=== PATIENT | male | born 1935 | race Hispanic/Latino ===

== ENCOUNTER 2021-04-01 11:13 | Inpatient (IN) | payer OTHER ==
[2021-04-01 11:45] LABS: Absolute Lymphocytes (CBC) 1.3 K/uL (0.7-4.9); Hematocrit 36.3 % (39.6-49.0); Lymphocytes % 15.7 % (15.3-44.8); RBC Red Blood Cell Count 4.09 M/uL (4.33-5.43)
[2021-04-01 11:46] LABS: Protime INR 1.01
[2021-04-01] MEDS ORDERED: NITROGLYCERIN 0.4 MG/TAB SL ONE (11:58)
--- NOTE | 2021-04-01 11:58 | RAD REPORT ---
EXAM DESCRIPTION: RAD - Chest Single View - 04/01/2021 11:41 am CLINICAL HISTORY: CHEST PAIN COMPARISON: Two view chest December 2012 TECHNIQUE: AP portable chest image was obtained 04/01/2021 11:41 am . FINDINGS: Lung volumes are low. No focal abnormality of the right lung field seen. Upper left lung f ield is clear. Retrocardiac left base is limited by shallow inspiration, under penetrated technique a nd overlying soft tissues. CABG surgical changes are present. Cardiomegaly is present accentuated by portable technique and sha llow inspiration. Upper lobe vasculature within normal limits. No pneumothorax or large pleural effus ion. No acute bony abnormality seen. No acute aortic findings suspected. IMPRESSION: Limited portable study without acute cardiopulmonary process. Cardiomegaly is present without other findings of failure. Retrocardiac left base is mostly obscured.
[2021-04-01] MEDS ORDERED: ASPIRIN 81 MG CHEWABLE TABLET ONE (12:00)
[2021-04-01 12:13] LABS: ALT/SGPT 25 U/L (12-78); AST/SGOT 14 U/L (15-37); Albumin 3.3 g/dL (3.4-5.0); Alkaline Phosphatase 157 U/L (45-117); BUN Blood Urea Nitrogen 34 mg/dL (7-18); Bicarbonate 23 mmol/L (21-32); Bilirubin Direct < 0.1 mg/dL (0-0.2); Bilirubin Total 0.4 mg/dL (0.2-1.0); Glucose Level 374 mg/dL (74-106); Magnesium 2.3 mg/dL (1.8-2.4); NT PRO-BNP 1110 pg/mL (<450); Protein, Total 7.8 g/dL (6.4-8.2); Sodium Level 136 mmol/L (136-145)
--- NOTE | 2021-04-01 14:45 | EDPHYS ---
Physician Documentation [facility] Name: Jacques Apodaca Age: 86 yrs Sex: Male : 1935 Arrival Date: 04/01/2021 Time: 11:19 Bed 30 Private MD: Carmen Perry C ED Physician Dom Meyers HPI: 04/01 11:55 This 86 yrs old Male presents to ER via Wheelchair with complaints of Chest cp Pain > 30 y/o. 11:55 The patient or guardian reports chest pain that is located primarily in the substernal cp area. 11:55 Onset: today, about 1000. The pain radiates to the left shoulder. Associated signs and cp symptoms: Pertinent negatives: abdominal pain, cough, dizziness, lower extremity pain, lower extremity swelling. The chest pain is described as a pressure. 11:55 Duration: The patient or guardian reports a single episode, that is still ongoing, but cp improving. Historical: - Allergies: 11:24 SHELLFISH; ss 11:24 Heparin; ss - Home Meds: 11:25 aspirin 81 mg Oral tab 81 mg daily [Active]; atorvastatin 40 mg oral tab 1 tab once ss daily [Active]; carvedilol 12.5 mg oral tab [Active]; gabapentin 100 mg oral cap [Active]; hydralazine Oral [Active]; Lantus U-100 Insulin 100 unit/mL Sub-Q soln [Active]; losartan 100 mg oral tab 1 tab once daily [Active]; nifedipine 90 mg Oral tr24 1 tab once daily [Active]; - Immunization history:: Adult Immunizations up to date. - Social history:: Smoking status: Patient denies any tobacco usage or history of. ROS: 12:00 Cardiovascular: Positive for chest pain. cp 12:00 Constitutional: Negative for body aches, chills, fever, poor PO intake. cp 12:00 Eyes: Negative for injury, pain, redness, and discharge. cp 12:00 ENT: Negative for drainage from ear(s), ear pain, sore throat, difficulty swallowing, difficulty handling secretions. 12:00 Respiratory: Negative for cough, shortness of breath, wheezing. 12:00 Abdomen/GI: Negative for abdominal pain, nausea, vomiting, and diarrhea. 12:00 Neuro: Negative for altered mental status, headache, syncope, weakness. 12:00 All other systems are negative. Exam: 11:35 ECG was reviewed by the Attending Physician. cp 12:05 Constitutional: The patient appears in no acute distress, alert, awake, cp non-diaphoretic, non-toxic, well developed, well nourished, obese. 12:05 Head/Face: Normocephalic, atraumatic. cp 12:05 Eyes: Periorbital structures: appear normal, Conjunctiva: normal, no exudate, no injection, Sclera: no appreciated abnormality, Lids and lashes: appear normal, bilaterally. 12:05 ENT: External ear(s): are unremarkable, Nose: is normal, Mouth: Lips: moist, Oral mucosa: moist, Posterior pharynx: Airway: no evidence of obstruction, patent. 12:05 Neck: ROM/movement: limited range of motion, is not appreciated, nuchal rigidity, is not appreciated. 12:05 Chest/axilla: Inspection: normal, Palpation: is normal, no crepitus, no tenderness. 12:05 Cardiovascular: Rate: normal, Rhythm: regular, Edema: is not appreciated, JVD: is not appreciated. 12:05 Respiratory: the patient does not display signs of respiratory distress, Respirations: normal, no use of accessory muscles, no retractions, labored breathing, is not present, Breath sounds: are clear throughout, no decreased breath sounds, no stridor, no wheezing. 12:05 Abdomen/GI: Inspection: abdomen appears normal, Bowel sounds: active, all quadrants, Palpation: abdomen is soft and non-tender, in all quadrants. 12:05 Back: pain, is absent, ROM is normal. 12:05 Neuro: Orientation: no acute changes, per family, Mentation: able to follow commands, slow to respond, Motor: moves all fours, strength is normal, Sensation: is normal. Vital Signs: 11:32 BP 129 / 64; Pulse 71; Resp 18; Temp 98.2(TE); Pulse Ox 100% ; Weight 99.79 kg; Height ww 5 ft. 7 in. (170.18 cm); Pain 0/10; 12:30 BP 134 / 63; Pulse 66; Resp 15; Pulse Ox 99% on R/A; ww 13:30 BP 129 / 61; Pulse 63; Resp 12; Pulse Ox 97% on R/A; ww 14:17 BP 137 / 70; Pulse 64; Resp 18; Pulse Ox 98% on R/A; fonseca 15:24 BP 147 / 63; Pulse 66; Resp 18; Pulse Ox 99% on R/A; ww 16:30 BP 138 / 66; Pulse 68; Resp 18; Pulse Ox 99% on R/A; ww 17:30 BP 148 / 68; Pulse 65; Resp 18; Pulse Ox 99% on R/A; ww 11:32 Body Mass Index 34.46 (99.79 kg, 170.18 cm) MDM: 11:44 Patient medically screened. cp 14:00 Physician consultation: Yoni Michael MD was contacted at 14:00, regarding consult, cp patient's condition, does not recommend use of Lovenox with patient's adverse effect of thrombocytopenia with heparin use. Give ASA and admit. 14:45 Data reviewed: vital signs, nurses notes, lab test result(s), EKG, radiologic studies, cp plain films. 14:45 The patient was given aspirin in the Emergency Department. Test interpretation: by ED cp physician or midlevel provider: ECG, plain radiologic studies. Counseling: I had a detailed discussion with the patient and/or guardian regarding: the historical points, exam findings, and any diagnostic results supporting the discharge/admit diagnosis, lab results, radiology results, the need for further work-up and treatment in the hospital. Physician consultation: Mendel Morataya MD was called at 14:40, was contacted at 14:40, regarding admission, to the telemetry unit. patient's condition. 04/01 11:24 Order name: Basic Metabolic Panel; Complete Time: 12:04/01 12:21 Interpretation: Normal except: GLUC 374; BUN 34; CRE 2.30; GFR 27. cp 04/01 11:24 Order name: CBC with Diff; Complete Time: 12:04/01 11:24 Order name: LFT's; Complete Time: 12:04/01 11:24 Order name: Magnesium; Complete Time: 12:04/01 11:24 Order name: NT PRO-BNP; Complete Time: 12:04/01 11:24 Order name: PT-INR; Complete Time: 12:04/01 11:24 Order name: Troponin HS; Complete Time: 12:04/01 11:32 Order name: COVID-19 SARS RT PCR (Document "Date of Onset" if Symptomatic); Complete ss Time: 12:49 04/01 15:10 Order name: Glucose, Ancillary Testing; Complete Time: 18:26 EDRI 04/01 17:01 Order name: Troponin HS 04/01 17:01 Order name: Troponin High Sensitivity; Complete Time: 18:26 EDRI 04/01 17:25 Order name: Basic Metabolic Panel [facility] 04/01 17:25 Order name: Basic Metabolic Panel [facility] 04/01 17:25 Order name: CBC with Automated Diff [facility] 04/01 11:24 Order name: XRAY Chest (1 view); Complete Time: 12:17 04/01 11:24 Order name: EKG; Complete Time: 11:25 04/01 11:24 Order name: Cardiac monitoring; Complete Time: 11:31 04/01 11:24 Order name: EKG - Nurse/Tech; Complete Time: 11:31 04/01 11:24 Order name: IV Saline Lock; Complete Time: 11:31 04/01 11:24 Order name: Labs collected and sent; Complete Time: 11:31 04/01 11:24 Order name: O2 Per Protocol; Complete Time: 11:32 04/01 13:08 Order name: Echo w/ Doppler cp 04/01 17:14 Order name: Diet Ada 1800 Nik; Complete Time: 17:15 mh5 04/01 17:25 Order name: CONS Physician Consult [facility] 04/01 17:25 Order name: Echo with Doppler EDRI 04/01 17:25 Order name: CBC with Automated Diff EDRI 04/01 17:29 Order name: Glucose, Ancillary Testing; Complete Time: 18:26 EDRI 04/01 11:24 Order name: O2 Sat Monitoring; Complete Time: 11:32 ss EC:35 Rate is 78 beats/min. Rhythm is irregular. QRS interval is normal. QT interval is cp normal. T waves are Inverted in lead aVR. Interpreted by me. Reviewed by me. Administered Medications: 11:59 Drug: Aspirin Chewable Tablet 324 mg Route: PO; ww 12:01 Drug: Nitroglycerin 0.4 mg Route: Sublingual; ww 15:03 Drug: Insulin Regular Human 10 units {Co-Signature: fonseca (Jeniffer Mcneill RN).} Route: ww IVP; Site: left antecubital; Disposition: 04/02 07:29 Co-signature as Attending Physician, Dom Meyers MD I agree with the assessment and kdr plan of care. Disposition Summary: 04/01/21 14:44 Hospitalization Ordered Hospitalization Status: Inpatient Admission cp Provider: Mendel Morataya cp Condition: Stable cp Problem: new cp Symptoms: have improved cp Bed/Room Type: Standard cp Location: Telemetry/MedSurg (observation)(04/01/21 20:10) Room Assignment: 215(04/01/21 20:10) mw Diagnosis - Subsequent non-ST elevation (NSTEMI) myocardial infarction cp - Unspecified atrial fibrillation cp - Unspecified kidney failure cp Forms: - Medication Reconciliation Form cp - SBAR form cp Signatures: Dispatcher [employer] EDMS Yin Hunter RN RN mw Rittger, Kevin, MD MD [facility] Kiersten Best RN RN ss Page, Corey, PA PA cp Ladi Mata RN RN ww Heather Au-Stager RN ha Corrections: (The following items were deleted from the chart) 04/01 19:10 14:44 Telemetry/MedSurg (Inpatient) cp ss 19:10 14:44 cp ss 20:10 19:10 [facility] ER HOLD ss mw 20:10 19:10 ERHOLD- ss mw 04/02 19:23 04/01 11:55 The pain does not radiate. cp cp
--- NOTE | 2021-04-01 14:45 | ER ---
Nurse's Notes [facility] Name: Jacques Apodaca Age: 86 yrs Sex: Male : 1935 Arrival Date: 04/01/2021 Time: 11:19 Bed 30 Private MD: Carmen Perry C Diagnosis: Subsequent non-ST elevation (NSTEMI) myocardial infarction;Unspecified atrial fibrillation;Unspecified kidney failure Presentation: 04/01 11:23 Chief complaint: Patient states: chest pain that began 1 hour ago. Coronavirus screen: ss Client denies travel out of the [place] in the last 14 days. Ebola Screen: Patient denies exposure to infectious person. Patient denies travel to an Ebola-affected area in the 21 days before illness onset. Initial Sepsis Screen: Does the patient meet any 2 criteria? Does the patient have a suspected source of infection? No. Patient's initial sepsis screen is negative. Onset of symptoms was April 01, 2021. 11:23 Method Of Arrival: Wheelchair 11:23 Acuity: ALISIA 2 11:32 Risk Assessment: Do you want to hurt yourself or someone else? Patient reports no ww desire to harm self or others. Triage Assessment: 11:32 General: Appears in no apparent distress. Behavior is calm, cooperative, appropriate ww for age. Pain: Complains of pain in left arm. EENT: No deficits noted. No signs and/or symptoms were reported regarding the EENT system. Neuro: Level of Consciousness is awake, alert, obeys commands, states he has dementia and can be forgetful at times. Oriented to person, place, time, situation, Speech is normal. Cardiovascular: Reports chest pain, since chest pain prior to arrival to ER but has resolved and now left shoulder is aching Capillary refill < 3 seconds Rhythm is regular. Respiratory: Airway is patent Respiratory effort is even, unlabored, Respiratory pattern is regular, symmetrical. GI: No deficits noted. Abdomen is round Parent/caregiver reports the patient having bleching. : No deficits noted. No signs and/or symptoms were reported regarding the genitourinary system. Derm: No deficits noted. No signs and/or symptoms reported regarding the dermatologic system. Skin is intact, is healthy with good turgor, Skin is pink, warm \T\ dry. Musculoskeletal: No deficits noted. No signs and/or symptoms reported regarding the musculoskeletal system. Historical: - Allergies: 11:24 SHELLFISH; ss 11:24 Heparin; ss - Home Meds: 11:25 aspirin 81 mg Oral tab 81 mg daily [Active]; atorvastatin 40 mg oral tab 1 tab once ss daily [Active]; carvedilol 12.5 mg oral tab [Active]; gabapentin 100 mg oral cap [Active]; hydralazine Oral [Active]; Lantus U-100 Insulin 100 unit/mL Sub-Q soln [Active]; losartan 100 mg oral tab 1 tab once daily [Active]; nifedipine 90 mg Oral tr24 1 tab once daily [Active]; - Immunization history:: Adult Immunizations up to date. - Social history:: Smoking status: Patient denies any tobacco usage or history of. Screenin:36 Abuse screen: Denies threats or abuse. Denies injuries from another. Nutritional ww screening: No deficits noted. Tuberculosis screening: No symptoms or risk factors identified. Fall Risk None identified. Assessment: 11:36 Reassessment: See triage note. Pain: Pain radiates to left arm Pain began 1 hour ago. ww 11:36 Cardiovascular: Rhythm is atrial fibrillation. ww 12:22 Reassessment: Patient appears in no apparent distress at this time. No changes from ww previously documented assessment. Patient and/or family updated on plan of care and expected duration. Pain level reassessed. Patient is alert, oriented x 3, equal unlabored respirations, skin warm/dry/pink. 13:30 Reassessment: Patient appears in no apparent distress at this time. No changes from ww previously documented assessment. Patient and/or family updated on plan of care and expected duration. Pain level reassessed. Patient is alert, oriented x 3, equal unlabored respirations, skin warm/dry/pink. 14:30 Reassessment: Patient appears in no apparent distress at this time. No changes from ww previously documented assessment. Patient and/or family updated on plan of care and expected duration. Pain level reassessed. Patient is alert, oriented x 3, equal unlabored respirations, skin warm/dry/pink. 15:08 Reassessment: Patient appears in no apparent distress at this time. No changes from ww previously documented assessment. Patient and/or family updated on plan of care and expected duration. Pain level reassessed. Patient is alert, oriented x 3, equal unlabored respirations, skin warm/dry/pink. 16:41 Reassessment: Patient appears in no apparent distress at this time. No changes from previously documented assessment. Patient and/or family updated on plan of care and expected duration. Pain level reassessed. Patient is alert, oriented x 3, equal unlabored respirations, skin warm/dry/pink. 17:30 Reassessment: Patient appears in no apparent distress at this time. No changes from ww previously documented assessment. Patient and/or family updated on plan of care and expected duration. Pain level reassessed. Patient is alert, oriented x 3, equal unlabored respirations, skin warm/dry/pink. Patient denies pain at this time. eating dinner, assisted to standing position to use urinal. 18:25 Reassessment: Patient appears in no apparent distress at this time. No changes from ww previously documented assessment. Patient and/or family updated on plan of care and expected duration. Pain level reassessed. Patient is alert, oriented x 3, equal unlabored respirations, skin warm/dry/pink. Patient denies pain at this time. 18:26 Reassessment: Spoke with Dr. Morataya regarding patients increasing troponin. Dr. Alec taylor paged and Kiersten, expander machine operator nurse sent a message to Dr. Michael regarding elevated troponin and new order of LHC in the AM and NPO after midnight .. Vital Signs: 11:32 BP 129 / 64; Pulse 71; Resp 18; Temp 98.2(TE); Pulse Ox 100% ; Weight 99.79 kg; Height ww 5 ft. 7 in. (170.18 cm); Pain 0/10; 12:30 BP 134 / 63; Pulse 66; Resp 15; Pulse Ox 99% on R/A; ww 13:30 BP 129 / 61; Pulse 63; Resp 12; Pulse Ox 97% on R/A; ww 14:17 BP 137 / 70; Pulse 64; Resp 18; Pulse Ox 98% on R/A; fonseca 15:24 BP 147 / 63; Pulse 66; Resp 18; Pulse Ox 99% on R/A; ww 16:30 BP 138 / 66; Pulse 68; Resp 18; Pulse Ox 99% on R/A; ww 17:30 BP 148 / 68; Pulse 65; Resp 18; Pulse Ox 99% on R/A; ww 11:32 Body Mass Index 34.46 (99.79 kg, 170.18 cm) ww ED Course: 11:19 Patient arrived in ED. ww 11:24 Triage completed. ss 11:32 Ladi Mata RN is Primary Nurse. ww 11:32 Arm band placed on right wrist. ww 11:36 Patient has correct armband on for positive identification. Placed in gown. Bed in low ww position. Call light in reach. Side rails up X 1. Adult w/ patient. groundwater monitoring technician on. Pulse ox on. NIBP on. Warm blanket given. 11:36 Initial lab(s) drawn, by me, sent to lab. EKG done, by ED staff. Inserted saline lock: ww 20 gauge in left antecubital area, using aseptic technique. Blood collected. 11:39 Mike Jauregui PA is PHCP. cp 11:39 Dom Meyers MD is Attending Physician. cp 11:41 XRAY Chest (1 view) In Process Unspecified. EDMS 13:32 Carmen Perry MD is Private Physician. cp 14:17 No provider procedures requiring assistance completed. fonseca 14:17 Patient maintains SpO2 saturation greater than 95% on room air. fonseca 14:43 Mendel Morataya MD is Hospitalizing Provider. cp 17:25 Troponin HS Sent. ww 19:11 Patient admitted, IV remains in place. ss Administered Medications: 11:59 Drug: Aspirin Chewable Tablet 324 mg Route: PO; ww 12:01 Drug: Nitroglycerin 0.4 mg Route: Sublingual; ww 15:03 Drug: Insulin Regular Human 10 units {Co-Signature: raymundo (Jeniffer Mcneill RN).} Route: ww IVP; Site: left antecubital; Outcome: 14:44 Decision to Hospitalize by Provider. cp 19:11 Admitted to ER Hold. Please see [facility] for further documentation. ss 19:11 Condition: stable 19:11 Instructed on the need for admit. 21:04 Patient left the ED. tw5 Signatures: Dispatcher [employer] Kiersten Maki RN RN Mike Jauregui PA PA cp Wood, Tiffany tw5 Ladi Mata RN RN ww Au-Stager, Heather, RN RN ha Heather Au-Stager RN ha
--- NOTE | 2021-04-01 14:59 | ECHO ---
HEIGHT: ft in WEIGHT: lb oz DATE OF STUDY: 04/01/[address]: Mike Jauregui PAC 2-DIMENSIONAL: YES M.MODE: YES DOPPLER: YES COLOR FLOW: YES TDS: YES PORTABLE: NO DEFINITY: NO BUBBLE STUDY: NO DIAGNOSIS: ATRIAL FIBRILLATION CARDIAC HISTORY: CATHERIZATION: SURGERY: YES PROSTHETIC VALVE: NO PACEMAKER: NO MEASUREMENTS (cm) DIASTOLIC (NORMALS) SYSTOLIC (NORMALS) IVSd 1.0 (0.6-1.2) LA Diam 3.9 (1.9-4.0) LVEF 64% LVIDd 3.7 (3.5-5.7) LVIDs 2.5 (2.0-3.5) %FS 34% LVPWd 1.1 (0.6-1.2) Ao Diam 2.7 (2.0-3.7) 2 DIMENSIONAL ASSESSMENT: RIGHT ATRIUM: NORMAL LEFT ATRIUM: NORMAL RIGHT VENTRICLE: NORMAL LEFT VENTRICLE: NORMAL TRICUSPID VALVE: MITRAL VALVE: PULMONIC VALVE: NORMAL AORTIC VALVE: NORMAL PERICARDIAL EFFUSION: NONE AORTIC ROOT: NORMAL LEFT VENTRICULAR WALL MOTION: NORMAL DOPPLER/COLOR FLOW: SEE BELOW. COMMENTS: NORMAL LEFT VENTRICULAR EJECTION FRACTION 60-65%. NORMAL WALL MOTION. MODERATE DIASTOLIC DYSFUNCTION. MILD MITRAL AND TRICUSPID REGURGITATION. TECHNOLOGIST: Margarita WAGGONER
[2021-04-01] MEDS ORDERED: INSULIN -REGULAR HUMAN 50 UNIT/0.5 ML ML ONE (15:01)
[2021-04-01] MEDS ORDERED: MORPHINE 4 MG/ML SYR IV PRN (17:22)
[2021-04-01] MEDS ORDERED: ACETAMINOPHEN 500 MG TAB PO PRN (17:22)
[2021-04-01] MEDS ORDERED: ALPRAZOLAM 0.25 MG TABLET PO PRN (17:22)
--- NOTE | 2021-04-01 19:42 | CON ---
Date of Consultation: 04/01/2021 Reason For Consultation: Chest pain. History Of Present Illness: This is an 86-year-old male, history of coronary artery disease status p ost cardiac bypass surgery in the past, dyslipidemia, hypertension, diabetes, presented with chest pa in short-lived, and completely resolved on its own. At the present time, he is pain free. Denies fonseca ving any shortness of breath, orthopnea, nausea, vomiting, diarrhea, or diaphoresis. Past Medical History: As outlined above in the HPI. Medications: Refer reconciliation sheet for detailed list. Allergies: REVIEWED. Family History: No premature coronary artery disease or cancer. Social History: Does not smoke or drink. Does not use any drugs. Review of Systems: All systems reviewed and they were negative except as mentioned in HPI. Physical Examination: Vital Signs: Reviewed. Head and Neck: Pupils are equal, reactive to light. Intact eye movements. No JVD. No cervical lym phadenopathy. Neck: Supple. Thyroid is not enlarged. Lungs: Clear to auscultation bilaterally. No rhonchi, rales, or crackles. No accessory muscle use. Heart: Regular rate and rhythm. No extra sounds. Abdomen: Soft, nontender. Bowel sounds positive. No organomegaly. No masses or hernia. No rigidi ty or rebound. Extremities: No edema, clubbing, or cyanosis. Intact pulses. Skin: No rash. Neurologic: Alert, awake, oriented x3. No acute focal deficits appreciated. Investigations: Hemoglobin is 11.9, sodium 136, BUN is 34, creatinine is 2.3. Troponin is 836. Assessment And Recommendations: 1.Elevated troponin and chest pain. Likely non-ST elevation myocardial infarction. This patient fonseca s an allergy to heparin. He had heparin-induced thrombocytopenia. Admit, on observation. He is jonna st pain-free now. Do 2 more sets of cardiac enzymes. Obtain echocardiogram and given that his creat inine is elevated, obtain a Lexiscan nuclear stress test on him in the next 24 hours to assess the ny ed for coronary angiogram. If he has advanced kidney disease, we will try to avoid the contrast use if possible. 2.Known coronary artery disease, status post CABG. Recommend echo and Lexiscan nuclear stress test. 3.EKG showing atrial fibrillation, rate is controlled. SR/MODL Voice ID: [id number] Report ID: [id number]
--- NOTE | 2021-04-01 19:46 | P.HP ---
Certification for Inpatient Patient admitted to: Inpatient With expected LOS: >2 Midnights Patient will require the following post-hospital care: None Practitioner: I am a practitioner with admitting privileges, knowledge of patient current condition, hospital course, and medical plan of care. Services: Services provided to patient in accordance with Admission requirements found in Title 42 Section 412.3 of the Code of Federal Regulations Patient History Date of Service: 04/01/21 Reason for admission: Chest pain rule out acute coronary syndrome History of Present Illness: Patient is an 86-year-old gentleman who came to the hospital with chest discomfort. Patient has a history of dementia. Patient's does most of his caretaking. Patient presented to the hospital because he was having pain that radiated to his left arm. Patient was lightheaded. Patient has a history of 5 vessel CABG. Patient with coronary artery disease. At this time, patient will be admitted to the hospital for further evaluation. Patient does have chronic kidney disease. Patient was started on Mucomyst. At this time, patient will be admitted for further evaluation. Allergies Heparin Analogues Allergy (Severe, Verified 09/14/12 23:54) Induced Thrombocytopenia shellfish derived Allergy (Severe, Verified 09/14/12 23:55) Anaphylaxis lettuce Allergy (Severe, Uncoded 09/14/12 23:54) Anaphylaxis pea's Allergy (Mild, Uncoded 09/14/12 23:55) Itchy throat Home Medications: Aspirin [Aspirin EC 81 MG] 81 mg PO DAILY 09/14/12 Furosemide [Lasix*] 20 mg PO DAILY 09/14/12 Glipizide [Glucotrol Xl] 5 mg PO BID 09/14/12 Losartan Potassium [Cozaar] 100 mg PO DAILY 09/14/12 Metoprolol Tartrate [Lopressor*] 50 mg PO BID 09/14/12 Niacin [Slo-Niacin] 1,000 mg PO BEDTIME 09/14/12 Simvastatin 80 mg PO BEDTIME 09/14/12 cloNIDine HCL [Catapres*] 0.1 mg PO BID 09/14/12 Insulin Aspart [Novolog Penfill] 8 unit SQ BREAKFAST 09/15/12 Insulin Aspart [Novolog Penfill] 10 unit SQ LUNCH 09/15/12 Insulin Aspart [Novolog Penfill] 12 unit SQ DAILY AT SUPPER 09/15/12 Insulin Glargine Human [Lantus*] 65 unit SQ DAILY 09/15/12 - Past Medical/Surgical History Diabetic: Yes -: Asthma -: Prostate ca (radiation) 2005 -: DM -: Heparin Induced Thrombocytopenia -: CABG Quad bypass 2004 - Family History Father Family History: Reviewed- Non-Contributory - Social History Alcohol use: No CD- Drugs: No Caffeine use: No Review of Systems 10-point ROS is otherwise unremarkable Physical Examination - Vital Signs Temperature: 98 F Blood Pressure: 140/80 Pulse: 80 Respirations: 18 Pulse Ox (%): 95 - Physical Exam General: Alert, In no apparent distress, Oriented x3 HEENT: Atraumatic, PERRLA, Mucous membr. moist/pink, EOMI, Sclerae nonicteric Neck: Supple, 2+ carotid pulse no bruit, No LAD, Without JVD or thyroid abnormality Respiratory: Clear to auscultation bilaterally, Normal air movement Cardiovascular: Regular rate/rhythm, Normal S1 S2, Systolic murmur Gastrointestinal: Normal bowel sounds, Soft and benign, Non-distended, No tenderness Musculoskeletal: No clubbing, No swelling, No tenderness Integumentary: No rashes Neurological: Normal gait, Normal speech, Normal strength at 5/5 x4 extr, Normal tone, Sensation intact, Cranial nerves 3-12 intact, Normal affect, Dementia Lymphatics: No axilla or inguinal lymphadenopathy - Studies Laboratory Data (last 24 hrs) 04/01/21 11:30: PT 11.6, INR 1.01 04/01/21 11:30: WBC 8.10, Hgb 11.9 L, Hct 36.3 L, Plt Count 240 04/01/21 11:30: Sodium 136, Potassium 4.0, BUN 34 H, Creatinine 2.30 H, Glucose 374 H, Magnesium 2.3, Total Bilirubin 0.4, AST 14 L, ALT 25, Alkaline Phosphatase 157 H Assessment & Plan - Problems (Diagnosis) (1) NSTEMI (non-ST elevated myocardial infarction) Current Visit: Yes Status: Acute (2) CAD (coronary artery disease) of artery bypass graft Current Visit: Yes Status: Acute (3) Dementia Current Visit: Yes Status: Acute (4) CKD (chronic kidney disease), stage III Current Visit: Yes Status: Acute - Plan -High-sensitivity troponin slightly elevated -Cardiology consultation pending -Echocardiogram and n.p.o. for possible cardiac catheterization in the morning -Repeat EKG -Work-up for other etiologies of cardiac chest pain if troponins remain negative -Lipid profile -Cyber Transport Systems Specialist regarding modifying risk for cardiac disease -We will start patient on IV fluids with bicarb for gentle hydration for renal protection -Continue with Mucomyst Discharge Plan: Home Plan to discharge in: Greater than 2 days - Advance Directives Does patient have a Living Will: Yes Does patient have a Durable POA for Healthcare: Yes - Code Status/Comfort Care Code Status Assessed: Yes Code Status: Full Code Critical Care: No Time Spent Managing PTS Care (In Minutes): 45
[2021-04-01] MEDS ORDERED: D5W 1,000 ML with NA BICARB 8.4% 50 MEQ IV SCH ×2 (20:00)
[2021-04-01] MEDS ORDERED: ACETYLCYST 20% 800 MG/4 ML VIAL PO SCH (20:00)
[2021-04-01] MEDS ORDERED: GLUCAGON 1 MG/VIAL IM PRN (20:02)
[2021-04-01] MEDS ORDERED: D50W 25 GM/50 ML SYRINGE IV PRN (20:02)
[2021-04-01] MEDS ORDERED: INSULIN 70/30 100 UNITS/ML SQ ONE (20:03)
[2021-04-01] MEDS ORDERED: METOPROLOL TAR 25 MG TAB PO SCH (21:00)
[2021-04-01] MEDS: cloNIDine HCL 0.1 MG TAB PO SCH (22:17)
[2021-04-01] MEDS: ATORVASTATIN 40 MG TAB PO SCH (22:18)
[2021-04-01] MEDS: METOPROLOL TAR 50 MG TAB PO SCH (22:19)
[2021-04-02 04:55] LABS: Absolute Lymphocytes (CBC) 1.8 K/uL (0.7-4.9); Hematocrit 36.9 % (39.6-49.0); Lymphocytes % 17.4 % (15.3-44.8); MPV 7.9 fL (7.6-11.3); RBC Red Blood Cell Count 4.11 M/uL (4.33-5.43)
[2021-04-02 05:11] LABS: Potassium 3.7 mmol/L (3.5-5.1)
[2021-04-02] MEDS: cloNIDine HCL 0.1 MG TAB PO SCH ×2 (08:50→20:51)
[2021-04-02] MEDS: ASPIRIN EC 81 MG TAB PO SCH (08:50)
[2021-04-02] MEDS: METOPROLOL TAR 50 MG TAB PO SCH ×2 (08:51→20:51)
[2021-04-02] MEDS ORDERED: HEPA 1000U/500MLS 0 UNIT/0 ML BAG IV ONE (13:31)
[2021-04-02] MEDS ORDERED: LIDOCAINE 1% 20 ML MDV ONE (13:32)
[2021-04-02] MEDS ORDERED: HEPA 1000U/500MLS 2,000 UNIT/1,000 ML BAG IV ONE (16:08)
[2021-04-02] MEDS ORDERED: MIDAZOLAM HCL 2 MG/2 ML INJ ONE (16:08)
[2021-04-02] MEDS ORDERED: VERAPAMIL HCL 10 MG/4 ML VIAL IV ONE (16:08)
[2021-04-02] MEDS ORDERED: FENTANYL CITR 100 MCG/2 ML ONE (16:08)
[2021-04-02] MEDS ORDERED: METHYLPREDNISOLONE 125 MG INJ ONE (16:09)
[2021-04-02] MEDS ORDERED: DIPHENHYDRAMINE 50 MG/ML VIAL ONE (16:09)
[2021-04-02] MEDS ORDERED: NA CHLORIDE 0.9% 0 ML ONE (16:10)
[2021-04-02] MEDS ORDERED: ATROPINE SULF 1 MG/10 ML SYR IV ONE (16:10)
[2021-04-02] MEDS ORDERED: NA CHLORIDE 0.9% 1,000 ML ONE ×2 (16:18→16:49)
[2021-04-02] MEDS ORDERED: HYDRALAZINE HCL 20 MG/ML VIAL ONE (17:30)
[2021-04-02] MEDS: ATORVASTATIN 40 MG TAB PO SCH (21:11)
[2021-04-03 00:24] VITALS: BMI 31.9
[2021-04-03] MEDS ORDERED: HYDRALAZINE HCL 20 MG/ML VIAL IV PRN (04:12)
--- NOTE | 2021-04-03 04:18 | OP ---
Date of Procedure: 04/02/2021 Surgeon: AMBAR KUMAR Procedure Performed: Selective coronary angiogram with bypass graft study. Indication: Non-ST elevation myocardial infarction. Access: Right femoral artery 6-Irish, closed with StarClose. Complications: None. Bleeding: Less than 10 mL. Total Amount Of Contrast Used: 40 cc. Description Of Procedure: After risks, benefits, and alternatives explained to the patient and the p atient's family including the possibility of worsening kidney function and needing dialysis, und erstood all those risks and agreed to proceed with the angiogram. We took the patient to the cardiac catheterization laboratory, prepped and draped in usual sterile fashion. Then, we accessed right fe moral artery using micropuncture kit, ultrasound guidance and fluoroscopy and placed 6-Irish Pinnacl e sheath and took a 6-Irish JL4 catheter into the aortic root, engaged left main, took standard view s and then took a 6-Irish JR4 catheter, engaged the RCA. Two venous grafts were occluded and we eng aged the SVG to OM that was patent and then engaged the HARRIS, took standard views and then removed th e catheter, removed the sheath and access was closed using StarClose with good hemostasis. Findings: 1.Left main is normal. 2.LAD; proximal diffuse 80%, then becomes 100% in the mid portion. Diagonal 1 has 80% stenosis diff use, then ramus has mid 95% stenosis. 3.Left circumflex has proximal 70% and then OM2 has 90% stenosis and OM1 is occluded. 4.RCA; heavily calcified, severely diseased from the proximal portion all the way to the distal, mul tiple areas of 90% stenosis with significant calcification and then PDA has diffuse 95% stenosis. Th en, there were collaterals from the LAD to the RCA. Grafts: 1.Patent HARRIS to LAD. 2.Patent SVG to OM. 3.Occluded SVG to RCA and there was another SVG occluded and not sure where the SVG was attached to and there were collaterals from the LAD to the PDA. Conclusion: Severe multivessel disease not amenable to intervention with patent HARRIS to LAD and SVG to OM. Recommendation: Aggressive medical management. Given the fact that patient has dementia and advance d kidney disease, at this point I recommend beta-mitesh, REJI inhibitor if possible, and Imdur and debra nage his fluid status and obtain echocardiogram. SR/MODL Voice ID: [id number] Report ID: [id number]
[2021-04-03 05:53] VITALS: O2SAT 61
[2021-04-03] MEDS: cloNIDine HCL 0.1 MG TAB PO SCH (08:37)
[2021-04-03] MEDS: METOPROLOL TAR 50 MG TAB PO SCH (08:38)
[2021-04-03] MEDS: ASPIRIN EC 81 MG TAB PO SCH (08:38)
--- NOTE | 2021-04-03 10:20 | P.PN ---
Subjective Date of Service: 04/02/21 Subjective: No new changes, No C/O voiced cardiac cath today Review of Systems 10-point ROS is otherwise unremarkable Physical Examination - Vital Signs Temperature: 97.9 F Blood Pressure: 165/72 Pulse: 73 Respirations: 17 Pulse Ox (%): 96 - Physical Exam General: Alert, In no apparent distress HEENT: Atraumatic, PERRLA, EOMI Neck: Supple, JVD not distended Respiratory: Clear to auscultation bilaterally, Normal air movement Cardiovascular: Regular rate/rhythm, Normal S1 S2 Gastrointestinal: Normal bowel sounds, No tenderness Musculoskeletal: No tenderness Integumentary: No rashes Neurological: Normal speech, Normal tone, Normal affect Lymphatics: No axilla or inguinal lymphadenopathy - Studies Medications List Reviewed: Yes Assessment & Plan - Problems (Diagnosis) (1) NSTEMI (non-ST elevated myocardial infarction) Current Visit: Yes Status: Acute (2) CAD (coronary artery disease) of artery bypass graft Current Visit: Yes Status: Acute (3) Dementia Current Visit: Yes Status: Acute (4) CKD (chronic kidney disease), stage III Current Visit: Yes Status: Acute - Plan -High-sensitivity troponin slightly elevated; cath today -Cardiology consultation appreciated -Echocardiogram pending and n.p.o. for possible cardiac catheterization this morning -Lipid profile -Undercoat Sprayer regarding modifying risk for cardiac disease -We will start patient on IV fluids with bicarb for gentle hydration for renal protection -Continue with Mucomyst - Advance Directives Does patient have a Living Will: Yes Does patient have a Durable POA for Healthcare: Yes - Code Status/Comfort Care Code Status: Full Code
[2021-04-03 16:38] VITALS: TEMP 97.9
--- NOTE | 2021-04-03 21:18 | PN ---
Date of Progress Note: 04/02/2021 Subjective: Seen by bedside. He was chest pain free. However, his troponin significantly or increa sed, suggestive of [id number] myocardial infarction. Patient is pleasantly confused. No sympt oms. Review of Systems: No chest pain, shortness of breath, orthopnea, or cough. No nausea, vomiting, diarrhea. No abdomina l pain. No history of urinary urgency. All other systems reviewed are negative. Physical Examination: Vital Signs: Reviewed. Head and Neck: Pupils are equal, reactive to light. Intact eye movements. No JVD. No cervical lym phadenopathy. Neck: Supple. Thyroid is not enlarged. Lungs: Clear to auscultation bilaterally. No rhonchi, rales, or crackles. No accessory muscle use. Heart: Regular rate and rhythm. No extra sounds. Abdomen: Soft, nontender. Bowel sounds are positive. No organomegaly. No rigidity or rebound. Extremities: No edema, clubbing, or cyanosis. Intact pulses. Skin: No rashes. Neurologic: Alert, awake, oriented x3. No acute focal deficits appreciated. Investigations: Hemoglobin is 12.1. Creatinine is 2.3. Troponin peaked at 12,990. Assessment And Recommendation: Fex-OO-carwroxny myocardial infarction, significant rise in troponin. Patient is known to have coronary artery disease, status post 4-vessel bypass in 2004. He has adva nced kidney failure with low GFR at 26. So at this point, I believe that we need to do coronary guzman ogram. I had a long discussion with the patient, patient's family, as well as the primary hospitalis t and the concern of contrast induced nephropathy. They understand the risk of going into a full kid noe failure requiring dialysis, but I believe at this point, the benefits outweigh the risk for anato mical evaluation of the coronary arteries. As such, we will set him up for coronary angiogram today. Meanwhile, continue aspirin. Patient has allergy to heparin. He has history of heparin-induced th rombocytopenia. We will not be using anticoagulation. SR/MODL Voice ID: [id number] Report ID: [id number]
--- NOTE | 2021-04-03 21:24 | PN ---
Date of Progress Note: 04/03/2021 Subjective: Seen by bedside, doing clinically well. No chest pain, status post coronary angiogram y esterday with severe multivessel disease. Two grafts were down and he has severe diffuse disease demond t is not amenable to intervention, but patient is completely chest pain free today. Review of Systems: No chest pain, shortness of breath, orthopnea, or cough. No nausea, vomiting, diarrhea. All other s ystems reviewed are negative. Physical Examination: Vital Signs: Reviewed. Head and Neck: Pupils are equal, reactive to light. Intact eye movements. No JVD. No cervical lym phadenopathy. Neck is supple. Thyroid is not enlarged. Lungs: Clear to auscultation bilaterally. No rhonchi, rales, or crackles. No accessory muscle use. Heart: Regular rate and rhythm. No extra sounds. Abdomen: Soft, nontender. Bowel sounds positive. No organomegaly. No masses or hernia. No rigidi ty or rebound. Extremities: No edema, clubbing, or cyanosis. Intact pulses. Skin: No rashes. Neurologic: Alert, awake, and oriented x3. No acute focal deficits appreciated. Investigation: Echo showed normal ejection fraction of 60% to 65%. Assessment And Recommendation: Qjs-JY-raqzjjhdv myocardial infarction, status post coronary angiogra m yesterday, has 2 grafts are down and 2 grafts are functional. The LAD graft is open without diseas e and the LAD is giving collaterals to the RCA. RCA is severely and diffusely diseased and the SVG t oo it is occluded. He has an open SVG to OM and another SVG that is occluded. At this point, given the fact that he has normal heart function and he is asymptomatic, I will elect to treat him medicall y. I think his coronary arteries are not amenable to intervention and his overall condition, poor qu ality, and dementia. He will limit the need to do invasive work on him. This RCA is very friable ve ssel, severely diseased and needs atherectomy from the ostium all the way to the distal portion, and I believe this will put him at extreme risk from this complex PCI and it could jeopardize his life. As such, I recommend the following: To start him on beta-mitesh and escalate it to max dose that bl ood pressure allows and heart rate allows. Start him on vasodilators like nitrates and put him on as pirin and Plavix and high-dose statin like Lipitor 80 mg and follow up as an outpatient and do conser vative medical management only, especially the fact that his ejection fraction is totally normal. Fr om my perspective, the patient can be released today. /MODL Voice ID: [id number] Report ID: [id number]
[2021-04-05 04:54] VITALS: BP 165/72
--- NOTE | 2021-04-05 04:56 | P.DS ---
Discharge Date: 04/03/21 Disposition: ROUTINE DISCHARGE Discharge Condition: GOOD Reason for Admission: Chest pain rule out acute coronary syndrome - Problems (1) NSTEMI (non-ST elevated myocardial infarction) Status: Acute (2) CAD (coronary artery disease) of artery bypass graft Status: Acute (3) Dementia Status: Acute (4) CKD (chronic kidney disease), stage III Status: Acute Brief History of Present Illness: Patient is an 86-year-old gentleman who came to the hospital with chest discomfort. Patient has a history of dementia. Patient's does most of his caretaking. Patient presented to the hospital because he was having pain that radiated to his left arm. Patient was lightheaded. Patient has a history of 5 vessel CABG. Patient with coronary artery disease. At this time, patient will be admitted to the hospital for further evaluation. Patient does have chronic kidney disease. Patient was started on Mucomyst. At this time, patient will be admitted for further evaluation. Hospital Course: Patient had a cardiac catheterization which revealed multi vessel disease. Patient on multiple occlusion. Cardiology did not deem it beneficial for any intervention at this time. The risks outweigh the benefit in with patient dementia decision was made for medical management. At this time, patient is stable for discharge home. Vital Signs/Physical Exam: Temp Pulse Resp BP Pulse Ox 97.9 F 73 17 165/72 H 96 04/05/21 04:54 04/05/21 04:54 04/05/21 04:54 04/05/21 04:54 04/05/21 04:54 General: Alert, In no apparent distress, Oriented x3 Laboratory Data at Discharge: WBC 10.60 K/uL (4.3-10.9) D 04/02/21 04:16 Hgb 12.1 g/dL (13.6-17.9) L 04/02/21 04:16 Hct 36.9 % (39.6-49.0) L 04/02/21 04:16 Plt Count 245 K/uL (152-406) 04/02/21 04:16 PT 11.6 SECONDS (9.5-12.5) 04/01/21 11:30 INR 1.01 04/01/21 11:30 Sodium 143 mmol/L (136-145) 04/02/21 04:16 Potassium 3.7 mmol/L (3.5-5.1) 04/02/21 04:16 BUN 38 mg/dL (7-18) H 04/02/21 04:16 Creatinine 2.36 mg/dL (0.55-1.3) H 04/02/21 04:16 Glucose 65 mg/dL (74-106) L 04/02/21 04:16 Magnesium 2.3 mg/dL (1.8-2.4) 04/01/21 11:30 Total Bilirubin 0.4 mg/dL (0.2-1.0) 04/01/21 11:30 AST 14 U/L (15-37) L 04/01/21 11:30 ALT 25 U/L (12-78) 04/01/21 11:30 Alkaline Phosphatase 157 U/L (45-117) H 04/01/21 11:30 Home Medications: Aspirin [Aspirin EC 81 MG] 81 mg PO DAILY 09/14/12 Glipizide [Glucotrol Xl] 5 mg PO BID 09/14/12 Losartan Potassium [Cozaar] 100 mg PO DAILY 09/14/12 Atorvastatin Calcium [Lipitor] 40 mg PO BEDTIME 04/02/21 Gabapentin [Neurontin*] 100 mg PO DAILY 04/02/21 Hydralazine [Apresoline*] 10 mg PO DAILY 04/02/21 Insulin Glargine,Hum.rec.anlog [Lantus] 25 unit SQ BID 04/02/21 Memantine HCl [Namenda*] 10 mg PO DAILY 04/02/21 Nifedipine [Nifedipine ER] 90 mg PO DAILY 04/02/21 Clopidogrel Bisulfate [Plavix] 75 mg PO DAILY #30 tablet 04/03/21 carvediloL [Carvedilol] 12.5 mg PO BID #60 tablet 04/03/21 New Medications: carvediloL [Carvedilol] 12.5 mg PO BID #60 tablet Clopidogrel Bisulfate [Plavix] 75 mg PO DAILY #30 tablet Physician Discharge Instructions: -DC IV and DC home -Follow-up with PCP in 1 to 2 weeks -Follow-up with Cardiology in 1 to 2 weeks -Please call Dr. Morataya at [phone] if any questions regarding hospital stay -Please call nursing station at [phone] if any nursing or medication questions -Return to the emergency room if symptoms worsen Diet: AHA Activity: Fall precautions Followup: Luis Perry MD [Primary Care Provider] - Yoni Michael MD [ACTIVE - CAN ADMIT] -
== END 2021-04-03 17:31 | disposition home or self-care (01) | DRG 281 ==
LOC: ER 11:13 → ERHOLD 17:22 → 2ND 21:07
PROVIDERS: ADMIT Hospitalist; ATTEND Hospitalist
PROC: B203YZZ Plain Radiography of Multiple Coronary Artery Bypass Grafts using Other Contrast (ICD-10-PCS; principal; 2021-04-02)
PROC: B201YZZ Plain Radiography of Multiple Coronary Arteries using Other Contrast (ICD-10-PCS; 2021-04-02)
DX: I21.4 Non-ST elevation (NSTEMI) myocardial infarction (principal); I25.810 Atherosclerosis of coronary artery bypass graft(s) without angina pectoris; I25.10 Atherosclerotic heart disease of native coronary artery without angina pectoris; F03.90 Unspecified dementia, unspecified severity, without behavioral disturbance, psychotic disturbance, mood disturbance, and anxiety; I25.82 Chronic total occlusion of coronary artery; I48.91 Unspecified atrial fibrillation; I12.9 Hypertensive chronic kidney disease with stage 1 through stage 4 chronic kidney disease, or unspecified chronic kidney disease; E11.22 Type 2 diabetes mellitus with diabetic chronic kidney disease; N18.30 Chronic kidney disease, stage 3 unspecified; Z85.46 Personal history of malignant neoplasm of prostate; Z95.1 Presence of aortocoronary bypass graft; Z91.013 Allergy to seafood; Z79.4 Long term (current) use of insulin; Z20.822 Contact with and (suspected) exposure to COVID-19
CPT/HCPCS: 36415; 71045; 80048; 80076; 82947; 83735; 83880; 84484; 85025; 85610; 93005; 93306; 93455; 96374; 99285; C1893; J0360; J0583; J1200; J1644; J1815; J2250; J2930; J3010; J7030; J7040; U0003

== ENCOUNTER 2021-10-12 14:37 | Inpatient (IN) | payer OTHER ==
[2021-10-12 15:13] LABS: SARS-CoV-2 Antigen Rapid Res Negative (Negative)
[2021-10-12] MEDS ORDERED: GLUCAGON 1 MG/VIAL IM PRN (19:32)
[2021-10-12] MEDS ORDERED: D50W 25 GM/50 ML SYRINGE IV PRN (19:32)
[2021-10-12] MEDS ORDERED: FUROSEMIDE 40 MG/4 ML VIAL IV ONE (19:40)
[2021-10-12 20:09] LABS: Absolute Lymphocytes (CBC) 1.2 K/uL (0.7-4.9); Hematocrit 28.8 % (39.6-49.0); Lymphocytes % 12.7 % (15.3-44.8); MCV 88.1 fL (80-100); MPV 7.9 fL (7.6-11.3); RBC Red Blood Cell Count 3.27 M/uL (4.33-5.43)
[2021-10-12 20:33] LABS: Albumin 3.1 g/dL (3.4-5.0); Bilirubin Total 0.2 mg/dL (0.2-1.0); Magnesium 2.2 mg/dL (1.8-2.4); Potassium 4.9 mmol/L (3.5-5.1); Protein, Total 6.8 g/dL (6.4-8.2)
[2021-10-12 20:45] LABS: Thyroid Stimulating Hormone 6.46 uIU/mL (0.360-3.740)
[2021-10-12] MEDS: INSULIN -REGULAR HUMAN 50 UNIT/0.5 ML ML SQ SCH (21:16)
[2021-10-13] MEDS: INSULIN -REGULAR HUMAN 50 UNIT/0.5 ML ML SQ SCH ×4 (07:30→21:00)
--- NOTE | 2021-10-13 07:49 | HP ---
Date of Admission: 10/12/2021 Chief Complaint: Swelling and shortness of breath. History Of Present Illness: Mr. Apodaca is a very pleasant 86-year-old male patient, came into office today with his and was complaining of increasing swelling of both upper and lower extremity associated with weight gain and shortness of breath with activity. Denies any paroxysmal nocturnal dyspnea or orthopnea. Denies any chest pain. After he was evaluated in the office, he was admitted to the hospital with congestive heart failure problem. Allergies: TO CARVEDILOL CAUSING LIP SWELLING, HEPARIN CAUSE THROMBOCYTOPENIA AND BLOOD CLOT. Medications: Nifedipine 90 mg daily, losartan 100 mg daily, Lantus insulin 28 units subcutaneous injection daily in morning, hydralazine 10 mg takes 2 tablets 2 times a day, glipizide 5 mg daily in the morning with breakfast, gabapentin 100 mg 3 times a day, donepezil 10 mg daily, carvedilol 12.5 mg 2 times a day, clopidogrel 75 mg daily, atorvastatin 40 mg daily, aspirin 81 mg daily. Review of Systems: Cardiovascular: As mentioned above. All other systems reviewed and negative. Past Medical History: Significant for senile dementia, type 2 diabetes mellitus, hypertension, hyperlipidemia, mixed coronary artery disease, chronic kidney disease, prostate cancer, which was treated with radiation therapy, anemia due to chronic kidney disease. Past Surgical History: Coronary artery bypass surgery in 2003 and surgery for left clavicle. Family History: Parents had diabetes. Brother, lung cancer, diabetes, hypertension. Sister with hypertension and diabetes. Social History: Prior history of smoking, not at present time. Use of alcohol negative. Physical Examination: VITAL SIGNS: His weight today at office was 219 pounds, height 66 inches, blood pressure 137/72, pulse 57, temperature 97.9, respiratory rate 15. GENERAL: Awake, alert, and oriented, not in distress. HEENT: Head atraumatic, normocephalic. Conjunctivae nonerythematous. Sclerae white. Mouth, no thrush or edema noted. Ears/Nose, no mass, lesion, discharge noted. Neck: Supple. No JVD, lymph nodes, bruit, thyromegaly noted. Lungs: Presence of rales noted in lower lung garza. Not using any accessory muscles of respiration. Heart: Normal heart sounds, no murmur or gallop. Abdomen: The patient has significant edema of posterolateral and lower anterior abdominal wall. Extremities: The patient has significant edema of both upper and both lower extremities. Skin: No rash, ulcer, cellulitis. Lymphatics: No lymph node enlargement in neck, supraclavicular, infraclavicular region. Neuro: No focal neurological deficit. Chest: Unremarkable. External Genitalia: Deferred. Rectal: Deferred. Laboratory Data: WBC 9.8, hemoglobin 9.7, platelets 179, sodium 142, potassium 4.9, chloride 111, bicarb 25, BUN 35, creatinine 2.08, glucose 123, liver function tests unremarkable, TSH 6.46. COVID-19 test negative. Impression: 1. Congestive heart failure. 2. Hypertension. 3. Mixed hyperlipidemia. 4. Coronary artery disease. 5. Senile dementia. 6. Diabetes mellitus. 7. Chronic kidney disease. 8. Prostate cancer. 9. Anemia due to chronic kidney disease. Plan: Admit patient to the hospital for further evaluation and management of this problem. The patient is appropriate for inpatient and is expected to spend 2 midnights in hospital. We will go ahead and manage diabetes with insulin sliding scale. Continue home medications per order for blood pressure and cholesterol management. We will go ahead and get a fasting lipid profile done tomorrow morning. We will start him on IV Lasix 40 mg 3 times a day. Monitor daily weight, intake output records. Tomorrow, we will get an echo with Doppler. Details and plan of treatment discussed with the patient and patient's who was with him. ADALBERTO/MODL Voice ID: [id number] [id number]
[2021-10-13] MEDS: GABAPENTIN 100 MG CAP PO SCH ×3 (09:47→22:30)
[2021-10-13] MEDS: NIFEDIPINE XL 30 MG TABLET PO SCH (09:47)
[2021-10-13] MEDS: ASPIRIN EC 81 MG TAB PO SCH (09:47)
[2021-10-13] MEDS: CLOPIDOGREL 75 MG TABLET PO SCH (09:47)
[2021-10-13] MEDS: LOSARTAN POTASSIUM 50 MG TABLET PO SCH (09:47)
[2021-10-13] MEDS: carvediloL 12.5 MG TAB PO SCH ×2 (09:47→17:02)
[2021-10-13] MEDS: HYDRALAZINE HCL 10 MG TABLET PO SCH ×2 (09:47→22:29)
[2021-10-13] MEDS: FUROSEMIDE 40 MG/4 ML VIAL IV SCH ×2 (09:48→17:02)
--- NOTE | 2021-10-13 09:58 | RAD REPORT ---
EXAM DESCRIPTION: RAD - Chest Pa And Lat (2 Views) - 10/13/2021 9:29 am CLINICAL HISTORY: CHF COMPARISON: Chest Single View dated 04/01/2021; CHEST PA AND LAT 2 VIEW dated 12/20/2012; CHEST SINGL E VIEW dated 09/14/2012; CHEST PA AND LAT 2 VIEW dated 07/07/2010 FINDINGS: Lines: None. Lungs: No evidence of edema or pneumonia. Pleural: No significant pleural effusions or pneumothorax. Cardiac: Cardiomegaly. Sternotomy. Atherosclerosis. Bones: No acute fractures. Other: IMPRESSION: No acute cardiopulmonary disease.
--- NOTE | 2021-10-13 16:59 | RAD REPORT ---
EXAM DESCRIPTION: CT - Abdomen Pelvis Wo Contrast - 10/13/2021 4:25 pm CLINICAL HISTORY: edema COMPARISON: No comparisons TECHNIQUE: Axial [address] imaging of the abdomen and pelvis was performed without IV contrast. No IV contrast was given because of allergy, abnormal renal function, patient refusal or physician re quest. Oral contrast was given. All CT scans are performed using dose optimization technique as appropriate and may include automated exposure control or mA/KV adjustment according to patient size. FINDINGS: Small bilateral pleural effusions are present, left greater than right. No cardiomegaly or pericardial effusion. The liver, spleen and pancreas show no suspicious findings on non-contrast imaging. Multi stone karen lithiasis is present without acute gallbladder or biliary tree finding. No hydronephrosis or suspicious renal mass. No obstructing or nonobstructing calculi. No significant adrenal finding. Isodense renal masses and pyelonephritis cannot be excluded in the absence of IV con trast. The urinary bladder is without significant finding. No dilated bowel loops or bowel wall thickening. No appendicitis findings. Patient has a prominent si gmoid diverticulosis pattern without diverticulitis. An acute colon process is not seen. No intraperi toneal or retroperitoneal free fluid. No free air or pneumatosis. No hernia, mass or bulky lymphadeno ike. Fluid retention is present in the subcutaneous fatty tissues of the abdomen and lower chest. No suspicious bony findings. Disc and bone degenerative changes are present. IMPRESSION: Small bilateral pleural effusions are present and there is fluid retention in the subcut aneous fatty tissues. No ascites is present. No congested or edematous appearance to the peritoneal or retroperitoneal fat. Cholelithiasis without acute gallbladder or biliary tree finding. Full assessment is limited is the absence of IV contrast.
[2021-10-13] MEDS: DONEPEZIL HCL 5 MG TAB PO SCH (22:29)
[2021-10-13] MEDS: ATORVASTATIN 40 MG TAB PO SCH (22:30)
[2021-10-14 03:17] LABS: Magnesium 1.6 mg/dL (1.8-2.4)
[2021-10-14] MEDS: INSULIN -REGULAR HUMAN 50 UNIT/0.5 ML ML SQ SCH ×4 (07:30→21:39)
--- NOTE | 2021-10-14 07:50 | EKG ---
Test Date: 2021-10-13 Test Time: 08:50:23 Engineering Mgr: LUNA MEASUREMENT RESULTS: Intervals: Rate: 65 AL: 170 QRSD: 92 QT: 420 QTc: 436 [place]: P: 47 AL: 170 QRS: 22 T: 22 INTERPRETIVE STATEMENTS: Normal sinus rhythm Cannot rule out Anterior infarct, age undetermined Abnormal ECG Compared to ECG 04/01/2021 11:27:50 Myocardial infarct finding now present Atrial fibrillation no longer present ST (T wave) deviation no longer present Electronically Signed On 10-14-21 07:49:25 CDT by Michel Das
[2021-10-14] MEDS ORDERED: MAGNESIUM SULFATE 1 gm IVPB 1 GM/100 ML BAG IV ONE (07:52)
[2021-10-14] MEDS: carvediloL 12.5 MG TAB PO SCH ×2 (08:31→16:56)
--- NOTE | 2021-10-14 09:15 | ECHO ---
HEIGHT: 5 ft 7.5 in WEIGHT: 207 lb 0 oz DATE OF STUDY: 10/13/[address]: Luis Perry MD 2-DIMENSIONAL: YES M.MODE: YES DOPPLER: YES COLOR FLOW: YES TDS: PORTABLE: YES DEFINITY: BUBBLE STUDY: DIAGNOSIS: CONGESTIVE HEART FAILURE CARDIAC HISTORY: CATHERIZATION: YES SURGERY: YES PROSTHETIC VALVE: NO PACEMAKER: NO MEASUREMENTS (cm) DIASTOLIC (NORMALS) SYSTOLIC (NORMALS) IVSd 1.1 (0.6-1.2) LA Diam 3.6 (1.9-4.0) LVEF 59% LVIDd 4.5 (3.5-5.7) LVIDs 3.1 (2.0-3.5) %FS 31% LVPWd 1.1 (0.6-1.2) Ao Diam 2.8 (2.0-3.7) 2 DIMENSIONAL ASSESSMENT: RIGHT ATRIUM: NORMAL LEFT ATRIUM: NORMAL RIGHT VENTRICLE: NORMAL LEFT VENTRICLE: NORMAL TRICUSPID VALVE: NORMAL MITRAL VALVE: NORMAL PULMONIC VALVE: NORMAL AORTIC VALVE: NORMAL PERICARDIAL EFFUSION: NONE AORTIC ROOT: NORMAL LEFT VENTRICULAR WALL MOTION: NORMAL EJECTION FRACTION. DECREASED LEFT VENTRICULAR COMPLIANCE. DOPPLER/COLOR FLOW: DECREASED LEFT VENTRICULAR COMPLIANCE. COMMENTS: DECREASED LEFT VENTRICULAR COMPLIANCE. DIASTOLIC DYSFUNCTION. NORMAL EJECTION FRACTION. NO EFFUSION. TECHNOLOGIST: ROBERTO BOUCHER
[2021-10-14] MEDS: LOSARTAN POTASSIUM 50 MG TABLET PO SCH (09:53)
[2021-10-14] MEDS: CLOPIDOGREL 75 MG TABLET PO SCH (09:53)
[2021-10-14] MEDS: FUROSEMIDE 40 MG/4 ML VIAL IV SCH ×2 (09:53→16:56)
[2021-10-14] MEDS: HYDRALAZINE HCL 10 MG TABLET PO SCH ×2 (09:53→21:38)
[2021-10-14] MEDS: GABAPENTIN 100 MG CAP PO SCH ×3 (09:53→21:38)
[2021-10-14] MEDS: NIFEDIPINE XL 30 MG TABLET PO SCH (09:54)
[2021-10-14] MEDS: ASPIRIN EC 81 MG TAB PO SCH (09:54)
--- NOTE | 2021-10-14 10:22 | PN ---
Date of Progress Note: 10/13/2021 Subjective: The patient was seen this morning for followup. No new complaints or problems reported by him. Lying in bed, not in distress. His son was present with him at bedside. Objective: HEENT: Unremarkable. Lungs: Bilateral good equal air entry with presence of some rales noted in lower lung field, [facility]. Heart: Sounds normal. Abdomen: Soft. Bowel sounds normal. No guarding, rigidity, tenderness, distention. The patient fonseca s edema of abdominal wall. Extremities: Edema of all the 4 extremity present, slightly better today than yesterday. Impression: 1.Congestive heart failure. 2.Chronic kidney disease. 3.Hypertension. 4.Diabetes mellitus. Plan: CAT scan of the abdomen done today without contrast, does not show any evidence of acute intra abdominal pathology, but it does show evidence of subcutaneous edema involving abdominal wall. Echoc ardiogram will be done today, we will follow up on that result. Meanwhile, continue current diuretic therapy. We will repeat blood work tomorrow, monitor intake and output. ADALBERTO/MODL Voice ID: [id number] Report ID: [id number]
[2021-10-14] MEDS: DONEPEZIL HCL 5 MG TAB PO SCH (21:38)
[2021-10-14] MEDS: ATORVASTATIN 40 MG TAB PO SCH (21:39)
--- NOTE | 2021-10-15 00:54 | PN ---
Date of Progress Note: 10/14/2021 Subjective: The patient was seen this morning for followup. He was lying in bed, not in distress. Denies any new complaints. Objective: VITAL SIGNS: Reviewed. HEENT: Examination unremarkable. LUNGS: Clear to auscultation. HEART: Not in any respiratory distress. Heart sounds normal. ABDOMEN: Soft, bowel sounds normal. No guarding, rigidity, tenderness, distention. The patient has edema of abdominal wall which is unchanged from yesterday. EXTREMITIES: Bilateral leg edema present, bilateral arm edema present, but overall it is better than before. Laboratory Data: Reviewed. Echocardiogram result pending. Impression: 1.Congestive heart failure. 2.Hypertension. 3.Diabetes mellitus. 4.Chronic kidney disease. Plan: Current medications, continue current IV Lasix. Followup on echocardiogram results. Monitor intake, output, daily weight. Continue current diabetes management, and I will see him tomorrow for followup. Possible discharge to go home in next 1 or 2 days depending on his condition. ADALBERTO/MODL Voice ID: [id number] Report ID: [id number]
[2021-10-15 03:38] VITALS: O2SAT 93
[2021-10-15 06:11] LABS: Absolute Lymphocytes (CBC) 1.2 K/uL (0.7-4.9); Hematocrit 28.5 % (39.6-49.0); Lymphocytes % 15.5 % (15.3-44.8); MCV 87.9 fL (80-100); MPV 7.9 fL (7.6-11.3); RBC Red Blood Cell Count 3.24 M/uL (4.33-5.43)
[2021-10-15 06:30] LABS: Potassium 3.6 mmol/L (3.5-5.1)
[2021-10-15] MEDS: INSULIN -REGULAR HUMAN 50 UNIT/0.5 ML ML SQ SCH ×4 (07:30→20:31)
[2021-10-15] MEDS ORDERED: POTASSIUM CL SA 10 MEQ TAB PO ONE (09:00)
[2021-10-15] MEDS: CLOPIDOGREL 75 MG TABLET PO SCH (09:23)
[2021-10-15] MEDS: GABAPENTIN 100 MG CAP PO SCH ×3 (09:23→20:31)
[2021-10-15] MEDS: ASPIRIN EC 81 MG TAB PO SCH (09:23)
[2021-10-15] MEDS: FUROSEMIDE 40 MG/4 ML VIAL IV SCH ×2 (09:23→17:30)
[2021-10-15] MEDS: carvediloL 12.5 MG TAB PO SCH ×2 (09:24→17:29)
[2021-10-15] MEDS: HYDRALAZINE HCL 10 MG TABLET PO SCH ×2 (09:24→20:31)
[2021-10-15] MEDS: LOSARTAN POTASSIUM 50 MG TABLET PO SCH (09:24)
[2021-10-15] MEDS: NIFEDIPINE XL 30 MG TABLET PO SCH (09:24)
--- NOTE | 2021-10-15 16:51 | PN ---
Date of Progress Note: 10/15/2021 Subjective: The patient was seen this morning for followup. He was lying in bed, not in distress. His was present with him at bedside. Denies any paroxysmal nocturnal dyspnea or orthopnea. Leg swelling is improving very well. Objective: Vital Signs: Reviewed. HEENT: Examination unremarkable. Lungs: Clear to auscultation. Heart: Sounds normal. Abdomen: Soft. Bowel sounds normal. No guarding, rigidity, tenderness, distention. Presence of ed allison of abdominal wall involving lower and lateral abdominal wall, but it is better today than last 2- 3 days. Extremities: The patient also has edema of both upper lateral thigh, especially which is better. Mchugh s trace edema of both lower extremities, overall that is better compared to admission. Laboratory Data: White count 7.7, hemoglobin 9.7, platelets 171. Sodium 140, potassium 3.6, chlorid e 105, bicarb 31, BUN 30, creatinine 1.87, glucose 115, magnesium 2. Impression: 1.Congestive heart failure, chronic, diastolic, with acute exacerbation. 2.Hypertension. 3.Chronic kidney disease stage 3B. 4.Diabetes mellitus. Plan: We will continue current medication. Continue current IV diuretic therapy which is furosemide 40 mg 2 times a day. Ambulation was encouraged. The patient has lot of dry skin involving both low er extremities. The patient and were informed to start using some moisturizing skin lotion 2 ti mes a day. The patient's weight is down to 207 pounds this morning. He is diuresing very well and I will see him tomorrow for followup. Plan is to discharge him to go home tomorrow. Echocardiogram findings discussed with the patient and the patient's . ADALBERTO/MODL Voice ID: [id number] Report ID: [id number]
[2021-10-15] MEDS: DONEPEZIL HCL 5 MG TAB PO SCH (20:31)
[2021-10-15] MEDS: ATORVASTATIN 40 MG TAB PO SCH (20:31)
[2021-10-16 05:43] VITALS: BMI 28.9
[2021-10-16] MEDS: INSULIN -REGULAR HUMAN 50 UNIT/0.5 ML ML SQ SCH (07:30)
[2021-10-16] MEDS: carvediloL 12.5 MG TAB PO SCH (08:41)
[2021-10-16] MEDS: ASPIRIN EC 81 MG TAB PO SCH (08:43)
[2021-10-16] MEDS: GABAPENTIN 100 MG CAP PO SCH (08:43)
[2021-10-16] MEDS: CLOPIDOGREL 75 MG TABLET PO SCH (08:43)
[2021-10-16] MEDS: HYDRALAZINE HCL 10 MG TABLET PO SCH (09:47)
[2021-10-16] MEDS: NIFEDIPINE XL 30 MG TABLET PO SCH (09:48)
[2021-10-16] MEDS: FUROSEMIDE 40 MG/4 ML VIAL IV SCH (09:49)
[2021-10-16] MEDS: LOSARTAN POTASSIUM 50 MG TABLET PO SCH (09:49)
[2021-10-16 13:09] VITALS: BP 165/76; TEMP 97.4
--- NOTE | 2021-10-17 11:15 | DS ---
Date of Discharge: 10/16/2021 Disposition: Discharged to go home. Physical Examination: HEENT: Unremarkable. Lungs: Clear to auscultation. Heart: Sounds normal. Abdomen: Soft. Bowel sounds normal. No guarding, rigidity, tenderness, or distention. Swelling fr om lateral and lower abdominal wall has significantly improved. Extremities: No leg edema. Laboratory Data: Upon admission; white count 9.8, hemoglobin 9.7, platelets 179. Yesterday; white c ount 7.7, hemoglobin 9.7, platelets 171. Yesterday; sodium 140, potassium 3.6, chloride 105, bicarb 31, BUN 30, creatinine 1.87, glucose 115, magnesium 2, on 10/14/2021 magnesium was 1.6, which was cor rected. BUN 35, creatinine 2.08, glucose 123, sodium 142, potassium 4.9, chloride 111, bicarb 25. L iver function tests unremarkable. TSH 6.46. Hospital weights that were done on a daily weight, I am not sure about the accuracy of it as upon admission, it today was 218 and on 10/13/2021 it was 200 a nd another recorded weight on the same day was 212. On 10/14, it was 207; on 10/15, 187; 10/16, 187. Discharge Medications And Instructions: 1.Continue all prior home medications. 2.Take following new medication; magnesium oxide 400 mg daily, furosemide 40 mg 2 times a day. 3.Follow up at office on , 10/21/2021, call office for appointment. 4.Echocardiogram showed ejection fraction 59% with diastolic dysfunction. No pericardial effusion. Hospital Course: This is an 86-year-old very pleasant male patient, admitted to the hospital after h e came into office with complaints of swelling and shortness of breath. Please see dictated H and P for more information. The patient was admitted to the hospital with congestive heart failure problem and he was started on IV Lasix 40 mg 2 times a day. We monitored his daily weight, intake, output. He tolerated diuretic therapy very well. His condition improved, started ambulating well without an y problem. His swelling has improved and weight has gone down. The patient was discharged to [facility] in stable condition with above-mentioned medications and instructions. Final Diagnoses: 1.Congestive heart failure, chronic, diastolic, with acute exacerbation. 2.Hypertension. 3.Mixed hyperlipidemia. 4.Coronary artery disease. 5.Diabetes mellitus with chronic kidney disease. 6.Prostate cancer. 7.Anemia due to chronic kidney disease. 8.Hypomagnesemia. 9.Chronic kidney disease, stage 3B. ADALBERTO/MODL Voice ID: [id number] Report ID: [id number]
== END 2021-10-16 13:25 | disposition home or self-care (01) | DRG 291 ==
LOC: LAB 14:37 → 2ND 18:53
PROVIDERS: ADMIT Internal Medicine; ATTEND Internal Medicine
DX: I13.0 Hypertensive heart and chronic kidney disease with heart failure and stage 1 through stage 4 chronic kidney disease, or unspecified chronic kidney disease (principal); I50.33 Acute on chronic diastolic (congestive) heart failure; F03.90 Unspecified dementia, unspecified severity, without behavioral disturbance, psychotic disturbance, mood disturbance, and anxiety; I25.10 Atherosclerotic heart disease of native coronary artery without angina pectoris; E78.2 Mixed hyperlipidemia; E11.22 Type 2 diabetes mellitus with diabetic chronic kidney disease; N18.32 Chronic kidney disease, stage 3b; D63.1 Anemia in chronic kidney disease; E83.42 Hypomagnesemia; Z85.46 Personal history of malignant neoplasm of prostate; Z79.82 Long term (current) use of aspirin; Z95.1 Presence of aortocoronary bypass graft; Z20.822 Contact with and (suspected) exposure to COVID-19
CPT/HCPCS: 36415; 71046; 74176; 80048; 80053; 80061; 82947; 83735; 84439; 84443; 85025; 87811; 93005; 93306; 97161; 97530; J1815; J1940; J3475

== ENCOUNTER 2022-03-04 10:28 | Emergency (ER) | payer OTHER ==
[2022-03-04 11:18] LABS: Absolute Lymphocytes (CBC) 0.8 K/uL (0.7-4.9); Hematocrit 30.4 % (39.6-49.0); Lymphocytes % 8.6 % (15.3-44.8); MCV 89.9 fL (80-100); MPV 7.8 fL (7.6-11.3); RBC Red Blood Cell Count 3.38 M/uL (4.33-5.43)
[2022-03-04 11:21] LABS: Protime INR 1.05
[2022-03-04 11:35] LABS: Albumin 3.5 g/dL (3.4-5.0); Bilirubin Direct 0.1 mg/dL (0-0.2); Bilirubin Total 0.3 mg/dL (0.2-1.0); Magnesium 3.4 mg/dL (1.6-2.4); Potassium 4.5 mmol/L (3.5-5.1); Protein, Total 7.5 g/dL (6.4-8.2); Troponin High Sensitivity 17.8 pg/mL (<58.9)
--- NOTE | 2022-03-04 12:00 | RAD REPORT ---
EXAM DESCRIPTION: RAD - Chest Single View - 03/04/2022 11:50 am CLINICAL HISTORY: COUGH COMPARISON: Two view chest 10/13/2021 TECHNIQUE: AP portable chest image was obtained 03/04/2022 11:50 am . FINDINGS: Lung volumes are low. No peripheral mass or consolidation. No significant failure or volum e overload findings. Heart size is similar to comparison. Central vasculature within normal limits. N o hilar mass or lymphadenopathy seen. Sternotomy wires are in place. CABG surgical changes are seen. Trachea is in the midline. No measurab le pleural effusion and no pneumothorax. No acute bony abnormality seen. No acute aortic findings jesús pected. IMPRESSION: Limited portable study without acute cardiopulmonary finding.
[2022-03-04 12:20] LABS: SARS-COV-2 RT PCR NEGATIVE (NEGATIVE)
--- NOTE | 2022-03-04 13:03 | EDPHYS ---
Physician Documentation [facility] Name: Jacques Apodaca Age: 86 yrs Sex: Male : 1935 Arrival Date: 03/04/2022 Time: 10:32 Bed 6 Private MD: ED Physician Noble Ray HPI: 03/04 11:34 This 86 yrs old Male presents to ER via EMS with complaints of Wheezing. rn 11:34 The patient has shortness of breath at rest. Onset: The symptoms/episode began/occurred rn this morning. Duration: The symptoms are continuous. The patient's shortness of breath is aggravated by nothing, is alleviated by nothing. Associated signs and symptoms: Pertinent positives: non-productive cough, Pertinent negatives: fever, hemoptysis. Severity of symptoms: At their worst the symptoms were moderate in the emergency department the symptoms are unchanged. It is unknown whether or not the patient has had similar symptoms in the past. The patient has not recently seen a physician. Family and neighbor report patient fell today, helped him up and ambulatory. Pt denies pain or injury from fall. Family called 911 because noted wheezing and seemed to have difficulty breathing. NO fever. + cough. Is supposed to start dialysis soon. . Historical: - Allergies: 10:47 Heparin; ph 10:47 SHELLFISH; ph - Immunization history:: Adult Immunizations unknown. - Social history:: Smoking status: Patient/guardian denies using tobacco, but has a distant history of tobacco abuse. - Family history:: not pertinent. - Hospitalizations: : No recent hospitalization is reported. ROS: 11:34 Constitutional: Negative for fever, chills, and weight loss, Eyes: Negative for injury, rn pain, redness, and discharge, Neck: Negative for injury, pain, and swelling, Cardiovascular: Negative for chest pain, palpitations, and edema, Respiratory: + sob and wheezing Abdomen/GI: Negative for abdominal pain, nausea, vomiting, diarrhea, and constipation, Back: Negative for injury and pain, MS/Extremity: Negative for injury and deformity, Skin: Negative for injury, rash, and discoloration, Neuro: Negative for headache, weakness, numbness, tingling, and seizure. Exam: 11:34 Constitutional: This is a well developed, well nourished patient who is awake, alert, rn mild tachypnea Head/Face: Normocephalic, atraumatic. ENT: No stridor Cardiovascular: Regular rate and rhythm. No pulse deficits. Respiratory: + mild tachypnea, no retractions, coarse bilateral breath sounds Abdomen/GI: Soft, non-tender Skin: Warm, dry MS/ Extremity: Pulses equal, no cyanosis Neuro: Awake and alert, GCS 15 11:50 ECG was reviewed by the Attending Physician. rn Vital Signs: 10:43 BP 149 / 81; Pulse 60; Resp 24; Temp 97.0; Pulse Ox 98% on R/A; Weight 92.53 kg; Height ph 5 ft. 7 in. (170.18 cm); 11:53 BP 152 / 75; Pulse 57; Resp 20; Pulse Ox 95% on R/A; ph 12:59 BP 141 / 78; Pulse 67; Resp 18; Temp 97.5; Pulse Ox 98% on R/A; ph 13:40 BP 154 / 80; Pulse 75; Resp 18; Pulse Ox 95% on R/A; db 10:43 Body Mass Index 31.95 (92.53 kg, 170.18 cm) ph MDM: 10:33 Patient medically screened. rn 12:58 Differential diagnosis: Bronchitis CHF exacerbation, Chronic Obstructive Pulmonary rn Disease Myocardial Infarction pneumonia, Pneumothorax pulmonary edema, reactive airway disease. Data reviewed: vital signs, nurses notes, lab test result(s). 12:59 Counseling: I had a detailed discussion with the patient and/or guardian regarding: the rn historical points, exam findings, and any diagnostic results supporting the discharge/admit diagnosis, lab results, radiology results, the need for outpatient follow up, to return to the emergency department if symptoms worsen or persist or if there are any questions or concerns that arise at home. Response to treatment: the patient's symptoms have mildly improved after treatment, and as a result, I will discharge patient. Special discussion: I discussed with the patient/guardian in detail that at this point there is no indication for admission to the hospital. It is understood, however, that if the symptoms persist or worsen the patient needs to return immediately for re-evaluation. ED course: Pt without acute findings on CXR, no volume overload on CXR. No oxygen requirement. Breathing better. Normal WBC. Afebrile. Covid and flu neg. REsting comfortably. Will dc home with abx and return precautions.. 12/30 10:46 Order name: COVID-19/FLU A+B; Complete Time: 12:28 rn 03/04 10:46 Order name: BMP; Complete Time: 12:04 rn 03/04 10:46 Order name: Blood Culture Adult (2) rn 03/04 10:46 Order name: CBC with Diff; Complete Time: 12:04 rn 03/04 10:46 Order name: Hepatic Function; Complete Time: 12:04 rn 03/04 10:46 Order name: Magnesium; Complete Time: 12:04 rn 03/04 10:46 Order name: XRAY Chest (1 view); Complete Time: 12:04 rn 03/04 10:46 Order name: NT PRO-BNP; Complete Time: 12:04 rn 03/04 10:46 Order name: PT-INR; Complete Time: 12:04 rn 03/04 10:46 Order name: Ptt, Activated; Complete Time: 12:04 rn 03/04 10:46 Order name: Troponin HS; Complete Time: 12:04 rn 03/04 10:46 Order name: EKG; Complete Time: 10:46 rn 03/04 10:55 Order name: Glucose, Ancillary Testing; Complete Time: 12:04 EDMS 03/04 10:46 Order name: Cardiac monitoring; Complete Time: 10:51 rn 03/04 10:46 Order name: EKG - Nurse/Tech; Complete Time: 11:42 rn 03/04 10:46 Order name: IV Saline Lock; Complete Time: 11:42 rn 03/04 10:46 Order name: Labs collected and sent; Complete Time: 11:42 rn 03/04 10:46 Order name: O2 Per Protocol; Complete Time: 10:52 rn 03/04 10:46 Order name: O2 Sat Monitoring; Complete Time: 10:52 rn EC:50 Rate is 58 beats/min. Rhythm is regular. QRS [place] is Normal. NC interval is normal. QRS rn interval is normal. QT interval is normal. No Q waves. T waves are Normal. No ST changes noted. Clinical impression: Sinus bradycardia. Interpreted by me. Reviewed by me. Administered Medications: 13:10 Drug: Rocephin (cefTRIAXone) 1 grams Route: IM; Site: Other; ph 13:40 Follow up: Response: No adverse reaction db Disposition Summary: 03/04/22 13:03 Discharge Ordered Location: Home rn Problem: new rn Symptoms: have improved rn Condition: Stable rn Diagnosis - Acute upper respiratory infection, unspecified rn Followup: rn - With: Private Physician - When: As needed - Reason: Recheck today's complaints, Re-evaluation by your physician Discharge Instructions: - Discharge Summary Sheet rn - Upper Respiratory Infection, Adult rn Forms: - Medication Reconciliation Form rn - Thank You Letter rn - Antibiotic axle turner - Prescription Opioid Use rn Prescriptions: - Augmentin 875-125 mg Oral Tablet - take 1 tablet by ORAL route every 12 hours for 10 days; 20 tablet; Refills: 0, rn Product Selection Permitted Signatures: Dispatcher [employer] EDNoble Sandra MD MD rn Hall, Patricia, RN RN Esha Rodriguez RN db
--- NOTE | 2022-03-04 13:03 | ER ---
Nurse's Notes [facility] Name: Jacques Apodaca Age: 86 yrs Sex: Male : 1935 Arrival Date: 03/04/2022 Time: 10:32 Bed 6 Private MD: Diagnosis: Acute upper respiratory infection, unspecified Presentation: 03/04 10:43 Chief complaint: EMS states: Pt from home, had unwitnessed fall, found on floor by ph and assisted into chair by neighbor, when EMS arrived by noted to have inspiratory and expiratory wheezes, room air Spo2 99%, A\T\A tx given, no hx of COPD or asthma, does have cardiac hx and takes lasix, d/t have a cardiac sx but needs dialysis first, is not currently on dialysis, hx of dementia, oriented to person, place, and situation upon arrival to ED, denies pain or injury. Coronavirus screen: Vaccine status: Patient reports receiving the 2nd dose of the covid vaccine. Ebola Screen: No symptoms or risks identified at this time. Initial Sepsis Screen: Does the patient meet any 2 criteria? RR > 20 per min. No. Patient's initial sepsis screen is negative. Does the patient have a suspected source of infection? No. Patient's initial sepsis screen is negative. Risk Assessment: Do you want to hurt yourself or someone else? Patient reports no desire to harm self or others. Onset of symptoms was March 04, 2022. 10:43 Method Of Arrival: EMS: [facility] 10:43 Acuity: ALISIA 3 ph Triage Assessment: 10:48 General: Appears in no apparent distress. Behavior is calm, cooperative, appropriate ph for age, Denies fever. Pain: Denies pain. Neuro: Level of Consciousness is awake, alert, obeys commands, Oriented to person, place, situation. Cardiovascular: Capillary refill < 3 seconds in bilateral fingers Patient's skin is warm and dry. Edema is 2+ to right wrist, right hand, left wrist and left hand. Respiratory: Reports shortness of breath Airway is patent Respiratory effort is even, unlabored, Respiratory pattern is regular, symmetrical, Onset: The symptoms/episode began/occurred 2 days ago. Respiratory: Breath sounds with wheezes bilaterally. GI: No signs and/or symptoms were reported involving the gastrointestinal system. Derm: Skin is fragile, is thin, Skin is pink, warm \T\ dry. 13:40 Respiratory: the patient has mild shortness of breath. db Historical: - Allergies: 10:47 Heparin; ph 10:47 SHELLFISH; ph - Immunization history:: Adult Immunizations unknown. - Social history:: Smoking status: Patient/guardian denies using tobacco, but has a distant history of tobacco abuse. - Family history:: not pertinent. - Hospitalizations: : No recent hospitalization is reported. Screenin:50 [facility] ED Fall Risk Assessment (Adult) History of falling in the last 3 months, ph including since admission Yes- physiologic fall (2 pts) Confusion or Disorientation Yes (5 pts) Intoxicated or Sedated No (0 pts) Impaired Gait Yes (1 pt) Mobility Assist Device Used Yes (1 pt) Altered Elimination No (0 pt) Score/Fall Risk Level 3 or more points = High Risk Oriented to surroundings, Maintained a safe environment, Provided non-skid footwear, Hourly rounding (assess needs \T\ fall precautionary measures) done, Remained with patient while ambulating, Utilized family, sitter, or virtual manager oncology as indicated. Abuse screen: Denies injuries from another. Has been threatened or abused. Nutritional screening: No deficits noted. Tuberculosis screening: No symptoms or risk factors identified. Assessment: 10:50 General: SEE TRIAGE ASSESSMENT. ph 11:55 Reassessment: Patient appears in no apparent distress at this time. Patient and/or ph family updated on plan of care and expected duration. Pain level reassessed. Pt awake and alert, oriented to person and place, family at bedside. 12:00 Neuro: No deficits noted. Level of Consciousness is awake, alert, obeys commands, db Oriented to person, place, time, situation, Appropriate for age. Cardiovascular: No deficits noted. Rhythm is regular. Respiratory: Airway is patent Respiratory effort is even, unlabored, Respiratory pattern is regular, Breath sounds with wheezes bilaterally. GI: No deficits noted. No signs and/or symptoms were reported involving the gastrointestinal system. : No deficits noted. No signs and/or symptoms were reported regarding the genitourinary system. EENT: No deficits noted. No signs and/or symptoms were reported regarding the EENT system. Derm: No deficits noted. No signs and/or symptoms reported regarding the dermatologic system. 13:40 Reassessment: Patient appears in no apparent distress at this time. Patient and/or db family updated on plan of care and expected duration. Pain level reassessed. Patient is alert, oriented x 3, equal unlabored respirations, skin warm/dry/pink. Patient states feeling better. Patient states symptoms have improved. Vital Signs: 10:43 BP 149 / 81; Pulse 60; Resp 24; Temp 97.0; Pulse Ox 98% on R/A; Weight 92.53 kg; Height ph 5 ft. 7 in. (170.18 cm); 11:53 BP 152 / 75; Pulse 57; Resp 20; Pulse Ox 95% on R/A; ph 12:59 BP 141 / 78; Pulse 67; Resp 18; Temp 97.5; Pulse Ox 98% on R/A; ph 13:40 BP 154 / 80; Pulse 75; Resp 18; Pulse Ox 95% on R/A; db 10:43 Body Mass Index 31.95 (92.53 kg, 170.18 cm) ph Vitals: 11:53 Cardiac Rhythm Assessment Sinus hina. ph ED Course: 10:32 Patient arrived in ED. eb 10:33 Noble Ray MD is Attending Physician. rn 10:42 Sue Fraire RN is Primary Nurse. ph 10:47 Triage completed. ph 10:48 Arm band placed on Patient placed in an exam room, on a stretcher, on plastering contractor, ph on pulse oximetry. 10:51 Patient has correct armband on for positive identification. Placed in gown. Bed in low ph position. Call light in reach. Side rails up X2. Client placed on continuous cardiac and pulse oximetry monitoring. NIBP monitoring applied. Door closed. Noise minimized. Warm blanket given. 11:22 Inserted saline lock: 22 gauge in right forearm, using aseptic technique. ph 11:30 Second set of blood cultures drawn. [id number] 11:52 XRAY Chest (1 view) In Process Unspecified. EDMS 13:40 No provider procedures requiring assistance completed. IV discontinued, intact, db bleeding controlled, No redness/swelling at site. Administered Medications: 13:10 Drug: Rocephin (cefTRIAXone) 1 grams Route: IM; Site: Other; ph 13:40 Follow up: Response: No adverse reaction db Medication: 10:51 VIS not applicable for this client. ph Outcome: 13:03 Discharge ordered by . rn 13:40 Discharged to home via wheelchair, with family. db 13:40 Condition: stable 13:40 Discharge instructions given to patient, family, Instructed on discharge instructions, follow up and referral plans. 13:44 Patient left the ED. db Signatures: Dispatcher [employer] Noble Mari MD MD rn Hall, Patricia RN RN Angelica Sagastume Danielle RN RN Fatoumata Allen [facility]
[2022-03-04] MEDS ORDERED: CEFTRIAXONE 1000 MG/VIAL ONE (13:09)
[2022-03-04] MEDS ORDERED: NA CHLORIDE 0.9% 100 ML IV ONE (13:09)
[2022-03-04 14:13] VITALS: BP 141/78; TEMP 97.5; O2SAT 98
--- NOTE | 2022-03-06 19:08 | EKG ---
Test Date: 2022-03-04 Test Time: 11:31:36 Account Management Assistant: TED MEASUREMENT RESULTS: Intervals: Rate: 58 IL: 172 QRSD: 84 QT: 492 QTc: 482 [place]: P: 49 IL: 172 QRS: 56 T: -1 INTERPRETIVE STATEMENTS: Sinus bradycardia Cannot rule out Inferior infarct, age undetermined Abnormal ECG Compared to ECG 12/10/2021 09:26:29 Myocardial infarct finding now present Electronically Signed On 03-06-22 19:07:32 SUPERVISOR KNITTING by Yoni Michael
== END 2022-03-04 13:44 | disposition home or self-care (01) ==
LOC: ER 10:28
DX: J06.9 Acute upper respiratory infection, unspecified (principal); Z20.822 Contact with and (suspected) exposure to COVID-19; Z88.8 Allergy status to other drugs, medicaments and biological substances; Z91.013 Allergy to seafood
CPT/HCPCS: 93005; 87040 ×2; 85025; 80048; 36415; 83735; 85610; 82947; 80076; 85730; 84484; 83880; 0240U; 71045; 96372; 99284

== ENCOUNTER 2023-01-05 14:20 | Inpatient (IN) | payer OTHER ==
[2023-01-05 14:52] LABS: Absolute Lymphocytes (CBC) 0.4 K/uL (0.7-4.9); Hematocrit 29.8 % (39.6-49.0); Lymphocytes % 1.7 % (15.3-44.8); MCV 89.1 fL (80-100); MPV 7.7 fL (7.6-11.3); Platelets 225 thou/uL (152-406); RBC Red Blood Cell Count 3.34 M/uL (4.33-5.43)
[2023-01-05 14:53] LABS: Protime INR 1.03
[2023-01-05 15:05] LABS: Albumin 3.2 g/dL (3.4-5.0); Bilirubin Direct 0.1 mg/dL (0-0.2); Bilirubin Indirect, Calculated 0.2 mg/dL (0.2-0.8); Bilirubin Total 0.3 mg/dL (0.2-1.0); Magnesium 2.1 mg/dL (1.6-2.4); Potassium 4.6 mEq/L (3.5-5.1); Protein, Total 7.6 g/dL (6.4-8.2); Troponin High Sensitivity 19.6 pg/mL (<58.9)
[2023-01-05] MEDS ORDERED: FENTANYL CITR 100 MCG/2 ML ONE (15:19)
[2023-01-05 15:47] LABS: Blood Morphology Comment NOT SEEN (NOT SEEN); Platelet Estimate ADEQ
--- NOTE | 2023-01-05 16:01 | RAD REPORT ---
EXAM DESCRIPTION: NORMAChest Single View01/05/2023 3:15 pm CLINICAL HISTORY: CHEST PAIN COMPARISON: Chest Single View dated 03/04/2022; Chest Pa And Lat (2 Views) dated 10/13/2021; Chest Si ngle View dated 04/01/2021; CHEST PA AND LAT 2 VIEW dated 12/20/2012 TECHNIQUE: Portable AP view of the chest. FINDINGS: The lungs are clear. No pneumothorax or effusion. The cardiomediastinal contours are stab le. Sequelae of CABG. IMPRESSION: No acute cardiopulmonary process.
[2023-01-05 16:39] LABS: Urine Bacteria <20 /HPF (<20); Urine Bilirubin NEGATIVE (Negative); Urine Blood Negative (Negative); Urine Clarity Clear (Clear); Urine Color Colorless (Yellow); Urine Glucose NEGATIVE (Negative); Urine Mucus Slight /HPF (None Seen); Urine Protein 1+ (Negative); Urine RBC <5 /HPF (None Seen); Urine Urobilinogen Normal (Normal)
--- NOTE | 2023-01-05 18:28 | ER ---
Nurse's Notes [facility] Name: Jacques Apodaca Age: 87 yrs Sex: Male : 1935 Arrival Date: 01/05/2023 Time: 14:20 Bed 6 Private MD: Diagnosis: Chest pain, unspecified;Leukocytosis;Congestive heart failure Presentation: 01/05 14:25 Chief complaint: EMS states: Pt started experiencing left sided chest pain that rs5 radiates to left arm at ten this morning. called EMS, pt denied chest pain when EMS arrived. Coronavirus screen: At this time, the client does not indicate any symptoms associated with coronavirus-19. Ebola Screen: No symptoms or risks identified at this time. Initial Sepsis Screen: Does the patient meet any 2 criteria? No. Patient's initial sepsis screen is negative. Does the patient have a suspected source of infection? No. Patient's initial sepsis screen is negative. Risk Assessment: Do you want to hurt yourself or someone else? Patient reports no desire to harm self or others. Onset of symptoms was January 05, 2023 at 10:00. 14:25 Acuity: ALISIA 3 rs5 14:25 Method Of Arrival: EMS: [facility] rs5 14:25 Care prior to arrival: Medication(s) given: ASA, 325 mg. rs5 Triage Assessment: 14:24 General: Appears in no apparent distress. comfortable, Behavior is calm, cooperative. aa5 Pain: Denies pain. 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 - Social history:: Smoking status: Patient denies any tobacco usage or history of. Screenin:25 [facility] ED Fall Risk Assessment (Adult) History of falling in the last 3 months, rs5 including since admission No falls in past 3 months (0 pts) Confusion or Disorientation No (0 pts) Intoxicated or Sedated No (0 pts) Impaired Gait Yes (1 pt) Mobility Assist Device Used Yes (1 pt) Altered Elimination No (0 pt) Score/Fall Risk Level 0 - 2 = Low Risk Oriented to surroundings, Maintained a safe environment. Abuse screen: Denies threats or abuse. 14:25 Nutritional screening: No deficits noted. Tuberculosis screening: No symptoms or risk rs5 factors identified. Assessment: 14:25 General: Appears in no apparent distress. uncomfortable, Behavior is calm, cooperative. rs5 Pain: Denies pain. Neuro: Level of Consciousness is awake, alert, obeys commands, Oriented to person, place, time, situation. Cardiovascular: Denies chest pain, nausea, vomiting, Heart tones S1 S2 present Rhythm is regular. GI: Abdomen is round distended, Bowel sounds present X 4 quads. Abd is soft and non tender X 4 quads. : No signs and/or symptoms were reported regarding the genitourinary system. EENT: No signs and/or symptoms were reported regarding the EENT system. Derm: Skin is intact, Skin is pink, warm \T\ dry. Musculoskeletal: Range of motion: intact in all extremities. 14:25 Respiratory: Airway is patent Respiratory effort is even, unlabored, Respiratory rs5 pattern is regular, symmetrical, Breath sounds are clear bilaterally. 15:30 Reassessment: No changes from previously documented assessment. rs5 16:35 Reassessment: Patient and/or family updated on plan of care and expected duration. Pain rs5 level reassessed. Patient is alert, oriented x 3, equal unlabored respirations, skin warm/dry/pink. 17:38 Reassessment: Patient and/or family updated on plan of care and expected duration. Pain rs5 level reassessed. Patient is alert, oriented x 3, equal unlabored respirations, skin warm/dry/pink. Pain: Denies pain. Neuro: Level of Consciousness is awake, alert, obeys commands, Oriented to person, place, time, situation. 18:19 Reassessment: Pt in bed, eyes closed, respirations even, unlabored, normal sinus rhythm rs5 noted on monitor, side rails up times two, call light within reach. 19:00 Reassessment: Patient appears in no apparent distress at this time. Patient and/or jb4 family updated on plan of care and expected duration. Pain level reassessed. Patient is alert, oriented x 3, equal unlabored respirations, skin warm/dry/pink. 20:00 Reassessment: Patient appears in no apparent distress at this time. Patient and/or jb4 family updated on plan of care and expected duration. Pain level reassessed. Patient is alert, oriented x 3, equal unlabored respirations, skin warm/dry/pink. 20:56 Reassessment: Patient appears in no apparent distress at this time. Patient and/or jb4 family updated on plan of care and expected duration. Pain level reassessed. Patient is alert, oriented x 3, equal unlabored respirations, skin warm/dry/pink. Vital Signs: 14:25 BP 150 / 60; Pulse 82; Resp 17; Pulse Ox 99% on R/A; rs5 14:25 BP 126 / 67; Pulse 79; Resp 18; Pulse Ox 99% on R/A; rs5 15:30 BP 144 / 87; Pulse 76; Resp 17; Pulse Ox 99% on R/A; rs5 16:37 BP 127 / 46; Pulse 67; Resp 17; Pulse Ox 99% on R/A; rs5 17:40 BP 136 / 60; Pulse 75; Resp 17; Pulse Ox 99% on R/A; rs5 18:19 BP 142 / 50; Pulse 70; Resp 18; Pulse Ox 99% on R/A; rs5 19:00 BP 128 / 59; Pulse 66; Resp 16; Pulse Ox 99% on R/A; jb4 20:00 BP 123 / 59; Pulse 63; Resp 16; Temp 98.1; Pulse Ox 99% on R/A; jb4 ED Course: 14:23 Patient arrived in ED. [facility] 14:24 Lisa Mitchell FNP [facility] 14:24 Charlette Mckeon MD is Attending Physician. [facility] 14:25 Maintain EMS IV. Dressing intact. Good blood return noted. Site clean \T\ dry. Gauge \T\ aa 5 site: 20g right forearm. 14:25 Patient has correct armband on for positive identification. Bed in low position. Call rs5 light in reach. Side rails up X2. Adult w/ patient. 14:37 Mitchel Pak, SUBHASH is Primary Nurse. rs5 14:41 Triage completed. aa5 15:16 XRAY Chest (1 view) In Process Unspecified. EDMS 18:05 Notified Nurse Practitioner and/or Physician Dicer Machine Operator of a critical lab result(s), ll1 troponin 74. 18:26 Luis Perry MD is Hospitalizing Provider. 7 18:26 Carmen Perry MD is Hospitalizing Provider. 7 18:26 Luis Perry MD is Hospitalizing Provider. [facility] 20:57 No provider procedures requiring assistance completed. Patient admitted, IV remains in jb4 place. Administered Medications: 15:05 Drug: fentaNYL (PF) IVP 50 mcg IVP once Route: IVP; Site: right forearm; rs5 15:21 Follow up: Response: No adverse reaction; Pain is decreased rs5 19:47 Drug: Piperacillin-Tazobactam IVPB 2.25 grams IVPB once over 60 mins; (mix in NS 100 jb4 mL) Route: IVPB; Infused Over: 60 mins; Site: right forearm; Outcome: 18:27 Decision to Hospitalize by Provider. [facility] 20:57 Admitted to Tele accompanied by tech, via stretcher, room 405, [facility] 20:57 Condition: stable 20:57 Discharge instructions given to patient, Instructed on the need for admit, Demonstrated understanding of instructions, 20:58 Patient left the ED. [facility] Signatures: Dispatcher [employer] EDMS Leti Mcmahon, RN RN aa5 Joshua Armstrong RN RN jb4 Callie Shelley RN RN 1 Lisa Mitchell, SPOTLIGHT OPERATOR SPOTLIGHT OPERATOR 7 Mitchel Pak, SUBHASH RN rs5 Corrections: (The following items were deleted from the chart) 14:44 14:42 PMHx: Quadruple Bypass; aa5 aa5 16:20 14:37 Leti Mcmahon, SUBHASH is Primary Nurse. aa5 rs5 16:20 16:20 Primary Nurse role handed off by Leti Mcmahon RN rs5 rs5 16:20 16:20 Mitchel Pak, SUBHASH is Primary Nurse. rs5 rs5 16:21 14:24 Immunization history: Adult Immunizations unknown, aa5 rs5 16:21 14:24 Social history: Smoking status: Patient denies any tobacco usage or history of. rs5 aa5 16:21 14:25 Chief complaint: EMS states: Pt started experiencing left sided chest pain that rs5 radiates to left arm at ten this morning. called EMS, pt denied chest pain when EMS arrived. aa5 16:21 14:25 Coronavirus screen: At this time, the client does not indicate any symptoms rs5 associated with coronavirus-19. aa5 16: 14:25 Ebola Screen: No symptoms or risks identified at this time. aa5 rs5 16: 14:25 Initial Sepsis Screen: Does the patient meet any 2 criteria? No. Patient's rs5 initial sepsis screen is negative. Does the patient have a suspected source of infection? No. Patient's initial sepsis screen is negative. aa5 16: 14:25 Risk Assessment: Do you want to hurt yourself or someone else? Patient reports no rs5 desire to harm self or others. aa5 16: 14:25 Onset of symptoms was January 05, 2023 at 10:00 aa5 rs5 16: 14:25 General: Appears in no apparent distress. uncomfortable, Behavior is calm, rs5 cooperative, aa5 : 14:25 Pain: Denies pain. aa5 rs5 16: 14:25 Neuro: Level of Consciousness is awake, alert, obeys commands, Oriented to rs5 person, place, time, situation, aa5 : 14:25 Cardiovascular: Denies chest pain, nausea, vomiting, Heart tones S1 S2 present rs5 Rhythm is regular aa5 : 14:25 Respiratory: Airway is patent Respiratory effort is even, unlabored, Respiratory rs5 pattern is regular, symmetrical, Breath sounds are clear bilaterally. aa5 16: 14:25 GI: Abdomen is round distended, Bowel sounds present X 4 quads. Abd is soft and rs5 non tender X 4 quads. aa5 16: 14:25 : No signs and/or symptoms were reported regarding the genitourinary system. aa5rs5 16: 14:25 EENT: No signs and/or symptoms were reported regarding the EENT system. aa5 rs5 16: 14:25 Derm: Skin is intact, Skin is pink, warm \T\ dry. aa5 rs5 16: 14:25 Musculoskeletal: Range of motion: intact in all extremities, aa5 rs5 16: 14:25 Care prior to arrival: Medication(s) given: ASA, 325 mg, aa5 rs5 16: 14:25 Method Of Arrival: EMS: [facility] 5 rs5 16: 14:25 BP 150 / 60; Pulse 82bpm; Resp 17bpm; Pulse Ox 99% RA; aa5 rs5 16:23 14:25 Acuity: ALISIA 3 aa5 rs5 18:19 16:37 BP 142 / 50; Pulse 70bpm; Resp 18bpm; Pulse Ox 99% RA; rs5 rs5 19:47 19:45 Piperacillin-Tazobactam IVPB 2.25 grams IVPB in right forearm over 60 mins rs5 jb4 20:57 20:00 BP 123 / 59; Pulse 63bpm; Resp 16bpm; Pulse Ox 99% RA; jb4 jb4
--- NOTE | 2023-01-05 18:28 | EDPHYS ---
Physician Documentation [facility] Name: Jacques Apodaca Age: 87 yrs Sex: Male : 1935 Arrival Date: 01/05/2023 Time: 14:20 Bed 6 Private MD: ED Physician Charlette Mckeon HPI: 01/05 14:24 This 87 yrs old Male presents to ER via Unassigned with complaints of chest jh7 pain. 14:24 The patient or guardian reports chest pain that is located primarily in the anterior jh7 aspect of left upper chest and left lateral anterior chest. Onset: at 10:30. The pain radiates to the left shoulder. Associated signs and symptoms: The patient has no apparent associated signs or symptoms. EMS care prior to arrival includes: aspirin. Patient has a history of hypertension, diabetes, hyperlipidemia, NV, CHF, and dementia. He reports that he is pain-free at this time.. 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 - Social history:: Smoking status: Patient denies any tobacco usage or history of. ROS: 14:24 Constitutional: Negative for fever, chills, and weight loss, Eyes: Negative for injury, jh7 pain, redness, and discharge, Neck: Negative for injury, pain, and swelling, Respiratory: Negative for shortness of breath, cough, wheezing, and pleuritic chest pain, Abdomen/GI: Negative for abdominal pain, nausea, vomiting, diarrhea, and constipation, MS/Extremity: Negative for injury and deformity, Skin: Negative for injury, rash, and discoloration, Neuro: Negative for headache, weakness, numbness, tingling, and seizure, 14:24 Cardiovascular: Positive for chest pain, Negative for orthopnea, palpitations, 14:24 All other systems are negative, Exam: 14:24 Constitutional: This is a well developed, well nourished patient who is awake, alert, jh7 and in no acute distress. Head/Face: Normocephalic, atraumatic. Neck: Trachea midline, no thyromegaly or masses palpated, and no cervical lymphadenopathy. Supple, full range of motion without nuchal rigidity, or vertebral point tenderness. No Meningismus. Cardiovascular: Regular rate and rhythm with a normal S1 and S2. No gallops, murmurs, or rubs. Normal PMI, no JVD. No pulse deficits. Respiratory: Lungs have equal breath sounds bilaterally, clear to auscultation and percussion. No rales, rhonchi or wheezes noted. No increased work of breathing, no retractions or nasal flaring. Back: No spinal tenderness. No costovertebral tenderness. Full range of motion. Skin: Warm, dry with normal turgor. Normal color with no rashes, no lesions, and no evidence of cellulitis. MS/ Extremity: Pulses equal, no cyanosis. Neurovascular intact. Full, normal range of motion. Neuro: Awake and alert, GCS 15, oriented to person, place, time, and situation. Motor strength 5/5 in all extremities. Sensory grossly intact. Normal gait. 14:24 Cardiovascular: Edema: pedal edema, that is moderate, [facility] Vital Signs: 14:25 BP 150 / 60; Pulse 82; Resp 17; Pulse Ox 99% on R/A; rs5 14:25 BP 126 / 67; Pulse 79; Resp 18; Pulse Ox 99% on R/A; rs5 15:30 BP 144 / 87; Pulse 76; Resp 17; Pulse Ox 99% on R/A; rs5 16:37 BP 127 / 46; Pulse 67; Resp 17; Pulse Ox 99% on R/A; rs5 17:40 BP 136 / 60; Pulse 75; Resp 17; Pulse Ox 99% on R/A; rs5 18:19 BP 142 / 50; Pulse 70; Resp 18; Pulse Ox 99% on R/A; rs5 19:00 BP 128 / 59; Pulse 66; Resp 16; Pulse Ox 99% on R/A; jb4 20:00 BP 123 / 59; Pulse 63; Resp 16; Temp 98.1; Pulse Ox 99% on R/A; jb4 MDM: 14:24 Patient medically screened. [facility] 18:27 Differential diagnosis: abnormal EKG, acute myocardial infarction, acute pericarditis, [facility] chest wall pain, congestive heart failure myocarditis, pneumonia, stable angina. Data reviewed: vital signs, nurses notes, lab test result(s), EKG, radiologic studies, plain films. Consideration of Admission/Observation Patient was admitted/placed on observation. Management of patient was discussed with the following: Primary Care Provider: Dr. Perry. I considered the following discharge prescriptions or medication management in the emergency department Medications were administered in the Emergency Department. See MAR. Independent interpretation of the following test(s) in the Emergency Department EKG: See my EKG interpretation above. Historians other than the Patient: EMS: . Care significantly affected by the following chronic conditions: Diabetes, Hypertension, Congestive Heart Failure, Chronic Kidney Disease. Counseling: I had a detailed discussion with the patient and/or guardian regarding the historical points, exam findings, and any diagnostic results supporting the discharge/admit diagnosis, the need for further work-up and treatment in the hospital. Response to treatment: the patient's symptoms have mildly improved after treatment. 18:27 Scoring Tools HEART Score: History: Age: Risk Factors: > or = 3 Risk factors for [facility] atherosclerotic disease (2), Troponin: Total Score = 8. 01/05 14:24 Order name: Basic Metabolic Panel; Complete Time: 15:16 [facility] 01/05 14:24 Order name: CBC with Diff; Complete Time: 15:57 [facility] 01/05 14:24 Order name: LFT's; Complete Time: 15:16 [facility] 01/05 14:24 Order name: Magnesium; Complete Time: 15:16 [facility] 01/05 14:24 Order name: NT PRO-BNP; Complete Time: 15:16 [facility] 01/05 14:24 Order name: PT-INR; Complete Time: 15:04 [facility] 01/05 14:24 Order name: Troponin HS; Complete Time: 15:16 [facility] 01/05 15:04 Order name: Lactate w/ 2H reflex if indic.; Complete Time: 17:11 [facility] 01/05 15:47 Order name: Manual Differential; Complete Time: 15:57 EDMS 01/05 16:06 Order name: Urinalysis W/Microscopic; Complete Time: 16:44 [facility] 01/05 16:53 Order name: Troponin High Sensitivity; Complete Time: 18:06 [facility] 01/05 18:41 Order name: Blood Culture Adult (2) [facility] 01/05 18:51 Order name: Urinalysis w/ reflexes [facility] 01/05 18:51 Order name: Basic Metabolic Panel EDMS 01/05 18:51 Order name: Basic Metabolic Panel; Complete Time: 08:23 [facility] 01/05 18:51 Order name: CBC with Automated Diff [facility] 01/05 18:51 Order name: CBC with Automated Diff; Complete Time: 08:23 [facility] 01/05 18:51 Order name: Troponin High Sensitivity; Complete Time: 08:23 [facility] 01/05 14:24 Order name: XRAY Chest (1 view); Complete Time: 16:06 [facility] 01/05 14:24 Order name: EKG; Complete Time: 14:25 [facility] 01/05 18:51 Order name: CONS Physician Consult [facility] 01/05 18:51 Order name: EKG Electrocardiogram [facility] 01/05 18:51 Order name: EKG Electrocardiogram [facility] 01/05 18:51 Order name: EKG Electrocardiogram [facility] 01/05 18:51 Order name: EKG Electrocardiogram [facility] 01/05 14:24 Order name: Cardiac monitoring; Complete Time: 14:44 [facility] 01/05 14:24 Order name: EKG - Nurse/Tech; Complete Time: 14:44 [facility] 01/05 14:24 Order name: IV Saline Lock; Complete Time: 14:44 [facility] 01/05 14:24 Order name: Labs collected and sent; Complete Time: 14:44 [facility] 01/05 14:24 Order name: O2 Per Protocol; Complete Time: 14:44 [facility] 01/05 14:24 Order name: O2 Sat Monitoring; Complete Time: 14:44 [facility] EC:44 Rate is 83 beats/min. Rhythm is regular. QRS [place] is Normal. [place] interval is normal at [facility] 184 msec. QRS interval is normal at 96 msec. QT interval is normal at 382 msec. No Q waves. T waves are Normal. No ST changes noted. Clinical impression: Normal ECG. Administered Medications: 15:05 Drug: fentaNYL (PF) IVP 50 mcg IVP once Route: IVP; Site: right forearm; rs5 15:21 Follow up: Response: No adverse reaction; Pain is decreased rs5 19:47 Drug: Piperacillin-Tazobactam IVPB 2.25 grams IVPB once over 60 mins; (mix in NS 100 jb4 mL) Route: IVPB; Infused Over: 60 mins; Site: right forearm; Disposition Summary: 01/05/23 18:27 Hospitalization Ordered Notes: Hospitalization Status: Inpatient Admission [facility] Provider: Luis Perry [facility] Location: Telemetry/MedSurg (Inpatient) [facility] Condition: Fair [facility] Problem: new [facility] Symptoms: have improved [facility] Bed/Room Type: Standard [facility] Room Assignment: 405(01/05/23 19:57) mw Diagnosis - Chest pain, unspecified [facility] - Leukocytosis [facility] - Congestive heart failure [facility] Forms: - Medication Reconciliation Form [facility] - SBAR form [facility] - Leadership Thank You Letter [facility] Signatures: Dispatcher [employer] EDMS Yin Hunter RN RN mw Leti Mcmahon RN RN aa5 Joshua Armstrong, RN RN jb4 Lias Mitchell, CYTOGENETIC TECHNOLOGIST CYTOGENETIC TECHNOLOGIST 7 Mitchel Pak, RN RN rs5 Corrections: (The following items were deleted from the chart) 14:44 14:42 PMHx: Quadruple Bypass; aa5 aa5 16:21 14:24 Immunization history: Adult Immunizations unknown, aa5 rs5 16:21 14:24 Social history: Smoking status: Patient denies any tobacco usage or history of. rs5 aa5 19:57 18:27 [facility] mw
[2023-01-05] MEDS ORDERED: PIPERACIL/TAZO 2.25 GM VIAL IV ONE (19:36)
[2023-01-05] MEDS ORDERED: NA CHLORIDE 0.9% 100 ML ONE ×2 (19:36→22:37)
[2023-01-05] MEDS ORDERED: D50W 25 GM/50 ML SYRINGE IV PRN (21:43)
[2023-01-05] MEDS ORDERED: GLUCAGON 1 MG/VIAL IM PRN (21:43)
[2023-01-05] MEDS ORDERED: D10W 125 ML IV PRN (21:49)
[2023-01-05] MEDS: PIPER TAZO 3.375 GM in NA CHLORIDE 0.9% 100 ML IV SCH (22:34)
--- NOTE | 2023-01-05 22:41 | HP ---
Date of Admission: 01/05/2023 Chief Complaint: Chest pain. History Of Present Illness: This is an 87-year-old very pleasant male patient who lives at home with his , was brought into emergency room with complaints of chest pain. The patient started to have left-sided chest pain and ambulance was called and he was given aspirin 325 mg x1 dose, was brought into ER and he was asymptomatic by the time he came to the ER. After his evaluation in the ER, he had recurrence of chest pain and he was given 1 dose of fentanyl in the ER and his pain resolved and I was contacted requesting admission to the hospital. When I saw him in the emergency room, there was no family member with him. He was lying in bed, not in distress. His white count was elevated in the emergency room and second set of troponin was elevated. When I saw him, he did not have any chest pain. He denies any fever, cough, congestion. No shortness of breath. Denies any abdominal pain. No urinary complaints. No diarrhea. No abdominal pain. He does not have any unusual rash anywhere on his body. After the patient was evaluated, he was admitted to the hospital. Allergies: TO CARVEDILOL CAUSING LIP SWELLING AND HEPARIN CAUSING THROMBOCYTOPENIA AND BLOOD CLOT. Medications: Aspirin 81 mg daily, atorvastatin 40 mg daily, carvedilol 12.5 mg 2 times a day, clopidogrel 75 mg daily, donepezil 10 mg daily, furosemide 40 mg daily, gabapentin 100 mg 3 times a day, glipizide 5 mg daily in morning with breakfast, hydralazine 10 mg takes 2 tablets 2 times a day, Lantus insulin 30 units in the morning and 15 units in the evening, losartan 100 mg daily, magnesium oxide 400 mg daily, memantine 10 mg 2 times a day, nifedipine 90 mg daily, nystatin cream p.r.n. Review of Systems: Cardiovascular: As mentioned above. All other systems reviewed and negative. Past Medical History: Significant for senile dementia, type 2 diabetes mellitus, hypertension, mixed hyperlipidemia, coronary artery disease, chronic kidney disease, prostate cancer treated with radiation therapy in the past, anemia due to chronic kidney disease. Past Surgical History: Significant for coronary artery bypass surgery in 2003 and surgery for left clavicle. Family History: Parents had diabetes. Brother, lung cancer, diabetes and hypertension. Sister, diabetes and hypertension. Social History: Prior history of smoking, not at present time. Use of alcohol negative. Physical Examination: VITAL SIGNS: Temperature 98.1, pulse 79, respiratory rate 18, blood pressure 126/67, oxygen saturation 99%, height 5 feet 7 inches, weight 191 pounds. General: Awake, alert, oriented, not in distress. HEENT: Head atraumatic, normocephalic. Conjunctivae nonerythematous. Sclerae white. Mouth, no thrush or edema noted. Ears/Nose, no mass, lesion, discharge noted. Neck: Supple. No JVD, lymph nodes, bruit, thyromegaly noted. Lungs: Bilateral good equal air entry. Clear to auscultation. No rhonchi. No rales. Heart: Normal heart sounds, no murmur or gallop. Abdomen: Soft, bowel sounds normal. No guarding, rigidity, tenderness, mass, hepatosplenomegaly, distention, or bruit noted. Extremities: Bilateral trace leg edema. Skin: The patient has a dry scaly skin, which is chronic finding over both lower extremities, unchanged from before. Lymphatics: No lymph node enlargement in neck, supraclavicular, infraclavicular region. Neuro: No focal neurological deficit. Chest: Unremarkable. External Genitalia: Deferred. Rectal: Deferred. Laboratory Data: White count 24.4, hemoglobin 9.8, and platelet count 225. Sodium 133, potassium 4.6, chloride 104, bicarb 21, BUN 92, creatinine 3.07, estimated GFR 19, glucose 155. Liver function tests unremarkable. Initial troponin 19.6, second troponin 74.0. Urinalysis unremarkable. Chest x-ray, no acute cardiopulmonary changes. Impression: 1. Non ST-elevation myocardial infarction. 2. Coronary artery disease. 3. Hypertension. 4. Mixed hyperlipidemia. 5. Type 2 diabetes mellitus with chronic kidney disease. 6. Senile dementia. 7. Chronic kidney disease stage 4. 8. Prostate cancer. 9. Anemia due to chronic kidney disease. 10. Congestive heart failure, chronic, diastolic, stable. 11. Leukocytosis. Plan: We will go ahead and admit the patient to hospital for further evaluation and management of this problem. Patient is appropriate for inpatient and is expected to spend 2 midnights in the hospital. For his non-STEMI and coronary artery disease, patient has received aspirin today. We will continue Plavix. The patient is allergic to heparin. We will not be able to give any heparin product with his prior reaction with heparin. So, we will continue aspirin and Plavix. Continue beta mitesh per order. We will continue high dose statin therapy, get fasting lipid profile tomorrow. Consult Cardiology and will get an echo with Doppler tomorrow. Fall precautions should be ordered. We will have Physical therapy to help ambulate the patient. For leukocytosis, we do not have any definite source of infection. He does not have any definite signs and symptoms of infection either. We will go ahead and do 2 sets of blood cultures, start him on empiric antibiotics, Zosyn. For hypertension, we will continue his antihypertensive medication, monitor blood pressure, if necessary adjustment on antihypertensive medication. For his hyperlipidemia, we will continue his statin therapy per order. Diabetes will be managed with sliding scale insulin per order. I will communicate details with the patient's family members as well and I will see him tomorrow for followup. ADALBERTO/MODL Voice ID: [id number] PAVITHRA
[2023-01-06 04:52] LABS: Absolute Lymphocytes (CBC) 0.5 K/uL (0.7-4.9); Hematocrit 27.5 % (39.6-49.0); Lymphocytes % 1.6 % (15.3-44.8); MPV 7.7 fL (7.6-11.3); Platelets 194 thou/uL (152-406); RBC Red Blood Cell Count 3.06 M/uL (4.33-5.43)
[2023-01-06 05:28] LABS: Potassium 4.5 mEq/L (3.5-5.1); Thyroid Stimulating Hormone 1.33 uIU/mL (0.358-3.740)
[2023-01-06] MEDS: INSULIN REGULAR (HUMAN) 100 UNIT/ML SQ SCH ×4 (07:30→21:19)
[2023-01-06] MEDS ORDERED: INFLUENZA VACCINE (for 6+ mo) 0.5 ML DOSE IMVAC ONE (08:00)
[2023-01-06] MEDS ORDERED: PNEUMOCOCCAL VACCINE 0.5 ML IMVAC ONE (08:00)
[2023-01-06] MEDS: MAGNESIUM OXIDE 400 MG TAB PO SCH (09:00)
[2023-01-06] MEDS ORDERED: VANCOMYCIN 1 GM in NA CHLORIDE 0.9% 250 ML IVPB SCH (09:00)
[2023-01-06] MEDS: PIPER TAZO 3.375 GM in NA CHLORIDE 0.9% 100 ML IV SCH ×2 (09:19→21:18)
[2023-01-06] MEDS: NIFEDIPINE XL 30 MG TABLET PO SCH (09:20)
[2023-01-06] MEDS: carvediloL 6.25 MG TAB PO SCH ×2 (09:20→21:18)
[2023-01-06] MEDS: GABAPENTIN 100 MG CAP PO SCH ×3 (09:20→21:18)
[2023-01-06] MEDS: LOSARTAN POTASSIUM 50 MG TABLET PO SCH (09:21)
[2023-01-06] MEDS: MEMANTINE HCL 10 MG TABLET PO SCH ×2 (09:21→21:19)
[2023-01-06] MEDS: CLOPIDOGREL 75 MG TABLET PO SCH (09:21)
[2023-01-06] MEDS: FUROSEMIDE 40 MG TABLET PO SCH (09:21)
[2023-01-06] MEDS: ASPIRIN EC 81 MG TAB PO SCH (09:21)
[2023-01-06] MEDS: VANCOMYCIN 1.5 GM in NA CHLORIDE 0.9% 500 ML IVPB SCH (09:25)
[2023-01-06] MEDS ORDERED: PIPERACIL/TAZO 3.375 GM VIAL IV ONE (09:28)
[2023-01-06] MEDS ORDERED: NA CHLORIDE 0.9% 100 ML ONE (09:29)
--- NOTE | 2023-01-06 14:08 | PN ---
Date of Progress Note: 01/06/2023 Subjective: Patient was seen this morning for followup. No new complaints or problems reported by patient. He was lying in bed, not in any distress. Objective: Vital Signs: Reviewed. HEENT: Unremarkable. Lungs: Clear to auscultation. Heart: Sounds normal. Abdomen: Soft. Bowel sounds normal. No guarding, rigidity, tenderness, distention. Extremities: No leg edema. Laboratory Data: White count this morning 29.80, hemoglobin 8.9, platelets 194. Sodium 137, potassium 4.5, chloride 109, bicarb 21, BUN 88, creatinine 2.75, glucose 145. Hemoglobin A1c 9. Last troponin 174. LDL 29, total cholesterol 91, triglyceride 85. TSH 1.3. Impression: 1. Bca-WM-flekehzhq myocardial infarction. 2. Rule out sepsis. 3. Chronic kidney disease, stage 4. 4. Anemia due to chronic kidney disease. 5. Hypertension. 6. Diabetes mellitus with chronic kidney disease. Plan: We will go ahead and continue current antibiotic, which is Zosyn and blood culture has started to grow gram-positive cocci in clusters and in pair and we will go ahead and add empiric antibiotic, vancomycin, until we get the final report back on the blood culture. We will continue Zosyn and vancomycin. Follow up on blood work tomorrow. 2000 calorie ADA diet was ordered for him and we will have echo done today for him. Follow up with assignment manager. I will see him tomorrow for followup. ADALBERTO/MODL Voice ID: [id number] Report ID: [id number] PAVITHRA
[2023-01-06] MEDS: ATORVASTATIN 40 MG TAB PO SCH (21:18)
[2023-01-06] MEDS: DONEPEZIL HCL 5 MG TAB PO SCH (21:19)
[2023-01-07] MEDS: INSULIN REGULAR (HUMAN) 100 UNIT/ML SQ SCH ×4 (07:30→20:05)
[2023-01-07] MEDS: GABAPENTIN 100 MG CAP PO SCH ×3 (08:48→20:04)
[2023-01-07] MEDS: FUROSEMIDE 40 MG TABLET PO SCH (08:48)
[2023-01-07] MEDS: LOSARTAN POTASSIUM 50 MG TABLET PO SCH (08:48)
[2023-01-07] MEDS: carvediloL 6.25 MG TAB PO SCH ×2 (08:48→20:05)
[2023-01-07] MEDS: NIFEDIPINE XL 30 MG TABLET PO SCH (08:49)
[2023-01-07] MEDS: CLOPIDOGREL 75 MG TABLET PO SCH (08:49)
[2023-01-07] MEDS: MEMANTINE HCL 10 MG TABLET PO SCH ×2 (08:49→20:05)
[2023-01-07] MEDS: ASPIRIN EC 81 MG TAB PO SCH (08:50)
[2023-01-07] MEDS: MAGNESIUM OXIDE 400 MG TAB PO SCH (08:52)
[2023-01-07] MEDS: PIPER TAZO 3.375 GM in NA CHLORIDE 0.9% 100 ML IV SCH ×2 (08:57→20:06)
[2023-01-07] MEDS ORDERED: PIPERACIL/TAZO 3.375 GM VIAL IV ONE (09:10)
--- NOTE | 2023-01-07 11:01 | PN ---
Date of Progress Note: 01/07/2023 Subjective: Patient was seen this morning for followup. No new complaints or problems reported by his brother. No new complaints problems reported by him. Lying in bed, not in distress. Vital signs reviewed. Denies any pain anywhere. No abdominal pain, nausea, vomiting. Objective: HEENT: Examination unremarkable. Lungs: Clear to auscultation. Heart: Sounds normal. Abdomen: Soft. Bowel sounds normal. No guarding, rigidity, tenderness, distention. Extremities: No leg edema. Impression: 1. Jlj-WV-cedhvqykm myocardial infarction. 2. Rule out sepsis. 3. Chronic kidney disease, stage 4. 4. Anemia due to chronic kidney disease. 5. Hypertension. 6. Diabetes mellitus with chronic kidney disease. Plan: We will go ahead and continue current diabetes management and antihypertensive medication. We will continue current empiric antibiotic and follow up on final results on the cultures, then make adjustment for culture specific antibiotic. Follow up on blood work results. Physical therapy to continue to work with patient. I will see him tomorrow for followup. ADALBERTO/MODL Voice ID: [id number] Report ID: [id number] PAVITHRA
[2023-01-07 12:36] LABS: Absolute Lymphocytes (CBC) 0.8 K/uL (0.7-4.9); Hematocrit 28.9 % (39.6-49.0); Lymphocytes % 4.9 % (15.3-44.8); MCV 90.6 fL (80-100); MPV 8.1 fL (7.6-11.3); Platelets 190 thou/uL (152-406); RBC Red Blood Cell Count 3.19 M/uL (4.33-5.43)
[2023-01-07 12:47] LABS: Magnesium 2.2 mg/dL (1.6-2.4); Potassium 4.6 mEq/L (3.5-5.1)
[2023-01-07] MEDS: DONEPEZIL HCL 5 MG TAB PO SCH (20:04)
[2023-01-07] MEDS: ATORVASTATIN 40 MG TAB PO SCH (20:04)
[2023-01-07] MEDS: VANCOMYCIN 1.5 GM in NA CHLORIDE 0.9% 500 ML IVPB SCH (20:06)
[2023-01-08] MEDS: MAGNESIUM OXIDE 400 MG TAB PO SCH (09:00)
--- NOTE | 2023-01-08 09:18 | PN ---
Date of Progress Note: 01/08/2023 Subjective: Patient was seen this morning for followup. He was lying in bed, not in distress, feeli ng fine. Denies any pain anywhere. No nausea, vomiting. No chest pain. No shortness of breath. P fred reports that his appetite is improving and he really does not know when his last bowel movemen t was. He does not know whether he ambulated yesterday or not and this is his answer on a daily basi s because he just simply does not remember if he participated with physical therapy or not, whether h e had a bowel movement or not and this goes along with his senile dementia problem. Objective: Vital Signs: Reviewed. HEENT: Examination unremarkable. Lungs: Clear to auscultation. Heart: Sounds normal. Abdomen: Soft. Bowel sounds normal. No guarding, rigidity, tenderness, distention. Extremities: No leg edema. Laboratory Data: All the 4 bottles on the blood culture came back positive for Streptococcus. Impression: 1.Sepsis. 2.Generalized weakness. 3.Debility. 4.Senile dementia. 5.Coronary artery disease. 6.Non-ST segment elevation myocardial infarction. 7.Type 2 diabetes mellitus with chronic kidney disease. Plan: We will go ahead and continue current management for diabetes and coronary artery disease. Ec hocardiogram was done, result is still pending. We will continue to work with Physical Therapy and c ontinue vancomycin. Culture and sensitivity results reviewed and we will stop Zosyn and start patient on Levaquin per order. We will repeat blood work tomorrow. ADALBERTO/MODL Voice ID: [id number] Report ID: [id number]
[2023-01-08] MEDS: LOSARTAN POTASSIUM 50 MG TABLET PO SCH (09:29)
[2023-01-08] MEDS: GABAPENTIN 100 MG CAP PO SCH ×3 (09:29→20:40)
[2023-01-08] MEDS: CLOPIDOGREL 75 MG TABLET PO SCH (09:29)
[2023-01-08] MEDS: carvediloL 6.25 MG TAB PO SCH ×2 (09:29→20:40)
[2023-01-08] MEDS: MEMANTINE HCL 10 MG TABLET PO SCH ×2 (09:29→20:40)
[2023-01-08] MEDS: ASPIRIN EC 81 MG TAB PO SCH (09:29)
[2023-01-08] MEDS: FUROSEMIDE 40 MG TABLET PO SCH (09:30)
[2023-01-08] MEDS: NIFEDIPINE XL 30 MG TABLET PO SCH (09:30)
[2023-01-08] MEDS: Levofloxacin 250mg IV 250 MG/50 ML BAG IV SCH (09:36)
[2023-01-08] MEDS: INSULIN REGULAR (HUMAN) 100 UNIT/ML SQ SCH ×4 (09:42→20:40)
[2023-01-08] MEDS: ACETAMINOPHEN 500 MG TAB PO PRN (16:18)
[2023-01-08] MEDS: DONEPEZIL HCL 5 MG TAB PO SCH (20:40)
[2023-01-08] MEDS: ATORVASTATIN 40 MG TAB PO SCH (20:40)
[2023-01-09 04:44] LABS: Absolute Lymphocytes (CBC) 0.9 K/uL (0.7-4.9); Hematocrit 24.5 % (39.6-49.0); Lymphocytes % 7.7 % (15.3-44.8); MCV 89.4 fL (80-100); Platelets 172 thou/uL (152-406); RBC Red Blood Cell Count 2.74 M/uL (4.33-5.43)
[2023-01-09 04:56] LABS: Magnesium 2.1 mg/dL (1.6-2.4); Potassium 4.7 mEq/L (3.5-5.1)
[2023-01-09] MEDS: INSULIN REGULAR (HUMAN) 100 UNIT/ML SQ SCH ×4 (07:30→21:00)
--- NOTE | 2023-01-09 08:26 | ECHO ---
HEIGHT: 5 ft 7 in WEIGHT: 191 lb 12.8 oz DATE OF STUDY: 01/06/[address]: Luis Perry MD 2-DIMENSIONAL: YES M.MODE: YES DOPPLER: YES COLOR FLOW: YES TDS: YES PORTABLE: YES DEFINITY: BUBBLE STUDY: DIAGNOSIS: NON ST ELEVATION MYOCARDIAL INFARCTION CARDIAC HISTORY: CATHERIZATION: YES SURGERY: YES PROSTHETIC VALVE: NO PACEMAKER: NO MEASUREMENTS (cm) DIASTOLIC (NORMALS) SYSTOLIC (NORMALS) IVSd 1.0 (0.6-1.2) LA Diam 2.7 (1.9-4.0) LVEF 69% LVIDd 4.1 (3.5-5.7) LVIDs 2.5 (2.0-3.5) %FS 38% LVPWd 1.0 (0.6-1.2) Ao Diam 2.9 (2.0-3.7) 2 DIMENSIONAL ASSESSMENT: RIGHT ATRIUM: NORMAL LEFT ATRIUM: NORMAL RIGHT VENTRICLE: NORMAL LEFT VENTRICLE: NORMAL TRICUSPID VALVE: MILD TRICUSPID REGURGITATION MITRAL VALVE: NORMAL PULMONIC VALVE: NORMAL AORTIC VALVE: MODERATE AORTIC INSUFFICIENCY PERICARDIAL EFFUSION: NONE AORTIC ROOT: NORMAL LEFT VENTRICULAR WALL MOTION: NORMAL DOPPLER/COLOR FLOW: SEE BELOW COMMENTS: 1. NORMAL LEFT VENTRICULAR EJECTION FRACTION 60-65% WITH NORMAL WALL MOTION 2. MODEATE AORTIC INSUFFICIENCY 3. MILD TRICUSPID REGURGITATION TECHNOLOGIST: ROBERTO BOUCHER
[2023-01-09] MEDS: VANCOMYCIN 1.5 GM in NA CHLORIDE 0.9% 500 ML IVPB SCH (09:00)
[2023-01-09] MEDS: MAGNESIUM OXIDE 400 MG TAB PO SCH (09:00)
[2023-01-09] MEDS: FUROSEMIDE 40 MG TABLET PO SCH (10:11)
[2023-01-09] MEDS: NIFEDIPINE XL 30 MG TABLET PO SCH (10:11)
[2023-01-09] MEDS: MEMANTINE HCL 10 MG TABLET PO SCH ×2 (10:12→21:00)
[2023-01-09] MEDS: Levofloxacin 250mg IV 250 MG/50 ML BAG IV SCH (10:12)
[2023-01-09] MEDS: ASPIRIN EC 81 MG TAB PO SCH (10:12)
[2023-01-09] MEDS: GABAPENTIN 100 MG CAP PO SCH ×3 (10:12→21:02)
[2023-01-09] MEDS: CLOPIDOGREL 75 MG TABLET PO SCH (10:12)
[2023-01-09] MEDS: LOSARTAN POTASSIUM 50 MG TABLET PO SCH (10:12)
[2023-01-09] MEDS: carvediloL 6.25 MG TAB PO SCH ×2 (10:12→20:59)
[2023-01-09] MEDS: INSULIN GLARGINE 100 UNIT/ML SQ SCH (13:43)
[2023-01-09] MEDS: ATORVASTATIN 40 MG TAB PO SCH (20:59)
[2023-01-09] MEDS: DONEPEZIL HCL 5 MG TAB PO SCH (21:00)
[2023-01-10] MEDS ORDERED: VANCOMYCIN 1.5 GM in NA CHLORIDE 0.9% 500 ML IVPB SCH (06:00)
--- NOTE | 2023-01-10 07:00 | PN ---
Date of Progress Note: 01/09/2023 Subjective: Patient was seen this morning for followup. No new complaints, problems reported by richy shultz. Lying in bed, not in any distress. Denies any complaints. No chest pain, shortness of breath . No abdominal pain, nausea, vomiting, etc. Objective: Vital Signs: Reviewed. HEENT: Unremarkable. Lungs: Clear to auscultation. Heart: Sounds normal. Abdomen: Soft. Bowel sounds normal. No guarding, rigidity, tenderness, distention. Extremities: No leg edema. Has dry and scaly skin over both lower extremity which is chronic and un changed. Laboratory Data: Today white count 11.9, hemoglobin 8.3, and platelet count 172. Sodium 138, potass ium 4.7, chloride 111, bicarb 23, BUN 74, creatinine 2.58, estimated GFR 24, glucose 234, magnesium 2 .2. Blood culture all the 4 bottles growing Streptococcus. Impression: 1.Sepsis, organism Streptococcus. 2.Diabetes mellitus with chronic kidney disease. 3.Anemia due to chronic kidney disease. 4.Chronic kidney disease stage 4. 5.Hypertension. 6.Coronary artery disease. 7.Ybf-BE-jezcdliqk myocardial infarction. 8.Generalized weakness. 9.Debility. Plan: We will go ahead and continue current antibiotic which is Levaquin and vancomycin and plan is to continue this IV antibiotics and upon discharge, we will discharge him with oral Levaquin. There will not be any need for IV antibiotics once he gets discharged from the hospital. We will start [place] tus 10 units subcutaneous injection daily for diabetes control and continue sliding scale insulin. P hysical therapy to continue to work with the patient. I did communicate with the patient's davonte peñaing all the details and as per patient's 's request, I did call patient's son and discuss all t he details as well. The patient has significant generalized weakness and debility and wanted hi m to come home, but I explained to that my concern is that the patient really has not done much in terms of physical therapy and if he comes home, he will require 24-hour care and total assistance. Obviously she is not able to provide that, but if she has too higher caregiver, it might be cost pr ohibitive for her, so we did talk about possibility of residential facility placement and other o ption of inpatient rehab, but in order for him to go to inpatient rehab he will have to be willing to participate in 3 hours of therapy. So, we will go ahead and see if he qualifies for that or not. O isabel, residential facility placement will become necessary and that may be a short-term if he participates well with therapy and improves; but if he does not, then I am afraid that it may become a long-term placement for him. All these details were discussed with as well as son today. Also discussed with the patient's s on regarding advance directives and he will communicate with the rest of his siblings and the patient 's and he will let me know regarding decision tomorrow. ADALBERTO/MODL Voice ID: [id number] Report ID: [id number]
[2023-01-10] MEDS: INSULIN REGULAR (HUMAN) 100 UNIT/ML SQ SCH ×4 (07:30→21:00)
[2023-01-10] MEDS ORDERED: HEPARIN 5000 UNIT/ML 1 ML VIAL SQ SCH (09:00)
[2023-01-10] MEDS: MAGNESIUM OXIDE 400 MG TAB PO SCH (09:00)
[2023-01-10] MEDS: ACETAMINOPHEN 500 MG TAB PO PRN (09:38)
[2023-01-10] MEDS: NIFEDIPINE XL 30 MG TABLET PO SCH (09:39)
[2023-01-10] MEDS: FUROSEMIDE 40 MG TABLET PO SCH (09:40)
[2023-01-10] MEDS: LOSARTAN POTASSIUM 50 MG TABLET PO SCH (09:40)
[2023-01-10] MEDS: GABAPENTIN 100 MG CAP PO SCH ×3 (09:41→21:26)
[2023-01-10] MEDS: CLOPIDOGREL 75 MG TABLET PO SCH (09:41)
[2023-01-10] MEDS: carvediloL 6.25 MG TAB PO SCH ×2 (09:41→21:26)
[2023-01-10] MEDS: ASPIRIN EC 81 MG TAB PO SCH (09:41)
[2023-01-10] MEDS: MEMANTINE HCL 10 MG TABLET PO SCH ×2 (09:41→21:26)
[2023-01-10] MEDS: Levofloxacin 250mg IV 250 MG/50 ML BAG IV SCH (09:42)
[2023-01-10] MEDS: INSULIN GLARGINE 100 UNIT/ML SQ SCH (09:42)
[2023-01-10] MEDS: DONEPEZIL HCL 5 MG TAB PO SCH (21:26)
[2023-01-10] MEDS: ATORVASTATIN 40 MG TAB PO SCH (21:26)
--- NOTE | 2023-01-10 21:36 | PN ---
Date of Progress Note: 01/10/2023 Subjective: The patient was seen this morning for followup. No new complaints or problems reported. He was sleeping, easily arousable, not in distress. Denies any chest pain, shortness of breath, ab dominal pain, nausea, vomiting. Objective: Vital Signs: Reviewed. HEENT: Unremarkable. Lungs: Clear to auscultation. Heart: Sounds normal. Abdomen: Soft. Bowel sounds normal. No guarding, tenderness, distention. Extremities: No leg edema. Impression: 1.Sepsis. 2.Generalized weakness. 3.Debility. 4.Hypertension. 5.Type 2 diabetes mellitus with chronic kidney disease. 6.Chronic kidney disease stage 4. 7.Anemia due to chronic kidney disease. Plan: We will go ahead and continue current antibiotic; the patient is responding well to antibiotic s. Physical Therapy to continue to work with him and will continue insulin per order for diabetes debra doshi. The patient was accepted to go to inpatient rehab and I have communicated with the patient 's son this evening and he informed me that family is in agreement for the patient to go to inpatient rehab. At the same time, he also informed me that he has discussed advance directives with the selene ent's as well as all other siblings and everybody's in agreement to have do not resuscitate order in place. I will see him terrell mckeon for followup. ADALBERTO/MODL Voice ID: [id number] Report ID: [id number]
[2023-01-11 01:38] VITALS: BMI 25.0
[2023-01-11 04:21] LABS: Absolute Lymphocytes (CBC) 0.9 K/uL (0.7-4.9); Hematocrit 23.8 % (39.6-49.0); Lymphocytes % 7.8 % (15.3-44.8); MCV 88.9 fL (80-100); Platelets 189 thou/uL (152-406); RBC Red Blood Cell Count 2.67 M/uL (4.33-5.43)
[2023-01-11 04:38] LABS: Magnesium 2.4 mg/dL (1.6-2.4); Potassium 4.5 mEq/L (3.5-5.1)
[2023-01-11] MEDS: INSULIN REGULAR (HUMAN) 100 UNIT/ML SQ SCH (08:54)
[2023-01-11] MEDS: NIFEDIPINE XL 30 MG TABLET PO SCH (08:57)
[2023-01-11] MEDS: MAGNESIUM OXIDE 400 MG TAB PO SCH (08:58)
[2023-01-11] MEDS: MEMANTINE HCL 10 MG TABLET PO SCH (08:58)
[2023-01-11] MEDS: FUROSEMIDE 40 MG TABLET PO SCH (08:58)
[2023-01-11] MEDS: carvediloL 6.25 MG TAB PO SCH (08:59)
[2023-01-11] MEDS: CLOPIDOGREL 75 MG TABLET PO SCH (08:59)
[2023-01-11] MEDS: GABAPENTIN 100 MG CAP PO SCH (08:59)
[2023-01-11] MEDS: LOSARTAN POTASSIUM 50 MG TABLET PO SCH (08:59)
[2023-01-11] MEDS: ASPIRIN EC 81 MG TAB PO SCH (08:59)
[2023-01-11] MEDS ORDERED: INSULIN GLARGINE 100 UNIT/ML SQ SCH (09:00)
[2023-01-11] MEDS: Levofloxacin 250mg IV 250 MG/50 ML BAG IV SCH (09:01)
[2023-01-11 09:04] VITALS: BP 164/57
[2023-01-11 10:29] VITALS: O2SAT 95
[2023-01-11 11:16] VITALS: TEMP 98
[2023-01-11 12:13] LABS: SARS-COV-2 RT PCR NEGATIVE (NEGATIVE)
--- NOTE | 2023-01-11 20:36 | DS ---
Date of Discharge: 01/11/2023 Disposition: Discharged to go to inpatient rehab. Physical Examination: HEENT: Unremarkable. Lungs: Clear to auscultation. Heart: Sounds normal. Abdomen: Soft. Bowel sounds normal. No guarding, rigidity, tenderness, distention. Extremities: No leg edema. Laboratory Data: Upon admission, white count was 24.4, hemoglobin 9.8, platelets 225. Today, white count 11.1, hemoglobin 7.9, platelets 189. Chemistry today, sodium 137, potassium 4.5, chloride 110, bicarb 25, BUN 58, creatinine 2.31, estimated GFR 27, glucose 245. Upon admission, sodium 133, pota ssium 4.6, chloride 104, bicarb 21, BUN 92, creatinine 3.07, glucose 155. Liver function tests unrem arkable. His hemoglobin A1c done during this hospitalization was 9 and initial troponin 19.6, second troponin 74, third troponin 174. Echocardiogram shows normal ejection fraction 55%, moderate aortic regurgitation and mild tricuspid regurgitation. Discharge Medications And Instructions: Continue all current medication orders and see copy of trans ryann order for details. Hospital Course: This is an 87-year-old very pleasant male patient, who lives at home with his , was brought into emergency room because of complaints of chest pain. Please see dictated H and P fo r more information. After the patient was evaluated in the ER, he was admitted to the hospital and t he patient was admitted to the hospital with non-STEMI. Cardiology consultation was requested. The patient is allergic to heparin, so he did not receive any heparin or Lovenox. The patient continued his anti-platelet therapy, statin therapy, and beta-mitesh. Overall, he was asymptomatic during thi s hospitalization as per his cardiac symptoms concerned. We were concerned about possibility of seps is as his white count was elevated when he first came in. There was no definite source of infection. Blood cultures were done and he was started on empiric antibiotic. All of his cultures came back g rowing Streptococcus agalactiae and the patient was given vancomycin as well as Levaquin that actuall y has helped to improve his blood count as well as control his sepsis very well. The patient has sig nificant dementia problem and he really does not remember most of the things when we ask him. Detail s were discussed with his and son and also communicated with family regarding advance directives and family made decision of do not resuscitate and this order was written also. Physical Therapy wa s consulted and diabetes was managed with insulin per order. Overall the patient's condition has imp roved and today he was transferred to inpatient rehab in stable condition. Final Diagnoses: 1.Non-STEMI. 2.Coronary artery disease. 3.Sepsis, organism Streptococcus. 4.Hypertension. 5.Mixed hyperlipidemia. 6.Volume depletion. 7.Acute kidney injury. 8.Chronic kidney disease stage 4. 9.Diabetes mellitus with chronic kidney disease. 10.Uncontrolled diabetes mellitus. 11.Senile dementia. 12.Prostate cancer. 13.Anemia due to chronic kidney disease. 14.Congestive heart failure, chronic, diastolic. ADALBERTO/MODL Voice ID: [id number] Report ID: [id number]
== END 2023-01-11 13:08 | DRG 871 ==
LOC: ER 14:20 → ERHOLD 18:43 → 4TH 20:21
PROVIDERS: ADMIT Internal Medicine; ATTEND Internal Medicine
DX: A40.1 Sepsis due to streptococcus, group B (principal); I21.4 Non-ST elevation (NSTEMI) myocardial infarction; I13.0 Hypertensive heart and chronic kidney disease with heart failure and stage 1 through stage 4 chronic kidney disease, or unspecified chronic kidney disease; I50.32 Chronic diastolic (congestive) heart failure; N18.4 Chronic kidney disease, stage 4 (severe); N17.9 Acute kidney failure, unspecified; E11.22 Type 2 diabetes mellitus with diabetic chronic kidney disease; D63.1 Anemia in chronic kidney disease; E78.2 Mixed hyperlipidemia; E86.9 Volume depletion, unspecified; D72.829 Elevated white blood cell count, unspecified; F03.90 Unspecified dementia, unspecified severity, without behavioral disturbance, psychotic disturbance, mood disturbance, and anxiety; I25.10 Atherosclerotic heart disease of native coronary artery without angina pectoris; I25.2 Old myocardial infarction; Z79.4 Long term (current) use of insulin; Z88.8 Allergy status to other drugs, medicaments and biological substances; Z85.46 Personal history of malignant neoplasm of prostate; Z79.02 Long term (current) use of antithrombotics/antiplatelets; Z79.84 Long term (current) use of oral hypoglycemic drugs; Z79.82 Long term (current) use of aspirin; Z91.013 Allergy to seafood; Z79.899 Other long term (current) drug therapy
CPT/HCPCS: 0241U; 36415; 71045; 80048; 80061; 80076; 80202; 81001; 82947; 83036; 83605; 83735; 83880; 84443; 84484; 85025; 85610; 87040; 87077; 87186; 87205; 93005; 93306; 96374; 96375; 97116; 97161; 97530; 99285; J1815; J2543; J3010; J7040

== ENCOUNTER 2023-01-11 13:30 | Inpatient (IN) | payer OTHER ==
[2023-01-11] MEDS ORDERED: D50W 25 GM/50 ML SYRINGE IV PRN (15:47)
[2023-01-11] MEDS ORDERED: GLUCAGON 1 MG/VIAL IM PRN (15:47)
[2023-01-11] MEDS ORDERED: Levofloxacin 250mg IV 250 MG/50 ML BAG IV SCH (16:00)
[2023-01-11] MEDS ORDERED: D10W 250 ML BAG IV PRN (16:03)
[2023-01-11] MEDS: INSULIN REGULAR (HUMAN) 100 UNIT/ML SQ SCH ×2 (17:16→20:59)
[2023-01-11] MEDS: GABAPENTIN 100 MG CAP PO SCH (21:00)
[2023-01-11] MEDS: APIXABAN 2.5 MG TABLET PO SCH (21:00)
[2023-01-11] MEDS: MEMANTINE HCL 10 MG TABLET PO SCH (21:00)
[2023-01-11] MEDS: ATORVASTATIN 40 MG TAB PO SCH (21:00)
[2023-01-11] MEDS ORDERED: INSULIN GLARGINE 100 UNIT/ML SQ SCH (21:00)
[2023-01-11] MEDS: carvediloL 6.25 MG TAB PO SCH (21:00)
[2023-01-11] MEDS: DONEPEZIL HCL 5 MG TAB PO SCH (21:01)
--- NOTE | 2023-01-11 22:03 | HP ---
Date of Admission: 01/11/2023 Time Of Service: 3:00 p.m. Chief Complaint: Very weak after being in the hospital and had shortness of breath, chest pain. History Of Present Illness: Mr. Apodaca is an 87-year-old patient with diastolic CHF, coronary artery bypass grafting, [id number]-[id number]-ghfrvqy myocardial infarction, who came to [facility] with chest pa in, found to have elevated troponins and white blood cells in addition to moderate aortic insufficien cy and tricuspid regurgitation being identified on echocardiogram. He was treated with aspirin at hi gh dose, given fentanyl for chest pain. 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 His blood sug ars were found to be elevated and a lipid panel showing dyslipidemia. He had significant weakness in the lower extremities and poor ability to perform ordinary activities such as transfers, dressing, a nd mobilization. While at hospital, he did require BiPAP. In his acute care hospital, he had 2 sets of blood culture showing leukocytosis. After leukocytosis was identified, begin Zosyn. Cultures id entifies Streptococcus for which he received IV Levaquin and vancomycin. He had to receive the Lantu s insulin on sliding scale for elevated blood sugars. He therefore became significantly weak over hi s week long hospitalization and was performing significantly lower than his baseline where he was ind ependent with his mobilization, transfers, and activities of daily living. As a result of his compli cated medical course and significant debility along with CHF, myopathy symptoms producing weakness in the extremities, he is determined to be an appropriate candidate for inpatient rehabilitation and wa s therefore admitted for physical, occupational, and speech therapy to help him return to his prior l evel of functioning and function at home. He will have daily physician evaluation, 24-hour daily delray medical centered nursing along with physical, occupational, and speech therapy if need be. Past Medical History: Chronic dementia; diabetes mellitus; hypertension; dyslipidemia; chronic kidne y disease; prostate cancer, status post radiation; anemia of chronic disease; coronary artery disease with cardiac bypass surgery in 2003; and surgery on left clavicle also remotely. Allergies: HEPARIN ANALOG, SHELLFISH, LETTUCE, AND . Medications: Tylenol Extra Strength 500 mg every 6 hours as needed. He is on Eliquis 2.5 mg twice d aily, Lipitor 40 mg at bedtime, Coreg 6.25 mg twice daily, vitamin B12 1000 mcg daily, donepezil 10 m g daily, Lasix 40 mg daily, gabapentin 100 mg 3 times daily, glipizide 5 mg at breakfast, Semglee ins ulin 9 units in the morning and 15 units at bedtime. Continue his Levaquin 250 mg/50 mL every 24 maira rs, Cozaar 50 mg daily, magnesium oxide 400 mg daily, melatonin 3 at bedtime, Namenda 10 mg twice lisa ly, Centrum 1 tablet daily, nifedipine 30 mg daily, Senokot S 2 at bedtime, and vancomycin, he is rec eiving 1.5 g every 48 hours. Social History: Patient has no alcohol, tobacco, or use IV drug use. He lives with family and is ho ping to return home. Family History: Noncontributory. Review of Systems: Some again shortness of breath, diffuse weakness, myalgias, arthralgias. No rash. No headache. No psychiatric complaints and other than mentioned, no other positives on systems review. X-ray/imaging: A chest x-ray on 01/05/2023 done in the acute care floor showed no acute cardiopulmon juan processes and echocardiogram on January 06 showed ejection fraction 69% with moderate aortic in sufficiency. Physical Examination: Vital Signs: Blood pressure 164/57, pulse 68, respiratory rate 16, temperature 98, ox saturation 95% on room air. General: Mr. Apodaca is resting comfortably. He is in no significant distress. HEENT: He is normocephalic, atraumatic. Sclerae anicteric. Oropharynx is moist. Neck: Supple. Chest: Clear. Heart: Regular. Extremities: Show no significant edema or cyanosis. There is diffuse weakness around 4+ in upper an d lower extremities, more proximal than distal. Intact sensory examination with stocking-glove loss. Depressed reflexes. Coordination is intact. Current Level Of Functioning: He is independent for eating, oral hygiene. Toileting supervision. C ontact guard assistance for bathing, upper body dressing. Moderate assistance for lower body dressin g. Donning and doffing footwear, moderate assistance. Turning left to right, right to left, moderat e assistance. Sit to stand, moderate assistance. Going from a chair to bed, to the commode, moderat e assistance. Ambulating, moderate assistance with a rolling walker covering 60 feet. He has not do ne steps. Rehab And Medical Assessment And Plan: Mr. Apodaca is admitted to the inpatient rehabilitation unit w ith an impairment category of 06, neurologic condition. His impairment group code is 03.8 neuromuscu lar disorder. 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 His comorbidities are coronary artery disease, chronic kidney disease, dementia, diast olic congestive heart failure, diabetes mellitus type 2, hypertension, dyslipidemia, leukocytosis, my ocardial infarction, prostate cancer, and criteria for sepsis, which were met earlier and he is now o n multiple IV antibiotics. Plan: 1.He will have physical, occupational, and if need be speech therapy for 3.5 hours, 5/7 days. 2.His comorbid conditions which do include the sepsis infection will be treated by continuing his va ncomycin and levofloxacin, and IV medications. For hypertension continue nicotine and Coreg along wi th Lasix. For neuropathic pain, continue gabapentin. For diabetes mellitus, continue glipizide and Semglee insulin. For insomnia, continue melatonin. For his dementia, Namenda and Aricept to be cont inued for pain. Use Tylenol for medication to be used as needed. He is also on energy an d anemia of chronic disease. Impact Of Comorbidities: He does have the sepsis requiring IV antibiotics and the schedule _ receiving IV antibiotics. He will potentially need repeat blood work, potential cultures, chest x- ray, and urinalysis depending on his response to the IV antibiotics. In addition, for his diabetes m ellnargis, will have blood sugars a.c. and at bedtime to minimize the risk of complications of uncontro lled blood sugars while having sepsis. Rehab Specific Plan: 1.Mr. Apodaca will have 3.5 hours, 5/7 days of physical, occupational, and speech therapy if need be. 2.He will have his medical conditions addressed adequately by daily physician evaluation and 24 hour day [facility]. Maximum level of therapy as noted with physical and occupational therapist danny ng a gait belt and all precautions as appropriate. 3.Mr. Apodaca has a good understanding of the process of admission to the inpatient rehabilitation [facility] and the benefits of acute inpatient rehabilitation while he has his medical conditions address ed. It is noted that Dr. Perry, his primary care physician, is following him while in rehabilitation. If need be, the ID service and pulmonary service will be consulted. Given his complex medical cond ition and risk of further complications, rehabilitation cannot be safely or affectively provided at a lower level facility such as [facility]. Barriers To Discharge: Currently, he is on IV antibiotics, multiple, for sepsis, but he is doing wel l. His white blood cell count will be followed to look for fever or any worsening signs of sepsis mason ch as edema in the extremities, wasting of protein in the urine, and worsening confusion. Barriers to discharge are IV medications again may be depending on how he is doing. Hopefully, he sh ould be able to be on oral antibiotics prior to discharge. Estimated Length Of Stay: About 12 days. Disposition: Home with family. Prognosis: Fair prognosis. Rehabilitation Goals: 1.Become independent with upper and lower body dressing. 2.Independent with transfers from bed to toilet, to chair, to shower. 3.Independent with ambulation of 250 feet with a rolling walker. 4.Independent going up and down 20 steps. 5.Independently perform cognitive functioning with some supervision as he has a baseline dementia. 6.Manage all his medical conditions appropriately. Discharge Plan: 1.Continue with therapy either via Home Health depending on how he is doing or outpatient event. 2.The above goals were reviewed with the patient and he is in agreement. 3.By signing this document, I acknowledge I personally performed a full physical examination on Mr. Apodaca no later than 24 hours after his admission to the inpatient rehabilitation facility and determ ined that he is able to tolerate the above course of treatment at an intensive level for a reasonable period of time. A detailed individualized plan of care for him will be completed by hospital day 4 based on the preadmission screen, history and physical, and therapeutic evaluations. HARITHA/CECI Voice ID: [id number]
[2023-01-12 01:51] VITALS: BMI 25.0
[2023-01-12 04:01] LABS: Hematocrit 22.9 % (39.6-49.0); Lymphocytes % 9.9 % (15.3-44.8); MCV 88.8 fL (80-100); Platelets 205 thou/uL (152-406); RBC Red Blood Cell Count 2.58 M/uL (4.33-5.43)
[2023-01-12 04:16] LABS: Albumin 2.1 g/dL (3.4-5.0); Magnesium 2.5 mg/dL (1.6-2.4); Potassium 4.2 mEq/L (3.5-5.1); Prealbumin 10.3 mg/dL (20-40)
[2023-01-12] MEDS ORDERED: VANCOMYCIN 1.5 GM in NA CHLORIDE 0.9% 500 ML IVPB SCH ×2 (06:00→08:00)
[2023-01-12] MEDS: INSULIN REGULAR (HUMAN) 100 UNIT/ML SQ SCH ×4 (07:15→20:55)
[2023-01-12] MEDS ORDERED: CLOPIDOGREL 75 MG TABLET PO SCH (08:00)
[2023-01-12] MEDS ORDERED: MAGNESIUM OXIDE 400 MG TAB PO SCH (08:00)
[2023-01-12] MEDS ORDERED: GLIPIZIDE S.A. 5 MG TAB PO SCH (08:00)
[2023-01-12] MEDS ORDERED: INSULIN GLARGINE 100 UNIT/ML SQ SCH (08:00)
[2023-01-12] MEDS: FUROSEMIDE 40 MG TABLET PO SCH (08:26)
[2023-01-12] MEDS: NIFEDIPINE XL 30 MG TABLET PO SCH (08:26)
[2023-01-12] MEDS: GABAPENTIN 100 MG CAP PO SCH ×3 (08:26→20:56)
[2023-01-12] MEDS: CYANOCOBALAMIN 1,000 MCG TAB PO SCH (08:26)
[2023-01-12] MEDS: LOSARTAN POTASSIUM 50 MG TABLET PO SCH (08:26)
[2023-01-12] MEDS: APIXABAN 2.5 MG TABLET PO SCH ×2 (08:26→20:56)
[2023-01-12] MEDS: Levofloxacin 250mg IV 250 MG/50 ML BAG IV SCH (08:26)
[2023-01-12] MEDS: carvediloL 6.25 MG TAB PO SCH ×2 (08:27→20:56)
[2023-01-12] MEDS: MULTIVITAMIN TAB PO SCH (08:27)
[2023-01-12] MEDS: INSULIN GLARGINE 100 UNIT/ML SQ SCH (08:27)
[2023-01-12] MEDS: MEMANTINE HCL 10 MG TABLET PO SCH ×2 (08:27→20:57)
[2023-01-12] MEDS: ASPIRIN EC 81 MG TAB PO SCH (08:27)
[2023-01-12] MEDS: ACETAMINOPHEN 500 MG TAB PO PRN (12:44)
[2023-01-12] MEDS: ATORVASTATIN 40 MG TAB PO SCH (20:56)
[2023-01-12] MEDS: DONEPEZIL HCL 5 MG TAB PO SCH (20:56)
[2023-01-12] MEDS: MAGNESIUM OXIDE 400 MG TAB PO SCH (20:57)
--- NOTE | 2023-01-12 22:55 | PN ---
Date of Progress Note: 01/12/2023 Time Of Service: 1:30 p.m. Subjective: Mr. Apodaca is doing well. He has no new complaints. He says he is improving significan tly, even though he just got into the unit. He does have some proximal pain in the groin area after he does his exercises. The pain is localized in the muscle region. It does not cross joints suggest remi of some muscle spasms postexercise. Otherwise, subjective no other complaints. Review of Systems: No fevers, chills. No significant myalgias, arthralgias. Again, pelvic area pain noted after his mo bilization with a rolling walker and with a wheelchair. Physical Examination: Vital Signs: Blood pressure 130/62, pulse 85, respiratory rate of 16, temperature 98.0, oxygen satur ation 94%. General: Mr. Apodaca is resting comfortably. HEENT: He is normocephalic, atraumatic. Sclerae are anicteric. Oropharynx pink and moist. Neck: Supple. Chest: Clear. Heart: Regular. Extremities: Show no significant edema or cyanosis. Has diffuse weakness in the lower extremities, more proximal and distal. Laboratory Studies: White blood cell count 10.6, hemoglobin 7.7, platelets 205. Sodium 139, potassi um 4.2, chloride 112, carbon dioxide 23, BUN 60, creatinine 2.26, glucose ranged from 123 to 280, galindo cium 8.2, magnesium 2.5, albumin 2.1, prealbumin 10.3. His vancomycin trough today is 20.2, which is elevated. Note he is followed by Dr. Perry, his primary care physician, while in the rehabilitation unit. X-ray/imaging: No new x-rays or imaging. Medications: Tylenol 500 mg every 6 hours as needed, Eliquis 2.5 mg twice daily, aspirin 81 mg daily , Lipitor 40 mg at bedtime, Coreg 6.25 mg twice daily, vitamin B12 1000 mcg daily, Aricept 10 mg at b edtime, Lasix 40 mg daily, gabapentin 100 mg 3 times daily, Semglee insulin 15 units daily plus regul ar sliding scale. He has levofloxacin 250 mg every 24 hours, Cozaar 50 mg daily, melatonin 3 mg at b edtime, Namenda 10 mg twice daily, Centrum Silver 1 tablet daily, Procardia XL 30 mg daily, Senokot-S 2 at bedtime, and vancomycin 1.5 g every 72 hours. Current Functional Status: With physical therapy today, he ambulated 20 feet once and 50 feet twice with minimum assistance using a rolling walker. Bed status went to sit, transfers done with maximum assistance, multiple [id number] transfers, minimum assistance using a rolling walker. He rapidly f atigues and requires rest. emphasis to maintain an upright posture. With occupational th erapy, wheelchair to tub and transfer backboard contact guard assistance, bathing moderate assistance , upper body dressing minimum assistance, lower body dressing maximum assistance, standing rolling wa lker, and mobilizing the foot but can do that without assistance. He is dependent for footwear, supe rvision for grooming and verbal cues are required. Progress Towards Rehabilitation Goals: Mr. Apodaca is beginning to make progress, but is still slow w ith ability to try to ambulate 250 feet with modified independence, to go up and down 10 steps with m odified independence, and perform wheelchair mobilization 250 feet with modified independence as well as slowly taking chair. He is also working with speech and is working towards modified independent with cognitive functioning including memory, processing, thinking, and judgment. Assessment: Mr. Apodaca is an 87-year-old patient admitted to the rehabilitation unit with CHF myopat hy. He has comorbidities to include chronic renal disease, coronary artery disease, diastolic conges tive heart failure, diabetes mellitus type 2, hypertension, dyslipidemia, leukocytosis, prior myocard ial infarction, prostate cancer. He did meet criteria for sepsis and has been on antibiotics with re nal protocol. Plan: 1.He will continue physical, occupational, and speech therapy for 3.5 hours, 5 of 7 days. 2.He has multiple comorbid conditions which are listed and he has multiple medications which will be used to treat his comorbid conditions and those are being all continued. Comorbid Comorbidities That Continue To Impact His Rehabilitation: He does have some cognitive issue s, making difficult to follow commands very quickly and appropriately, but he is still doing very wel l. In addition, requiring multiple IV antibiotics and schedules for therapy yet to be worked around that. LB/CECI Voice ID: [id number] Report ID: [id number]
[2023-01-13] MEDS: Levofloxacin 250mg IV 250 MG/50 ML BAG IV SCH (07:21)
[2023-01-13] MEDS: FUROSEMIDE 40 MG TABLET PO SCH (07:24)
[2023-01-13] MEDS: LOSARTAN POTASSIUM 50 MG TABLET PO SCH (07:25)
[2023-01-13] MEDS: carvediloL 6.25 MG TAB PO SCH ×2 (07:25→20:32)
[2023-01-13] MEDS: INSULIN GLARGINE 100 UNIT/ML SQ SCH (07:26)
[2023-01-13] MEDS: APIXABAN 2.5 MG TABLET PO SCH ×2 (07:27→20:33)
[2023-01-13] MEDS: GABAPENTIN 100 MG CAP PO SCH ×3 (07:28→20:33)
[2023-01-13] MEDS: ASPIRIN EC 81 MG TAB PO SCH (07:28)
[2023-01-13] MEDS: MEMANTINE HCL 10 MG TABLET PO SCH ×2 (07:29→20:33)
[2023-01-13] MEDS: INSULIN REGULAR (HUMAN) 100 UNIT/ML SQ SCH ×4 (07:29→20:34)
[2023-01-13] MEDS: MULTIVITAMIN TAB PO SCH (07:29)
[2023-01-13] MEDS: CYANOCOBALAMIN 1,000 MCG TAB PO SCH (07:29)
[2023-01-13] MEDS: MAGNESIUM OXIDE 400 MG TAB PO SCH (07:30)
[2023-01-13] MEDS: NIFEDIPINE XL 30 MG TABLET PO SCH (10:03)
[2023-01-13] MEDS: VANCOMYCIN 1.5 GM in NA CHLORIDE 0.9% 500 ML IVPB SCH (10:48)
--- NOTE | 2023-01-13 12:28 | PN ---
Date of Progress Note: 01/12/2023 Subjective: The patient was seen this morning for followup. No new complaints or problems reported by him. He was lying in bed, not in distress, on rehab floor. Vital signs reviewed. The patient de nies any chest pain, shortness of breath, nausea, vomiting. Objective: HEENT: Unremarkable. Lungs: Clear to auscultation. Heart: Sounds normal. Abdomen: Soft. Bowel sounds normal. No guarding, rigidity, tenderness, distention. Extremities: No leg edema. Skin: The patient has dry skin over both lower extremity between knee and feet. Laboratory Data: White count 10.6, hemoglobin 7.7, and platelets 205. Sodium 139, potassium 4.2, ch loride 112, bicarb 23, BUN 60, creatinine 2.26, glucose 123, phosphorus 2.5. Impression: 1.Sepsis, organism Streptococcus. 2.Generalized weakness. 3.Debility. 4.Chronic kidney disease stage 4. 5.Diabetes mellitus with chronic kidney disease. 6.Hypertension. 7.Coronary artery disease. 8.Hyperlipidemia. 9.Senile dementia. 10.Anemia due to chronic kidney disease. Plan: We will go ahead and continue current medication. Continue current antibiotics per order. Ph ysical therapy to be provided under guidance of Dr. Chacon. We will continue current diabetes ap gement and the patient will receive DVT prophylaxis with Eliquis. Continue his antihypertensive medi cation per order and I will see him tomorrow for followup. DNR order was written in the chart as per decision made by the patient's fami ly. ADALBERTO/MODL Voice ID: [id number] Report ID: [id number]
--- NOTE | 2023-01-13 12:49 | PN ---
Date of Progress Note: 01/13/2023 Subjective: Patient was seen this morning for followup. No new complaints or problems reported by t he patient. This morning, he was sitting in chair. Overall, feels better. Denies any complaints. Had a bowel movement this morning. Objective: Vital Signs: Reviewed. HEENT: Unremarkable. Lungs: Clear to auscultation. Heart: Sounds normal. Abdomen: Soft. Bowel sounds normal. No guarding, rigidity, tenderness, distention. Extremities: No leg edema. Skin: Shows significant improvement in dry skin that he had on his both legs. Impression: 1.Sepsis. 2.Coronary artery disease. 3.Senile dementia. 4.Hypertension. 5.Hyperlipidemia. 6.Diabetes mellitus with chronic kidney disease. 7.Chronic kidney disease, stage IV. Plan: We will go ahead and continue current medication. Continue to apply topicals, moisturizing sk in lotion to both lower extremities skin 2 times a day and it has provided significant benefit. We w ill continue current antibiotic, physical therapy under guidance of Dr. Chacon, and continue current diabetes management. I will see him tomorrow for followup. ADALBERTO/MODL Voice ID: [id number] Report ID: [id number]
--- NOTE | 2023-01-13 13:37 | P.RH.PN ---
Estimated Length of Stay: 13 Expected Discharge Date: 01/23/23 Discharge Disposition Plan: Home Family Support: Yes Correction Goal: Mobility, Transfers, Self Care Vital Signs: Last Vital Signs Temp 97.6 F 01/13/23 08:00 Pulse 49 L 01/13/23 10:15 Resp 18 01/13/23 08:00 BP 148/64 H 01/13/23 10:15 Pulse Ox 97 01/13/23 08:00 Laboratory: Laboratory Last Values WBC 10.60 thou/uL (4.3-10.9) 01/12/23 03:20 RBC 2.58 M/uL (4.33-5.43) L 01/12/23 03:20 Hgb 7.7 g/dL (13.6-17.9) L 01/12/23 03:20 Hct 22.9 % (39.6-49.0) L 01/12/23 03:20 MCV 88.8 fL (80-100) 01/12/23 03:20 MCH 29.9 pg (27.0-35.0) 01/12/23 03:20 MCHC 33.7 g/dL (32.0-36.0) 01/12/23 03:20 RDW 13.6 % (12.1-15.2) 01/12/23 03:20 Plt Count 205 thou/uL (152-406) 01/12/23 03:20 MPV 8.0 fL (7.6-11.3) 01/12/23 03:20 Neutrophils % 79.4 % (41.7-73.7) H 01/12/23 03:20 Lymphocytes % 9.9 % (15.3-44.8) L 01/12/23 03:20 Monocytes % 6.2 % (3.3-12.3) 01/12/23 03:20 Eosinophils % 4.0 % (0-4.4) 01/12/23 03:20 Basophils % 0.5 % (0-1.3) 01/12/23 03:20 Absolute Neutrophils 8.4 K/uL (1.8-8.0) H 01/12/23 03:20 Absolute Lymphocytes 1.0 K/uL (0.7-4.9) 01/12/23 03:20 Absolute Monocytes 0.7 K/uL (0.1-1.3) 01/12/23 03:20 Absolute Eosinophils 0.4 K/uL (0-0.5) 01/12/23 03:20 Absolute Basophils 0.1 K/uL (0-0.5) 01/12/23 03:20 Sodium 139 mEq/L (136-145) 01/12/23 03:20 Potassium 4.2 mEq/L (3.5-5.1) 01/12/23 03:20 Chloride 112 mEq/L (98-107) H 01/12/23 03:20 Carbon Dioxide 23 mEq/L (21-32) 01/12/23 03:20 Anion Gap 8.2 mEq/L (5.0-15.0) 01/12/23 03:20 BUN 60 mg/dL (7-18) H 01/12/23 03:20 Creatinine 2.26 mg/dL (0.70-1.30) H 01/12/23 03:20 Est GFR (CKD-EPI) 28 ml/min (=/>90) L 01/12/23 03:20 Glucose 123 mg/dL (74-106) H 01/12/23 03:20 POC Glucose 221 mg/dL (65-120) H 01/13/23 12:06 Calcium 8.2 mg/dL (8.5-10.1) L D 01/12/23 03:20 Magnesium 2.5 mg/dL (1.6-2.4) H 01/12/23 03:20 Albumin 2.1 g/dL (3.4-5.0) L 01/12/23 03:20 Prealbumin 10.3 mg/dL (20-40) L 01/12/23 03:20 Vancomycin Trough 16.0 mcg/mL (5.0-20.0) 01/13/23 09:10 Weight: 195 lb 9.6 oz Wound Present: No Physician Update: Labs reviewed. Mg 2.5, prealbumin 10.3. Glucose 228 to 280. Making fair overall progress with all therapy. Walked 90' with CGA, transfers CGA, needs much encouragement. Very poor memory, SLUMS 12. Unable to recall 3 pictures after 3 minutes. Severe left hip pain unable to lift left leg. Will do AP and Lat x-rrays of the left hip. Also very fatugued. Summary: Patient's care plan and assisted goals have been reviewed and revised as necessary. Please see the Rehabilitation Signature page for all necessary signatures.
--- NOTE | 2023-01-13 19:51 | RAD REPORT ---
EXAM DESCRIPTION: RAD - Hip Left 2 View - 01/13/2023 4:09 pm CLINICAL HISTORY: Pain COMPARISON: Hip Left 2 View dated 07/07/2010 TECHNIQUE: Left hip, AP and frogleg views of the left hip. FINDINGS: There is no fracture or dislocation. Stable [id number] left hip joint degenerative c hanges No acute or destructive bony process seen. IMPRESSION: No acute findings of the left hip.
[2023-01-13] MEDS: NEPRO SHAKE 237 ML CAN PO SCH (20:00)
[2023-01-13] MEDS: DONEPEZIL HCL 5 MG TAB PO SCH (20:32)
[2023-01-13] MEDS: ATORVASTATIN 40 MG TAB PO SCH (20:33)
[2023-01-14] MEDS: INSULIN REGULAR (HUMAN) 100 UNIT/ML SQ SCH ×4 (07:30→19:41)
[2023-01-14] MEDS: MEMANTINE HCL 10 MG TABLET PO SCH ×2 (08:10→19:41)
[2023-01-14] MEDS: LIDOCAINE 4% PATCH TOP SCH (08:10)
[2023-01-14] MEDS: CYANOCOBALAMIN 1,000 MCG TAB PO SCH (08:10)
[2023-01-14] MEDS: INSULIN GLARGINE 100 UNIT/ML SQ SCH (08:10)
[2023-01-14] MEDS: Levofloxacin 250mg IV 250 MG/50 ML BAG IV SCH (08:10)
[2023-01-14] MEDS: ASPIRIN EC 81 MG TAB PO SCH (08:11)
[2023-01-14] MEDS: carvediloL 6.25 MG TAB PO SCH ×2 (08:11→19:40)
[2023-01-14] MEDS: FUROSEMIDE 40 MG TABLET PO SCH (08:11)
[2023-01-14] MEDS: MAGNESIUM OXIDE 400 MG TAB PO SCH (08:11)
[2023-01-14] MEDS: LOSARTAN POTASSIUM 50 MG TABLET PO SCH (08:11)
[2023-01-14] MEDS: APIXABAN 2.5 MG TABLET PO SCH ×2 (08:12→19:40)
[2023-01-14] MEDS: NEPRO SHAKE 237 ML CAN PO SCH ×2 (08:12→19:41)
[2023-01-14] MEDS: MULTIVITAMIN TAB PO SCH (08:12)
[2023-01-14] MEDS: GABAPENTIN 100 MG CAP PO SCH ×3 (08:12→19:40)
[2023-01-14] MEDS: NIFEDIPINE XL 30 MG TABLET PO SCH (12:28)
[2023-01-14] MEDS: DOCUSATE NA/SENNA CONC 1 TAB PO PRN (19:40)
[2023-01-14] MEDS: MELATONIN 3 MG TABLET PO PRN (19:40)
[2023-01-14] MEDS: DONEPEZIL HCL 5 MG TAB PO SCH (19:40)
[2023-01-14] MEDS: ATORVASTATIN 40 MG TAB PO SCH (19:40)
--- NOTE | 2023-01-14 20:37 | PN ---
Date of Progress Note: 01/14/2023 Subjective: Patient was seen this morning for followup. He was lying in bed, not in any distress. Objective: Vital Signs: Reviewed. HEENT: Unremarkable. Lungs: Clear to auscultation. Heart: Sounds normal. Abdomen: Soft. Bowel sounds normal. No guarding, rigidity, tenderness, distention. Extremities: No leg edema. Skin: His dryness from both lower extremity has almost resolved completely with application of moist urizing skin lotion 2 times a day that we have been doing while he is in the hospital. Impression: 1.Sepsis. 2.Coronary artery disease. 3.Hypertension. 4.Hyperlipidemia. 5.Diabetes mellitus with chronic kidney disease. 6.Chronic kidney disease stage 4. 7.Anemia due to chronic kidney disease. Plan: We will go ahead and continue current antibiotics. Continue current diabetes management, anti hypertensive medication. Continue Eliquis for DVT prophylaxis and continue to provide physical thera py under guidance of Dr. Chacon. ADALBERTO/MODL Voice ID: [id number] Report ID: [id number]
[2023-01-15] MEDS: INSULIN REGULAR (HUMAN) 100 UNIT/ML SQ SCH ×4 (07:30→19:59)
[2023-01-15] MEDS: LIDOCAINE 4% PATCH TOP SCH (07:56)
[2023-01-15] MEDS: INSULIN GLARGINE 100 UNIT/ML SQ SCH (07:56)
[2023-01-15] MEDS: MAGNESIUM OXIDE 400 MG TAB PO SCH (07:57)
[2023-01-15] MEDS: carvediloL 6.25 MG TAB PO SCH ×2 (07:57→20:00)
[2023-01-15] MEDS: MULTIVITAMIN TAB PO SCH (07:57)
[2023-01-15] MEDS: ASPIRIN EC 81 MG TAB PO SCH (07:57)
[2023-01-15] MEDS: LOSARTAN POTASSIUM 50 MG TABLET PO SCH (07:58)
[2023-01-15] MEDS: FUROSEMIDE 40 MG TABLET PO SCH (07:58)
[2023-01-15] MEDS: CYANOCOBALAMIN 1,000 MCG TAB PO SCH (07:58)
[2023-01-15] MEDS: APIXABAN 2.5 MG TABLET PO SCH ×2 (07:59→20:00)
[2023-01-15] MEDS: GABAPENTIN 100 MG CAP PO SCH ×3 (07:59→20:00)
[2023-01-15] MEDS: NEPRO SHAKE 237 ML CAN PO SCH ×2 (07:59→20:01)
[2023-01-15] MEDS: MEMANTINE HCL 10 MG TABLET PO SCH ×2 (07:59→20:00)
[2023-01-15] MEDS: Levofloxacin 250mg IV 250 MG/50 ML BAG IV SCH (07:59)
[2023-01-15] MEDS: NIFEDIPINE XL 30 MG TABLET PO SCH (10:33)
[2023-01-15] MEDS: ATORVASTATIN 40 MG TAB PO SCH (20:00)
[2023-01-15] MEDS: DONEPEZIL HCL 5 MG TAB PO SCH (20:00)
[2023-01-16] MEDS: LOSARTAN POTASSIUM 50 MG TABLET PO SCH (07:28)
[2023-01-16] MEDS: FUROSEMIDE 40 MG TABLET PO SCH (07:28)
[2023-01-16] MEDS: INSULIN GLARGINE 100 UNIT/ML SQ SCH (07:29)
[2023-01-16] MEDS: CYANOCOBALAMIN 1,000 MCG TAB PO SCH (07:29)
[2023-01-16] MEDS: MULTIVITAMIN TAB PO SCH (07:29)
[2023-01-16] MEDS: MAGNESIUM OXIDE 400 MG TAB PO SCH (07:30)
[2023-01-16] MEDS: APIXABAN 2.5 MG TABLET PO SCH ×2 (07:30→19:42)
[2023-01-16] MEDS: carvediloL 6.25 MG TAB PO SCH ×2 (07:30→19:42)
[2023-01-16] MEDS: ASPIRIN EC 81 MG TAB PO SCH (07:30)
[2023-01-16] MEDS: INSULIN REGULAR (HUMAN) 100 UNIT/ML SQ SCH ×4 (07:30→19:48)
[2023-01-16] MEDS: MEMANTINE HCL 10 MG TABLET PO SCH ×2 (07:31→19:42)
[2023-01-16] MEDS: GABAPENTIN 100 MG CAP PO SCH ×3 (07:32→19:43)
[2023-01-16] MEDS: NEPRO SHAKE 237 ML CAN PO SCH ×2 (07:32→19:43)
[2023-01-16] MEDS: Levofloxacin 250mg IV 250 MG/50 ML BAG IV SCH (07:33)
[2023-01-16 10:15] LABS: Absolute Lymphocytes (CBC) 0.8 K/uL (0.7-4.9); Hematocrit 26.4 % (39.6-49.0); Lymphocytes % 8.1 % (15.3-44.8); MCV 89.5 fL (80-100); MPV 7.9 fL (7.6-11.3); Platelets 285 thou/uL (152-406); RBC Red Blood Cell Count 2.95 M/uL (4.33-5.43)
[2023-01-16 10:29] LABS: Albumin 2.4 g/dL (3.4-5.0); Bilirubin Total 0.3 mg/dL (0.2-1.0); Magnesium 2.5 mg/dL (1.6-2.4); Potassium 4.9 mEq/L (3.5-5.1); Protein, Total 6.8 g/dL (6.4-8.2)
[2023-01-16] MEDS: NIFEDIPINE XL 30 MG TABLET PO SCH (11:19)
[2023-01-16] MEDS: LIDOCAINE 4% PATCH TOP SCH (11:21)
[2023-01-16] MEDS: VANCOMYCIN 1.5 GM in NA CHLORIDE 0.9% 500 ML IVPB SCH (11:41)
[2023-01-16] MEDS: GUAIFENESIN/DM 5 ML UCUP PO PRN (17:56)
[2023-01-16] MEDS: ATORVASTATIN 40 MG TAB PO SCH (19:42)
[2023-01-16] MEDS: DONEPEZIL HCL 5 MG TAB PO SCH (19:43)
--- NOTE | 2023-01-16 20:26 | PN ---
Date of Progress Note: 01/16/2023 Subjective: The patient was seen this morning for followup. He was lying in bed, not in any distres s. Vital signs were reviewed. Last night, he had the low-grade fever with temperature 99.4. He den ies any new complaints. Objective: Vital Signs: Reviewed. HEENT: Unremarkable. Lungs: Clear to auscultation. Heart: Sounds normal. Abdomen: Soft. Bowel sounds normal. No guarding, rigidity, tenderness, distention. Extremities: No leg edema. Laboratory Data: CBC and chemistry results reviewed, done today. Impression: 1.Sepsis. 2.Coronary artery disease. 3.Chronic kidney disease stage 4. 4.Anemia due to chronic kidney disease. 5.Hypertension. Plan: We will go ahead and continue current medication. Continue current antibiotics and continue c urrent DVT prophylaxis. Physical therapy to be provided under guidance of Dr. Chacon and I will se e him tomorrow for followup. ADALBERTO/MODL Voice ID: [id number] Report ID: [id number]
--- NOTE | 2023-01-16 22:53 | PN ---
Date of Progress Note: 01/16/2023 Time Of Service: 1:40 p.m. Subjective: Mr. Apodaca is resting well in a chair beside bed. He has no new complaints. He reports he feels stronger in the lower extremities and is actually doing well and happy with therapy. Review of Systems: No fevers, chills, myalgias, arthralgias. No rash, headache, weight change. No psychiatric issues. All other positives on a 10 point systems review. Physical Examination: Vital Signs: Blood pressure 180/79, pulse 56, respiratory rate of 16, temperature 97.4, oxygen satur ation 97%. General: Mr. Apodaca is resting in a chair beside bed. HEENT: He is normocephalic, atraumatic. Sclerae anicteric. Oropharynx pink, moist. Neck: Supple. Chest: Clear. Extremities: No clubbing, cyanosis, or edema. His proximal lower extremity weakness is improving mo derately. Laboratory Studies: White blood cell 9.9, hemoglobin 8.8, platelets 285. Sodium 135, potassium 4.9, carbon dioxide 24, BUN 67, creatinine 2.42, glucose ranged from 159 to 232, calcium 8.7. Magnesium 2.5. AST 20, ALT 37, alkaline phosphatase 131. Vancomycin trough today 16.5. Medications: Medications have been reviewed and are unchanged. He is on vancomycin and pharmacy scott sweeney and Dr. Perry are managing that. He is also on levofloxacin, again being managed by Dr. Perry and multiple comorbid conditions, also managed by Dr. Perry. Current Functional Status: Today, he completed gait training with a rolling walker 150 feet. He did have 1 seated rest break. He does have trouble with his assistive device while making turns. He di d complete 120 feet with a rolling walker and then went to the wheelchair to do more therapy. Radha souza, he did feel tired with that. With occupational therapy, independent with supine to sit transfers, sitting at edge of bed and did upper body strengthening exercises without difficulty. With speech, he recalled 0/3 words after 2 minutes. With 3 recall, then 2/3. With cued recall, 3/3. With recogn ition, recall. He did use working memory for 3 pieces of information with 100% accuracy. Progress Towards Rehabilitation Goals: Mr. Apodaca is making good progress towards his goals of becom ing independent with upper and lower body dressing, transferring, showering, toileting, performing ac tivities of daily living, and performing all cognitive functioning independently. His CHF symptoms a lso which manifests proximal weakness in lower extremity, improving. He is able to ambulate better d istances with a rolling walker and taking fewer rest breaks. Assessment: Mr. 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 He has diastolic congestive heart failure, diabetes mellitus type 2, hypertension , dyslipidemia, leukocytosis, and prostate cancer. Plan: 1.Continue physical, occupational, and speech therapy for 3.5 hours, 5/7 days. 2.He does have multiple comorbid conditions are listed and will continue with medications, which are noted previously and Dr. Perry is assisting. He does have multiple antibiotics on board and those ar e continuing per Dr. Perry. HARITHA/MODL Voice ID: [id number] Report ID: [id number]
[2023-01-17] MEDS: GUAIFENESIN/DM 5 ML UCUP PO PRN ×3 (07:10→20:03)
[2023-01-17] MEDS: LOSARTAN POTASSIUM 50 MG TABLET PO SCH ×3 (07:10→20:03)
[2023-01-17] MEDS: FUROSEMIDE 40 MG TABLET PO SCH (07:10)
[2023-01-17] MEDS: INSULIN GLARGINE 100 UNIT/ML SQ SCH (07:11)
[2023-01-17] MEDS: MAGNESIUM OXIDE 400 MG TAB PO SCH (07:12)
[2023-01-17] MEDS: NEPRO SHAKE 237 ML CAN PO SCH ×2 (07:12→20:04)
[2023-01-17] MEDS: INSULIN REGULAR (HUMAN) 100 UNIT/ML SQ SCH ×4 (07:13→20:04)
[2023-01-17] MEDS: Levofloxacin 250mg IV 250 MG/50 ML BAG IV SCH (07:13)
[2023-01-17] MEDS: ASPIRIN EC 81 MG TAB PO SCH (07:13)
[2023-01-17] MEDS: GABAPENTIN 100 MG CAP PO SCH ×3 (07:13→20:04)
[2023-01-17] MEDS: MULTIVITAMIN TAB PO SCH (07:14)
[2023-01-17] MEDS: APIXABAN 2.5 MG TABLET PO SCH ×2 (07:14→20:03)
[2023-01-17] MEDS: CYANOCOBALAMIN 1,000 MCG TAB PO SCH (07:14)
[2023-01-17] MEDS: MEMANTINE HCL 10 MG TABLET PO SCH ×2 (07:14→20:04)
[2023-01-17] MEDS: carvediloL 6.25 MG TAB PO SCH ×2 (07:16→20:03)
[2023-01-17] MEDS: NIFEDIPINE XL 30 MG TABLET PO SCH (10:03)
[2023-01-17] MEDS: LIDOCAINE 4% PATCH TOP SCH (11:56)
[2023-01-17] MEDS: DOCUSATE NA/SENNA CONC 1 TAB PO PRN (20:03)
[2023-01-17] MEDS: SIMETHICONE 80 MG CHEWABLE TAB PO PRN (20:03)
[2023-01-17] MEDS: MELATONIN 3 MG TABLET PO PRN (20:03)
[2023-01-17] MEDS: DONEPEZIL HCL 5 MG TAB PO SCH (20:04)
[2023-01-17] MEDS: ATORVASTATIN 40 MG TAB PO SCH (20:04)
--- NOTE | 2023-01-17 21:50 | PN ---
Date of Progress Note: 01/17/2023 Time Of Service: 1:40 p.m. Subjective: Mr. Apodaca is sitting in his chair beside the bed, very happy so far. Feels his legs ar e stronger. Denies any new complaints or any other issues. Review of Systems: Mild lower extremity myalgias, but no arthralgias. No rash, fever, headache, weight change. No othe r issues on a 10-point systems review. Physical Examination: Vital Signs: Blood pressure 148/67, pulse 62, respiratory rate of 19, temperature 97.6, oxygen satur ation 97. Neurological: Mr. Apodaca is resting well. He has no focal neurologic deficits. He has proximal wea kness in the lower extremities, more in the upper extremities. Sensory exam intact. No other findin gs there. Laboratory Studies: Blood sugars ranged from 77 to 264. X-ray/imaging: No new x-rays or imaging. Medications: Medications have been reviewed and remained unchanged. Current Functional Status: Today, with Physical Therapy, he ambulated with a rolling walker 200 feet with contact guard assistance and self-propelled a wheelchair 120 feet with standby assistance. Eddie galeas Occupational Therapy, supervision required for toileting. For upper body dressing, supervision. M inimal assistance for lower body dressing. [id number] transfers done with standby assistance. Eddie galeas Speech, immediate recall was used to recall 3 words for use in convergent thinking tasks with 80% a ccuracy. Demonstrated ability to explain cause effect relationship with moderate assistance on 09/09 a ttempts. Progress Towards Rehabilitation Goals: Mr. Apodaca is making excellent progress towards his goals of becoming independent with upper body dressing, transferring, toileting, showering, ambulating 250 fee t with modified independence, propelling wheelchair 250 feet with modified independence, going up and down 10 steps with modified independence and performing cognitive functioning independently. Assessment: Mr. Apodaca is an 87-year-old patient in the rehabilitation unit with congestive heart fa ilure myopathy, who is making excellent progress towards return to his normal level of functioning. He has diastolic congestive heart failure, diabetes mellitus type 2, hypertension, dyslipidemia, leuk ocytosis, and prostate cancer. Plan: 1.Continue with physical, occupational, and speech therapy for 3.5 hours, 5 to [address] Perry is managing his multiple comorbid conditions. 3.Currently, his comorbidities are well managed and do not negatively impact his rehabilitation. LB/MODL Voice ID: [id number] Report ID: [id number]
[2023-01-18] MEDS: ACETAMINOPHEN 500 MG TAB PO PRN (00:45)
[2023-01-18] MEDS: INSULIN REGULAR (HUMAN) 100 UNIT/ML SQ SCH ×4 (06:57→19:47)
[2023-01-18] MEDS: APIXABAN 2.5 MG TABLET PO SCH ×2 (07:47→19:44)
[2023-01-18] MEDS: MAGNESIUM OXIDE 400 MG TAB PO SCH (07:47)
[2023-01-18] MEDS: CYANOCOBALAMIN 1,000 MCG TAB PO SCH (07:47)
[2023-01-18] MEDS: LIDOCAINE 4% PATCH TOP SCH ×2 (07:48→08:00)
[2023-01-18] MEDS: GABAPENTIN 100 MG CAP PO SCH ×3 (07:48→19:44)
[2023-01-18] MEDS: ASPIRIN EC 81 MG TAB PO SCH (07:48)
[2023-01-18] MEDS: PANTOPRAZOLE 40MG TABLET PO SCH (07:48)
[2023-01-18] MEDS: MULTIVITAMIN TAB PO SCH (07:48)
[2023-01-18] MEDS: MEMANTINE HCL 10 MG TABLET PO SCH ×2 (07:49→19:43)
[2023-01-18] MEDS: carvediloL 6.25 MG TAB PO SCH ×2 (07:49→19:43)
[2023-01-18] MEDS: FUROSEMIDE 40 MG TABLET PO SCH (07:49)
[2023-01-18] MEDS: NEPRO SHAKE 237 ML CAN PO SCH ×2 (08:00→19:44)
--- NOTE | 2023-01-18 08:04 | PN ---
Date of Progress Note: 01/17/2023 Subjective: Patient was seen this morning for followup. No new complaints or problems reported by kezia ibarra. Lying in bed, not in distress. Denies any chest pain, shortness of breath, abdominal pain, nausea, vomiting. Objective: Vital Signs: Reviewed. HEENT: Unremarkable. Lungs: Clear to auscultation. Heart: Sounds normal. Abdomen: Soft. Bowel sounds normal. No guarding, rigidity, tenderness, distention. Extremities: Trace leg edema. Skin: Some dry scaly skin around the ankle and lower leg just above ankle area noted. Impression: 1.Dermatitis. 2.Hypertension. 3.Chronic kidney disease, stage 4. 4.Coronary artery disease. 5.Sepsis. Plan: We will go ahead and continue current Levaquin and vancomycin. For his dermatitis, it has imp roved significantly with application of moisturizing skin lotion and I have discussed with nursing st aff to make sure that he continues to get this topical application of skin lotion to his both lower e xtremities. Continue current antihypertensive medication and diabetes management. Fingerstick blood sugar readings reviewed and continue physical therapy under guidance of Dr. Chacon. I will s ee him tomorrow for followup. ADALBERTO/MODL Voice ID: [id number] Report ID: [id number]
[2023-01-18] MEDS: INSULIN GLARGINE 100 UNIT/ML SQ SCH (08:56)
[2023-01-18] MEDS: Levofloxacin 250mg IV 250 MG/50 ML BAG IV SCH (08:57)
[2023-01-18] MEDS: NIFEDIPINE XL 30 MG TABLET PO SCH (10:58)
[2023-01-18] MEDS: LOSARTAN POTASSIUM 50 MG TABLET PO SCH ×2 (10:59→19:43)
[2023-01-18] MEDS: SIMETHICONE 80 MG CHEWABLE TAB PO PRN (13:22)
[2023-01-18] MEDS: ATORVASTATIN 40 MG TAB PO SCH (19:43)
[2023-01-18] MEDS: MELATONIN 3 MG TABLET PO PRN (19:43)
[2023-01-18] MEDS: DONEPEZIL HCL 5 MG TAB PO SCH (19:44)
--- NOTE | 2023-01-18 20:26 | PN ---
Date of Progress Note: 01/18/2023 Subjective: Patient was seen this morning for followup. No new complaints or problems reported by t he patient. Lying in bed, not in any distress, sleeping, easily arousable, not in any distress. Objective: Vital Signs: Reviewed. HEENT: Unremarkable. Lungs: Clear to auscultation. Heart: Sounds normal. Abdomen: Soft. Bowel sounds normal. No guarding, rigidity, tenderness, distention. Extremities: No leg edema. Impression: 1.Hypertension. 2.Diabetes mellitus. 3.Chronic kidney disease stage 4. 4.Anemia due to chronic kidney disease. 5.Sepsis. Plan: We will continue current antibiotics. Continue physical therapy under guidance of Dr. Sher blackburn. Continue current diabetes management with monitoring of fingerstick blood sugar and sliding scale insulin. We will go ahead and continue current antihypertensive medication. I will see him tomorro w for followup. ADALBERTO/MODL Voice ID: [id number] Report ID: [id number]
[2023-01-19 04:24] LABS: Hematocrit 23.5 % (39.6-49.0); MCV 88.3 fL (80-100); MPV 7.5 fL (7.6-11.3); Platelets 283 thou/uL (152-406); RBC Red Blood Cell Count 2.67 M/uL (4.33-5.43)
[2023-01-19 04:51] LABS: Albumin 2.2 g/dL (3.4-5.0); Magnesium 2.5 mg/dL (1.6-2.4); Potassium 4.6 mEq/L (3.5-5.1); Prealbumin 12.1 mg/dL (20-40)
[2023-01-19] MEDS: INSULIN REGULAR (HUMAN) 100 UNIT/ML SQ SCH ×2 (06:54→11:28)
[2023-01-19] MEDS: MULTIVITAMIN TAB PO SCH (07:54)
[2023-01-19] MEDS: MAGNESIUM OXIDE 400 MG TAB PO SCH (07:54)
[2023-01-19] MEDS: NIFEDIPINE XL 30 MG TABLET PO SCH (07:54)
[2023-01-19] MEDS: LOSARTAN POTASSIUM 50 MG TABLET PO SCH (07:55)
[2023-01-19] MEDS: PANTOPRAZOLE 40MG TABLET PO SCH (07:55)
[2023-01-19] MEDS: carvediloL 6.25 MG TAB PO SCH (07:55)
[2023-01-19] MEDS: MEMANTINE HCL 10 MG TABLET PO SCH (07:55)
[2023-01-19] MEDS: CYANOCOBALAMIN 1,000 MCG TAB PO SCH (07:55)
[2023-01-19] MEDS: GABAPENTIN 100 MG CAP PO SCH (07:55)
[2023-01-19] MEDS: LIDOCAINE 4% PATCH TOP SCH (07:56)
[2023-01-19] MEDS: APIXABAN 2.5 MG TABLET PO SCH (07:56)
[2023-01-19] MEDS: ASPIRIN EC 81 MG TAB PO SCH (07:56)
[2023-01-19] MEDS: INSULIN GLARGINE 100 UNIT/ML SQ SCH (07:56)
[2023-01-19] MEDS: FUROSEMIDE 40 MG TABLET PO SCH (07:56)
[2023-01-19 07:57] VITALS: BP 156/68
[2023-01-19] MEDS: VANCOMYCIN 1.5 GM in NA CHLORIDE 0.9% 500 ML IVPB SCH (09:22)
[2023-01-19] MEDS: Levofloxacin 250mg IV 250 MG/50 ML BAG IV SCH (09:23)
[2023-01-19 09:25] VITALS: TEMP 97.4
[2023-01-19] MEDS: NEPRO SHAKE 237 ML CAN PO SCH (10:13)
--- NOTE | 2023-01-19 21:38 | DS ---
Date of Discharge: 01/19/2023 Disposition: Discharged to go home. Physical Examination: HEENT: Unremarkable. Lungs: Clear to auscultation. Heart: Sounds normal. Abdomen: Soft. Bowel sounds normal. No guarding, rigidity, tenderness, distention. Extremities: Trace leg edema. Skin: Both lower extremity has somewhat dry skin with some superficial cracking of skin in multiple locations in both lower extremities unchanged for last few days. Discharge Medications And Instructions: Aspirin 81 mg daily, carvedilol 12.5 mg 2 times a day, atorvastatin 40 mg daily, clopidogrel 75 mg daily, donepezil 10 mg daily, furosemide 40 mg daily, gabapentin 100 mg 3 times a day, Lantus insulin 20 units subcutaneous injection daily in morning, losartan 100 mg daily, magnesium oxide 400 mg daily, memantine 10 mg daily, nifedipine 30 mg daily, clotrimazole/betamethasone apply topically to both lower extremities in the morning and Eucerin cream apply topically to both lower leg skin in the evening time. Follow up at my office next week. Final Diagnoses: 1. Sepsis, organism Streptococcus. 2. Generalized weakness. 3. Debility. 4. Hypertension. 5. Type 2 diabetes mellitus with chronic kidney disease. 6. Senile dementia. 7. Mixed hyperlipidemia. 8. Coronary artery disease. 9. Chronic kidney disease stage 4. 10. Prostate cancer. 11. Dermatitis, both lower extremities. 12. Anemia due to chronic kidney disease. Labs: Today white count 6.2, hemoglobin 7.9, platelets 283. Sodium 132, potassium 4.6, chloride 104, bicarb 23, BUN 81, creatinine 2.76, glucose 215. Hospital Course: This is an 87-year-old pleasant male patient who was admitted to medical floor and was treated with sepsis, and after his stay on medical floor, he was admitted to inpatient rehab floor. Dr. Chacon provided rehab therapy, and he participated very well. His overall condition has improved. He received IV Levaquin and vancomycin for his sepsis and altogether he received 2 weeks of IV antibiotic therapy and he does not need it anymore. He had a lot of dry skin over his both lower extremities and it has improved significantly with topical application of moisturizing skin lotion. In the last 2-3 days I have seen some superficial cracking of skin in lower extremities and we will try moisturizing skin lotion and topical cream which is combination of antifungal and steroid topical cream. His blood pressure medications were continued and adjusted. Diabetes was managed with insulin and sliding scale and overall his condition has improved and he was discharged to go home today in stable condition with above-mentioned medications and instructions. I will see him in 1-2 weeks at office for followup. ADALBERTO/MODL Voice ID: [id number] Report ID: [id number] PAVITHRA
[2023-01-22] MEDS ORDERED: VANCOMYCIN 1.25 GM in NA CHLORIDE 0.9% 250 ML IVPB SCH (13:00)
== END 2023-01-19 12:20 | disposition home health service (06) | DRG 872 ==
LOC: 5TH 13:30
PROVIDERS: ADMIT Internal Medicine; ATTEND Internal Medicine
DX: A40.9 Streptococcal sepsis, unspecified (principal); I13.0 Hypertensive heart and chronic kidney disease with heart failure and stage 1 through stage 4 chronic kidney disease, or unspecified chronic kidney disease; I50.30 Unspecified diastolic (congestive) heart failure; N18.4 Chronic kidney disease, stage 4 (severe); G72.89 Other specified myopathies; E11.22 Type 2 diabetes mellitus with diabetic chronic kidney disease; F03.90 Unspecified dementia, unspecified severity, without behavioral disturbance, psychotic disturbance, mood disturbance, and anxiety; E78.5 Hyperlipidemia, unspecified; D63.1 Anemia in chronic kidney disease; I25.10 Atherosclerotic heart disease of native coronary artery without angina pectoris; C61 Malignant neoplasm of prostate; R53.81 Other malaise; L30.9 Dermatitis, unspecified; E78.2 Mixed hyperlipidemia; I25.2 Old myocardial infarction; Z95.1 Presence of aortocoronary bypass graft
CPT/HCPCS: 36415; 80048; 80053; 80202; 82040; 82947; 83735; 84134; 85025; 87635; 92523; 97110; 97116; 97129; 97163; 97165; 97530; 97542; J1815; J2001; J7040

== ENCOUNTER 2023-06-28 23:30 | Observation (INO) | payer OTHER ==
[2023-06-28] MEDS ORDERED: ONDANSETRON 4 MG/2 ML VIAL ONE (23:57)
[2023-06-28] MEDS ORDERED: ASPIRIN 81 MG CHEWABLE TABLET ONE (23:57)
[2023-06-29 00:42] LABS: Absolute Basophils 0.1 K/uL (0-0.5); Absolute Eosinophils 0.4 K/uL (0-0.5); Absolute Lymphocytes (CBC) 1.1 K/uL (0.7-4.9); Absolute Monocytes 0.5 K/uL (0.1-1.3); Absolute Neutrophil 7.3 K/uL (1.8-8.0); Basophils % 0.8 % (0-1.3); Eosinophils % 4.1 % (0-4.4); Hemoglobin 9.9 g/dL (13.6-17.9); Lymphocytes % 11.3 % (15.3-44.8); MCH 29.6 pg (27.0-35.0); MCHC 33.2 g/dL (32.0-36.0); MCV 89.3 fL (80-100); MPV 8.2 fL (7.6-11.3); Monocytes % 5.6 % (3.3-12.3); Neutrophils % 78.2 % (41.7-73.7); Platelets 194 thou/uL (152-406); RBC Red Blood Cell Count 3.36 M/uL (4.33-5.43)
[2023-06-29 00:44] LABS: PT Prothrombin Time 11.1 SECONDS (9.5-12.5); Protime INR 1.01
[2023-06-29 00:56] LABS: ALT/SGPT 25 U/L (16-61); AST/SGOT 11 U/L (15-37); Albumin 3.4 g/dL (3.4-5.0); Albumin/Globulin Ratio 0.8 (1.1-1.8); Alkaline Phosphatase 183 U/L (45-117); Anion Gap 12.8 mEq/L (5.0-15.0); BUN Blood Urea Nitrogen 96 mg/dL (7-18); Bicarbonate 22 mEq/L (21-32); Bilirubin Total 0.2 mg/dL (0.2-1.0); Globulin 4.4 g/dL (2.3-3.5); Glomerular Filtration Rate 19 ml/min (=/>90); Glucose Level 281 mg/dL (74-106); Magnesium 2.3 mg/dL (1.6-2.4); NT PRO-BNP 1896 pg/mL (<450); Potassium 4.8 mEq/L (3.5-5.1); Protein, Total 7.8 g/dL (6.4-8.2); Sodium Level 135 mEq/L (136-145); Troponin High Sensitivity 30.2 pg/mL (<58.9)
[2023-06-29 00:59] LABS: SARS-CoV-2 Antigen CONTROL BLUE LINE VIS/BG OK; SARS-CoV-2 Antigen Rapid Res Negative (Negative)
[2023-06-29 00:59] LABS: Bilirubin Direct < 0.1 mg/dL (0-0.2); Bilirubin Indirect, Calculated ND mg/dL (0.2-0.8)
[2023-06-29 01:02] LABS: Specific Gravity 1.011 (1.005-1.030); Sqamous Epithelial None Seen /HPF (None Seen); Urine Bacteria None Seen /HPF (<20); Urine Bilirubin NEGATIVE (Negative); Urine Blood Negative (Negative); Urine Clarity Clear (Clear); Urine Color Colorless (Yellow); Urine Culture Reflex Order NOT NEEDED; Urine Glucose 2+ (Negative); Urine Ketones NEGATIVE (Negative); Urine Micro Reflex YN NO BILL MICROSCOPIC; Urine Mucus Slight /HPF (None Seen); Urine Nitrite NEGATIVE (Negative); Urine Protein 1+ (Negative); Urine RBC None Seen /HPF (None Seen); Urine Urobilinogen Normal (Normal); Urine WBC <5 /HPF (<5); Urine pH 5.5 (5.0-7.0)
--- NOTE | 2023-06-29 02:50 | EDPHYS ---
Physician Documentation [facility] Name: Jacques Apodaca Age: 88 yrs Sex: Male : 1935 Arrival Date: 06/28/2023 Time: 23:30 Bed 6 Private MD: ED Physician Mike Vitale HPI: 06/27 23:40 This 88 yrs old Male presents to ER via EMS with complaints of Chest Pain, cp Nausea, Urinary Frequency. Historical: - Allergies: 23:45 Heparin; tm6 23:45 SHELLFISH; tm6 - PMHx: 23:45 Congestive heart failure; Dementia; diabetes mellitus; Hypertensive disorder; kidney tm6 disease; Hypercholesterolemia; - PSHx: 23:45 quadruple bypass; tm6 - Immunization history:: Adult Immunizations up to date, Client reports receiving the 2nd dose of the Covid vaccine, Flu vaccine is up to date. - Infectious Disease History:: Denies. - Social history:: Smoking status: Patient denies any tobacco usage or history of. Patient/guardian denies using alcohol. Exam: 06/28 00:10 ECG was reviewed by the Attending Physician. cp Vital Signs: 06/27 23:43 BP 159 / 116; Pulse 78; Resp 22; Temp 97.3(TE); Pulse Ox 100% on R/A; Weight 86.18 kg tm6 (R); Height 5 ft. 7 in. (R); 06/28 00:46 BP 160 / 61; Pulse 78; Resp 15; Pulse Ox 100% on R/A; rv 02:38 BP 169 / 75; Pulse 81; Pulse Ox 100% on R/A; tm6 03:39 BP 161 / 64; Pulse 79; Resp 18; Pulse Ox 100% on R/A; tm6 06/27 23:43 Body Mass Index 29.76 (86.18 kg, 170.18 cm) tm6 MDM: 06/27 23:37 Patient medically screened. cp 06/27 23:47 Order name: Basic Metabolic Panel; Complete Time: 01:45 cp 06/28 01:45 Interpretation: Normal except: NA 135; GLUC 281; BUN 96; CRE 3.06; GFR 19. cp 06/27 23:47 Order name: CBC with Diff; Complete Time: 00:58 cp 06/28 01:46 Interpretation: Normal except: RBC 3.36; HGB 9.9; HCT 30.0; YECENIA% 78.2; LYM% 11.3. cp 06/27 23:47 Order name: LFT's; Complete Time: 01:45 cp 06/28 01:45 Interpretation: Normal except: AST 11; ALK 183; GLOB 4.4; A/G 0.8. cp 06/27 23:47 Order name: Magnesium; Complete Time: 01:45 cp 06/27 23:47 Order name: NT PRO-BNP; Complete Time: 01:45 cp 06/28 01:45 Interpretation: Abnormal: NT PRO-BNP 1896. cp 06/27 23:47 Order name: PT-INR; Complete Time: 00:58 cp 06/27 23:47 Order name: Troponin HS; Complete Time: 01:45 cp 06/28 01:46 Interpretation: Troponin HS 30.2; Reviewed. cp 06/27 23:47 Order name: Influenza Screen (a \T\ B) cp 06/27 23:47 Order name: SARS RAPID; Complete Time: 01:45 cp 06/28 01:46 Interpretation: Reviewed. cp 06/27 23:47 Order name: Urinalysis W/Microscopic; Complete Time: 01:45 cp 06/28 01:45 Interpretation: Normal except: UGLUC 2+; UPROT 1+. cp 06/28 02:38 Order name: Troponin High Sensitivity; Complete Time: 04:02 cp 06/28 04:03 Interpretation: Reviewed. cp 06/28 03:32 Order name: Basic Metabolic Panel EDMS 06/28 03:32 Order name: Basic Metabolic Panel EDMS 06/28 03:32 Order name: CBC with Automated Diff EDMS 06/28 03:32 Order name: CBC with Automated Diff EDMS 06/28 03:32 Order name: Troponin High Sensitivity EDMS 06/28 03:32 Order name: Troponin High Sensitivity EDMS 06/28 03:32 Order name: Troponin High Sensitivity EDMS 06/28 07:50 Order name: Glucose, Ancillary Testing EDMS 06/28 11:35 Order name: Glucose, Ancillary Testing EDMS 06/27 23:47 Order name: XRAY Chest (1 view) cp 06/28 03:32 Order name: EKG Electrocardiogram EDMS 06/28 03:32 Order name: EKG Electrocardiogram EDMS 06/28 03:32 Order name: EKG Electrocardiogram EDKY 06/28 03:32 Order name: EKG Electrocardiogram EDKY 06/27 23:47 Order name: Cardiac monitoring; Complete Time: 23:50 cp 06/27 23:47 Order name: EKG - Nurse/Tech; Complete Time: 00:16 cp 06/27 23:47 Order name: IV Saline Lock; Complete Time: 23:55 cp 06/27 23:47 Order name: Labs collected and sent; Complete Time: 23:55 cp 06/27 23:47 Order name: O2 Per Protocol; Complete Time: 23:50 cp 06/27 23:47 Order name: O2 Sat Monitoring; Complete Time: 23:50 cp EC/25 00:10 Rate is 82 beats/min. Rhythm is regular. OK interval is normal. QRS interval is cp prolonged at 106 msec. QT interval is normal. Interpreted by me. Reviewed by me. Administered Medications: 00:16 Drug: Aspirin PO Chewable Tablet 324 mg PO once; 81 mg tablets x 4 Route: PO; tm6 00:16 Drug: Ondansetron IVP 4 mg IVP once; over 2 minutes Route: IVP; Site: right wrist; tm6 03:04 Drug: Metoprolol PO 25 mg PO once Route: PO; tm6 03:04 Drug: morphine IVP or IV 2 mg IVP once over 4 mins Route: IVP; Infused Over: 4 mins; tm6 Site: right wrist; 04:18 Drug: Enoxaparin Sub-Q 1 mg/kg Sub-Q once Route: Sub-Q; Site: right lower abdomen; tm6 Disposition Summary: 06/29/23 02:49 Hospitalization Ordered Notes: Hospitalization Status: Observation cp Provider: Carmen Perry cp Condition: Stable cp Problem: new cp Symptoms: have improved cp Bed/Room Type: Standard cp Location: Telemetry/MedSurg (observation)(06/29/23 15:33) ja1 Room Assignment: [facility](06/29/23 15:33) ja1 Diagnosis - Chest pain, unspecified cp Forms: - Medication Reconciliation Form cp - SBAR form cp - Leadership Thank You Letter cp Signatures: Dispatcher [employer] EDMS Mike Jauregui PA PA cp Aguilar, Jose RN RN ja1 Cinthia Noble RN RN 1 Kimmie, Tawney, RN RN tm6 Corrections: (The following items were deleted from the chart) 06/27 23:48 23:48 BASIC METABOLIC PANEL+C.LAB.BRZ ordered. EDMS EDMS 23:48 23:48 CBC+H.LAB.BRZ ordered. EDMS EDMS 23:48 23:48 HEPATIC FUNCTION+C.LAB.BRZ ordered. EDMS EDMS 23:48 23:48 MAGNESIUM+C.LAB.BRZ ordered. EDMS EDMS 23:48 23:48 PROBNP+C.LAB.BRZ ordered. EDMS EDMS 23:48 23:48 PROTIME (+INR)+COAG.LAB.BRZ ordered. EDMS EDMS 23:48 23:48 Troponin High Sensitivity+C.LAB.BRZ ordered. EDMS EDMS 23:48 23:48 Influenza Screen (A \T\ B)+BA.LAB.BRZ ordered. EDMS EDMS 23:48 23:48 SARS-COV-2 Antigen Rapid+I.LAB.BRZ ordered. EDMS EDMS 23:48 23:48 Urinalysis W/Microscopic+U.LAB.BRZ ordered. EDMS EDMS 06/28 04:31 02:49 Telemetry/MedSurg (observation) cp vc1 04:31 02:49 cp vc1 15:33 04:31 [facility] ER HOLD vc1 ja1 15:33 04:31 ERHOLD- vc1 ja1
--- NOTE | 2023-06-29 02:50 | ER ---
Nurse's Notes [facility] Name: Jacques Apodaca Age: 88 yrs Sex: Male : 1935 Arrival Date: 06/28/2023 Time: 23:30 Bed 6 Private MD: Diagnosis: Chest pain, unspecified Presentation: 06/27 23:43 Chief complaint: EMS states: Family called EMS because patient "seemed off." Family tm6 reported increased urinary frequency. En route to ER, patient began to complain of chest pressure and nausea. Coronavirus screen: Vaccine status: Patient reports receiving the 2nd dose of the covid vaccine. Ebola Screen: Patient negative for fever greater than or equal to 101.5 degrees Fahrenheit, and additional compatible Ebola Virus Disease symptoms Patient denies exposure to infectious person. Patient denies travel to an Ebola-affected area in the 21 days before illness onset. No symptoms or risks identified at this time. Initial Sepsis Screen: Does the patient meet any 2 criteria? No. Patient's initial sepsis screen is negative. Does the patient have a suspected source of infection? No. Patient's initial sepsis screen is negative. Risk Assessment: Do you want to hurt yourself or someone else? Patient reports no desire to harm self or others. Onset of symptoms was June 28, 2023. 23:43 Method Of Arrival: EMS: [facility] tm6 23:43 Acuity: ALISIA 3 tm6 Triage Assessment: 23:45 General: Appears uncomfortable, Behavior is calm, cooperative. Pain: Complains of pain tm6 in chest Pain does not radiate. Quality of pain is described as pressure, Also complains of nausea. EENT: No signs and/or symptoms were reported regarding the EENT system. Neuro: Level of Consciousness is awake, alert, obeys commands, Oriented to person, place, has dementia. Cardiovascular: Reports chest pain, nausea, Heart tones S1 S2 Patient's skin is warm and dry. Respiratory: Airway is patent Respiratory effort is even, labored, Respiratory pattern is regular, symmetrical, Breath sounds are clear bilaterally. GI: No signs and/or symptoms were reported involving the gastrointestinal system. Abdomen is round non-distended, Abd is non tender. : Parent/caregiver report the patient having urinary frequency. Derm: No signs and/or symptoms reported regarding the dermatologic system. Musculoskeletal: No signs and/or symptoms reported regarding the musculoskeletal system. Historical: - Allergies: 23:45 Heparin; tm6 23:45 SHELLFISH; tm6 - PMHx: 23:45 Congestive heart failure; Dementia; diabetes mellitus; Hypertensive disorder; kidney tm6 disease; Hypercholesterolemia; - PSHx: 23:45 quadruple bypass; tm6 - Immunization history:: Adult Immunizations up to date, Client reports receiving the 2nd dose of the Covid vaccine, Flu vaccine is up to date. - Infectious Disease History:: Denies. - Social history:: Smoking status: Patient denies any tobacco usage or history of. Patient/guardian denies using alcohol. Screenin:[facility] ED Fall Risk Assessment (Adult) History of falling in the last 3 months, rv including since admission No falls in past 3 months (0 pts) Score/Fall Risk Level 0 - 2 = Low Risk Oriented to surroundings, Maintained a safe environment, Educated pt \\T\\ family on fall prevention, incl call for assistance when getting out of bed, Assessed \\T\\ reinforced patient's understanding of fall precautions. Abuse screen: Denies threats or abuse. Denies injuries from another. Nutritional screening: No deficits noted. Tuberculosis screening: No symptoms or risk factors identified. Assessment: 23:48 Reassessment: see triage assessment. tm6 06/28 01:05 Reassessment: No changes from previously documented assessment. Patient and/or family tm6 updated on plan of care and expected duration. Pain level reassessed. Patient is alert, oriented x 3, equal unlabored respirations, skin warm/dry/pink. 03:39 Reassessment: No changes from previously documented assessment. tm6 Vital Signs: 06/27 23:43 BP 159 / 116; Pulse 78; Resp 22; Temp 97.3(TE); Pulse Ox 100% on R/A; Weight 86.18 kg tm6 (R); Height 5 ft. 7 in. (R); 06/28 00:46 BP 160 / 61; Pulse 78; Resp 15; Pulse Ox 100% on R/A; rv 02:38 BP 169 / 75; Pulse 81; Pulse Ox 100% on R/A; tm6 03:39 BP 161 / 64; Pulse 79; Resp 18; Pulse Ox 100% on R/A; tm6 06/27 23:43 Body Mass Index 29.76 (86.18 kg, 170.18 cm) tm6 ED Course: 06/27 23:37 Patient arrived in ED. rv1 23:37 Mike Jauregui PA is PHCP. cp 23:37 Mike Vitale MD is Attending Physician. cp 23:37 Patient has correct armband on for positive identification. Client placed on continuous rv cardiac and pulse oximetry monitoring. NIBP monitoring applied. supervisor carding on. 23:37 No provider procedures requiring assistance completed. rv 23:42 Juan J Burks RN is Primary Nurse. tm6 23:45 Triage completed. tm6 23:45 Arm band placed on right wrist. tm6 23:48 Provided Education on: plan of care. Pulse ox on. NIBP on. Door closed. Noise tm6 minimized. Warm blanket given. 23:55 EKG done, by ED staff, reviewed by Mike HUERTA. tm6 23:55 CBC with Diff Sent. tm6 23:55 LFT's Sent. tm6 23:55 Magnesium Sent. tm6 23:55 NT PRO-BNP Sent. tm6 23:55 PT-INR Sent. tm6 23:55 Troponin HS Sent. tm6 23:58 SARS RAPID Sent. tm6 23:58 Influenza Screen (a \\T\\ B) Sent. tm6 23:58 Initial lab(s) drawn, by me, sent to lab. COVID swab sent to lab. Flu and/or RSV swab rv sent to lab. Inserted saline lock: 20 gauge in right forearm, using aseptic technique. Blood collected. 06/28 00:07 XRAY Chest (1 view) In Process Unspecified. EDMS 00:16 Urinalysis W/Microscopic Sent. tm6 02:49 Carmen Perry MD is Hospitalizing Provider. cp 02:53 Warm blanket given. Cleaned of incontinence. tm6 03:04 Troponin High Sensitivity Sent. tm6 05:10 Patient admitted, IV remains in place. tm6 10:43 Notified primary nurse of Troponin [id number]. nj1 11:06 Transfer initiated with [facility]' as per Dr. Perry and Dr. Ramirez. em1 11:30 Pt clinical information, to include nurses notes, physician's documentation and lab em1 results, faxed to [facility]. 13:47 Pt accepted as a transfer to [facility], bed assignment pending. em1 Administered Medications: 00:16 Drug: Aspirin PO Chewable Tablet 324 mg PO once; 81 mg tablets x 4 Route: PO; tm6 00:16 Drug: Ondansetron IVP 4 mg IVP once; over 2 minutes Route: IVP; Site: right wrist; tm6 03:04 Drug: Metoprolol PO 25 mg PO once Route: PO; tm6 03:04 Drug: morphine IVP or IV 2 mg IVP once over 4 mins Route: IVP; Infused Over: 4 mins; tm6 Site: right wrist; 04:18 Drug: Enoxaparin Sub-Q 1 mg/kg Sub-Q once Route: Sub-Q; Site: right lower abdomen; tm6 Medication: 06/27 23:37 VIS not applicable for this client. rv Outcome: 06/28 02:49 Decision to Hospitalize by Provider. cp 05:10 Admitted to ER Hold. Please see [facility] for further documentation. tm6 05:10 Condition: stable 05:10 Instructed on the need for admit, Demonstrated understanding of instructions, 16:40 Patient left the ED. bp Signatures: Dispatcher [employer] Ayoub em1 Mike Jauregui PA PA cp Peltier, Brian RN RN bp Rolando Matthews, SUBHASH RN rv Miracle Lee rv1 Freda Simpson RN RN nj1 Juan J Burks RN RN tm6
[2023-06-29] MEDS ORDERED: METOPROLOL TAR 25 MG TAB ONE (02:55)
[2023-06-29] MEDS ORDERED: MORPHINE 2 MG/ML SYR ONE (02:55)
[2023-06-29] MEDS ORDERED: GLUCAGON 1 MG/VIAL IM PRN (03:28)
[2023-06-29] MEDS ORDERED: D50W 25 GM/50 ML SYRINGE IV PRN (03:28)
[2023-06-29] MEDS ORDERED: D10W 125 ML IV PRN (03:56)
[2023-06-29] MEDS ORDERED: ENOXAPARIN 80 MG/0.8 ML SQ ONE (04:12)
[2023-06-29 05:29] VITALS: BMI 29.6
[2023-06-29] MEDS: INSULIN REGULAR (HUMAN) 100 UNIT/ML SQ SCH (07:30)
[2023-06-29] MEDS: ASPIRIN EC 81 MG TAB PO SCH (09:00)
[2023-06-29] MEDS ORDERED: ASPIRIN 81 MG CHEWABLE TABLET ONE (09:59)
[2023-06-29] MEDS ORDERED: HEPARIN/D5W 25,000 UNIT/500 ML BAG IV SCH (10:00)
[2023-06-29] MEDS: CLOPIDOGREL 75 MG TABLET PO ONE (10:50)
[2023-06-29] MEDS: ATORVASTATIN 40 MG TAB PO ONE (10:51)
[2023-06-29] MEDS ORDERED: CLOPIDOGREL 75 MG TABLET ONE (11:11)
[2023-06-29] MEDS ORDERED: ATORVASTATIN 40 MG TAB ONE (11:15)
--- NOTE | 2023-06-29 11:30 | RAD REPORT ---
EXAM DESCRIPTION: Single view AP chest CLINICAL HISTORY: CHEST PAIN. COMPARISON: None. TECHNIQUE: Single view AP chest radiograph(s). FINDINGS: The lungs are clear. No pulmonary infiltrate or edema identified. No pleural effusion. N o pneumothorax. Mild cardiomegaly. Median sternotomy wires. IMPRESSION: No acute cardiopulmonary abnormality identified by radiograph. Electronically signed by: Briseida Bills MD 06/29/2023 12:39 AM CDT Due to temporary technical issues with the PACS/Fluency reporting system, reports are being signed by the in house radiologist without review as a courtesy to ensure prompt reporting. The interpreting r adiologist is fully responsible for the content of the report.
--- NOTE | 2023-06-29 13:52 | P.CNS ---
Date of Consult: 06/29/23 History of Present Illness: Patient with PMH of CAD s/p CABG, had a recent heart cath that shown extensive [place] CAD with patient 2 grafts, presented with chest pain and heaviness started last night, felt dizzy and was about to pass out, report on off chest pain, and BURNS, no palpitations, no syncope. Allergies Heparin Analogues Allergy (Severe, Verified 12/10/21 09:08) Induced Thrombocytopenia shellfish derived Allergy (Severe, Verified 12/10/21 09:08) Anaphylaxis lettuce Allergy (Severe, Uncoded 12/10/21 09:08) Anaphylaxis pea's Allergy (Mild, Uncoded 12/10/21 09:08) Itchy throat Home Medications: Glipizide [Glucotrol Xl] 5 mg PO DAILY WITH BREAKFAST 09/14/12 Losartan Potassium [Cozaar] 100 mg PO DAILY 09/14/12 Atorvastatin Calcium [Lipitor] 40 mg PO DAILY 04/02/21 Gabapentin [Neurontin*] 100 mg PO TID 04/02/21 Hydralazine [Apresoline*] 20 mg PO BID 04/02/21 Memantine HCl [Namenda*] 10 mg PO BID 04/02/21 NIFEdipine [Nifedipine ER] 90 mg PO DAILY 04/02/21 Clopidogrel Bisulfate [Plavix] 75 mg PO DAILY #30 tablet 04/03/21 carvediloL [Carvedilol] 12.5 mg PO BID #60 tablet 04/03/21 Aspirin Chewable [Aspirin Chewable*] 81 mg PO DAILY 10/12/21 Donepezil HCl 10 mg PO BID 10/12/21 Cyanocobalamin (Vitamin B-12) [Vitamin B-12] 1 tab PO DAILY 01/05/23 Furosemide [Lasix*] 40 mg PO DAILY 01/05/23 Insulin Glargine,Hum.rec.anlog [Lantus Solostar] 15 units SQ BEDTIME 01/05/23 Insulin Glargine,Hum.rec.anlog [Lantus Solostar] 30 units SQ DAILY 01/05/23 Multivit-Minerals/Folic Acid [Centrum Adults Multigummy] 12 mcg PO DAILY 01/05/23 - Past Medical/Surgical History Diabetic: Yes -: Asthma -: Prostate ca (radiation) 2005 -: DM -: Heparin Induced Thrombocytopenia -: CABG Quad bypass 2004 - Family History Father Medical History: Diabetes Mother Medical History: Diabetes - Social History Smoking Status: Former smoker Alcohol use: No CD- Drugs: No Caffeine use: Yes Place of Residence: Home Review of Systems 10-point ROS is otherwise unremarkable Physical Examination Temp Pulse Resp BP Pulse Ox 67 14 165/63 H 100 06/29/23 08:00 06/29/23 08:00 06/29/23 08:00 06/29/23 08:00 General: Alert, Oriented x3 HEENT: Atraumatic Neck: Supple Respiratory: Clear to auscultation bilaterally Cardiovascular: No edema, Normal S1 S2 Gastrointestinal: Normal bowel sounds Laboratory Data (last 24 hrs) 06/28/23 06/28/23 06/28/23 23:55 23:55 23:55 WBC 9.30 Hgb 9.9 L Hct 30.0 L Plt Count 194 PT 11.1 INR 1.01 Sodium 135 L Potassium 4.8 BUN 96 H Creatinine 3.06 H Glucose 281 H Magnesium 2.3 Total Bilirubin 0.2 AST 11 L ALT 25 Alkaline Phosphatase 183 H - Problems (1) HTN (hypertension) Current Visit: Yes Status: Acute Plan: Continue Losartan and Nifedpine (2) Hyperlipidemia Current Visit: No Status: Acute Plan: Continue Lipitor 40 mg daily (3) NSTEMI (non-ST elevated myocardial infarction) Current Visit: No Status: Acute Plan: Patient with PMH of CAD s/p CABG, recent coronary angiogram 6 months ago shown significant [place] CAD with patent HARRIS-LAD and SVG-OM with occluded other grafts, at that time it was decided that patient is too high risk for intervention due to complexity of disease now presenting with NSTEMI. Patient is allergic to Heparin (HIT) will need angiomax drip, which we dont have at our facility, also will need coronary angiogram with possible high risk PCI Recommend transfering to higher care facility Continue ASA 81 mg daily Continue Plavix 75 mg daily Continue Lipitor 40 mg daily.
[2023-06-29 18:07] VITALS: TEMP 98.3
[2023-06-29] MEDS: MORPHINE 4 MG/ML SYR IV PRN (19:40)
[2023-06-29] MEDS: AMLODIPINE 5 MG TAB PO ONE (19:41)
[2023-06-29] MEDS: METOPROLOL TAR 50 MG TAB PO SCH (20:40)
[2023-06-29 20:50] VITALS: BP 185/75
[2023-06-29 22:19] VITALS: O2SAT 96
[2023-06-30] MEDS: ONDANSETRON 4 MG/2 ML VIAL IV PRN (00:38)
--- NOTE | 2023-06-30 06:18 | HP ---
Date of Admission: 06/29/2023 Chief Complaint: Chest pain. History Of Present Illness: This is an 88-year-old male patient who lives at home with his , was brought into the emergency room last night with complaints of chest pain. After the patient arrived in the emergency room, he was evaluated and admitted to the hospital. His initial cardiac enzyme do ne in the emergency room was normal, but the second troponin level was elevated and I saw him in the emergency room this morning around 6:30 in the morning and the patient was lying in bed, asymptomatic and denies any chest pain. He denies any shortness of breath, nausea, vomiting, or any other compla ints. Hemodynamically, he was stable. Allergies: HEPARIN CAUSING BLOOD CLOTS AND THROMBOCYTOPENIA. Medications: Aspirin 81 mg daily; clopidogrel 75 mg daily; atorvastatin 40 mg daily at bedtime; carv edilol 12.5 mg 2 times a day; donepezil 10 mg daily; furosemide 40 mg daily; gabapentin 100 mg 3 time s a day; glipizide 5 mg daily with breakfast; hydralazine 10 mg 2 tablets 2 times a day; Lantus insul in 20-30 units in the morning and 5-10 units in the evening; losartan 100 mg daily; magnesium oxide 4 00 mg daily; memantine 10 mg 2 times a day; nifedipine 30 mg daily. Review of Systems: Cardiovascular: As mentioned above. CIRCULAR SAW FILER: Impaired memory. All other systems reviewed and negative. Past Medical History: Significant for chronic diastolic heart failure, type 2 diabetes mellitus with chronic kidney disease, hypertension, mixed hyperlipidemia, chronic kidney disease stage 4, peripher al vascular disease, anemia due to chronic kidney disease, prostate cancer, coronary artery disease, hypomagnesemia, and senile dementia. Past Surgical History: Coronary artery bypass surgery in 2003 and surgery on left clavicle. Family History: Father , had diabetes. Mother , had diabetes as well. Brother had lung can cer, diabetes and hypertension. Sister had hypertension and diabetes. Social History: Prior history of smoking. Negative for alcohol use. Physical Examination: Vital Signs: When he came into emergency room, temperature 97.3, pulse 78, respiratory rate 22, bloo d pressure 159/116, oxygen saturation 100%, height 5 feet 7 inches, weight 189 pounds. General: Awake, alert, oriented, not in distress. HEENT: Head atraumatic, normocephalic. Conjunctivae nonerythematous. Sclerae white. Mouth, no thr ush or edema noted. Ears/Nose, no mass, lesion, discharge noted. Neck: Supple. No JVD, lymph nodes, bruit, thyromegaly noted. Lungs: Bilateral good equal air entry. Clear to auscultation. No rhonchi. No rales. Heart: Normal heart sounds, no murmur or gallop. Abdomen: Soft, bowel sounds normal. No guarding, rigidity, tenderness, mass, hepatosplenomegaly, dis tention, or bruit noted. Extremities: No leg edema. No calf tenderness. Skin: No rash, ulcer, cellulitis. Lymphatics: No lymph node enlargement in neck, supraclavicular, infraclavicular region. Neuro: No focal neurological deficit. Chest: Unremarkable. External Genitalia: Deferred. Rectal: Deferred. Laboratory Data: Sodium 135, potassium 4.8, chloride 105, bicarb 22, BUN 96, creatinine 3.06, estima sharan GFR 19, glucose 281. Liver function tests unremarkable. Initial troponin 30.2, second set 296.4 , third set 5169.6, and last set 34429.9. EKG shows normal sinus rhythm, slight ST elevation in lead [address]-T depression in lead V5, V6. WBC 9.3, hemoglobin 9.9, platelets 194. Impression: 1.Nln-JH-ekvqjkpss myocardial infarction. 2.Coronary artery disease. 3.Chronic kidney disease, stage 4. 4.Anemia due to chronic kidney disease. 5.Hypertension. 6.Mixed hyperlipidemia. 7.Type 2 diabetes mellitus with chronic kidney disease. 8.Mild dementia. 9.We will go ahead and admit the patient to hospital for further evaluation and management of this p gómezm. The patient is appropriate for inpatient and is expected to spend 2 midnights in hospital. After the patient had negative cardiac enzyme, he was admitted to the hospital, but his second set on husain his troponin level has gone up. I saw him this morning, he was asymptomatic. Medical Housekeeper, Dr. Ramirez, also evaluated him and because the patient has an allergy to heparin, we will not be able to use any heparin product on him and Dr. Ramirez recommended for us to arrange for patient to be transf erred to [facility] for higher level of care as we do not have Angiomax available at our facility . Transfer process was initiated this morning and sometime this morning, I did communicate with card iologist at [facility] in [facility] and details were discussed with him and he did accept the patient to go to CCU. Aspirin and Plavix were ordered and atorvastatin was ordered. As o f this evening, at the time of this dictation, the patient unfortunately still at our hospital and no w he is on medical floor. His blood pressure was elevated with systolic blood pressure around 190 an d amlodipine 1 time dose was ordered 5 mg and we will start him on his metoprolol 50 mg 2 times a day per order starting tonight. Dr. Ramirez did communicate with the patient's family member this mornin g when the transfer process was initiated. I have discussed with the nursing staff to raise my ruthie rn about the patient still at our hospital and for them to try to reach out to the transfer center to see if we can expedite the transfer process for this patient. Total time spent today minutes. ADALBERTO/MODL Voice ID: [id number]
[2023-06-30] MEDS ORDERED: CLOPIDOGREL 75 MG TABLET PO SCH (09:00)
--- NOTE | 2023-07-03 13:13 | EKG ---
Test Date: 2023-06-29 Test Time: 00:04:45 Dehydrogenation Supervisor: JERMAINE MEASUREMENT RESULTS: Intervals: Rate: 82 WY: 176 QRSD: 106 QT: 390 QTc: 455 [place]: P: 11 WY: 176 QRS: 30 T: 153 INTERPRETIVE STATEMENTS: Normal sinus rhythm Cannot rule out Anterior infarct, age undetermined Marked ST abnormality, possible lateral subendocardial injury Abnormal ECG Compared to ECG 01/06/2023 08:53:50 Myocardial infarct finding now present ST (T wave) deviation still present Electronically Signed On 07-03-23 13:00:31 CDT by Yoni Michael
== END 2023-06-30 00:50 | disposition short-term general hospital (02) ==
LOC: ER 23:30 → ERHOLD 06-29 03:21 → 4TH 06-29 16:10
PROVIDERS: ADMIT Internal Medicine; ATTEND Internal Medicine
DX: I21.4 Non-ST elevation (NSTEMI) myocardial infarction (principal); I50.32 Chronic diastolic (congestive) heart failure; I25.10 Atherosclerotic heart disease of native coronary artery without angina pectoris; I12.9 Hypertensive chronic kidney disease with stage 1 through stage 4 chronic kidney disease, or unspecified chronic kidney disease; E78.5 Hyperlipidemia, unspecified; E11.22 Type 2 diabetes mellitus with diabetic chronic kidney disease; N18.4 Chronic kidney disease, stage 4 (severe); I73.9 Peripheral vascular disease, unspecified; D63.1 Anemia in chronic kidney disease; F03.90 Unspecified dementia, unspecified severity, without behavioral disturbance, psychotic disturbance, mood disturbance, and anxiety; E83.42 Hypomagnesemia; Z85.46 Personal history of malignant neoplasm of prostate; Z87.891 Personal history of nicotine dependence; Z88.8 Allergy status to other drugs, medicaments and biological substances; Z95.1 Presence of aortocoronary bypass graft; Z91.013 Allergy to seafood; Z91.018 Allergy to other foods
CPT/HCPCS: 93005; 85025; 81001; 80048; 36415; 83735; 85610; 82947 ×4; 80076; 84484 ×4; 83880; 87804 ×2; 71045; 87811; J1815; J2270; J2405 ×2; G0378 ×4

== ENCOUNTER 2023-11-15 12:00 | Emergency (ER) | payer OTHER ==
[2023-11-15 12:42] LABS: Absolute Basophils 0.1 K/uL (0-0.5); Absolute Eosinophils 0.2 K/uL (0-0.5); Absolute Lymphocytes (CBC) 0.8 K/uL (0.7-4.9); Absolute Monocytes 0.4 K/uL (0.1-1.3); Absolute Neutrophil 6.5 K/uL (1.8-8.0); Basophils % 0.8 % (0-1.3); Eosinophils % 2.5 % (0-4.4); Hematocrit 30.8 % (39.6-49.0); Hemoglobin 9.4 g/dL (13.6-17.9); Lymphocytes % 9.8 % (15.3-44.8); MCH 25.2 pg (27.0-35.0); MCHC 30.7 g/dL (32.0-36.0); MCV 82.2 fL (80-100); MPV 8.2 fL (7.6-11.3); Monocytes % 4.8 % (3.3-12.3); Neutrophils % 82.1 % (41.7-73.7); Platelets 202 thou/uL (152-406); RBC Red Blood Cell Count 3.75 M/uL (4.33-5.43); Red Cell Distribution Width 15.5 % (12.1-15.2)
[2023-11-15 12:47] LABS: PT Prothrombin Time 12.5 SECONDS (9.4-12.5); Protime INR 1.12
[2023-11-15 13:02] LABS: ALT/SGPT 17 U/L (16-61); Albumin 3.1 g/dL (3.4-5.0); Albumin/Globulin Ratio 0.8 (1.1-1.8); Alkaline Phosphatase 98 U/L (45-117); Anion Gap 11.9 mEq/L (5.0-15.0); BUN Blood Urea Nitrogen 89 mg/dL (7-18); Bicarbonate 24 mEq/L (21-32); Bilirubin Total 0.4 mg/dL (0.2-1.0); Globulin 4.1 g/dL (2.3-3.5); Glomerular Filtration Rate 19 ml/min (=/>90); Glucose Level 96 mg/dL (74-106); Lipase 24 U/L (13-75); Magnesium 2.2 mg/dL (1.6-2.4); NT PRO-BNP 4842 pg/mL (<450); Potassium 3.9 mEq/L (3.5-5.1); Protein, Total 7.2 g/dL (6.4-8.2); Sodium Level 140 mEq/L (136-145); Troponin High Sensitivity 22.5 pg/mL (<58.9)
[2023-11-15 13:03] LABS: AST/SGOT < 10 U/L (15-37); Bilirubin Direct < 0.2 mg/dL (0-0.2); Bilirubin Indirect, Calculated 0.2 mg/dL (0.2-0.8)
--- NOTE | 2023-11-15 13:50 | RAD REPORT ---
EXAM DESCRIPTION: Sushma Single View11/15/2023 1:34 pm CLINICAL HISTORY: Abdominal pain COMPARISON: June 2023 FINDINGS: Mild bilateral pulmonary opacities may indicate mild interstitial pulmonary edema There may be small bilateral pleural effusions Cardiomegaly. Postsurgical changes involve the chest
[2023-11-15 15:00] LABS: Specific Gravity 1.013 (1.005-1.030); Sqamous Epithelial None Seen /HPF (None Seen); Urine Bacteria None Seen /HPF (<20); Urine Bilirubin NEGATIVE (Negative); Urine Blood Negative (Negative); Urine Clarity Turbid (Clear); Urine Color Light-Yellow (Yellow); Urine Crystals Unidentified Few /HPF (None Seen); Urine Culture Reflex Order NOT NEEDED; Urine Glucose NEGATIVE (Negative); Urine Ketones NEGATIVE (Negative); Urine Microscopic Reflex YN ORDER UMIC; Urine Nitrite NEGATIVE (Negative); Urine Protein 1+ (Negative); Urine RBC None Seen /HPF (None Seen); Urine Urobilinogen Normal (Normal); Urine WBC <5 /HPF (<5); Urine pH 5.5 (5.0-7.0)
--- NOTE | 2023-11-15 16:40 | ER ---
Nurse's Notes [facility] Name: Jacques Apodaca Age: 88 yrs Sex: Male : 1935 Arrival Date: 11/15/2023 Time: 12:00 Bed 16 Private MD: Diagnosis: Altered mental status, unspecified-RESOLVED;Hypoglycemia, unspecified;Bradycardia, unspecified Presentation: 11/14 12:08 Chief complaint: EMS states: they were called out for low blood sugar and altered ap3 mental status. upon their arrival patients blood sugar was 100. EMS states the patient's pupils were pinpoint and his heart rate was 44. EMS administered 0.5mg narcan, 1mg atrapine, and 4mg Zofran IV. EMS initiated 18g IV to the left AC. EMS administered 400ml's NS. EMS states that the patient had become more alert after the administration of medications. Coronavirus screen: At this time, the client does not indicate any symptoms associated with coronavirus-19. Ebola Screen: No symptoms or risks identified at this time. Initial Sepsis Screen: Does the patient meet any 2 criteria? No. Patient's initial sepsis screen is negative. Does the patient have a suspected source of infection? No. Patient's initial sepsis screen is negative. Risk Assessment: Do you want to hurt yourself or someone else? Patient reports no desire to harm self or others. Onset of symptoms is unknown. Care prior to arrival: Medication(s) given: Normal saline infusion, zofran atrapine, and narcan IV initiated. 18 GA, in the left antecubital area. 12:08 Method Of Arrival: EMS: [facility] ap3 12:08 Acuity: ALISIA 3 ap3 Triage Assessment: 12:15 General: Appears in no apparent distress. Behavior is calm. Pain: Denies pain. Neuro: ap3 Level of Consciousness is awake, Oriented to person. Neuro: family reports increased confusion from baseline. Cardiovascular: Patient's skin is warm and dry. Respiratory: Airway is patent Respiratory effort is even, unlabored, Respiratory pattern is regular, symmetrical. Historical: - Allergies: 12:14 Heparin; ap3 12:14 SHELLFISH; ap3 - PMHx: 12:14 Congestive heart failure; Dementia; diabetes mellitus; Hypercholesterolemia; ap3 Hypertensive disorder; kidney disease; - PSHx: 12:14 quadruple bypass; ap3 - Immunization history:: Client reports receiving the 2nd dose of the Covid vaccine. - Social history:: Smoking status: Patient denies any tobacco usage or history of. Screenin:18 Abuse screen: Denies threats or abuse. Nutritional screening: No deficits noted. ap3 Tuberculosis screening: No symptoms or risk factors identified. 12:32 [facility] ED Fall Risk Assessment (Adult) History of falling in the last 3 months, me1 including since admission No falls in past 3 months (0 pts) Confusion or Disorientation Yes (5 pts) Intoxicated or Sedated No (0 pts) Impaired Gait Yes (1 pt) Mobility Assist Device Used Yes (1 pt) Altered Elimination No (0 pt) Score/Fall Risk Level 0 - 2 = Low Risk Maintained a safe environment, Provided non-skid footwear, Hourly rounding (assess needs \T\ fall precautionary measures) done. Assessment: 12:32 General: Appears comfortable, well developed, well nourished, Behavior is calm, me1 cooperative, appropriate for age, drowsy, flat. Pain: Denies pain. Neuro: Level of Consciousness is awake, alert, obeys commands, Oriented to person, place, time, situation, Appropriate for age. Neuro: Reports reports AMS. Neuro: Level of Consciousness is. Cardiovascular: Patient's skin is warm and dry. Respiratory: Airway is patent Respiratory effort is even, unlabored, Respiratory pattern is regular, symmetrical. GI: No signs and/or symptoms were reported involving the gastrointestinal system. : No signs and/or symptoms were reported regarding the genitourinary system. EENT: No signs and/or symptoms were reported regarding the EENT system. Derm: Skin is intact, is healthy with good turgor, Skin is pink, warm \T\ dry. Musculoskeletal: No signs and/or symptoms reported regarding the musculoskeletal system. Vital Signs: 12:08 BP 137 / 77; Pulse 73; Resp 15; Temp 97.9; Pulse Ox 99% on R/A; Weight 89.81 kg; Height ap3 5 ft. 7 in. ; 13:00 BP 144 / 49; Pulse 51; Resp 12; Pulse Ox 97% on R/A; me1 13:45 BP 127 / 58; Pulse 80; Resp 14; Pulse Ox 96% on R/A; me1 14:30 BP 158 / 70; Pulse 52; Resp 16; Pulse Ox 97% on R/A; me1 15:30 BP 105 / 81; Pulse 62; Resp 16; Pulse Ox 94% on R/A; me1 16:30 BP 140 / 64; Pulse 60; Resp 15; Pulse Ox 94% on R/A; me1 17:00 BP 120 / 64; Pulse 62; Resp 15; Temp 98.4; Pulse Ox 95% ; me1 12:08 Body Mass Index 31.01 (89.81 kg, 170.18 cm) ap3 NIH Stroke Scale Scores: 16:39 NIHSS Score: 0 [place] ED Course: 12:07 Patient arrived in ED. ap3 12:11 Mike Vitale MD is Attending Physician. [place] 12:14 Triage completed. ap3 12:18 Arm band placed on left wrist. ap3 12:18 Client placed on continuous cardiac and pulse oximetry monitoring. NIBP monitoring ap3 applied. malt roaster on. Pulse ox on. NIBP on. 12:21 Susan Gurrola, RN is Primary Nurse. me1 12:31 Basic Metabolic Panel Sent. me1 12:31 CBC with Diff Sent. me1 12:31 LFT's Sent. me1 12:31 Magnesium Sent. me1 12:31 NT PRO-BNP Sent. me1 12:31 PT-INR Sent. me1 12:31 Troponin HS Sent. me1 12:31 Lipase Sent. me1 12:31 Maintain EMS IV. Dressing intact. Good blood return noted. Site clean \T\ dry. Gauge \T\ me 1 site: 18g LAC. Flushed with 10 mL NS. 12:31 Initial lab(s) drawn, by ia, sent to lab. me1 12:32 Patient has correct armband on for positive identification. Bed in low position. Call me1 light in reach. Side rails up X2. Provided Education on: POC. Verbalized understanding. . 12:32 No provider procedures requiring assistance completed. me1 13:36 XRAY Chest (1 view) In Process Unspecified. EDMS 13:42 EKG done, by ED staff, reviewed by Mike Vitale MD. me1 14:41 Urinalysis w/ reflexes Sent. me1 14:41 Urine collected: clean catch specimen, cloudy. me1 16:40 Yoni Michael MD is Referral Physician. jesus 17:13 IV discontinued, intact, bleeding controlled, No redness/swelling at site. Pressure me1 dressing applied. Administered Medications: No medications were administered Medication: 12:32 VIS not applicable for this client. me1 Outcome: 16:40 Discharge ordered by . jesus 17:13 Discharged to home via wheelchair, with family, me1 17:13 Condition: stable 17:13 Discharge instructions given to patient, family, Instructed on discharge instructions, follow up and referral plans. Demonstrated understanding of instructions, follow-up care, 17:14 Patient left the ED. me1 NIH Stroke Scale - NIH Stroke Score Date: 11/15/2023 Time: 16:39 Total Score = 0 10. Dysarthria (speech clarity - read or repeat words) - 0(Normal) 11. Extinction and Inattention (visual/tactile/auditory/spatial/personal) - 0(No abnormality) 1a. Level of Consciousness (LOC) - 0(Alert) 1b. Level of Consciousness (LOC) (Month \T\ Age) - 0(Both) 1c. LOC Commands (Open \T\ Closes Eyes/Cancellation Clerk) - 0(Both) 2. Best Gaze (Lateral Gaze Paresis) - 0(Normal) 3. Visual Field Loss - 0(No visual loss) 4. Facial Palsy - 0(Normal) 5a. Left Arm: Motor (10-second hold) - 0(No drift) 5b. Right Arm: Motor (10-second hold) - 0(No drift) 6a. Left Leg: Motor (5-second hold - always test supine) - 0(No drift) 6b. Right Leg: Motor (5-second hold - always test supine) - 0(No drift) 7. Limb Ataxia (finger/nose \T\ heel/rosario - test with eyes open) - 0(Absent) 8. Sensory Loss (pinprick arms/legs/face) - 0(Normal) 9. Best Language: Aphasia (description/naming/reading) - 0(No aphasia) Initials: [place] Signatures: Dispatcher [employer] Mike Catalan MD MD cha Prokisch, Amanda RN RN ap3 Susan Gurrola RN RN me1
--- NOTE | 2023-11-15 16:40 | EDPHYS ---
Physician Documentation [facility] Name: Jacques Apodaca Age: 88 yrs Sex: Male : 1935 Arrival Date: 11/15/2023 Time: 12:00 Bed 16 Private MD: ED Physician Mike Vitale HPI: 11/14 16:30 This 88 yrs old Male presents to ER via EMS with complaints of Altered Mental jesus Status. Historical: - Allergies: 12:14 Heparin; ap3 12:14 SHELLFISH; ap3 - PMHx: 12:14 Congestive heart failure; Dementia; diabetes mellitus; Hypercholesterolemia; ap3 Hypertensive disorder; kidney disease; - PSHx: 12:14 quadruple bypass; ap3 - Immunization history:: Client reports receiving the 2nd dose of the Covid vaccine. - Social history:: Smoking status: Patient denies any tobacco usage or history of. ROS: 16:33 Constitutional: Negative for fever, chills, and weight loss, Eyes: Negative for injury, jesus pain, redness, and discharge, ENT: Negative for injury, pain, and discharge, Neck: Negative for injury, pain, and swelling, Cardiovascular: Negative for chest pain, palpitations, and edema, Respiratory: Negative for shortness of breath, cough, wheezing, and pleuritic chest pain, Abdomen/GI: Negative for abdominal pain, nausea, vomiting, diarrhea, and constipation, Back: Negative for injury and pain, : Negative for injury, bleeding, discharge, and swelling, MS/Extremity: Negative for injury and deformity, Skin: Negative for injury, rash, and discoloration, Psych: Negative for depression, anxiety, suicide ideation, homicidal ideation, and hallucinations, Allergy/Immunology: Negative for hives, rash, and allergies, Endocrine: Negative for neck swelling, polydipsia, polyuria, polyphagia, and marked weight changes, Hematologic/Lymphatic: Negative for swollen nodes, abnormal bleeding, and unusual bruising, 16:33 Neuro: Positive for altered mental status, LOW GLUCOSE, Exam: 16:36 Constitutional: This is a well developed, well nourished patient who is awake, alert, jesus and in no acute distress. Head/Face: Normocephalic, atraumatic. Eyes: Pupils equal round and reactive to light, extra-ocular motions intact. Lids and lashes normal. Conjunctiva and sclera are non-icteric and not injected. Cornea within normal limits. Periorbital areas with no swelling, redness, or edema. ENT: Nares patent. No nasal discharge, no septal abnormalities noted. Tympanic membranes are normal and external auditory canals are clear. Oropharynx with no redness, swelling, or masses, exudates, or evidence of obstruction, uvula midline. Mucous membranes moist. Neck: Trachea midline, no thyromegaly or masses palpated, and no cervical lymphadenopathy. Supple, full range of motion without nuchal rigidity, or vertebral point tenderness. No Meningismus. Chest/axilla: Normal chest wall appearance and motion. Nontender with no deformity. No lesions are appreciated. Respiratory: Lungs have equal breath sounds bilaterally, clear to auscultation and percussion. No rales, rhonchi or wheezes noted. No increased work of breathing, no retractions or nasal flaring. Abdomen/GI: Soft, non-tender, with normal bowel sounds. No distension or tympany. No guarding or rebound. No evidence of tenderness throughout. Back: No spinal tenderness. No costovertebral tenderness. Full range of motion. Male : Normal genitalia with no discharge or lesions. Skin: Warm, dry with normal turgor. Normal color with no rashes, no lesions, and no evidence of cellulitis. MS/ Extremity: Pulses equal, no cyanosis. Neurovascular intact. Full, normal range of motion. Neuro: Awake and alert, GCS 15, oriented to person, place, time, and situation. Cranial nerves II-XII grossly intact. Motor strength 5/5 in all extremities. Sensory grossly intact. Cerebellar exam normal. Normal gait. Psych: Awake, alert, with orientation to person, place and time. Behavior, mood, and affect are within normal limits. 16:36 Cardiovascular: Rate: bradycardic, actual rate is 53 bpm, Rhythm: regular, Pulses: Pulses are 4+ in bilateral radial, brachial, femoral, popliteal, posterior tibial and and dorsalis pedis arteries.. Heart sounds: normal, Edema: is not appreciated, JVD: is not appreciated, 16:36 ECG was reviewed by the Attending Physician. Vital Signs: 12:08 BP 137 / 77; Pulse 73; Resp 15; Temp 97.9; Pulse Ox 99% on R/A; Weight 89.81 kg; Height ap3 5 ft. 7 in. ; 13:00 BP 144 / 49; Pulse 51; Resp 12; Pulse Ox 97% on R/A; me1 13:45 BP 127 / 58; Pulse 80; Resp 14; Pulse Ox 96% on R/A; me1 14:30 BP 158 / 70; Pulse 52; Resp 16; Pulse Ox 97% on R/A; me1 15:30 BP 105 / 81; Pulse 62; Resp 16; Pulse Ox 94% on R/A; me1 16:30 BP 140 / 64; Pulse 60; Resp 15; Pulse Ox 94% on R/A; me1 17:00 BP 120 / 64; Pulse 62; Resp 15; Temp 98.4; Pulse Ox 95% ; me1 12:08 Body Mass Index 31.01 (89.81 kg, 170.18 cm) ap3 NIH Stroke Scale Scores: 16:39 NIHSS Score: 0 jesus MDM: 12:11 Patient medically screened. jesus 16:38 Differential Diagnosis: electrolyte abnormality, overdose, UTI, volume depletion. Data [facility] reviewed: vital signs, nurses notes, lab test result(s), EKG, radiologic studies, plain films. Consideration of Admission/Observation Escalation of care including admission/observation considered. I considered the following discharge prescriptions or medication management in the emergency department Medications were administered in the Emergency Department. See MAR. Independent interpretation of the following test(s) in the Emergency Department EKG: See my EKG interpretation above. Test considered but Not performed: CT: NO CT HEAD. Historians other than the Patient: Family Member: AND FAMILY MEMBERS WELL IN FORMED. Care significantly affected by the following chronic conditions: Diabetes, Hypertension, Congestive Heart Failure, Obesity, Chronic Kidney Disease. 11/14 12:12 Order name: Basic Metabolic Panel; Complete Time: 16:21 [facility] 11/14 12:12 Order name: CBC with Diff; Complete Time: 16:21 [facility] 11/14 12:12 Order name: LFT's; Complete Time: 16:21 [facility] 11/14 12:12 Order name: Magnesium; Complete Time: 16:21 [facility] 11/14 12:12 Order name: NT PRO-BNP; Complete Time: 16:21 [facility] 11/14 12:12 Order name: PT-INR; Complete Time: 16:21 [facility] 11/14 12:12 Order name: Troponin HS; Complete Time: 16:21 [facility] 11/14 12:12 Order name: Lipase; Complete Time: 16:21 [facility] 11/14 12:19 Order name: Urinalysis w/ reflexes; Complete Time: 16:21 [facility] 11/14 12:12 Order name: XRAY Chest (1 view); Complete Time: 16:21 [facility] 11/14 12:12 Order name: Cardiac monitoring; Complete Time: 12:19 [facility] 11/14 12:12 Order name: EKG - Nurse/Tech; Complete Time: 13:42 [facility] 11/14 12:12 Order name: IV Saline Lock; Complete Time: 12:19 [facility] 11/14 12:12 Order name: Labs collected and sent; Complete Time: 12:31 [facility] 11/14 12:12 Order name: O2 Per Protocol; Complete Time: 12:19 [facility] 11/14 12:12 Order name: O2 Sat Monitoring; Complete Time: 12:19 [facility] EC:36 Rate is 53 beats/min. Rhythm is regular. QRS [place] is Normal. [place] interval is normal. QRS jesus interval is normal. QT interval is normal. No Q waves. T waves are Normal. No ST changes noted. Clinical impression: Abnormal EKG without significant change and No evidence of ischemia. Interpreted by me. Reviewed by me. Administered Medications: No medications were administered Disposition Summary: 11/15/23 16:40 Discharge Ordered Notes: Location: Home jesus Problem: new jesus Symptoms: have improved jesus Condition: Stable jesus Diagnosis - Altered mental status, unspecified - RESOLVED jesus - Hypoglycemia, unspecified jesus - Bradycardia, unspecified jesus Followup: jesus - With: Private Physician - When: 2 - 3 days - Reason: Recheck today's complaints, Continuance of care, Re-evaluation by your physician Followup: jesus - With: Yoni Michael MD - When: 2 - 3 days - Reason: Recheck today's complaints, Re-evaluation by your physician Discharge Instructions: - Discharge Summary Sheet jesus - Bradycardia, Adult jesus - Confusion jesus - Hypoglycemia jesus - Blood Glucose Monitoring, Adult jesus - Chronic Kidney Disease, Adult, [id number] jesus - Chronic Kidney Disease, Adult jesus - Hypoglycemia, [id number] jesus - Preventing Hypoglycemia jesus Forms: - Medication Reconciliation Form jesus - Antibiotic Education jesus - Prescription Opioid Use jesus - Patient Portal Instructions jesus - Leadership Thank You Letter [facility] NIH Stroke Scale - NIH Stroke Score Date: 11/15/2023 Time: 16:39 Total Score = 0 10. Dysarthria (speech clarity - read or repeat words) - 0(Normal) 11. Extinction and Inattention (visual/tactile/auditory/spatial/personal) - 0(No abnormality) 1a. Level of Consciousness (LOC) - 0(Alert) 1b. Level of Consciousness (LOC) (Month \T\ Age) - 0(Both) 1c. LOC Commands (Open \T\ Closes Eyes/[employer] Superintendent) - 0(Both) 2. Best Gaze (Lateral Gaze Paresis) - 0(Normal) 3. Visual Field Loss - 0(No visual loss) 4. Facial Palsy - 0(Normal) 5a. Left Arm: Motor (10-second hold) - 0(No drift) 5b. Right Arm: Motor (10-second hold) - 0(No drift) 6a. Left Leg: Motor (5-second hold - always test supine) - 0(No drift) 6b. Right Leg: Motor (5-second hold - always test supine) - 0(No drift) 7. Limb Ataxia (finger/nose \T\ heel/rosario - test with eyes open) - 0(Absent) 8. Sensory Loss (pinprick arms/legs/face) - 0(Normal) 9. Best Language: Aphasia (description/naming/reading) - 0(No aphasia) Initials: jesus Signatures: Dispatcher [employer] Mike Catalan MD MD cha Prokisch, Amanda RN RN ap3 Corrections: (The following items were deleted from the chart) 12:12 12:12 LIPASE+C.LAB.VOLODYMYR ordered. EDMS EDMS 17:04 16:31 Head Brain Wo Cont+CT.RAD.VOLODYMYR ordered. EDMS EDMS
[2023-11-15 17:29] VITALS: BP 120/64; TEMP 98.4; O2SAT 95
--- NOTE | 2023-11-20 13:07 | EKG ---
Test Date: 2023-11-15 Test Time: 13:39:24 Court Attendant: NICOLE MEASUREMENT RESULTS: Intervals: Rate: 53 AL: QRSD: 102 QT: 512 QTc: 480 Opp: P: AL: QRS: 16 T: -14 INTERPRETIVE STATEMENTS: Junctional rhythm Inferior infarct, age undetermined Cannot rule out Anterior infarct, age undetermined Abnormal ECG Compared to ECG 06/29/2023 00:04:45 Junctional rhythm now present Sinus rhythm no longer present ST (T wave) deviation no longer present Myocardial infarct finding still present Electronically Signed On 11-20-23 12:52:30 CDT by Yoni Michael
== END 2023-11-15 17:14 | disposition home or self-care (01) ==
LOC: ER 12:00
DX: E11.649 Type 2 diabetes mellitus with hypoglycemia without coma (principal); R00.1 Bradycardia, unspecified; I50.9 Heart failure, unspecified; I10 Essential (primary) hypertension; F03.90 Unspecified dementia, unspecified severity, without behavioral disturbance, psychotic disturbance, mood disturbance, and anxiety
CPT/HCPCS: 36415; 71045; 80048; 80076; 81001; 83690; 83735; 83880; 84484; 85025; 85610; 93005; 99284

== ENCOUNTER 2024-02-04 12:20 | Inpatient (IN) | payer OTHER ==
[2024-02-04 13:23] LABS: Absolute Basophils 0.1 K/uL (0-0.5); Absolute Lymphocytes (CBC) 0.6 K/uL (0.7-4.9); Absolute Monocytes 0.5 K/uL (0.1-1.3); Absolute Neutrophil 19.4 K/uL (1.8-8.0); Basophils % 0.4 % (0-1.3); Hematocrit 34.7 % (39.6-49.0); Hemoglobin 10.8 g/dL (13.6-17.9); Lymphocytes % 2.8 % (15.3-44.8); MCH 25.4 pg (27.0-35.0); MCV 81.9 fL (80-100); MPV 8.1 fL (7.6-11.3); Monocytes % 2.4 % (3.3-12.3); Neutrophils % 94.4 % (41.7-73.7); Platelets 175 thou/uL (152-406); RBC Red Blood Cell Count 4.24 M/uL (4.33-5.43); Red Cell Distribution Width 19.3 % (12.1-15.2)
--- NOTE | 2024-02-04 13:32 | RAD REPORT ---
EXAMINATION: CT ABDOMEN AND PELVIS WITHOUT CONTRAST CLINICAL INDICATION: HEMATURIA TECHNIQUE: CT abdomen and pelvis was performed, without IV contrast, as per department protocol. Axia l, sagittal and coronal reconstructions were obtained. One or more of the following dose reduction techniques were used: Automated exposure control, adjustment of the mA and kV according to the patien t size, and iterative reconstruction. Unless otherwise specified, incidental findings do not require dedicated imaging follow-up. COMPARISON: 10/13/2021 FINDINGS: The lack of intravenous contrast limits the sensitivity of this exam for evaluation of solid visceral organs, vascular structures, and retroperitoneum. LOWER CHEST: 7 mm nodule is seen in the left posterior lung base. LIVER:Normal in size and contour. No focal lesion. Several gallstones in the gallbladder. SPLEEN: Normal size. No focal lesion. PANCREAS: No mass, ductal dilation, or linnea-pancreatic fluid. ADRENALS: Normal; no mass. KIDNEYS AND URETERS: Normal size and contour. No hydronephrosis. URINARY BLADDER: Poorly defined soft tissue lesion is seen along the left inferior margin of the urin juan bladder measuring 16 mm. GASTROINTESTINAL TRACT: No evidence of bowel obstruction, significant free fluid, free air or abscess . Sigmoid diverticulosis coli is present without diverticulitis. APPENDIX: Normal appendix. LYMPH NODES: No lymphadenopathy. MUSCULOSKELETAL: Mild multilevel spinal degenerative changes. ADDITIONAL FINDINGS: None. IMPRESSION: Cholelithiasis noted. Prominent sigmoid diverticulosis coli. 15 mm soft tissue lesion left aspect of the urinary bladder could be a polyp or mass. Recommend follo w-up direct visualization with cystoscopy.
[2024-02-04 13:38] LABS: Anion Gap 11.5 mEq/L (5.0-15.0); Bilirubin Total 0.4 mg/dL (0.2-1.0); Potassium 3.5 mEq/L (3.5-5.1)
[2024-02-04 13:39] LABS: Albumin/Globulin Ratio 0.7 (1.1-1.8); Globulin 4.6 g/dL (2.3-3.5); Protein, Total 7.6 g/dL (6.4-8.2)
[2024-02-04 14:08] LABS: Band Neutrophils 1 % (0-1); Blood Morphology Comment NOT SEEN (NOT SEEN); Differential Total Cells Count 100; Lymphocytes 4 % (15-42); Monocytes 4 % (0-10); Platelet Estimate ADEQ; Segmented Neutrophils 91 % (40-80)
[2024-02-04 14:42] LABS: Specific Gravity 1.011 (1.005-1.030); Sqamous Epithelial None Seen /HPF (None Seen); Urine Bacteria <20 /HPF (<20); Urine Bilirubin NEGATIVE (Negative); Urine Blood 3+ (OVER) (Negative); Urine Clarity Extremely Turbid (Clear); Urine Color Light-Brown (Yellow); Urine Culture Reflex Order NOT NEEDED; Urine Glucose 1+ (Negative); Urine Ketones NEGATIVE (Negative); Urine Microscopic Reflex YN ORDER UMIC; Urine Mucus Slight /HPF (None Seen); Urine Nitrite NEGATIVE (Negative); Urine Protein 3+ (Negative); Urine RBC >50 /HPF (None Seen); Urine Urobilinogen Normal (Normal); Urine pH 5.5 (5.0-7.0)
[2024-02-04] MEDS ORDERED: CEFTRIAXONE 1000 MG/VIAL ONE (15:41)
[2024-02-04] MEDS ORDERED: NA CHLORIDE 0.9% 250 ML ONE (15:42)
--- NOTE | 2024-02-04 15:48 | ER ---
Nurse's Notes [facility] Name: Jacques Apodaca Age: 88 yrs Sex: Male : 1935 Arrival Date: 02/04/2024 Time: 12:20 Bed 7 Private MD: Diagnosis: Cystitis, unspecified with hematuria;Elevated white blood cell count, unspecified;Chronic kidney disease, unspecified Presentation: 02/03 12:23 Chief complaint: EMS states: EMS CALLED BY FOR ONE INSTANCE OF BLOOD CLOT NOTED IN bp BRIEF. PT HAS NO COMPLAINT. Coronavirus screen: At this time, the client does not indicate any symptoms associated with coronavirus-19. Ebola Screen: No symptoms or risks identified at this time. Initial Sepsis Screen: Does the patient meet any 2 criteria? No. Patient's initial sepsis screen is negative. Does the patient have a suspected source of infection? No. Patient's initial sepsis screen is negative. Risk Assessment: Do you want to hurt yourself or someone else? Patient reports no desire to harm self or others. Onset of symptoms was February 04, 2024. 12:23 Method Of Arrival: EMS: [facility] bp 12:23 Acuity: ALISIA 3 bp Triage Assessment: 12:24 General: Appears in no apparent distress. Behavior is calm, cooperative. Pain: Denies bp pain. EENT: No deficits noted. Neuro: No deficits noted. Cardiovascular: No deficits noted. Respiratory: No deficits noted. GI: No signs and/or symptoms were reported involving the gastrointestinal system. : Reports BLOOD IN URINE. Derm: Wound noted Other: SCATTERED LEG WOUNDS ALREADY UNDER TREATMENT. Musculoskeletal: No deficits noted. Historical: - Allergies: 12:24 Heparin; bp 12:24 SHELLFISH; bp 12:31 Lovenox; bp - Home Meds: 12:31 aspirin 81 mg Oral tab 81 mg daily [Active]; atorvastatin 40 mg Oral tab 1 tab once bp daily [Active]; carvedilol 12.5 mg Oral tab 2 times per day [Active]; clopidogrel 75 mg oral tablet 1 tab daily [Active]; cholecalciferol (vitamin D3) 25 mcg (1,000 unit) oral capsule 1 cap daily [Active]; donepezil 10 mg oral tablet 1 tab twice a day [Active]; Lasix 40 mg Oral tablet 1 tab daily [Active]; gabapentin 100 mg Oral cap 1 cap 2 times per day [Active]; glipizide 5 mg oral Tablet, Extended Release 24 hr 1 tab daily [Active]; isosorbide mononitrate 60 mg Oral Tablet, Extended Release 24 hr 1 tab daily [Active]; Lantus U-100 Insulin 100 unit/mL Sub-Q soln 30 units daily [Active]; memantine 10 mg oral tablet 1 tab 2 times per day [Active]; nifedipine 90 mg Oral tr24 1 tab once daily [Active]; - PMHx: 12:24 Congestive heart failure; Dementia; Hypercholesterolemia; Hypertensive disorder; bp diabetes mellitus; kidney disease; - PSHx: 12:24 quadruple bypass; bp - Immunization history:: Adult Immunizations up to date. - Infectious Disease History:: Denies. - Social history:: Smoking status: Patient denies any tobacco usage or history of. Screenin:30 [facility] ED Fall Risk Assessment (Adult) History of falling in the last 3 months, bp including since admission No falls in past 3 months (0 pts) Confusion or Disorientation No (0 pts) Intoxicated or Sedated No (0 pts) Impaired Gait Yes (1 pt) Mobility Assist Device Used No (0 pt) Altered Elimination No (0 pt) Score/Fall Risk Level 0 - 2 = Low Risk. Abuse screen: Denies threats or abuse. Denies injuries from another. Nutritional screening: No deficits noted. Tuberculosis screening: No symptoms or risk factors identified. Assessment: 12:30 General: Appears in no apparent distress. Behavior is calm, cooperative, appropriate bp for age. Pain: Denies pain. 14:30 Reassessment: Patient appears in no apparent distress at this time. No changes from bp previously documented assessment. Patient is alert, oriented x 3, equal unlabored respirations, skin warm/dry/pink. 20:43 General: Appears in no apparent distress. Behavior is calm, cooperative, appropriate mt4 for age. Pain: Denies pain. Neuro: Level of Consciousness is awake, alert, obeys commands, Oriented to person, place, time, Appropriate for age Speech is normal, Facial symmetry appears normal. Cardiovascular: Capillary refill < 3 seconds. : Urine is blood tinged. Vital Signs: 12:23 BP 160 / 63; Pulse 75; Resp 16; Temp 98; Pulse Ox 97% ; bp 14:30 BP 162 / 63; Pulse 65; Resp 15; Pulse Ox 99% ; bp 16:00 BP 158 / 57; Pulse 65; Resp 16; Pulse Ox 98% ; bp 19:32 BP 142 / 87; Pulse 62; Resp 16; Temp 98.3; Pulse Ox 98% ; dd2 [place] Coma Score: 20:43 Eye Response: spontaneous(4). Motor Response: obeys commands(6). Verbal Response: mt4 oriented(5). Total: 15. ED Course: 12:22 Patient arrived in ED. bp 12:24 Triage completed. bp 12:24 Arm band placed on. bp 12:30 Patient has correct armband on for positive identification. bp 12:31 Emanuel Maldonado, RN is Primary Nurse. bp 12:35 Warm blanket given. Verbal reassurance given. am7 12:39 Bria Ortega FNP-C is PHCP. kb 12:40 Mike Vitale MD is Attending Physician. kb 13:11 Initial lab(s) drawn, by me, sent to lab. Inserted saline lock: 22 gauge in right bp forearm, using aseptic technique. Blood collected. Flushed with 10 mL NS. 13:20 CT Stone Protocol In Process Unspecified. EDMS 14:15 Straight cath inserted, using sterile technique, 14 Fr. Specimen obtained. Returned bp lulu urine. Patient tolerated well. 14:37 PHCP role handed off by Bria Ortega FNP-C cp 14:37 Mike Jauregui PA is PHCP. cp 15:47 Carmen Perry MD is Hospitalizing Provider. cp 16:15 First set of blood cultures drawn by me, Second set of blood cultures drawn by me. bp 16:58 XRAY Chest (1 view) In Process Unspecified. EDMS 17:00 Wound care: was dressed with 4X4s. bp 19:12 Primary Nurse role handed off by Emanuel Maldonado, SUBHASH jl7 19:31 ILYA KIRAN, SUBHASH is Primary Nurse. dd2 20:35 Provided Education on: admission education. dd2 20:35 No provider procedures requiring assistance completed. Patient admitted, IV remains in dd2 place. 20:43 Lights dimmed. Warm blanket given. Pillow given. Verbal reassurance given. Cleaned of mt4 incontinence. 20:43 Patient admitted, IV remains in place. Patient maintains SpO2 saturation greater than mt4 95% on room air. Administered Medications: 16:15 Drug: NS 0.9% IV 250 ml IV at bolus once; to be given as a bolus over 30 minutes Route: bp IV; Rate: bolus; Site: right forearm; 17:00 Follow up: IV Status: Completed infusion bp 16:15 Drug: Rocephin IV 1 grams IV at calculated rate once; Given slow IV push per pharmacy bp instructions Route: IV; Rate: calculated rate; Site: right forearm; 17:00 Follow up: IV Status: Completed infusion bp Medication: 19:36 VIS not applicable for this client. dd2 Outcome: 15:47 Decision to Hospitalize by Provider. cp 20:35 Admitted to Med/surg accompanied by tech, via stretcher, with chart, dd2 20:35 Condition: stable 20:35 Instructed on the need for admit, 20:44 Patient left the ED. dd2 Signatures: Dispatcher [employer] EDMS Bria Ortega, QUALITY IMPROVEMENT ENGINEER-C QUALITY IMPROVEMENT ENGINEER-CkMike Christianson PA PA cp Thomas Birmingham RN RN jl7 Emanuel Maldonado RN RN bp Mat Oconnell RN RN mt4 ILYA KIRAN RN RN dd2 Katlin Busch 7
--- NOTE | 2024-02-04 15:48 | EDPHYS ---
Physician Documentation [facility] Name: Jacques Apodaca Age: 88 yrs Sex: Male : 1935 Arrival Date: 02/04/2024 Time: 12:20 Bed 7 Private MD: ED Physician Mike Vitale HPI: 02/03 12:48 This 88 yrs old Male presents to ER via EMS with complaints of Urinary Problem.kb 12:48 Pt is an 88 year old male who presents for blood in urine that started 4 months ago. kb states he was passing more blood and clots than normal today. Denies fever. Historical: - Allergies: 12:24 Heparin; bp 12:24 SHELLFISH; bp 12:31 Lovenox; bp - Home Meds: 12:31 aspirin 81 mg Oral tab 81 mg daily [Active]; atorvastatin 40 mg Oral tab 1 tab once bp daily [Active]; carvedilol 12.5 mg Oral tab 2 times per day [Active]; clopidogrel 75 mg oral tablet 1 tab daily [Active]; cholecalciferol (vitamin D3) 25 mcg (1,000 unit) oral capsule 1 cap daily [Active]; donepezil 10 mg oral tablet 1 tab twice a day [Active]; Lasix 40 mg Oral tablet 1 tab daily [Active]; gabapentin 100 mg Oral cap 1 cap 2 times per day [Active]; glipizide 5 mg oral Tablet, Extended Release 24 hr 1 tab daily [Active]; isosorbide mononitrate 60 mg Oral Tablet, Extended Release 24 hr 1 tab daily [Active]; Lantus U-100 Insulin 100 unit/mL Sub-Q soln 30 units daily [Active]; memantine 10 mg oral tablet 1 tab 2 times per day [Active]; nifedipine 90 mg Oral tr24 1 tab once daily [Active]; - PMHx: 12:24 Congestive heart failure; Dementia; Hypercholesterolemia; Hypertensive disorder; bp diabetes mellitus; kidney disease; - PSHx: 12:24 quadruple bypass; bp - Immunization history:: Adult Immunizations up to date. - Infectious Disease History:: Denies. - Social history:: Smoking status: Patient denies any tobacco usage or history of. ROS: 12:47 Constitutional: As per HPI kb Exam: 12:47 Constitutional: This is a well developed, well nourished patient who is awake, alert, kb and in no acute distress. Head/Face: Normocephalic, atraumatic. ENT: Moist Mucous membranes Cardiovascular: Regular rate Respiratory: Respirations even and unlabored. No increased work of breathing. Talking in full sentences Back: No spinal tenderness. No costovertebral tenderness. Full range of motion. Skin: Warm, dry with normal turgor. Normal color. MS/ Extremity: Pulses equal, no cyanosis. Neurovascular intact. Full, normal range of motion. Neuro: Awake and alert, GCS 15, oriented to person, place, time, and situation. 12:47 Abdomen/GI: Inspection: abdomen appears normal, Bowel sounds: normal, Palpation: soft, in all quadrants, mild abdominal tenderness, in the right lower quadrant and left lower quadrant, Vital Signs: 12:23 BP 160 / 63; Pulse 75; Resp 16; Temp 98; Pulse Ox 97% ; bp 14:30 BP 162 / 63; Pulse 65; Resp 15; Pulse Ox 99% ; bp 16:00 BP 158 / 57; Pulse 65; Resp 16; Pulse Ox 98% ; bp 19:32 BP 142 / 87; Pulse 62; Resp 16; Temp 98.3; Pulse Ox 98% ; dd2 Isaac Coma Score: 20:43 Eye Response: spontaneous(4). Motor Response: obeys commands(6). Verbal Response: mt4 oriented(5). Total: 15. MDM: 12:40 Medical Screening Exam initiated kb 12:48 Data reviewed: vital signs, nurses notes. kb 14:00 Differential diagnosis: viral Infection, bacterial infection, pneumonia UTI, sepsis. cp 14:39 Transition of care: After a detail discussion of the patient's case, care is kb transferred to Mike HUERTA. 16:45 Management of patient was discussed with the following: Primary Care Provider: DR Vicky segovia concerning results of today's testing and he will admit. 16:45 Care significantly affected by the following chronic conditions: Diabetes, Congestive cp Heart Failure, dementia. Counseling: I had a detailed discussion with the patient and/or guardian regarding the historical points, exam findings, and any diagnostic results supporting the discharge/admit diagnosis, lab results, radiology results, the need for further work-up and treatment in the hospital. 02/03 12:46 Order name: CBC with Diff; Complete Time: 14:13 kb 02/03 14:50 Interpretation: Normal except: WBC 20.60; RBC 4.24; HGB 10.8; HCT 34.7; MCH 25.4; MCHC cp 31.0; RDW 19.3; YECENIA% 94.4; LYM% 2.8; MN% 2.4; NEUT A 19.4; LYMA 0.6. 02/03 12:46 Order name: CMP; Complete Time: 13:39 kb 02/03 14:51 Interpretation: Normal except: GLUC 266; BUN 81; CRE 3.10; GFR 19; AST 55; ALK 125; ALB cp 3.0; GLOB 4.6; A/G 0.7. 02/03 12:46 Order name: Lipase; Complete Time: 13:39 kb 02/03 12:46 Order name: Urinalysis w/ reflexes; Complete Time: 14:49 kb 02/03 14:49 Interpretation: Normal except: [facility] Extremely Turbid; UGLUC 1+; UBLD 3+ (OVER); UPROT cp 3+; URBC >50. 02/03 13:25 Order name: Manual Differential; Complete Time: 14:13 EDLA 02/03 15:33 Interpretation: Normal except: SEGS 91; LYM 4. 02/03 15:35 Order name: Lactate w/ 2H reflex if indic.; Complete Time: 17:16 02/03 17:17 Interpretation: Reviewed. 02/03 15:35 Order name: Blood Culture Adult (2) 02/03 15:35 Order name: PT-INR; Complete Time: 17:16 02/03 17:17 Interpretation: Reviewed. 02/03 15:35 Order name: Ptt, Activated; Complete Time: 17:16 02/03 17:27 Order name: Basic Metabolic Panel EDLA 02/03 17:27 Order name: Basic Metabolic Panel EDLA 02/03 17:27 Order name: CBC with Automated Diff EDLA 02/03 17:27 Order name: CBC with Automated Diff EDLA 02/03 17:31 Order name: Urine Culture EDLA 02/03 12:46 Order name: CT Stone Protocol; Complete Time: 13:35 kb 02/03 14:51 Interpretation: Report reviewed. 02/03 15:39 Order name: XRAY Chest (1 view); Complete Time: 17:16 02/03 17:27 Order name: CONS Physician Consult EDLA 02/03 12:46 Order name: IV Saline Lock; Complete Time: 13:11 kb 02/03 12:46 Order name: Labs collected and sent; Complete Time: 13:11 kb 02/03 13:42 Order name: Straight Cath - Urine; Complete Time: 14:32 kb 02/03 15:16 Order name: Wound dressing: right lower leg dressing change; Complete Time: 17:00 cp Administered Medications: 16:15 Drug: NS 0.9% IV 250 ml IV at bolus once; to be given as a bolus over 30 minutes Route: bp IV; Rate: bolus; Site: right forearm; 17:00 Follow up: IV Status: Completed infusion bp 16:15 Drug: Rocephin IV 1 grams IV at calculated rate once; Given slow IV push per pharmacy bp instructions Route: IV; Rate: calculated rate; Site: right forearm; 17:00 Follow up: IV Status: Completed infusion bp Disposition Summary: 02/04/24 15:47 Hospitalization Ordered Notes: Hospitalization Status: Inpatient Admission cp Provider: Carmen Perry cp [facility] cp Condition: Stable cp Problem: new cp Symptoms: have improved cp Bed/Room Type: Standard cp Room Assignment: 206(02/04/24 19:20) vk Diagnosis - Cystitis, unspecified with hematuria cp - Elevated white blood cell count, unspecified cp - Chronic kidney disease, unspecified cp Forms: - Medication Reconciliation Form cp - SBAR form cp - Leadership Thank You Letter cp Signatures: Dispatcher [employer] [facility] Bria Ortega FNP-C FNP-Mike Rico PA PA cp Emanuel Maldonado, RN RN bp Bridgett Guzman vk Corrections: (The following items were deleted from the chart) 15:25 14:52 Orthostatics ordered. cp cp 19:20 15:47 cp vk
[2024-02-04 16:47] LABS: PT Prothrombin Time 23.8 SECONDS (9.4-12.5); PTT, Activated Partial Thromb 60.5 SECONDS (24.3-36.9); Protime INR 2.17
--- NOTE | 2024-02-04 17:01 | RAD REPORT ---
EXAMINATION: ONE VIEW CHEST XR CLINICAL INDICATION: elevated wbc TECHNIQUE: Frontal chest projection is submitted. Examination is limited by patient positioning and t echnique. COMPARISON: 11/15/2023 FINDINGS: The lungs are underinflated resulting in mild vascular crowding. The heart is moderately enlarged in size. No displaced fractures identified. Sternotomy wires. IMPRESSION: No acute intrathoracic abnormalities.
[2024-02-04] MEDS ORDERED: D10W 125 ML IV PRN (17:21)
[2024-02-04] MEDS ORDERED: ONDANSETRON 4 MG/2 ML VIAL IV PRN (17:21)
[2024-02-04] MEDS ORDERED: GLUCAGON 1 MG/VIAL IM PRN (17:21)
[2024-02-04] MEDS: carvediloL 12.5 MG TAB PO SCH (18:00)
[2024-02-04] MEDS: CEFTRIAXONE 1,000 MG in NA CHLORIDE 0.9% 50 ML IVPB SCH (21:00)
[2024-02-04] MEDS: ATORVASTATIN 40 MG TAB PO SCH (23:13)
[2024-02-04] MEDS: GABAPENTIN 100 MG CAP PO SCH (23:13)
[2024-02-04] MEDS: DONEPEZIL HCL 5 MG TAB PO SCH (23:14)
[2024-02-04] MEDS: INSULIN REGULAR (HUMAN) 100 UNIT/ML SQ SCH (23:15)
[2024-02-04] MEDS: NA CHLORIDE 0.9% 1,000 ML IV SCH (23:15)
[2024-02-04] MEDS: MEMANTINE HCL 10 MG TABLET PO SCH (23:15)
[2024-02-05 00:13] VITALS: BMI 26.6
[2024-02-05 06:06] LABS: Absolute Lymphocytes (CBC) 0.9 K/uL (0.7-4.9); Absolute Monocytes 0.6 K/uL (0.1-1.3); Absolute Neutrophil 10.7 K/uL (1.8-8.0); Basophils % 0.4 % (0-1.3); Eosinophils % 0.3 % (0-4.4); Hematocrit 29.9 % (39.6-49.0); Hemoglobin 9.7 g/dL (13.6-17.9); MCHC 32.4 g/dL (32.0-36.0); MCV 80.4 fL (80-100); Monocytes % 4.8 % (3.3-12.3); Neutrophils % 87.5 % (41.7-73.7); Nucleated Red Blood Cells % 0.1 % (0-0); Platelets 178 thou/uL (152-406); RBC Red Blood Cell Count 3.72 M/uL (4.33-5.43); Red Cell Distribution Width 19.5 % (12.1-15.2)
[2024-02-05] MEDS: BISACODYL 10 MG RECTAL SUPP PR ONE (08:06)
[2024-02-05] MEDS ORDERED: NIFEDIPINE XL 90 MG TABLET PO SCH (09:00)
[2024-02-05] MEDS: FUROSEMIDE 40 MG TABLET PO SCH (09:21)
[2024-02-05] MEDS: NIFEDIPINE XL 30 MG TABLET PO SCH (09:21)
[2024-02-05] MEDS: DOCUSATE NA/SENNA CONC 1 TAB PO SCH (09:21)
[2024-02-05] MEDS: ASPIRIN EC 81 MG TAB PO SCH (09:21)
[2024-02-05] MEDS: ISOSORBIDE MONO SR 60 MG TAB PO SCH (09:21)
[2024-02-05] MEDS: METRONIDAZOLE 500mg IVPB 500 MG/100 ML BAG IV SCH (09:22)
--- NOTE | 2024-02-05 10:51 | RAD REPORT ---
EXAMINATION: US RENAL CLINICAL INDICATION: Hematuria TECHNIQUE: Real-time ultrasonography of the kidneys performed. COMPARISON: CT February 04, 2024. FINDINGS: Right kidney measures 10 cm with a normal echotexture. Left kidney measures 9 cm with normal echotexture. No hydronephrosis IMPRESSION: No significant abnormalities displayed
[2024-02-05] MEDS ORDERED: ACETAMINOPHEN 500 MG TAB PO PRN (11:17)
--- NOTE | 2024-02-05 12:05 | RAD REPORT ---
EXAM: URINARY BLADDER ULTRASOUND CLINICAL INDICATION: Hematuria COMPARISON: CT abdomen February 04, 2024 TECHNIQUE: Sonographic evaluation of the bladder performed. FINDINGS: Previously described 15 mm soft tissue lesion left aspect of the bladder is not visualized on the cur rent examination. Remainder of the bladder unremarkable IMPRESSION; Nonvisualization of previously described 15 mm soft tissue lesion within the left aspect of the bladd er. This could indicate that it represented a hematoma which resolved. Another consideration is that a mass is present but not imaged. It is recommended that the patient either have direct visualization of the bladder by cystoscopy or a CT bladder with IV contrast and delayed images.
--- NOTE | 2024-02-05 13:12 | CON ---
Date of Consultation: 02/05/2024 Reason For Consultation: Bilateral lower extremity wounds. History Of Present Illness: The patient is an 88-year-old gentleman who presented to the emergency r oom with complaints of blood clots in his urine. On workup, he had leukocytosis, lower abdominal courtney n. I was asked to evaluate this patient because he has been [facility] for venous stasis ulcers of his lower extremities. There has been no significant change regarding t hose wounds. The patient is being treated with Elisabeth and Lidex. The patient is awake and confused. is present at the bedside. The patient is not in any acute distress. No sore throat, runny n ose, cough, headaches, dizziness. No chest pain. The patient does not have fever or chills. Review of Systems: Otherwise unremarkable. Past Medical History: Significant for congestive heart failure, dementia, hypercholesterolemia, hype rtension. Past Surgical History: CABG. Allergies: INCLUDE HEPARIN, LOVENOX, AND SHELLFISH. Social History: The patient does not currently smoke or drink alcohol. Family History: Not contributory. Physical Examination: Vital Signs: Stable. He is afebrile. Slightly bradycardic. General: He is awake, confused. Head and Neck: No masses. Chest: Clear. Heart: S1, S2. Abdomen: Soft, nondistended. Positive bowel sounds. Minimal lower abdominal tenderness. No perito nitis. Extremities: Adequately perfused. Diminished dorsalis pedis and posterior tibial pulses. On the ri ght anterior leg, there is approximately 1 x 2 cm stage 2 venous stasis ulcers with no surrounding er ythema, warmth, or edema. On the left leg, the wound has a scab over it. There is no open wound demond t I can see at this time. Laboratory Data: Reviewed. Leukocytosis was 20,000, it is down to 12,[address] of the abdomen and pelvis was done, also which was reviewed and it does not show any acute findings. The patient do es have a urinary bladder polyp or mass. Soft tissue lesion could be either a polyp or mass. Recomm ended cystoscopy. Assessment: 88-year-old gentleman with multiple medical problems with hematuria workup in progress a nd lower extremity wounds with no acute changes. Recommendations: Medical management and urology management as per the medical team and we will marlon nue Elisabeth 3 times a week and Lidex as instructed. The patient is to follow up with me in a [facility]. Plan of care discussed in detail with the . LAUREN/CECI Voice ID: [id number] Report ID: [id number]
[2024-02-05] MEDS: TRAMADOL HCL 50 MG TAB PO PRN (13:36)
[2024-02-05] MEDS: FLEET ENEMA ADULT PR ONE (15:26)
[2024-02-05] MEDS: POTASSIUM CL SA 10 MEQ TAB PO ONE (21:33)
[2024-02-06 05:13] LABS: Absolute Lymphocytes (CBC) 0.7 K/uL (0.7-4.9); Absolute Monocytes 0.7 K/uL (0.1-1.3); Absolute Neutrophil 8.3 K/uL (1.8-8.0); Basophils % 0.3 % (0-1.3); Eosinophils % 0.4 % (0-4.4); Hematocrit 29.2 % (39.6-49.0); Hemoglobin 9.6 g/dL (13.6-17.9); MCH 26.5 pg (27.0-35.0); MCHC 32.9 g/dL (32.0-36.0); MCV 80.6 fL (80-100); MPV 7.8 fL (7.6-11.3); Monocytes % 7.3 % (3.3-12.3); Platelets 168 thou/uL (152-406); RBC Red Blood Cell Count 3.62 M/uL (4.33-5.43); Red Cell Distribution Width 19.5 % (12.1-15.2)
[2024-02-06 05:22] LABS: Anion Gap 11.4 mEq/L (5.0-15.0); Magnesium 1.9 mg/dL (1.6-2.4); Potassium 3.4 mEq/L (3.5-5.1)
--- NOTE | 2024-02-06 06:27 | HP ---
Date of Admission: 02/05/2024 Chief Complaint: Bleeding. History Of Present Illness: An 88-year-old male patient who came into emergency room yesterday as patient's noted that as he was going to the bathroom from his bed, he had urinated on himself, but urine was red in color and with that she was concerned about it and patient was brought into emergency room. After he was evaluated in the ER, he was noted to have elevated white blood cell count and CAT scan had shown some abnormality in the bladder and the patient was admitted to the hospital. Empiric antibiotic was started in the emergency room, which was ceftriaxone. The patient denies any cough, congestion, fever, chills. No abdominal pain, nausea, vomiting. Denies any constipation or diarrhea. He denies any dysuria. Allergies: HEPARIN CAUSING BLOOD CLOT AND THROMBOCYTOPENIA. CARVEDILOL CAUSING LIP SWELLING. Medications: List reviewed. Review of Systems: Genitourinary: As mentioned above. Constitutional: Generalized weakness. All other systems reviewed are negative. Past Medical History: Significant for chronic diastolic heart failure; type 2 diabetes mellitus with chronic kidney disease; chronic kidney disease, stage 4; hypertension; peripheral vascular disease; mixed hyperlipidemia; anemia; prostate cancer; impaired memory; coronary artery disease; hypomagnesemia; osteoarthritis; multiple sites. Significant for senile dementia. Past Surgical History: Significant for coronary artery bypass surgery in 2003 and surgery on the left clavicle. Family History: Father , had diabetes. Mother , also had diabetes. Brother and sister, they . Brother had lung cancer, diabetes, and hypertension and sister had hypertension and diabetes. Social History: Prior history of smoking, not at present time. Use of alcohol, negative. Physical Examination: Vital Signs: Temperature 97.5, pulse 56, respiratory rate 16, blood pressure 163/79, oxygen saturation 97% on room air. Height 5 feet 8 inches, weight 174 pounds. General: Awake, alert, oriented, not in distress. HEENT: Head atraumatic, normocephalic. Conjunctivae nonerythematous. Sclerae white. Mouth, no thrush or edema noted. Ears/Nose, no mass, lesion, discharge noted. Neck: Supple. No JVD, lymph nodes, bruit, thyromegaly noted. Lungs: Bilateral good equal air entry. Clear to auscultation. No rhonchi. No rales. Heart: Normal heart sounds, no murmur or gallop. Abdomen: Soft. No guarding, rigidity, distention. No rebound tenderness. No hepatosplenomegaly. No bruit. Bowel sounds normoactive. The patient does have tenderness in all across lower abdomen without rebound tenderness. Extremities: No leg edema. No calf tenderness. Skin: Both lower extremities have dressing present for lower extremity wound for which [facility] and as per , the wound has almost completely healed. Lymphatics: No lymph node enlargement in neck, supraclavicular, infraclavicular region. Neuro: No focal neurological deficit. Chest: Unremarkable. External Genitalia: Deferred. Rectal: Shows brown to green color stool and there is no evidence of any rectal mass on the rectal exam, no evidence of any thrombosed hemorrhoid, but evidence of fecal impaction noted with large amount of stool in the rectum. Laboratory Data: Yesterday, white count 20.6, hemoglobin 10.8, platelets 175. Today, white count 12.3, hemoglobin 9.7, platelets 178. Chemistry yesterday; sodium 136, potassium 3.5, chloride 103, bicarb 25, BUN 81, creatinine 3.10, glucose 266. Lactic acid 1.3. Liver function tests, AST 55. Otherwise rest of the liver function tests normal. Lipase 29. Today, sodium 139, potassium 3, chloride 104, bicarb 27, BUN 76, creatinine 2.92, glucose 174. Urinalysis more than 50 rbc's, 5-10 wbc's. Otherwise rest of the urinalysis was negative. Chest x-ray did not show any acute intrathoracic changes. CAT scan of the abdomen and pelvis was negative for any acute findings except some abnormality noted in the bladder, which will need to be investigated further. Impression: 1. Hematuria. 2. Leukocytosis. 3. Rule out bladder mass. 4. Constipation. 5. Rule out acute diverticulitis. 6. Anemia due to chronic kidney disease. 7. Chronic kidney disease, stage 4. 8. Senile dementia. 9. Type 2 diabetes mellitus with chronic kidney disease. 10. Hypertension. 11. Mixed hyperlipidemia. 12. Coronary artery disease. 13. Osteoarthritis, multiple sites. 14. Prostate cancer. Plan: Admit the patient to hospital for further evaluation and management of this problem. The patient is appropriate for inpatient and is expected to spend 2 midnights in hospital. The patient's hematuria will be investigated further with renal ultrasound and bladder ultrasound and if we do see some abnormality, then we will need to have further investigation done by urologist, but obviously we will need to communicate those details with the family members. The patient's overall performance status is very poor with his multiple chronic comorbidities. Anemia will not require any further intervention except monitoring. The patient's leukocytosis is very likely due to underlying diverticulitis as a result of really bad problem with constipation. I have ordered antibiotics, which is ceftriaxone. We will continue that per order. The patient has responded very well with improvement in his WBC count overnight and for constipation problem, we will go ahead and use Dulcolax rectal suppository, Fleet Enema, and Senokot S per order. For his significant debility and generalized weakness, we will consult Physical Therapy. I have also added Flagyl along with ceftriaxone to be continued for this possible diverticulitis. For hypokalemia, we will replace that per electrolyte replacement protocol. Diabetes will be managed with sliding scale insulin per order. For hypertension, we will continue antihypertensive medication and no need for further intervention. For his hyperlipidemia, we will continue statin therapy per order and no need for any further intervention. I did communicate with the patient's this morning and discussed plan of treatment and also I was discussing with her regarding advance directive and she initially informed me that she was okay with him having CPR, but did not want any heroic measures done besides that and I explained to her that doing CPR by itself without doing any other heroic measures usually does not have any meaningful benefit and as I discussed more and more, she was not able to make any definite decision and she asked me to contact her son at [phone], who was contacted and I discussed all the details with him, including all the test results, plan of treatment, as well as advance directives and son informed me that the patient and patient's , they both have requested him to make the decision for him and son informed me that in the event of cardiopulmonary arrest, knowing patient's poor health and multiple comorbidities, he does not want the patient to undergo any heroic measures like CPR, electric shock, or defibrillation and wants God and nature to take its course, so we will write DNR order in the chart and he also informed me after he had communication with the patient's and patient they both are also in agreement with that particular decision. I will have Social Service assist patient to get out of hospital DNR paperwork ready. I will see him tomorrow morning for followup. Total time spent today was 90 minutes including review of last office visit record from 12/18/2023, communication with emergency room provider, review of emergency room visit record, performing today's evaluation and management, and communication with the patient's son. ADALBERTO/CECI Voice ID: [id number] MTDD
--- NOTE | 2024-02-06 07:33 | PN ---
Date of Progress Note: 02/06/2024 Subjective: The patient was seen this morning for followup. He was lying in bed. His was pres ent with him at bedside. No new complaints or problems reported by the patient or . He did ambu late with physical therapy yesterday and I have encouraged him to do same thing today with physical t herapy. He did have bowel movement yesterday. Denies any abdominal pain, nausea, vomiting. Physical Examination: Vital Signs: Reviewed. Last temperature 96.7, pulse 58, blood pressure 149/66, respiratory rate 18, oxygen saturation 99%. HEENT: Unremarkable. Lungs: Clear to auscultation. Heart: Sounds normal. Abdomen: Soft. Bowel sounds normal. No guarding, rigidity. No tenderness at all today in his abdo men. Extremities: No leg edema. Laboratory Data: White count 9.7, hemoglobin 9.6, platelets 168. Sodium 134, potassium 3.4, chlorid e 101, bicarb 25, BUN 78, creatinine 3.03, glucose 204. Impression: 1.Probable acute diverticulitis. 2.Constipation. 3.Hypokalemia. 4.Chronic kidney disease stage IV. 5.Anemia due to chronic kidney disease. 6.Hypertension. 7.Diabetes mellitus. Plan: We will go ahead and continue current medication. Continue ceftriaxone as well as metronidazo le. Physical Therapy to continue to work with the patient. Continue current diabetes management and we will go ahead and give Dulcolax rectal suppository again today. Continue Senokot S and later we will give Fleet enema for treatment of constipation. Bladder ultrasound done yesterday shows no evid ence of previously described 15 mm soft tissue lesion in the left aspect of the bladder which was rep orted on the CAT scan. This could indicate that there was present of hematoma which has resolved. A nother consideration is that if there is any bladder mass not visualized on the ultrasound as radiolo gist reported. The patient cannot have CAT scan with contrast because of his impaired renal function , so we will have to look into having urologist performing cystoscopy on outpatient basis as we do no t have any urologist available. Kidney ultrasound was unremarkable. We will see him tomorrow for fo llowup and plan is to possibly discharge him to go home tomorrow. DNR order was written in the chart as per the patient's decision and family's decision and we will request Social Service to assist the patient with getting out of hospital paperwork ready. ADALBERTO/MODL Voice ID: [id number] Report ID: [id number]
[2024-02-06] MEDS: POTASSIUM 25 MEQ EFFERV TAB PO ONE (08:11)
[2024-02-06 21:03] VITALS: O2SAT 97
[2024-02-07 05:21] LABS: Anion Gap 9.5 mEq/L (5.0-15.0); Potassium 3.5 mEq/L (3.5-5.1)
[2024-02-07] MEDS: POTASSIUM CL SA 10 MEQ TAB PO ONE (05:37)
[2024-02-07] MEDS: FLEET ENEMA ADULT PR ONE (07:33)
[2024-02-07 08:57] VITALS: BP 155/69; TEMP 97.7
--- NOTE | 2024-02-07 21:36 | DS ---
Date of Discharge: 02/07/2024 Disposition: Discharged to go home. Physical Examination: HEENT: Unremarkable. Lungs: Clear to auscultation. Heart: Sounds normal. Abdomen: Soft. Bowel sounds normal. No guarding, rigidity, tenderness, or distention. Extremities: No leg edema. Laboratory Data: Upon admission, WBC count was 20.6, hemoglobin 10.8, platelets 175, and yesterday W BC was 9.7, hemoglobin 9.6, platelets 168. Last chemistry today, sodium 136, potassium 3.5, chloride 105, bicarb 25, BUN 76, creatinine 2.82, glucose 122. Upon admission, sodium 136, potassium 3.5, ch loride 103, bicarb 25, BUN 81, creatinine 3.10, glucose 266. Liver function tests unremarkable excep t AST 55, lipase 29, lactic acid 1.3. Hospital Course: This is an 88-year-old pleasant male patient, who lives at home with his , was brought into emergency room with hematuria problem. Please see dictated H and P for more information . The patient was evaluated in the emergency room. He was admitted to hospital. His WBC count was elevated. Urinalysis was done in the emergency room and urine culture and blood culture were sent an d all those cultures came back negative. Empiric antibiotic ceftriaxone was started after he was cris luated in the emergency room. CAT scan of the abdomen and pelvis done in the emergency room showed n o evidence of any acute abnormality except raised possibility of small mass in the bladder. Chest x- ray was negative for any acute changes. I did kidney and bladder ultrasound. Kidney ultrasound was negative. Bladder ultrasound did not show any bladder mass, so there is a possibility that what was noted on CAT scan was possibly blood clot as the patient had hematuria when he came in or there is ac tually bladder mass that did not get detected with ultrasound, so the patient will benefit from cysto scopy type of procedure. I have discussed all these details with the patient's and will pursue this on outpatient basis with referral to see a urologist. Advance directive was discussed with the patient, the patient's , and the patient's son, and DNR order was written in the chart per mike on made by family and out of hospital DNR paperwork was completed by Social Service for family to use it on outpatient basis. Physical Therapy was consulted while in the hospital and the patient has st arted to ambulate very well. The patient had significant tenderness in the lower abdomen with signif icant stool impaction on the rectal exam and this was corrected with help of Dulcolax rectal supposit ory as well as Fleet enema. His abdominal pain and tenderness has completely resolved. Social Servi ally was consulted to make arrangements for home health care and home physical therapy and I did inform the patient's and son that the patient will need some extra assistance to start with, and son h as informed me that family will take turns in terms of providing extra help at home. Final Diagnoses: 1.Probable acute diverticulitis. 2.Constipation. 3.Hematuria. 4.Anemia due to chronic kidney disease. 5.Chronic kidney disease stage 4. 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 8.Hypertension. 9.Mixed hyperlipidemia. 10.Coronary artery disease. 11.Osteoarthritis, multiple sites. 12.Prostate cancer. Discharge Medications And Instructions: 1.Continue all prior home medications. 2.Start metronidazole 250 mg take 1 tablet by mouth 3 times a day for 1 week and cefpodoxime 100 mg 2 times a day for 1 week. 3.Follow up at my office next week. 4.Follow with Dr. Paulson as per his instruction. 5.Take wdla-[id number] Senokot-S 2 tablets by mouth 2 times a day. Total time spent 35 minutes. ADALBERTO/MODL Voice ID: [id number] Report ID: [id number]
== END 2024-02-07 12:22 | disposition home health service (06) | DRG 392 ==
LOC: ER 12:20 → ERHOLD 17:20 → 2ND 20:06
PROVIDERS: ADMIT Internal Medicine; ATTEND Internal Medicine
DX: K57.32 Diverticulitis of large intestine without perforation or abscess without bleeding (principal); L97.819 Non-pressure chronic ulcer of other part of right lower leg with unspecified severity; L97.829 Non-pressure chronic ulcer of other part of left lower leg with unspecified severity; I13.0 Hypertensive heart and chronic kidney disease with heart failure and stage 1 through stage 4 chronic kidney disease, or unspecified chronic kidney disease; I50.32 Chronic diastolic (congestive) heart failure; N18.4 Chronic kidney disease, stage 4 (severe); N30.91 Cystitis, unspecified with hematuria; E11.22 Type 2 diabetes mellitus with diabetic chronic kidney disease; E11.51 Type 2 diabetes mellitus with diabetic peripheral angiopathy without gangrene; D63.1 Anemia in chronic kidney disease; E78.2 Mixed hyperlipidemia; M19.09 Primary osteoarthritis, other specified site; I87.2 Venous insufficiency (chronic) (peripheral); K59.00 Constipation, unspecified; N32.9 Bladder disorder, unspecified; C61 Malignant neoplasm of prostate; I25.10 Atherosclerotic heart disease of native coronary artery without angina pectoris; I83.018 Varicose veins of right lower extremity with ulcer other part of lower leg; I83.028 Varicose veins of left lower extremity with ulcer other part of lower leg; F03.90 Unspecified dementia, unspecified severity, without behavioral disturbance, psychotic disturbance, mood disturbance, and anxiety; Z66 Do not resuscitate; Z79.4 Long term (current) use of insulin; Z88.8 Allergy status to other drugs, medicaments and biological substances; Z79.82 Long term (current) use of aspirin; Z79.84 Long term (current) use of oral hypoglycemic drugs; Z79.02 Long term (current) use of antithrombotics/antiplatelets; Z91.013 Allergy to seafood; Z79.899 Other long term (current) drug therapy; Z87.891 Personal history of nicotine dependence
CPT/HCPCS: 36415; 51702; 71045; 74176; 76377; 76770; 76857; 80048; 80053; 81001; 82947; 83605; 83690; 83735; 85025; 85610; 85730; 87040; 87086; 87088; 96365; 97116; 97161; 97530; 99285; J0696; J7030; J7050

== ENCOUNTER 2024-03-27 04:24 | Inpatient (IN) | payer BC, OTHER ==
[2024-03-27] MEDS ORDERED: ONDANSETRON 4 MG/2 ML VIAL ONE ×2 (05:06→12:38)
[2024-03-27] MEDS ORDERED: NA CHLORIDE 0.9% 1,000 ML ONE (05:06)
[2024-03-27 05:10] LABS: Absolute Basophils 0.1 K/uL (0-0.5); Absolute Eosinophils 0.3 K/uL (0-0.5); Absolute Lymphocytes (CBC) 0.9 K/uL (0.7-4.9); Absolute Monocytes 0.5 K/uL (0.1-1.3); Absolute Neutrophil 7.4 K/uL (1.8-8.0); Basophils % 0.9 % (0-1.3); Eosinophils % 3.6 % (0-4.4); Hematocrit 31.1 % (39.6-49.0); Hemoglobin 10.8 g/dL (13.6-17.9); Lymphocytes % 10.1 % (15.3-44.8); MCH 28.9 pg (27.0-35.0); MCHC 34.6 g/dL (32.0-36.0); MCV 83.4 fL (80-100); MPV 7.7 fL (7.6-11.3); Neutrophils % 80.4 % (41.7-73.7); Platelets 226 thou/uL (152-406); RBC Red Blood Cell Count 3.72 M/uL (4.33-5.43); Red Cell Distribution Width 17.6 % (12.1-15.2)
[2024-03-27 05:16] LABS: Specific Gravity 1.017 (1.005-1.030); Sqamous Epithelial None Seen /HPF (None Seen); Urine Bacteria None Seen /HPF (<20); Urine Bilirubin NEGATIVE (Negative); Urine Blood 3+ (Negative); Urine Clarity Extremely Turbid (Clear); Urine Color Dark-Brown (Yellow); Urine Culture Reflex Order REFLEXED; Urine Glucose 2+ (Negative); Urine Ketones NEGATIVE (Negative); Urine Microscopic Reflex YN ORDER UMIC; Urine Nitrite NEGATIVE (Negative); Urine Protein 3+ (Negative); Urine RBC >50 /HPF (None Seen); Urine Urobilinogen Normal (Normal); Urine pH 6.5 (5.0-7.0)
[2024-03-27 05:24] LABS: Albumin 3.1 g/dL (3.4-5.0); Albumin/Globulin Ratio 0.6 (1.1-1.8); Anion Gap 9.8 mEq/L (5.0-15.0); Bilirubin Total 0.3 mg/dL (0.2-1.0); Globulin 4.8 g/dL (2.3-3.5); Potassium 3.8 mEq/L (3.5-5.1); Protein, Total 7.9 g/dL (6.4-8.2)
[2024-03-27] MEDS ORDERED: ACETAMINOPHEN 500 MG TAB ONE (06:48)
[2024-03-27] MEDS ORDERED: HYDRALAZINE HCL 25 MG TABLET ONE (06:48)
--- NOTE | 2024-03-27 07:14 | RAD REPORT ---
EXAM: CT Abdomen and Pelvis Without Intravenous Contrast CLINICAL HISTORY: The patient is 89 years old and is Male; Bleeding from bladder. TECHNIQUE: Axial computed tomography images of the abdomen and pelvis without intravenous contrast. Sagittal and coronal reformatted images were created and reviewed. This CT exam was performed using one or more of the following dose reduction techniques: automated exposure control, adjustmen t of the mA and/or kV according to patient size, and/or use of iterative reconstruction technique. COMPARISON: CT Abdomen Pelvis 02/04/2024. FINDINGS: Lung bases: Unremarkable. No mass. No consolidation. ABDOMEN: Liver: Unremarkable. Gallbladder and bile ducts: Calcified stones in the gallbladder. No ductal dilation. Pancreas: Unremarkable. No ductal dilation. Spleen: Unremarkable. No splenomegaly. Adrenals: Unremarkable. No mass. Kidneys and ureters: No nephrolithiasis. Prominent bilateral renal collecting systems without hyd ronephrosis or ureter stone. Stomach and bowel: Colonic diverticulosis. No bowel dilatation or obstruction. No bowel wall thickening. Stomach is not well distended. PELVIS: Appendix: The visualized appendix is normal. No pericecal inflammation to suggest acute appendici tis. Bladder: Hyperdense urine consistent with gross hematuria and/or clot, increased compared with th e prior study. Briceño catheter in the bladder. No pericystic fat stranding. No stones. Reproductive: Unremarkable as visualized. ABDOMEN and PELVIS: Intraperitoneal space: Unremarkable. No free air. No significant fluid collection. Bones/joints: Degenerative changes in the hips. Multilevel degenerative changes in the spine with scoliosis. No acute fracture visualized. No dislocation. Soft tissues: Unremarkable. Vasculature: Unremarkable. No abdominal aortic aneurysm. Lymph nodes: No pathologically enlarged lymph nodes. IMPRESSION: 1. Hyperdense urine consistent with gross hematuria and/or clot, increased compared with the prior study. Briceño catheter in the bladder. 2. Colonic diverticulosis. 3. Cholelithiasis. 4. Additional non-emergent findings as above. Electronically signed by: Samira Bullock MD 03/27/2024 07:10 AM [facility] [place] Due to temporary technical issues with the PACS/Rhapsody reporting system, reports are being michael d by the in-house radiologist without review as a courtesy to ensure prompt reporting the interpreting radiologist is fully responsible for the content of the report. Transcribed Date/Time: 03/27/2024 7:13 AM
--- NOTE | 2024-03-27 07:36 | ER ---
Nurse's Notes [facility] Name: Jacques Apodaca Age: 89 yrs Sex: Male : 1935 Arrival Date: 03/27/2024 Time: 04:24 Bed 20 Private MD: Diagnosis: Gross hematuria;Pelvic pain Presentation: 03/27 04:25 Chief complaint: EMS states: Pt is urinating bright red blood clots. Coronavirus bm8 screen: At this time, the client does not indicate any symptoms associated with coronavirus-19. 04:25 Method Of Arrival: EMS: [facility] bm8 04:25 Ebola Screen: Patient negative for fever greater than or equal to 101.5 degrees bm8 Fahrenheit, and additional compatible Ebola Virus Disease symptoms Patient denies exposure to infectious person. Patient denies travel to an Ebola-affected area in the 21 days before illness onset. No symptoms or risks identified at this time. Initial Sepsis Screen: Does the patient meet any 2 criteria? No. Patient's initial sepsis screen is negative. Does the patient have a suspected source of infection? No. Patient's initial sepsis screen is negative. Risk Assessment: Do you want to hurt yourself or someone else? Patient reports no desire to harm self or others. Onset of symptoms is unknown. 04:25 Acuity: ALISIA 3 bm8 Triage Assessment: 04:25 General: Appears in no apparent distress. comfortable, Behavior is calm, cooperative, bm8 appropriate for age. Pain: Complains of pain in groin and suprapubic area Pain currently is 5 out of 10 on a pain scale. Quality of pain is described as pressure, sharp. EENT: No deficits noted. No signs and/or symptoms were reported regarding the EENT system. Cardiovascular: No deficits noted. Denies chest pain, Heart tones S1 S2 present. Respiratory: No deficits noted. Airway is patent Respiratory effort is even, unlabored, Respiratory pattern is regular, symmetrical. GI: No signs and/or symptoms were reported involving the gastrointestinal system. : Urine is cathleen blood, bloody clots Reports inability to void, pain with urination, Pain is 5 out of 10 on a pain scale. Derm: No signs and/or symptoms reported regarding the dermatologic system. Musculoskeletal: No signs and/or symptoms reported regarding the musculoskeletal system. Historical: - Allergies: 04:55 Heparin; bm8 04:55 Lovenox; bm8 04:55 SHELLFISH; bm8 - Home Meds: 04:55 aspirin 81 mg Oral tab 81 mg daily [Active]; atorvastatin 40 mg Oral tab 1 tab once bm8 daily [Active]; carvedilol 12.5 mg Oral tab 2 times per day [Active]; cholecalciferol (vitamin D3) 25 mcg (1 Oral capsule 1 cap daily [Active]; clopidogrel 75 mg Oral Tablet 1 tab daily [Active]; donepezil 10 mg Oral Tablet 1 tab twice a day [Active]; gabapentin 100 mg Oral cap 1 cap 2 times per day [Active]; glipizide 5 mg Oral Tablet 1 tab daily [Active]; isosorbide mononitrate 60 mg Oral Tablet 1 tab daily [Active]; Lantus U-100 Insulin 100 unit/mL Sub-Q soln 30 units daily [Active]; Lasix 40 mg Oral Tablet 1 tab daily [Active]; memantine 10 mg Oral Tablet 1 tab 2 times per day [Active]; nifedipine 90 mg Oral tr24 1 tab once daily [Active]; - PMHx: 04:55 Congestive heart failure; Dementia; diabetes mellitus; Hypercholesterolemia; bm8 Hypertensive disorder; kidney disease; - PSHx: 04:55 quadruple bypass; bm8 - Immunization history:: Adult Immunizations up to date. - Infectious Disease History:: Denies. - Social history:: Smoking status: Patient denies any tobacco usage or history of. - Family history:: not pertinent. Screenin:00 [facility] ED Fall Risk Assessment (Adult) History of falling in the last 3 months, bm8 including since admission Yes- physiologic fall (2 pts) Confusion or Disorientation Yes (5 pts) Intoxicated or Sedated No (0 pts) Impaired Gait Yes (1 pt) Mobility Assist Device Used No (0 pt) Altered Elimination Yes (1 pt) Score/Fall Risk Level 3 or more points = High Risk Oriented to surroundings, Maintained a safe environment, Educated pt \T\ family on fall prevention, incl call for assistance when getting out of bed, Assessed \T\ reinforced patient's understanding of fall precautions, Hourly rounding (assess needs \T\ fall precautionary measures) done, Used ambulatory aids as needed (educated on \T\ assisted with), Used gait belt as appropriate Implemented a Fall Risk Plan of Care, Apply high fall risk patient identification: yellow non skid footwear/ fall signage. Abuse screen: Denies threats or abuse. Nutritional screening: No deficits noted. Tuberculosis screening: No symptoms or risk factors identified. Assessment: 05:00 Reassessment: Patient appears in no apparent distress at this time. Patient and/or bm8 family updated on plan of care and expected duration. Pain level reassessed. Patient is alert, oriented x 3, equal unlabored respirations, skin warm/dry/pink. 06:08 Reassessment: Patient appears in no apparent distress at this time. Patient and/or bm8 family updated on plan of care and expected duration. Pain level reassessed. Patient is alert, oriented x 3, equal unlabored respirations, skin warm/dry/pink. Patient states feeling better. Patient states symptoms have improved. 06:50 Reassessment: No changes from previously documented assessment. Patient and/or family bm8 updated on plan of care and expected duration. Pain level reassessed. Patient is alert, oriented x 3, equal unlabored respirations, skin warm/dry/pink. Patient states feeling better. Patient states symptoms have improved. Vital Signs: 04:25 BP 203 / 76; Pulse 76; Resp 18; Temp 97; Pulse Ox 99% ; Weight 79.5 kg; Height 5 ft. 9 bm8 in. ; Pain 5/10; 05:00 BP 166 / 66; Pulse 64; Resp 18; Temp 97; Pulse Ox 99% ; Pain 2/10; bm8 06:08 BP 192 / 63; Pulse 64; Resp 18; Temp 97; Pulse Ox 100% ; Pain 2/10; bm8 06:50 BP 173 / 87; Pulse 67; Resp 17; Temp 97; Pulse Ox 98% ; Pain 3/10; bm8 07:56 BP 165 / 53; Pulse 66; Resp 18; Pulse Ox 99% on R/A; ph 09:00 BP 149 / 59; Pulse 61; Resp 18; Pulse Ox 100% on R/A; ph 10:00 BP 141 / 59; Pulse 72; Resp 18; Pulse Ox 100% on R/A; ph 11:00 BP 157 / 59; Pulse 81; Resp 18; Temp 97.9; Pulse Ox 99% on R/A; ph 04:25 Body Mass Index 25.88 (79.50 kg, 175.26 cm) bm8 04:25 Pain Scale: Adult bm8 05:00 Pain Scale: Adult bm8 06:08 Pain Scale: Adult bm8 06:50 Pain Scale: Adult bm8 [place] Coma Score: 05:00 Eye Response: spontaneous(4). Motor Response: obeys commands(6). Verbal Response: bm8 oriented(5). Total: 15. 06:08 Eye Response: spontaneous(4). Motor Response: obeys commands(6). Verbal Response: bm8 oriented(5). Total: 15. 06:50 Eye Response: spontaneous(4). Motor Response: obeys commands(6). Verbal Response: bm8 oriented(5). Total: 15. ED Course: 04:25 Patient arrived in ED. vk 04:25 Arm band placed on right wrist. bm8 04:29 Chencho Wright MD is Attending Physician. sp4 04:53 Kenny Ga, RN is Primary Nurse. bm8 04:55 Triage completed. bm8 05:00 Patient has correct armband on for positive identification. Bed in low position. Call bm8 light in reach. Side rails up X2. Adult w/ patient. Client placed on continuous cardiac and pulse oximetry monitoring. NIBP monitoring applied. Pulse ox on. NIBP on. Door closed. 05:00 No provider procedures requiring assistance completed. Initial lab(s) drawn, by ED 8 staff, sent to lab. Urine collected: Briceño catheter specimen, cathleen blood, Amount Returned: 200mL. Maintain EMS IV. Dressing intact. Good blood return noted. Site clean \T\ dry. Gauge \T\ site: 18g RFA. Patient maintains SpO2 saturation greater than 95% on room air. 05:26 3-way catheter inserted, using sterile technique, 20 Fr. Specimen obtained. bm8 05:30 CT Abd/Pelvis - Without Contrast In Process Unspecified. EDMS 07:02 Attending Physician role handed off by Chencho Wright MD ms3 07:02 Dennis Reynolds DO is Attending Physician. ms3 08:16 Primary Nurse role handed off by Kenny Ga, RN ll1 09:19 Carmen Perry MD is Hospitalizing Provider. ms3 11:12 Sue Fraire RN is Primary Nurse. ph 11:14 Patient admitted, IV remains in place. ph Administered Medications: 05:26 Drug: Ondansetron IVP 4 mg IVP once; over 2 minutes Route: IVP; Site: right forearm; bm8 06:50 Follow up: Response: No adverse reaction bm8 05:26 Drug: NS 0.9% IV 1000 ml IV at 1 bolus Per protocol; to be given as a bolus over 60 bm8 minutes Route: IV; Rate: 1 bolus; Site: right forearm; 06:49 Follow up: Response: No adverse reaction; IV Status: Completed infusion; IV Intake: bm8 1000ml 06:49 Drug: Acetaminophen PO 1000 mg PO once Route: PO; bm8 07:49 Follow up: Response: No adverse reaction bp 06:50 Drug: HydrALAZINE PO 50 mg PO once Route: PO; bm8 07:49 Follow up: Response: No adverse reaction bp 07:55 Drug: morphine IVP or IV 4 mg IVP once over 4 mins Route: IVP; Infused Over: 4 mins; ph Site: right forearm; 08:30 Follow up: Response: No adverse reaction; Pain is decreased ph Medication: 05:00 VIS not applicable for this client. bm8 Intake: 06:49 IV: 1000ml; Total: 1000ml. bm8 Outcome: 07:35 ER care complete, transfer ordered by MD. ms3 09:19 Decision to Hospitalize by Provider. ms3 11:14 Admitted to ER Hold. Please see [facility] for further documentation. ph 11:14 Condition: stable 11:14 Instructed on the need for admit, 16:00 Patient left the ED. kc6 Signatures: Dispatcher [employer] EDMS Sue Fraire RN RN ph Emanuel Maldonado RN RN bp Callie Shelley RN RN ll1 Dennis Reynolds DO DO ms3 Vesta Kelley RN RN kc6 Chencho Wright MD MD spBridgett Husain Brad RN RN bm8 Corrections: (The following items were deleted from the chart) 05:00 04:55 General: Appears in no apparent distress. comfortable, Behavior is calm, bm8 cooperative, appropriate for age, bm8 05:00 04:55 Pain: Complains of pain in groin and suprapubic area Pain currently is 5 out of bm8 10 on a pain scale. Quality of pain is described as pressure, sharp, bm8 04:55 EENT: No deficits noted. No signs and/or symptoms were reported regarding the 8 EENT system. 8 04:55 Cardiovascular: No deficits noted. Denies chest pain, Heart tones S1 S2 present bm8 bm8 04:55 Respiratory: No deficits noted. Airway is patent Respiratory effort is even, bm8 unlabored, Respiratory pattern is regular, symmetrical, 8 :55 GI: No signs and/or symptoms were reported involving the gastrointestinal system. bm8 8 04:55 : Urine is cathleen blood, bloody clots Reports inability to void, pain with bm8 urination, Pain is 5 out of 10 on a pain scale. 8 04: Derm: No signs and/or symptoms reported regarding the dermatologic system. bm8 8 : 04:55 Musculoskeletal: No signs and/or symptoms reported regarding the musculoskeletal 8 system. 8 : 07:55 morphine IVP or IV 4 mg IVP in right hand over 4 mins ph ph
--- NOTE | 2024-03-27 07:36 | EDPHYS ---
Physician Documentation [facility] Name: Jacques Apodaca Age: 89 yrs Sex: Male : 1935 Arrival Date: 03/27/2024 Time: 04:24 Bed 20 Private MD: ED Physician Dennis Reynolds HPI: 03/27 04:30 This 89 yrs old Male presents to ER via Unassigned with complaints of sp4 problem . 06:47 89-year-old male patient of Dr. Perry past medical history of diverticulitis, sp4 constipation, hematuria, anemia of chronic kidney disease, chronic kidney disease, senile dementia, type 2 diabetes, hypertension, hyperlipidemia, coronary artery disease, osteoarthritis, prostate cancer. Patient presents with acute hematuria and lower pelvic pain.. Historical: - Allergies: 04:55 Heparin; bm8 04:55 Lovenox; bm8 04:55 SHELLFISH; bm8 - Home Meds: 04:55 aspirin 81 mg Oral tab 81 mg daily [Active]; atorvastatin 40 mg Oral tab 1 tab once bm8 daily [Active]; carvedilol 12.5 mg Oral tab 2 times per day [Active]; cholecalciferol (vitamin D3) 25 mcg (1 Oral capsule 1 cap daily [Active]; clopidogrel 75 mg Oral Tablet 1 tab daily [Active]; donepezil 10 mg Oral Tablet 1 tab twice a day [Active]; gabapentin 100 mg Oral cap 1 cap 2 times per day [Active]; glipizide 5 mg Oral Tablet 1 tab daily [Active]; isosorbide mononitrate 60 mg Oral Tablet 1 tab daily [Active]; Lantus U-100 Insulin 100 unit/mL Sub-Q soln 30 units daily [Active]; Lasix 40 mg Oral Tablet 1 tab daily [Active]; memantine 10 mg Oral Tablet 1 tab 2 times per day [Active]; nifedipine 90 mg Oral tr24 1 tab once daily [Active]; - PMHx: 04:55 Congestive heart failure; Dementia; diabetes mellitus; Hypercholesterolemia; bm8 Hypertensive disorder; kidney disease; - PSHx: 04:55 quadruple bypass; bm8 - Immunization history:: Adult Immunizations up to date. - Infectious Disease History:: Denies. - Social history:: Smoking status: Patient denies any tobacco usage or history of. - Family history:: not pertinent. ROS: 06:48 Constitutional: Negative for fever, chills, and weight loss, positive for pelvic pain sp4 and hematuria. 06:48 All other systems are negative, Exam: 06:48 Constitutional: This is a well developed, well nourished patient who is awake, alert, sp4 and in no acute distress. Head/Face: Normocephalic, atraumatic. Eyes: Pupils equal round and reactive to light, extra-ocular motions intact. Lids and lashes normal. Conjunctiva and sclera are not injected. Cornea within normal limits. Periorbital areas with no swelling, redness, or edema. ENT: Nares patent. No nasal discharge, no septal abnormalities noted. Tympanic membranes are normal and external auditory canals are clear. Oropharynx with no redness, swelling, or masses, exudates, or evidence of obstruction, uvula midline. Mucous membranes moist. Neck: Trachea midline, no thyromegaly or masses palpated, and no cervical lymphadenopathy. Supple, full range of motion without nuchal rigidity, or vertebral point tenderness. Chest/axilla: Normal chest wall appearance and motion. Nontender with no deformity. No lesions are appreciated. Cardiovascular: Regular rate and rhythm with a normal S1 and S2. No gallops, murmurs, or rubs. Normal PMI, no JVD. No pulse deficits. Respiratory: Lungs have equal breath sounds bilaterally, clear to auscultation and percussion. No rales, rhonchi or wheezes noted. No increased work of breathing, no retractions or nasal flaring. Abdomen/GI: Soft, with normal bowel sounds. No distension or tympany. No guarding or rebound. No evidence of tenderness throughout. Back: No spinal tenderness. No costovertebral tenderness. Male : Normal genitalia with no discharge or lesions. Positive for blood at urethral meatus. Skin: Warm, dry with normal turgor. Normal color with no rashes, no lesions, and no evidence of cellulitis. MS/ Extremity: Pulses equal, no cyanosis. Neurovascular intact. Full, normal range of motion. Neuro: Awake and alert, GCS 15, oriented to person, Cranial nerves II-XII grossly intact. Motor strength 5/5 in all extremities. Sensory grossly intact. Signs of moderate dementia Vital Signs: 04:25 BP 203 / 76; Pulse 76; Resp 18; Temp 97; Pulse Ox 99% ; Weight 79.5 kg; Height 5 ft. 9 bm8 in. ; Pain 5/10; 05:00 BP 166 / 66; Pulse 64; Resp 18; Temp 97; Pulse Ox 99% ; Pain 2/10; bm8 06:08 BP 192 / 63; Pulse 64; Resp 18; Temp 97; Pulse Ox 100% ; Pain 2/10; bm8 06:50 BP 173 / 87; Pulse 67; Resp 17; Temp 97; Pulse Ox 98% ; Pain 3/10; bm8 07:56 BP 165 / 53; Pulse 66; Resp 18; Pulse Ox 99% on R/A; ph 09:00 BP 149 / 59; Pulse 61; Resp 18; Pulse Ox 100% on R/A; ph 10:00 BP 141 / 59; Pulse 72; Resp 18; Pulse Ox 100% on R/A; ph 11:00 BP 157 / 59; Pulse 81; Resp 18; Temp 97.9; Pulse Ox 99% on R/A; ph 04:25 Body Mass Index 25.88 (79.50 kg, 175.26 cm) bm8 04:25 Pain Scale: Adult bm8 05:00 Pain Scale: Adult bm8 06:08 Pain Scale: Adult bm8 06:50 Pain Scale: Adult bm8 [place] Com[place] Score: 05:00 Eye Response: spontaneous(4). Motor Response: obeys commands(6). Verbal Response: bm8 oriented(5). Total: 15. 06:08 Eye Response: spontaneous(4). Motor Response: obeys commands(6). Verbal Response: bm8 oriented(5). Total: 15. 06:50 Eye Response: spontaneous(4). Motor Response: obeys commands(6). Verbal Response: bm8 oriented(5). Total: 15. MDM: 04:32 Medical Screening Exam initiated sp4 06:50 Differential diagnosis: nonspecific abdominal pain, appendicitis, UTI, urinary sp4 retention, prostatitis, urethritis. Data reviewed: vital signs, nurses notes, EMS record, old medical records. 06:55 Consideration of Admission/Observation Escalation of care including sp4 admission/observation considered. Transition of care: After a detail discussion of the patient's case, care is transferred to Dennis Reynolds DO. ED course: Patient belongs to Dr. Tristan. Patient is waiting on CT report. Signed out to Dr. Reynolds . 07:03 Transition of care: Care assumed from Chencho Wright MD. 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 He will ms3 text back. 03/27 04:30 Order name: CBC with Diff; Complete Time: 05:44 sp4 03/27 04:30 Order name: CMP; Complete Time: 05:44 sp4 03/27 04:30 Order name: Lipase; Complete Time: 05:44 sp4 03/27 04:30 Order name: Urinalysis w/ reflexes; Complete Time: 05:44 sp4 03/27 05:19 Order name: Urine Culture EDVT 03/27 09:30 Order name: CBC with Automated Diff EDMS 03/27 11:53 Order name: Glucose, Ancillary Testing EDVT 03/27 04:30 Order name: CT Abd/Pelvis - Without Contrast sp4 03/27 09:30 Order name: CONS Physician Consult EDVT 03/27 04:30 Order name: Briceño-Three way; Complete Time: 05:02 sp4 03/27 04:30 Order name: IV Saline Lock; Complete Time: 05:26 sp4 03/27 04:30 Order name: Labs collected and sent; Complete Time: 05:26 sp4 Administered Medications: 05:26 Drug: Ondansetron IVP 4 mg IVP once; over 2 minutes Route: IVP; Site: right forearm; bm8 06:50 Follow up: Response: No adverse reaction bm8 05:26 Drug: NS 0.9% IV 1000 ml IV at 1 bolus Per protocol; to be given as a bolus over 60 bm8 minutes Route: IV; Rate: 1 bolus; Site: right forearm; 06:49 Follow up: Response: No adverse reaction; IV Status: Completed infusion; IV Intake: bm8 1000ml 06:49 Drug: Acetaminophen PO 1000 mg PO once Route: PO; bm8 07:49 Follow up: Response: No adverse reaction bp 06:50 Drug: HydrALAZINE PO 50 mg PO once Route: PO; bm8 07:49 Follow up: Response: No adverse reaction bp 07:55 Drug: morphine IVP or IV 4 mg IVP once over 4 mins Route: IVP; Infused Over: 4 mins; ph Site: right forearm; 08:30 Follow up: Response: No adverse reaction; Pain is decreased ph Disposition Summary: 03/27/24 09:19 Hospitalization Ordered Notes: Hospitalization Status: Observation ms3 Provider: Carmen Perry ms3 Condition: Stable(03/27/24 09:19) ms3 Problem: new(03/27/24 09:19) ms3 Symptoms: are unchanged(03/27/24 09:19) ms3 Bed/Room Type: Standard ms3 Location: Telemetry/MedSurg (observation)(03/27/24 15:14) 6 Room Assignment: 207(03/27/24 15:14) [facility] Diagnosis - Gross hematuria(03/27/24 09:19) ms3 - Pelvic pain ms3 Forms: - Medication Reconciliation Form ms3 - SBAR form ms3 - Leadership Thank You Letter ms3 Signatures: Dispatcher [employer] EDMS Lili Daniels Patricia, RN RN ph Emanuel Maldonado RN RN bp Dennis Reynolds DO DO ms3 Fatoumata Navarrete 6 Chencho Wright MD MD sp4 Kenny Ga, RN RN bm8 Corrections: (The following items were deleted from the chart) 04:30 04:30 CBC+H.LAB.BRZ ordered. EDMS EDMS 04:30 04:30 COMPREHENSIVE METABOLIC PANEL+C.LAB.BRZ ordered. EDMS EDMS 04:30 04:30 LIPASE+C.LAB.BRZ ordered. EDMS EDMS 04:30 04:30 Urinalysis+U.LAB.BRZ ordered. EDMS EDMS 04:30 04:30 Abdomen Pelvis Wo Con+CT.RAD.BRZ ordered. EDMS EDMS 09:18 07:35 Dr ms3 ms3 09:18 07:35 [facility] ms3 ms3 09:18 07:35 Higher level of care ms3 ms3 09:18 07:35 Stable ms3 ms3 09:18 07:35 new ms3 ms3 09:18 07:35 are unchanged ms3 ms3 09:18 07:35 Gross hematuria ms3 ms3 09:18 07:35 Pelvic pain ms3 ms3 10:45 09:19 Telemetry/MedSurg (observation) ms3 bd 10:45 09:19 ms3 bd 15:14 10:45 [facility] ER HOLD bd bc6 15:14 10:45 ERHOLD- bd bc6
[2024-03-27] MEDS ORDERED: MORPHINE 4 MG/ML SYR ONE (07:48)
[2024-03-27] MEDS: D5 0.9 NS 1,000 ML IV SCH (11:00)
[2024-03-27] MEDS: INSULIN REGULAR (HUMAN) 100 UNIT/ML SQ SCH (11:30)
[2024-03-27] MEDS ORDERED: D5 0.9 NS 1,000 ML IV ONE (11:48)
[2024-03-27 11:54] VITALS: BMI 25.5
[2024-03-27] MEDS ORDERED: MORPHINE 2 MG/ML SYR ONE (12:38)
[2024-03-27] MEDS: ONDANSETRON 4 MG/2 ML VIAL IV PRN (12:47)
[2024-03-27] MEDS: MORPHINE 2 MG/ML SYR IV PRN (12:47)
[2024-03-27] MEDS: GABAPENTIN 100 MG CAP PO SCH ×2 (14:00→16:26)
[2024-03-27] MEDS: SODIUM CHLORIDE IRRIG SOLUTION 3,000 ML IRR ONE ×2 (16:39→19:44)
[2024-03-27 17:05] LABS: Absolute Basophils 0.1 K/uL (0-0.5); Absolute Eosinophils 0.2 K/uL (0-0.5); Absolute Lymphocytes (CBC) 1.1 K/uL (0.7-4.9); Absolute Monocytes 0.7 K/uL (0.1-1.3); Absolute Neutrophil 7.8 K/uL (1.8-8.0); Basophils % 0.9 % (0-1.3); Eosinophils % 2.2 % (0-4.4); Hemoglobin 9.6 g/dL (13.6-17.9); Lymphocytes % 11.3 % (15.3-44.8); MCH 28.5 pg (27.0-35.0); MCHC 34.3 g/dL (32.0-36.0); MCV 83.3 fL (80-100); MPV 7.5 fL (7.6-11.3); Monocytes % 6.7 % (3.3-12.3); Neutrophils % 78.9 % (41.7-73.7); Platelets 201 thou/uL (152-406); RBC Red Blood Cell Count 3.36 M/uL (4.33-5.43); Red Cell Distribution Width 17.8 % (12.1-15.2)
[2024-03-27] MEDS: FUROSEMIDE 40 MG TABLET PO SCH (17:15)
--- NOTE | 2024-03-27 19:58 | HP ---
Date of Admission: 03/27/2024 Chief Complaint: Blood in urine and pain. History Of Present Illness: This is an 89-year-old very pleasant male patient, who lives at home with his , started to have pain in the bladder area associated with gross hematuria last night. He was very uncomfortable at home and with this ongoing problem, he came into emergency room. Denies any fever, chills, nausea, vomiting. After he was evaluated in emergency room, I was contacted requesting admission to hospital and Urology consultation was requested from Dr. Holt. I saw the patient in the emergency room this morning. The patient's was with him at bedside and she informed me that the patient had seen Dr. Holt recently on outpatient basis and he was planning to do cystoscopy which is not scheduled until next month, but now meanwhile he ends up having this problem, so he will be admitted to hospital and we have requested consultation from Dr. Holt who will evaluate him this morning. When I saw him in emergency room, he was more comfortable as he received some morphine for pain and Briceño catheter was placed in emergency room with bladder irrigation that was done in emergency room using total 6 L of fluid and he still had gross hematuria as noted in Briceño catheter bag. Allergies: HEPARIN CAUSING BLOOD CLOT AND THROMBOCYTOPENIA. CARVEDILOL CAUSINGLIP SWELLING. Medications: List reviewed. Review of Systems: Genitourinary: As mentioned above. GI: As mentioned above. All other systems reviewed are negative. Past Medical History: Significant for chronic diastolic heart failure; type 2 diabetes mellitus with chronic kidney disease; chronic kidney disease, stage 4; hypertension; peripheral vascular disease; mixed hyperlipidemia; anemia; prostate cancer; impaired memory; coronary artery disease; hypomagnesemia; osteoarthritis; multiple sites. Significant for senile dementia. Past Surgical History: Significant for coronary artery bypass surgery in 2003 and surgery on the left clavicle. Family History: Father , had diabetes. Mother , also had diabetes. Brother and sister, they . Brother had lung cancer, diabetes, and hypertension and sister had hypertension and diabetes. Social History: Prior history of smoking, not at present time. Use of alcohol,negative. Physical Examination: General: When he first came into emergency room, initial blood pressure 203/76, pulse 76, temperature 97, oxygen saturation 99%. Height 5 feet 9 inches, weight 79.5 kg. General: Awake, alert, oriented, not in distress. HEENT: Head atraumatic, normocephalic. Conjunctivae nonerythematous. Sclerae white. Mouth, no thrush or edema noted. Ears/Nose, no mass, lesion, discharge noted. Neck: Supple. No JVD, lymph nodes, bruit, thyromegaly noted. Lungs: Bilateral good equal air entry. Clear to auscultation. No rhonchi. No rales. Heart: Normal heart sounds, no murmur or gallop. Abdomen: Soft, bowel sounds normal. No guarding, rigidity, tenderness, mass, hepatosplenomegaly, distention, or bruit noted. Extremities: Bilateral leg trace edema. Skin: No rash, ulcer, cellulitis. Lymphatics: No lymph node enlargement in neck, supraclavicular, infraclavicular region. Neuro: No focal neurological deficit. Chest: Unremarkable. External Genitalia: Shows presence of Briceño catheter. Rectal: Deferred. Laboratory Data: WBC 9.2, hemoglobin 10.8, platelets 226. Sodium 136, potassium 3.8, chloride 105, bicarb 25, BUN 59, creatinine 3.02, glucose 191. Liver function tests unremarkable. Lipase 70. Urinalysis, 3+ blood, more than 50 rbc, 10 to 20 wbc, bacteria not seen. CAT scan of abdomen and pelvis done in emergency room without contrast shows evidence of diverticulosis and gallstones. Impression: 1. Gross hematuria. 2. Chronic kidney disease stage 4. 3. Anemia due to chronic kidney disease. 4. Diverticulosis. 5. Gallstones. 6. Hypertension. 7. Senile dementia. 8. Type 2 diabetes mellitus with chronic kidney disease. 9. Mixed hyperlipidemia. 10. Coronary artery disease. 11. Osteoarthritis, multiple sites. 12. Prostate cancer. Plan: We will go ahead and admit the patient to hospital for further evaluation and management of this problem. The patient is appropriate for inpatient and is expected to spend 2 midnights in hospital. We will keep the patient n.p.o. for possible cystoscopy procedure today by urologist, Dr. Holt, who was consulted for further evaluation and management of this gross hematuria problem. Further plan of treatment will depend on cystoscopy findings. For hypertension, we will continue antihypertensive medication. Monitor blood pressure and make necessary adjustment on medication as it becomes necessary. For diabetes, we will manage that with sliding scale insulin and no need for further intervention. For hyperlipidemia, we will continue his statin therapy and no need for further intervention. Chronic kidney disease stage IV is stable and no need for any further intervention except monitoring. Anemia is due to chronic kidney disease and will not require any further intervention except monitoring. The patient's coronary artery disease problem is stable and will not require any further intervention at this time. For senile dementia, no need for any further intervention. Advance directive was discussed with the patient and the patient's during last hospital admission which was last month. We did discuss those details with the patient's as well as the patient's son and DNR decision was made by the patient's and the patient's son and out of hospital DNR paperwork was completed during last hospital stay and today I did discuss with the patient's regarding advance directive and she informed me in the event of cardiopulmonary arrest, the patient would not have wanted any CPR, defibrillation, or ventilator support, so DNR order was written in the chart. Total time spent was 85 minutes including communication with emergency room physician, review of emergency room visit record, review of last hospital admission record from 02/04/2024 including history, physical, discharge summary, renal ultrasound, and CAT scan abdomen and pelvis done during last hospital visit and performing today's evaluation and management. I will see him tomorrow for followup. SCD was ordered for DVT prophylaxis. ADALBERTO/MODL Voice ID: [id number] [id number]
--- NOTE | 2024-03-27 20:45 | P.CNS ---
Date of Consult: 03/27/24 Reason for Consult: Gross hematuria with clot retention Requesting Physician: Dennis Reynolds Primary Care Provider: Luis Perry Chief Complaint: Gross hematuria with inability to urinate History of Present Illness: 89-year-old gentleman known to me via outpatient consultation initially performed 03/20/2024 with the following assessment and recommendations made: Gentleman with DM 2, hyperlipidemia, hypertension, CHF, dementia, CAD status post CABG 06/15/2004 on aspirin and Plavix post EBRT for prostate cancer in 2002 now with recurrent gross hematuria. 03/20/2024 voided urine sent for cytology/FISH-negative for high-grade urothelial carcinoma but positive for inflammation 03/20/2024 PSA 0.20 He was recommended for outpatient cystoscopic evaluation, which was scheduled this morning, 03/27/2024, at 8 AM, but around 2 or 3 AM, his awoke noting he was in the bathroom struggling to urinate and groaning. While he denied having any pain, she recognized he was in significant discomfort and ultimately called EMS. He was transferred to [facility] emergency department where he was admitted, they placed a three-way catheter, presumably irrigated him some, and initiated CBI. I was then consulted around 7:20 AM because of persistence of the gross hematuria. 03/27/2024 WBC 9.2, hemoglobin 10.8 repeated 9.6, hematocrit 31.1 repeated 28.0, platelets 226 repeated 201, creatinine 3.02 with EGFR 19, alkaline phosphatase 141 mildly elevated, UA micro 3+ heme, over 50 RBCs per hpf, 10-20 WBCs per hpf, negative nitrites, negative leukocyte esterase. Prior CT 02/04/24 without contrast revealed the presence of prominent sigmoid diverticulosis and a 15 mm soft tissue lesion in the left aspect of the bladder. The kidneys were normal without hydronephrosis. 02/04/2024 chest x-ray revealed no acute abnormalities 02/04/2024 urine culture was no growth 03/27/2024 CT repeated in the emergency department without IV contrast: Kidneys and ureters without stones. Prominent bilateral renal collecting sy stems without hydronephrosis or ureteral stone identified. Impression: Hyperdense urine consistent with gross hematuria and/or clot, increased compared with the prior study. Briceño catheter in the bladder. Colonic diverticulosis. Cholelithiasis. No pathologically enlarged lymph nodes. Degenerative changes in the spine with scoliosis as well as in the hips. I requested the emergency department ensure he had at least a 22 Panamanian catheter and if a three-way Briceño was being used, and that his bladder be manually irrigated to remove his much clot prior to CBI initiation. I then visited with the patient at bedside where I noted a 20 Panamanian three-way Briceño catheter in place. The urine was red, and the CBI solitary irrigation bag was completely dry. Bladder irrigation, urethral Briceño catheter exchange, and CBI reinitiation procedure note: I then placed absorbent chucks around the patient's catheter insertion site before disconnecting the catheter from the associated floor bag. I cleansed the opening of the catheter and clamp the CBI infusion port. I then began using a 60 cc catheter tip syringe and sterile water to irrigate via the 20 [place]ian three-way Briceño catheter. I removed a significant burden of clot with the initial 500 cc of irrigation and continued to remove additional clot burden with a second 500 cc of irrigation. I requested a 22 [place]ian three-way Briceño catheter and a Uro-Jet, and when that arrived, I then prepped his genitalia with Betadine and draped in standard fashion after removing the indwelling 20 [place]ian three-way Briceño catheter, and I instilled the lidocaine Uro-Jet intraurethrally for local anesthesia. I then passed the new 22 [place]ian three-way Briceño catheter via his urethra into his bladder with ease and placed 15 cc of sterile water into the balloon. I then allowed his bladder to decompress before irrigating it copiously with an additional 1 L of saline. During that irrigation process, all fresh clot was removed and I more aggressively irrigated to remove any formed clot which was clearly stuck to the wall of the bladder. At the end of my irrigation, his urine was crystal clear and no significant clot burden, fresh or formed, was noted. As a result, I placed the Briceño catheter back to continuous bladder irrigation using NS, and I work with the nurse to establish to lead tubing so that two 3 L bags of saline would be hanging. I then placed the catheter tubing such that the bladder would have about 10 cm of water pressure irrigation, and I monitored the drainage on CBI. As it remained crystal-clear, I decreased the rate of instillation to less than 1 drop/s and observed his urine over the course of the next 10 to 15 minutes while I answered questions posed by the patient's . At that point, the patient was sleeping as he was much more comfortable and relaxed having had his bladder clot burden relieved. At the end of that consultation time, his urine remained crystal-clear on slow drip CBI. Diagnoses and recommendation: Recurrent gross hematuria with clot urinary retention in the setting of CKD stage IV -As prior cultures have not demonstrated any infection and the current urinalysis is roughly nonsuspicious, recommend prophylactic antimicrobial to decrease the risk of superseding infection from the CBI and the indwelling Briceño catheter. This may be well served with Bactrim SS once daily or cephalexin 250 mg twice daily, given his CKD. -Recommend keep urethral Briceño catheter for at least 7 to 10 days given the clot retention and potential for bladder dysfunction. -Continue CBI with NS to keep urine light pink to clear overnight. If urine remains light pink to clear on slow drip CBI, approximately 1 drop/s or slower, hold CBI at 8 AM and observe. If urine remains light pink to clear with CBI held x 2 hours, plug the CBI port. If urine remains light pink to clear, discharge the patient, if appropriate from the medical perspective, with the urethral Briceño catheter in place to gravity drainage using a floor bag. Teach catheter care and maintenance to include cleansing around the catheter insertion site into the meatus with H2O2 twice daily followed by the application of triple antibiotic ointment, Neosporin/bacitracin, to the catheter and the meatus twice daily while the catheter is in place. -Notify me if urine becomes bloody -bright red and nontranslucent, or significantly red with clots. -Will attempt to reschedule his outpatient cystoscopic evaluation to occur 7 to 14 days from now such that he might be given a voiding trial at the time the cystoscopy is performed and subsequent treatment can be determined. -Continue Flomax Allergies Heparin Analogues Allergy (Severe, Verified 11/21/23 10:42) Induced Thrombocytopenia shellfish derived Allergy (Severe, Verified 11/21/23 10:42) Anaphylaxis peas Allergy (Intermediate, Verified 11/21/23 10:42) Hives/Rash lettuce Allergy (Severe, Uncoded 11/21/23 10:42) Hives/Rash Home medications list reviewed: Yes Home Medications: Glipizide [Glucotrol Xl] 5 mg PO DAILY WITH BREAKFAST 09/14/12 Atorvastatin Calcium [Lipitor] 40 mg PO DAILY 04/02/21 Gabapentin [Neurontin*] 100 mg PO TID 04/02/21 Memantine HCl [Namenda*] 10 mg PO BID 04/02/21 Clopidogrel Bisulfate [Plavix] 75 mg PO DAILY #30 tablet 04/03/21 carvediloL [Carvedilol] 12.5 mg PO BID #60 tablet 04/03/21 Aspirin Chewable [Aspirin Chewable*] 81 mg PO DAILY 10/12/21 Donepezil HCl 10 mg PO BID 10/12/21 Insulin Glargine,Hum.rec.anlog [Lantus Solostar] 15 units SQ BEDTIME 01/05/23 Insulin Glargine,Hum.rec.anlog [Lantus Solostar] 30 units SQ BREAKFAST 01/05/23 Multivit-Minerals/Folic Acid [Centrum Adults Multigummy] 1 tab PO DAILY 01/05/23 Cholecalciferol (Vitamin D3) [Vitamin D3] 1 cap PO DAILY 08/23/23 Clotrim/Betameth Cream [Lotrisone Cream] 1 appl TP DAILY 02/05/24 Furosemide [Lasix] 40 mg PO DAILY 02/05/24 Nifedipine Xl [Procardia XL] 90 mg PO DAILY 02/05/24 Hydralazine [Apresoline*] 10 mg PO BID 03/27/24 Losartan Potassium 100 mg PO DAILY 03/27/24 - Past Medical/Surgical History Diabetic: Yes -: Asthma -: Prostate ca (radiation) 2005 -: DM -: Heparin Induced Thrombocytopenia -: Dementia -: Hypertension -: CHF -: Hyperlipidemia -: Neuropathy -: CABG Quad bypass 2004 - Family History Father Medical History: Diabetes Mother Medical History: Diabetes - Social History Smoking Status: Former smoker Alcohol use: No CD- Drugs: No Caffeine use: No Place of Residence: Home Physical Examination Temp Pulse Resp BP Pulse Ox 97.3 F 60 18 189/90 H 100 03/27/24 16:00 03/27/24 17:15 03/27/24 16:00 03/27/24 17:15 03/27/24 16:00 Laboratory Data (last 24 hrs) 03/27/24 03/27/24 04:50 04:50 WBC 9.20 Hgb 10.8 L Hct 31.1 L Plt Count 226 Sodium 136 Potassium 3.8 BUN 59 H Creatinine 3.02 H Glucose 191 H Total Bilirubin 0.3 AST 11 L ALT 15 L Alkaline Phosphatase 141 H Lipase 70 - Problems (1) Recurrent gross hematuria Current Visit: Yes Status: Acute (2) Clot retention of urine Current Visit: Yes Status: Acute (3) CKD (chronic kidney disease) stage 4, GFR 15-29 ml/min Current Visit: Yes Status: Acute Conclusions/Impression: See diagnoses and recommendations in HPI Critical Care: No Time Spent Managing Pts care (In Minutes): 105
[2024-03-27] MEDS ORDERED: GABAPENTIN 100 MG CAP PO SCH (21:00)
[2024-03-27] MEDS: ATORVASTATIN 40 MG TAB PO SCH (21:22)
[2024-03-27] MEDS: DONEPEZIL HCL 5 MG TAB PO SCH (21:23)
[2024-03-27] MEDS: carvediloL 12.5 MG TAB PO SCH (21:23)
[2024-03-27] MEDS: MEMANTINE HCL 10 MG TABLET PO SCH (21:24)
[2024-03-27] MEDS: SODIUM CHLORIDE IRRIG SOLUTION 6,000 ML IRR ONE (21:52)
[2024-03-28] MEDS ORDERED: SODIUM CHL 0.9% IRR SOLN 2000 ML IRR SCH (06:00)
[2024-03-28] MEDS: CEPHALEXIN 250 MG CAP PO SCH (08:12)
[2024-03-28] MEDS: ISOSORBIDE MONO SR 60 MG TAB PO SCH (08:12)
[2024-03-28] MEDS: NIFEDIPINE XL 30 MG TABLET PO SCH (08:13)
[2024-03-28] MEDS: MAGNESIUM OXIDE 400 MG TAB PO SCH (08:15)
[2024-03-28] MEDS ORDERED: NIFEDIPINE XL 30 MG TABLET PO SCH (09:00)
[2024-03-28] MEDS: HYDROCODONE/APAP 5/325 MG TAB PO PRN (13:29)
--- NOTE | 2024-03-28 21:17 | PN ---
Date of Progress Note: 03/28/2024 Subjective: The patient was seen this morning for followup. He was lying in bed, not in distress. was with him at bedside. No new complaints or problems reported by him. Objective: Vital Signs: Reviewed. HEENT: Unremarkable. Lungs: Clear to auscultation. Heart: Sounds normal. Abdomen: Soft. Bowel sounds normal. No guarding, rigidity, tenderness, distention. Extremities: No leg edema. Impression: 1.Gross hematuria. 2.Hypertension. 3.Diabetes mellitus. Plan: The patient's blood pressure was elevated this morning. We will go ahead and give antihyperte nsive medication per order. The patient's gross hematuria has resolved. This morning, his urine was clear yellow in color. We will continue to follow with urologist, Dr. Holt. He has recommended for the patient to take cephalexin 250 mg twice a day while he has a Briceño catheter in which was star sharan this morning. Physical Therapy was consulted and I will see him tomorrow for followup. We will start him on diet since Dr. Holt is not planning to do any surgery and I will see him tomorrow for followup. Possible discharge to go home in next 1 or 2 days and details were discussed with the richy shultz and the patient's . ADALBERTO/MODL Voice ID: [id number] Report ID: [id number]
[2024-03-29 07:23] LABS: Absolute Basophils 0.1 K/uL (0-0.5); Absolute Eosinophils 0.3 K/uL (0-0.5); Absolute Lymphocytes (CBC) 1.2 K/uL (0.7-4.9); Absolute Monocytes 0.7 K/uL (0.1-1.3); Absolute Neutrophil 7.4 K/uL (1.8-8.0); Basophils % 0.7 % (0-1.3); Eosinophils % 2.9 % (0-4.4); Hematocrit 25.2 % (39.6-49.0); Hemoglobin 8.5 g/dL (13.6-17.9); Lymphocytes % 12.3 % (15.3-44.8); MCH 28.2 pg (27.0-35.0); MCHC 33.7 g/dL (32.0-36.0); MCV 83.8 fL (80-100); MPV 7.8 fL (7.6-11.3); Monocytes % 7.4 % (3.3-12.3); Neutrophils % 76.7 % (41.7-73.7); Platelets 179 thou/uL (152-406); RBC Red Blood Cell Count 3.01 M/uL (4.33-5.43); Red Cell Distribution Width 17.5 % (12.1-15.2)
[2024-03-29 07:31] LABS: Anion Gap 8.5 mEq/L (5.0-15.0); Potassium 3.5 mEq/L (3.5-5.1)
[2024-03-29] MEDS: OXYBUTYNIN ER 5 MG TAB PO SCH (08:36)
[2024-03-29] MEDS: carvediloL 12.5 MG TAB PO SCH (09:18)
--- NOTE | 2024-03-29 18:43 | PN ---
Date of Progress Note: 03/29/2024 Subjective: The patient was seen this morning for followup. He was lying in bed, not in distress. His was with him at bedside. Yesterday, he was not able to do much with physical therapy, was a ble to stand at the bedside, but could not do anything else beyond that. His Briceño catheter continue s to drain clear looking urine now. There is no more hematuria. His abdominal pain in the pelvic re gion was not well controlled yesterday and after we started him on hydrocodone few hours later, it st arted to work well for him. This morning, he did not report any other complaints. Objective: Vital Signs: Reviewed. HEENT: Unremarkable. Lungs: Clear to auscultation. Heart: Sounds normal. Abdomen: Soft. Bowel sounds normal. No guarding, rigidity, tenderness, distention. Extremities: No leg edema. Laboratory Data: White count 9.7, hemoglobin 8.5, platelets 179. Sodium 140, potassium 3.5, chlorid e 107, bicarb 28, BUN 61, creatinine 3.08, glucose 178. Impression: 1.Gross hematuria. 2.Chronic kidney disease stage 4. 3.Hypertension. 4.Diabetes mellitus with chronic kidney disease. 5.Generalized weakness. 6.Debility. Plan: We will continue to keep the Briceño catheter in place as per recommendation from urologist. Co ntinue cephalexin 250 mg 2 times a day. Continue current antihypertensive medication as well as diab etes management. Physical Therapy to continue to work with the patient. I did talk to the patient's and the patient regarding options of going to long term facility, unlike one of the local nursing homes or to go to inpatient rehab for some therapy in order for him to regain his strength b ack, so he can return back home with his and [facility] so [facility] Service was consulted to assist with inpatient rehab. If the patient gets accepte d, then we will plan to transfer him to rehab probably tomorrow. I will see him tomorrow morning for followup. ADALBERTO/MODL Voice ID: [id number] Report ID: [id number]
[2024-03-30] MEDS: NIFEDIPINE XL 60 MG TABLET PO SCH (09:28)
[2024-03-30] MEDS ORDERED: MAGNESIUM HYDROXIDE 8% 30 ML PO PRN (09:47)
[2024-03-30 10:29] VITALS: O2SAT 95
--- NOTE | 2024-03-30 11:40 | DS ---
Date of Discharge: 03/30/2024 Disposition: The patient will be discharged to go to inpatient . Physical Examination: HEENT: Unremarkable. Lungs: Clear to auscultation. Heart: Sounds normal. Abdomen: Soft. Bowel sounds normal. No guarding, rigidity, tenderness, distention. Extremities: No leg edema. Laboratory Data: Upon admission, WBC 9.2, hemoglobin 10.8, platelets 226. Yesterday, WBC 9.7, hemog lobin 8.5, platelets 179. For chemistry yesterday, sodium 140, potassium 3.5, chloride 107, bicarb 2 8, BUN 61, creatinine 3.08, glucose 178, magnesium 2. Hemoglobin A1c was 8.5. Upon admission, sodiu m 136, potassium 3.8, chloride 105, bicarb 25, BUN 59, creatinine 3.02, glucose 191. Liver function tests unremarkable. Lipase 70. Discharge Medications And Instructions: See copy of transfer order and MAR for more details. Hospital Course: An 89-year-old pleasant male patient, who came into emergency room with blood in ur ine and suprapubic pain. Please see dictated H and P for more information. The patient was noted to have gross hematuria and was admitted to the hospital. Briceño catheter was placed in the emergency r oom. Bladder irrigation was performed and Dr. Holt was consulted and decides continuing bladder i rrigation. He did not suggest any other intervention at this time, but he is planning to do cystosco py on an elective outpatient basis. He suggested to leave the Briceño catheter in until he has chance to see the patient after his discharge from the hospital in 1 to 2 weeks and also suggested for the p atient to take prophylactic antibiotic which is cephalexin 250 mg twice a day, which was started. Th e patient's urine culture has not grown any bacteria. Physical Therapy was consulted. Unfortunately , the patient has significant generalized weakness and at home he ambulates with walker, but since he has been in the hospital, due to his severe debility and generalized weakness, he is not able to amb ulate, so physical Therapy was consulted. Yesterday, he was able to take few steps with physical the rapy, which is definitely improvement compared to day before. I did talk to the patient's michael verdin either going to longterm facility or inpatient rehab and she wanted to see if we can get him to inpatient rehab and not a longterm facility, so Social Service was consulted and the [facility] was accepted and today we will transfer the patient in stable condition. As per my discussion with the patient's , DNR order was written. The patient's other chronic medical problems have re mained stable. Today, I did talk to the patient's in great detail regarding long-term prognosis and plan. She informed me that she really does not want him to go to correction in the future if at all possible, but at some point if she is not able to take care of him at home, then she will cons ider that option and other options and question she raised was a hospice care and at appropriate time in the future depending on his health condition, we might be able to provide that recommendation. I have encouraged her to communicate all the details with her children and have some discussions so th at family can make appropriate decision in the future at appropriate time. Final Diagnoses: 1.Gross hematuria. 2.Acute blood loss anemia. 3.Anemia due to chronic kidney disease. 4.Chronic kidney disease stage 4. 5.Generalized weakness. 6.Debility. 7.Coronary artery disease. 8.Type 2 diabetes mellitus, uncontrolled. 9.Type 2 diabetes mellitus with chronic kidney disease. 10.Senile dementia. 11.Hypertension. 12.Diverticulosis. 13.Gallstones. 14.Osteoarthritis, multiple sites. 15.Prostate cancer. Total time spent today 45 minutes. ADALBERTO/MODL Voice ID: [id number] Report ID: [id number]
[2024-03-30 13:40] VITALS: BP 118/56; TEMP 98.6
[2024-03-30] MEDS ORDERED: DOCUSATE NA/SENNA CONC 1 TAB PO SCH (21:00)
== END 2024-03-30 13:55 | DRG 696 ==
LOC: ER 04:24 → ERHOLD 09:23 → 2ND 15:31 → OBSVTOIN 03-29 07:20
PROVIDERS: ADMIT Internal Medicine; ATTEND Internal Medicine
PROC: 3E1K78Z Irrigation of Genitourinary Tract using Irrigating Substance, Via Natural or Artificial Opening (ICD-10-PCS; principal; 2024-03-27)
PROC: 0T7D7ZZ Dilation of Urethra, Via Natural or Artificial Opening (ICD-10-PCS; 2024-03-27)
DX: R33.8 Other retention of urine (principal); I50.32 Chronic diastolic (congestive) heart failure; I13.0 Hypertensive heart and chronic kidney disease with heart failure and stage 1 through stage 4 chronic kidney disease, or unspecified chronic kidney disease; D62 Acute posthemorrhagic anemia; N18.4 Chronic kidney disease, stage 4 (severe); R31.0 Gross hematuria; E11.22 Type 2 diabetes mellitus with diabetic chronic kidney disease; E11.40 Type 2 diabetes mellitus with diabetic neuropathy, unspecified; E11.51 Type 2 diabetes mellitus with diabetic peripheral angiopathy without gangrene; D63.1 Anemia in chronic kidney disease; E78.2 Mixed hyperlipidemia; M19.90 Unspecified osteoarthritis, unspecified site; M19.09 Primary osteoarthritis, other specified site; K80.20 Calculus of gallbladder without cholecystitis without obstruction; K57.30 Diverticulosis of large intestine without perforation or abscess without bleeding; I25.10 Atherosclerotic heart disease of native coronary artery without angina pectoris; F03.90 Unspecified dementia, unspecified severity, without behavioral disturbance, psychotic disturbance, mood disturbance, and anxiety; Z79.4 Long term (current) use of insulin; Z66 Do not resuscitate; Z88.8 Allergy status to other drugs, medicaments and biological substances; Z95.1 Presence of aortocoronary bypass graft; Z79.82 Long term (current) use of aspirin; Z79.84 Long term (current) use of oral hypoglycemic drugs; Z79.02 Long term (current) use of antithrombotics/antiplatelets; Z85.46 Personal history of malignant neoplasm of prostate; Z87.891 Personal history of nicotine dependence; Z91.013 Allergy to seafood; Z79.899 Other long term (current) drug therapy
CPT/HCPCS: 36415; 74176; 80048; 80053; 81001; 82947; 83036; 83690; 83735; 85025; 87086; 87088; 96361; 96374; 96375; 97116; 97161; 97530; 99285; G0378; J2270; J2405; J7030; J7042

== ENCOUNTER 2024-03-30 10:20 | Inpatient (IN) | payer OTHER ==
[2024-03-30 15:27] VITALS: BMI 27.8
[2024-03-30] MEDS: INSULIN REGULAR (HUMAN) 100 UNIT/ML SQ SCH (16:30)
[2024-03-30] MEDS: FUROSEMIDE 40 MG TABLET PO SCH (17:08)
[2024-03-30] MEDS: carvediloL 12.5 MG TAB PO SCH (17:09)
[2024-03-30] MEDS ORDERED: CEPHALEXIN 250 MG CAP PO SCH (18:00)
[2024-03-30] MEDS: GABAPENTIN 100 MG CAP PO SCH (19:17)
[2024-03-30] MEDS: MEMANTINE HCL 10 MG TABLET PO SCH (19:17)
[2024-03-30] MEDS: DONEPEZIL HCL 5 MG TAB PO SCH (19:24)
[2024-03-30] MEDS: CEPHALEXIN 250 MG CAP PO SCH (19:24)
[2024-03-30] MEDS: HYDROCODONE/APAP 5/325 MG TAB PO PRN (19:24)
[2024-03-30] MEDS: ATORVASTATIN 40 MG TAB PO SCH (19:24)
--- NOTE | 2024-03-31 03:14 | HP ---
Date of Admission: 03/30/2024 Time Of Service: 8 p.m. Chief Complaint: The patient and his are in the room. He has had problems with his memory, but the reason for admission in our rehab unit is hematuria with debility and generalized weakness. History Of Present Illness: Mr. Apodaca is an 89-year-old patient with history of stage 4 kidney dise ase, diabetes mellitus type 2, hypertension, peripheral vascular disease, mixed dyslipidemia, chronic diastolic congestive heart failure, who was having lower pelvic pain and gross hematuria. He was se en by Dr. Amari Holt on outpatient basis with a plan for cystoscopy next month. However, the pat ient's symptoms worsened and by the 28 March, he had difficulty due to pain and was brought into the hospital on the . He was seen by Dr. Perry, his primary care physician, had a Briceño catheter placed, and seen also by Dr. Holt. Dr. Holt' plan was to place a small Briceño catheter with man ual irrigation and removal of clot prior to the CBI initiation. The patient was also followed by the Renal Service. He was evaluated by the therapy service and found to require moderate assistance for performing transfers from bed to chair to mobilize as well. He required similar help for activities of daily living. He was therefore determined to be an appropriate candidate for inpatient rehabilit ation to help him return to his prior level of functioning, where he was independent with a rolling w alker, required no assistance for his ADLs, and did require some help for his safety awareness due to cognitive deficits. He was therefore found to be a good candidate and is now admitted to the community [facility] ent rehabilitation unit for physical and occupational therapy along with speech therapy to help him r eturn to his prior level of functioning and reduce risk of rehospitalization. Past Medical History: As noted, diastolic congestive heart failure, diabetes mellitus, chronic kidne y disease stage IV, hypertension, peripheral vascular disease, anemia, prostate cancer, moderate cogn itive impairment, hypomagnesemia. Allergies: HEPARIN, CARVEDILOL, IN ADDITION TO SHELLFISH AND LETTUCE. Current Medications: Lipitor 40 mg at bedtime, Coreg 12.5 mg twice daily, Keflex 250 mg twice daily, Aricept 10 mg at bedtime, Lasix 40 mg twice daily, gabapentin 100 mg 3 times daily, Floral 5/325 ever y 6 hours as needed, Imdur 60 mg daily, magnesium oxide 400 mg daily, Namenda 10 mg twice daily, Proc ardia 60 mg daily, and Ditropan 5 mg daily. Family History: Father had diabetes and also mother with diabetes. Brother and sister had lung canc er and diabetes and hypertension. Social History: No alcohol, tobacco, or IV drug use. The patient lives in a single family home with his . Review of Systems: Currently, no bowel movements in about 2 days. Otherwise, no fevers or chills. No myalgias or arthr algias. No rash or other positives on the systems review. Physical Examination: Vital Signs: Blood pressure 146/62, pulse 63, respiratory rate 18, temperature 97.5, oxygen saturati on 95%. General: Mr. Apodaca is resting in bed. at the bedside. HEENT: He does appear normocephalic, atraumatic. Otherwise, sclerae are anicteric. Oropharynx mois t. Neck: Supple. Chest: Clear. Heart: Regular. No significant edema or cyanosis. He has mild venous stasis changes. Neurological: He has no focal cranial nerves, motor, coordination, or sensory deficits, although the re is a stocking-glove loss. He does have slow responses, decreased verbal fluency. Laboratory Studies: White blood cell count 9.7, hemoglobin 8.5, platelets 179. Blood glucose ranged from 227-302. Sodium 140, potassium 3.5, chloride 107, carbon dioxide 28, BUN 61, creatinine 3.08, calcium 8.6, magnesium 2.0. His urinalysis end-stage renal disease patient, it shows extr gosia turbidity, 2+ glucose, 3+ blood, greater than 50 red blood cells, 10-20 white blood cells, 3+ tot al protein. CT scan of the abdomen and pelvis done on 03/27, shows liver is unremarkable. Lung base is unremarka ble. Pancreas, spleen, adrenal glands are unremarkable. The gallbladder and bile ducts show calcifi ed stones in the gallbladder with no ductal dilatation. Stomach and bowel shows colonic diverticulos is. There is no small bowel dilatation or obstruction. Stomach is not distended. The impression in terms of the bladder, there is hyperdense urine consistent with gross hematuria and clot increased c ompared with the prior study. There is flow in the bladder, no. Very cystic fat stranding, intrapar enchymal space in the abdomen and pelvis, no free air. No significant fluid collection. Soft tissue unremarkable. Vascular area unremarkable. No abdominal aortic aneurysm seen. Lymph nodes show no enlarged nodes. There is cholelithiasis, chronic colonic diverticulosis as noted. Current Level Of Functioning: Mr. Apodaca has had setup assistance for eating, grooming, moderate ass istance for bathing. Upper body dressing, lower body dressing, and toileting all moderate assistance . Transfer from wheelchair to toilet, moderate assistance. He has contact guard assistance, ambulat ing 10 feet. Rehab And Medical Assessment And Plan: Mr. Apodaca is admitted to the inpatient rehabilitation unit w ith impairment category 20, miscellaneous. Impairment group code is 16, debility. Etiologic diagnos is: Exacerbation of chronic stage IV kidney disease. Comorbid conditions: Chronic diastolic conges tive heart failure, diabetes mellitus type 2, hypertension, peripheral vascular disease, mixed hyperl ipidemia, anemia, prostate cancer, coronary artery disease, osteoarthritis at multiple sites, senile dementia. Plan: He will have physical, occupational, and speech therapy , 5 of 7 days. His comorbid conditions are managed by Dr. Perry. He will continue Lipitor for dyslipidemia, Floral for pain, Core g for blood pressure control, Keflex is on board for urinary tract infection. His cultures show no g rowth so far. Lasix on board for fluid management, gabapentin for neuropathic pain. He has Procardi a in addition for blood pressure control and Ditropan for urinary retention. Comorbidities That Are Impacting Rehabilitation: His cognitive deficits makes safety awareness prima ry concern and speech pathology will be working with him and his family, specifically his to hel p him make safe decisions as he transfers and mobilizes. He does have the kidney disease as noted an d fluid management, will have to be carefully monitored as volume overload potentially can occur wors ening congestive heart failure. In addition, there is hematuria and he is currently for DVT prophyla xis, we will have SCDs as the potential for worsening hematuria is constantly present. He does have a workup pending for etiology of the hematuria. No history of prostate cancer. Rehab Specific Plan: Mr. Apodaca will have physical, occupational, and speech therapy 3.5 hours, 5 ou t of 7 days to improve his ability to transfer from bed to a chair, to a wheelchair, to a rolling wal ker, on and off the toilet, in and out of a shower. In addition, occupational therapy will help him with his dressing upper and lower body, donning and doffing footwear, and managing activities of lanette y living. Speech will help with his safety awareness and communication, verbal fluency, comprehensio n, in addition to any issues that put him at risk for aspiration such as swallowing and proper consis tencies that will be appropriate for him to manage properly. Mr. Apodaca and his have good understanding of the process of admission to the inpatient rehabili tation unit and how he will benefit from physical, occupational, and speech therapy. He will have 24 hours a day, 7 days a week skilled rehabilitation nursing, daily physician evaluation and management , and social work assistant evaluation and management for discharge planning, home equipment, followup, and continuing therapy. As noted, Dr. Perry is following the patient. He is his primary care physician. Barriers To Discharge: Given his hematuria, he may require blood transfusions, may require an extend ed stay. In addition, safety awareness may become an issue due to dementia. He may have to be in a facility such as a memory care unit where 24 hours he would have to be observed. However, he is on m edications for memory loss and those will be continued and he will work with speech. Length Of Stay: About 2 weeks. Disposition: Home. Continue therapy via Home Health and with the help of family. Prognosis: Fair. Code Status: Full code. Rehab Specific Goals: 1.Become independent as much as possible with upper and lower body dressing and donning and doffing footwear. 2.Independently mobilize a wheelchair and a rolling walker 250 feet. 3.Independently go up and down 10 steps with bilateral handrails. 4.With perhaps supervision, work on cognitive issues and cognitive functioning. The above goals were reviewed with Mr. Apodaca and his and they were in agreement. By signing this document, I acknowledge I personally performed a full physical examination on Mr. Jayesh clarke no later than 24 hours after his admission to the inpatient rehabilitation unit and determined th at he is able to tolerate the above course of treatment at an intensive level for a reasonable period of time. A detailed individualized plan of care for him will be completed by hospital day 4 based o n the preadmission screen, history and physical and therapy evaluation. KLARISSA Voice ID: [id number]
[2024-03-31 05:52] LABS: Absolute Basophils 0.1 K/uL (0-0.5); Absolute Eosinophils 0.5 K/uL (0-0.5); Absolute Lymphocytes (CBC) 1.2 K/uL (0.7-4.9); Absolute Monocytes 0.6 K/uL (0.1-1.3); Basophils % 0.8 % (0-1.3); Eosinophils % 4.8 % (0-4.4); Hematocrit 24.1 % (39.6-49.0); Hemoglobin 8.2 g/dL (13.6-17.9); Lymphocytes % 12.5 % (15.3-44.8); MCH 28.6 pg (27.0-35.0); MPV 7.7 fL (7.6-11.3); Monocytes % 6.9 % (3.3-12.3); Platelets 184 thou/uL (152-406); RBC Red Blood Cell Count 2.87 M/uL (4.33-5.43); Red Cell Distribution Width 16.8 % (12.1-15.2)
[2024-03-31 06:16] LABS: Albumin 2.3 g/dL (3.4-5.0); Anion Gap 10.7 mEq/L (5.0-15.0); Magnesium 2.4 mg/dL (1.6-2.4); Potassium 3.7 mEq/L (3.5-5.1); Prealbumin 12.5 mg/dL (20-40)
--- NOTE | 2024-03-31 07:04 | RAD REPORT ---
EXAM: AP view(s) of the abdomen Abdomen 1 View (KUB) HISTORY: constipation COMPARISON: 03/27/2024 FINDINGS: Nonobstructive bowel gas pattern.. Moderate formed stool in the ascending colon though the overall s tool burden is mild to moderate. No suspicious calcifications are seen. No acute osseous abnormality. Other: Atherosclerosis. IMPRESSION: Nonobstructive bowel gas pattern. Ahqm-[id number] formed stool burden.
[2024-03-31] MEDS ORDERED: ISOSORBIDE MONO SR 60 MG TAB PO SCH (08:00)
[2024-03-31] MEDS ORDERED: GLUCAGON 1 MG/VIAL IM PRN (08:42)
[2024-03-31] MEDS ORDERED: D10W 125 ML IV PRN (08:42)
[2024-03-31] MEDS: ISOSORBIDE MONO SR 30 MG TAB PO SCH (09:14)
[2024-03-31] MEDS: MAGNESIUM OXIDE 400 MG TAB PO SCH (09:15)
[2024-03-31] MEDS: OXYBUTYNIN ER 5 MG TAB PO SCH (09:15)
[2024-03-31] MEDS: NIFEDIPINE XL 60 MG TABLET PO SCH (09:15)
[2024-03-31] MEDS: DOCUSATE NA/SENNA CONC 1 TAB PO SCH (09:25)
--- NOTE | 2024-03-31 09:50 | PN ---
Date of Progress Note: 03/31/2024 Subjective: The patient was seen this morning for followup. No new complaints or problems reported by the patient, lying in bed, not in any distress. His was with him at bedside and the patient was on rehab floor this morning when I saw him. Objective: Vital Signs: Reviewed. HEENT: Unremarkable. Lungs: Clear to auscultation. Heart: Sounds normal. Abdomen: Soft, bowel sounds normal. No guarding, rigidity, tenderness, distention. Extremities: No leg edema. Genitourinary: The patient has a Briceño catheter in place and it is draining urine that is hemorrhagi c looking. It is dark coffee-colored urine, unchanged from yesterday. Laboratory Data: WBC 9.4, hemoglobin 8.2, platelets 184. Sodium 136, potassium 3.7, chloride 103, b icarb 26, BUN 83, creatinine 3.53, glucose 233. ProBNP 14,184. Impression: 1.Chronic diastolic heart failure. 2.Coronary artery disease. 3.Hypertension. 4.Hyperlipidemia. 5.Diabetes mellitus with chronic kidney disease. 6.Chronic kidney disease stage 4. 7.Generalized weakness. 8.Debility. 9.Gross hematuria. Plan: We will continue to follow with Dr. Chacon for rehab therapy. Continue current medical ap gement for hypertension, diabetes, and cholesterol problem. Dr. Holt has instructed nursing staff not to flush the catheter anymore for this hematuria and if it gets worse than nursing staff to contact him as per his instruction. I will see him tomorrow for followup. ADALBERTO/MODL Voice ID: [id number] Report ID: [id number]
[2024-03-31] MEDS: BISACODYL 10 MG RECTAL SUPP PR ONE (12:29)
[2024-03-31] MEDS: SODIUM CHLORIDE 0.9% 10ML INJ IV PRN (20:23)
[2024-04-01] MEDS ORDERED: SODIUM CHLORIDE 0.9% 10ML INJ IV SCH (08:00)
[2024-04-01] MEDS: PRAMIPEXOLE 0.25 MG TAB PO SCH (20:46)
--- NOTE | 2024-04-01 23:49 | PN ---
Date of Progress Note: 04/01/2024 Time Of Service: 1:20 p.m. Subjective: Mr. Apodaca is resting in bed. is at the bedside. He is feeling much better today about therapy. Able to mobilize well and transfers well, did dressing upper body, is feeling much be tter. Objective: No fevers, chills, nausea, vomiting. No new myalgias or arthralgias, rash, headache, miquel ght change. Physical Examination: Vital Signs: Blood pressure 143/67, pulse of 67, respiratory rate 16, temperature 97.6, oxygen satur ation 92%. General: Mr. Apodaca is resting in bed, smiling, communicating well. HEENT: He appears normocephalic, atraumatic. Sclerae anicteric. Oropharynx moist. Neck: Supple. Chest: Clear. Extremities: He has diffuse weakness in upper and lower extremities. Laboratory Studies: White blood cell count 9.4, hemoglobin 8.2, platelets 184. Sodium ranged from 2 25 to 275. X-ray/imaging: KUB study done on 03/31/2024 showed nonobstructive bowel gas pattern, [id number] e formed stool burden. Medications: Medications have been reviewed. He is on [place] 5/325 every 6 hours as needed, Lipitor 20 mg at bedtime, Coreg 12.5 mg twice daily, Keflex 250 mg twice daily, Aricept 10 mg at bedtime, Las ix 40 mg twice daily, gabapentin 100 mg 3 times daily, Imdur 60 mg daily, magnesium oxide 400 mg lanette y, Namenda 10 mg twice daily, Hemocyte Plus 1 tablet at breakfast, nifedipine 60 mg daily, Ditropan X L 5 mg daily, Senokot S 2 twice daily. Progress Made With Physical And Occupational Therapy: With physical therapy today, completed bed mob ility, turning in bed with minimum assistance. Wdbxsh-nb-ppa down with moderate assistance, complete d qvc-mq-xoemx transfers with maximum assistance. He was able to ambulate 10 feet with minimum kasia tance with a lot of encouragement. Completed wheelchair mobilization with 30 feet and additional 10 feet and 30 feet with minimum assistance. Completed stair management up and down 5 steps with maximu m assistance required. With occupational therapy, moderate assistance with froand-nm-soa transfers, maximum for edge of bed to wheelchair. It is noted he is not able to manage Briceño catheter, which th ere is some still dark urine discharge consistent with some old bleeding. The patient has been follo wed by the urologist, Dr. Amari Holt, and he is having irrigation done with plan if there is irri gation showing bright blood that he should be called back old blood, which is being cleared, continue with irrigation. Did require moderate assistance for showering and with lower body cleaning and olivia ssing. Rehab Medical Assessment And Plan: Mr. Apodaca is an 89-year-old patient admitted to the rehabilitati on unit with exacerbation of chronic kidney disease. He has decreased mobility, decreased physical f unctioning, has a chronic Briceño catheter in, has blood noted that is old. The patient does have a de mcdonald in his hemoglobin to 8.2. He has Keflex for urinary tract infection, Lasix for helping his flu id management, [place] for pain, Lipitor for dyslipidemia, gabapentin for neuropathic pain. He has Nam enda and donepezil for memory loss, Senokot for constipation, Ditropan to help with his urinary issue s. In terms of plan, we will continue with physical and occupational therapy 3 hours a day, 5 of 7 d ays. We will continue with comorbid condition medications, which have been listed. Dr. Perry, his pr [facility] care physician, is following him for that. It is noted he has blood in the urine. He has a dr op in hemoglobin. Hemoglobin will be followed and he will be given Hemocyte and ferrous sulfate and as needed will have blood transfusion if his hemoglobin dropped close to 7. 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 Does have iron supplementation on board and may require blood tra nsfusion and again hemoglobin and hematocrit will be followed serially. LB/MODL Voice ID: [id number] Report ID: [id number]
--- NOTE | 2024-04-02 02:28 | PN ---
Date of Progress Note: 04/01/2024 History: The patient was seen this morning for followup, he was lying in bed, not in any distress. His was with him at bedside. No new complaints or problems reported overnight. Physical Examination: Vital Signs: Reviewed. HEENT: Unremarkable. Lungs: Clear to auscultation. Heart: Sounds normal. Abdomen: Soft, bowel sounds normal. No guarding, rigidity, tenderness, or distention. Extremities: No leg edema. Impression: 1.Hypertension. 2.Type 2 diabetes mellitus. 3.Chronic kidney disease stage IV. 4.Gross hematuria. Plan: We will go ahead and continue to keep the Briceño catheter in place as per instruction from urol ogist and the patient to follow up with urologist upon discharge. Continue to provide physical thera py under guidance of Dr. Chacon. Continue current antihypertensive medication and diabetes managem ent and I will see him tomorrow for followup. ADALBERTO/MODL Voice ID: [id number] Report ID: [id number]
[2024-04-02] MEDS ORDERED: FERROUS SULFATE 325 MG TAB PO SCH (08:00)
[2024-04-02] MEDS: FE SULF/FA/VIT B COMP & C TAB PO SCH (09:35)
[2024-04-02 10:01] LABS: Absolute Eosinophils 0.2 K/uL (0-0.5); Absolute Lymphocytes (CBC) 0.7 K/uL (0.7-4.9); Absolute Monocytes 0.3 K/uL (0.1-1.3); Absolute Neutrophil 11.4 K/uL (1.8-8.0); Basophils % 0.3 % (0-1.3); Eosinophils % 1.2 % (0-4.4); Hematocrit 26.9 % (39.6-49.0); Hemoglobin 9.1 g/dL (13.6-17.9); Lymphocytes % 5.8 % (15.3-44.8); MCH 28.8 pg (27.0-35.0); MCV 84.7 fL (80-100); MPV 8.3 fL (7.6-11.3); Monocytes % 2.6 % (3.3-12.3); Neutrophils % 90.1 % (41.7-73.7); Platelets 229 thou/uL (152-406); RBC Red Blood Cell Count 3.17 M/uL (4.33-5.43); Red Cell Distribution Width 16.6 % (12.1-15.2)
[2024-04-02 10:11] LABS: Anion Gap 17.6 mEq/L (5.0-15.0); Potassium 4.6 mEq/L (3.5-5.1)
[2024-04-02] MEDS: NA CHLORIDE 0.9% 1,000 ML IV SCH (11:14)
[2024-04-02 11:27] LABS: Blood Morphology Comment NOT SEEN (NOT SEEN); Platelet Estimate ADEQ; White Blood Cell Scan OK (OK)
[2024-04-02] MEDS: ACETAMINOPHEN 500 MG TAB PO PRN (13:45)
--- NOTE | 2024-04-02 16:13 | P.CNS ---
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 03/20/2024 voided urine sent for cytology/FISH-negative for high-grade urothelial carcinoma but positive for inflammation 03/20/2024 PSA 0.20 03/27/2024 WBC 9.2, hemoglobin 10.8 repeated 9.6, hematocrit 31.1 repeated 28.0, platelets 226 repeated 201, creatinine 3.02 with EGFR 19, alkaline phosphatase 141 mildly elevated, UA micro 3+ heme, over 50 RBCs per hpf, 10-20 WBCs per hpf, negative nitrites, negative leukocyte esterase. Prior CT 02/04/24 without contrast revealed the presence of prominent sigmoid diverticulosis and a 15 mm soft tissue lesion in the left aspect of the bladder. The kidneys were normal without hydronephrosis. 02/04/2024 chest x-ray revealed no acute abnormalities 02/04/2024 urine culture was no growth 03/27/2024 CT repeated in the emergency department without IV contrast: Kidneys and ureters without stones. Prominent bilateral renal collecting systems without hydronephrosis or ureteral stone identified. Impression: Hyperdense urine consistent with gross hematuria and/or clot, increased compared with the prior study. Briceño catheter in the bladder. Colonic diverticulosis. Cholelithiasis. No pathologically enlarged lymph nodes. Degenerative changes in the spine with scoliosis as well as in the hips. 03/27/24 Bladder irrigation, urethral Briceño catheter exchange, and CBI reinitiation completed with complete clarification of his urine. While discharge was anticipated, from the urologic perspective, patient remained in the hospital for the next several days, ultimately developing recurrence of dark tea colored but translucent hematuria. He was placed on Keflex as a prop hylactic antimicrobial during the CBI. Eventually, he was transferred to inpatient rehab, and today I received a call from the rehab nurses indicating the urine had become a bit more red in color and the patient was discharging urine around the catheter from the meatus. I then came to see the patient at bedside and observe the presence of some dark red hematuria with small clots. As a result, I began irrigating the catheter as below. Bladder irrigation procedure note: I then placed absorbent chucks around the patient's catheter insertion site before disconnecting the catheter from the associated floor bag. I cleansed the opening of the catheter. The CBI infusion port was plugged. I then began using a 60 cc catheter tip syringe and sterile water to irrigate via the 22 [place] three-way Briceño catheter. I removed several small clots which may have been obstructing the catheter in addition to the fact that the patient was having bladder spasms that was complicating the irrigation process. A total of 2 L of irrigation was performed until his urine was light pink. I then observed for several minutes and noted his urine to become a bit more reddish in color, but still translucent. As a result, I irrigated him again and it clarified promptly. Diagnoses and recommendation: Recurrent gross hematuria with clot urinary retention in the setting of CKD stage IV, now with a tunneled catheter placed for HD -Recommend every 2-4 hour manual bladder irrigation with 60 cc catheter tip syringe and NS to prevent clots and obstruction of the catheter. -Now that patient is on dialysis, his urine production may be variable. Antimicrobial therapy dosing as such may need to be adjusted. Given the potential for nosocomial organisms, he may do better with Bactrim DS dosed following dialysis on dialysis days. -while outpatient cystoscopic evaluation would be preferred prior to operative evaluation and management, if he has persistence of the gross hematuria continuing to require manual irrigation, we may have no choice but to plan operative diagnostic cystoscopic evaluation. We will check with the nurses tomorrow, Monday, to find out whether the urine remains pink despite ov ernight every 4 hours irrigation manually performed. -If the urine does clarify and remain minimally pink to clear, we will plan outpatient cystoscopic evaluation likely on or Monday of this week. Allergies Heparin Analogues Allergy (Severe, Verified 11/21/23 10:42) Induced Thrombocytopenia shellfish derived Allergy (Severe, Verified 11/21/23 10:42) Anaphylaxis peas Allergy (Intermediate, Verified 11/21/23 10:42) Hives/Rash lettuce Allergy (Severe, Uncoded 11/21/23 10:42) Hives/Rash Home medications list reviewed: Yes Home Medications: Glipizide [Glucotrol Xl] 5 mg PO DAILY WITH BREAKFAST 09/14/12 Atorvastatin Calcium [Lipitor] 40 mg PO DAILY 04/02/21 Gabapentin [Neurontin*] 100 mg PO TID 04/02/21 Memantine HCl [Namenda*] 10 mg PO BID 04/02/21 Clopidogrel Bisulfate [Plavix] 75 mg PO DAILY #30 tablet 04/03/21 carvediloL [Carvedilol] 12.5 mg PO BID #60 tablet 04/03/21 Aspirin Chewable [Aspirin Chewable*] 81 mg PO DAILY 10/12/21 Donepezil HCl 10 mg PO BID 10/12/21 Insulin Glargine,Hum.rec.anlog [Lantus Solostar] 15 units SQ BEDTIME 01/05/23 Insulin Glargine,Hum.rec.anlog [Lantus Solostar] 30 units SQ BREAKFAST 01/05/23 Multivit-Minerals/Folic Acid [Centrum Adults Multigummy] 1 tab PO DAILY 01/05/23 Cholecalciferol (Vitamin D3) [Vitamin D3] 1 cap PO DAILY 08/23/23 Clotrim/Betameth Cream [Lotrisone Cream] 1 appl TP DAILY 02/05/24 Furosemide [Lasix] 40 mg PO DAILY 02/05/24 Nifedipine Xl [Procardia XL] 90 mg PO DAILY 02/05/24 Hydralazine [Apresoline*] 10 mg PO BID 03/27/24 Losartan Potassium 100 mg PO DAILY 03/27/24 - Past Medical/Surgical History Diabetic: Yes -: Asthma -: Prostate ca (radiation) 2005 -: DM -: Heparin Induced Thrombocytopenia -: Dementia -: Hypertension -: CHF -: Hyperlipidemia -: Neuropathy -: CABG Quad bypass 2004 - Family History Father Medical History: Diabetes Mother Medical History: Diabetes - Social History Smoking Status: Former smoker Alcohol use: No CD- Drugs: No Caffeine use: Yes Place of Residence: Home Physical Examination Temp Pulse Resp BP Pulse Ox 98.4 F 73 20 114/65 92 04/02/24 06:32 04/02/24 12:58 04/02/24 06:32 04/02/24 12:58 04/02/24 06:32 Laboratory Data (last 24 hrs) 04/02/24 04/02/24 09:09 09:09 WBC 12.70 H Hgb 9.1 L Hct 26.9 L Plt Count 229 Sodium 132 L Potassium 4.6 BUN 102 H Creatinine 3.81 H Glucose 252 H - Problems (1) Clot retention of urine Current Visit: No Status: Acute (2) Recurrent gross hematuria Current Visit: No Status: Acute Conclusions/Impression: see A&P in HPI Critical Care: No Time Spent Managing Pts care (In Minutes): 75
[2024-04-02] MEDS: oxyBUTYnin chloride 5 MG TAB PO SCH (20:34)
[2024-04-02] MEDS: GLUCERNA SHAKE 237 ML CAN PO SCH (20:35)
--- NOTE | 2024-04-02 23:47 | PN ---
Date of Progress Note: 04/02/2024 Time Of Service: 1:50 p.m. Subjective: Mr. Apodaca is resting in bed, does have some more pain at the tip of the penis on the aft where his Briceño catheter is placed. He will be seen by Dr. Holt's. There is some more bright blood noted in the Briceño bag itself. Otherwise, he did fairly well with his therapy today. Review of Systems: Some mild myalgias, arthralgias plus pain is noted in the perineal and perianal area. He has no rash . Has mild depression and anxiety. Physical Examination: Vital Signs: Blood pressure 129/60, pulse 64, respiratory rate of 16, temperature 98.4, oxygen satur ation 92%. General: Mr. Apodaca is resting in bed in between therapy sessions, in mild pain up to moderate pain depending on movement of the Briceño. Neuro: Otherwise, he has no focal neurologic deficits, just diffuse weakness in upper and lower extr emities. Laboratory Studies: Today, white blood cell count increased to 12.7 from 9.4 two days ago. He has n eutrophils now 90.1, hemoglobin did improve to 9.9, platelets 222. His sodium is 132, potassium 4.6, chloride 98, BUN 102. His creatinine is 3.81, glucose ranged from 252 to 274, calcium 9.1. He was seen today by Dr. Amari Holt, who has been following him in Urology. His plan was to shelby mmend manual will irrigation with 60 cc of normal saline every 4 hours. The patient should be on malka lysis and he will likely be on Bactrim Double Strength and plan to do outpatient cystoscopy and patie nt will be followed in his clinic. Progress Made With Physical, Occupational, And Speech Therapy: Today with physical therapy, he did d o exercises with the spouse. She did help feeding him, although he had some difficulty with poor rox etite. He required maximum assistance for bed mobilization. Did do multiple uzc-ud-starw transfers and caamb-rd-milgm transfers with moderate assistance. Completed toilet transfers with moderate assi stance. He did ambulate 15 feet with moderate assistance using a rolling walker, mobilized a wheelch air 10 feet 3 times with minimum assistance. With occupational therapy, he was dependent for toilet hygiene and noted cath was leaking, did have flushing as ordered by Dr. Amari Holt. Maximal assi stance for rolling ephk-xq-itkqj while in the toilet. With speech today, unable to recall any of 3 u nrelated pictures after a minute. He was not oriented to temporal or spatial concepts, but was educa sharan to use communication board in the room. Assessment: Mr. Apodaca is an 89-year-old patient in the rehabilitation unit with exacerbation of chr onic kidney disease and very elevated BUN and elevated creatinine. He has some worsening cognitive i mpairment. His big issue is the pain and bleeding around the tip of the penis and leaking of the sheldon dder where there is internal bleeding. He is followed by Dr. Amari Holt in Urology. He is also followed by his primary care physician, Dr. Perry. He has decreased mobility, decreased physical func tioning, urinary tract infection, malnutrition, neuropathic pain, diabetes mellitus, hypertension, re stless leg symptoms, and is receiving some gentle IV hydration. Plan: Will continue with physical, occupational, and speech therapy 3.5 hours, 5 of 7 days. Also, t he comorbid conditions have been mentioned. They are managed by Dr. Perry and Dr. Amari Holt. Comorbidities That Are Impacting Rehabilitation: The patient has had significant pain in the Briceño c atheter site and that is making it difficult for him to continue therapy to stand and ambulate. He d oes have on board extra-strength Tylenol and may consider adding tramadol to his pain regimen. LB/MODL Voice ID: [id number] Report ID: [id number]
[2024-04-03 06:09] LABS: Absolute Lymphocytes (CBC) 0.5 K/uL (0.7-4.9); Absolute Monocytes 0.3 K/uL (0.1-1.3); Absolute Neutrophil 9.8 K/uL (1.8-8.0); Basophils % 0.2 % (0-1.3); Eosinophils % 0.1 % (0-4.4); Hematocrit 23.7 % (39.6-49.0); Hemoglobin 8.1 g/dL (13.6-17.9); Lymphocytes % 4.6 % (15.3-44.8); MCH 28.9 pg (27.0-35.0); MCHC 34.2 g/dL (32.0-36.0); MCV 84.7 fL (80-100); Monocytes % 2.7 % (3.3-12.3); Neutrophils % 92.4 % (41.7-73.7); Nucleated Red Blood Cells % 0.1 % (0-0); Platelets 214 thou/uL (152-406); Red Cell Distribution Width 16.7 % (12.1-15.2)
[2024-04-03 06:24] LABS: Albumin 2.6 g/dL (3.4-5.0); Anion Gap 13.2 mEq/L (5.0-15.0); Potassium 4.2 mEq/L (3.5-5.1); Prealbumin 12.9 mg/dL (20-40)
--- NOTE | 2024-04-03 06:59 | PN ---
Date of Progress Note: 04/02/2024 Subjective: The patient was seen this morning for followup. No new complaints or problems reported by the patient. He was lying in bed, but was at bedside who reported that the patient was havin g hallucinations last night and was not acting right. Objective: Vital Signs: Reviewed. HEENT: Unremarkable. Lungs: Clear to auscultation. Heart: Sounds normal. Abdomen: Soft. Bowel sounds normal. No guarding, rigidity, tenderness, distention. Extremities: No leg edema. Impression: 1.Hypertension. 2.Diabetes mellitus. 3.Generalized weakness. 4.Debility. 5.Gross hematuria. 6.Hallucinations. Plan: The patient's hallucination could be very well due to underlying dementia, on top of that in mahsa narcotic pain medication could do that, so I have decided to discontinue his hydrocodone that he wa s taking and continue other current medications. Continue physical therapy under guidance of Dr. Rehman and continue current antihypertensive medication and diabetes management. I will see him tomor janessa for followup. His urine in Briceño catheter is grossly hemorrhagic, unchanged from yesterday. ADALBERTO/MODL Voice ID: [id number] Report ID: [id number]
[2024-04-03] MEDS: OXYBUTYNIN ER 5 MG TAB PO SCH (08:00)
[2024-04-03 10:12] VITALS: O2SAT 100
[2024-04-03] MEDS: NA CHLORIDE 0.9% 1,000 ML IV SCH (13:01)
[2024-04-03] MEDS ORDERED: NA CHLORIDE 0.9% 1,000 ML IV SCH (15:00)
--- NOTE | 2024-04-03 19:19 | P.PN ---
Date of Service: 04/03/24 89-year-old gentleman known to me via outpatient consultation initially performed 03/20/2024 with the following assessment and recommendations made: Gentleman with DM 2, hyperlipidemia, hypertension, CHF, dementia, CAD status post CABG 06/15/2004 on aspirin and Plavix post EBRT for prostate cancer in 2002 now with recurrent gross hematuria. 03/20/2024 voided urine sent for cytology/FISH-negative for high-grade urothelial carcinoma but positive for inflammation 03/20/2024 PSA 0.20 03/27/2024 WBC 9.2, hemoglobin 10.8 repeated 9.6, hematocrit 31.1 repeated 28.0, platelets 226 repeated 201, creatinine 3.02 with EGFR 19, alkaline phosphatase 141 mildly elevated, UA micro 3+ heme, over 50 RBCs per hpf, 10-20 WBCs per hpf, negative nitrites, negative leukocyte esterase. Prior CT 02/04/24 without contrast revealed the presence of prominent sigmoid diverticulosis and a 15 mm soft tissue lesion in the left aspect of the bladder. The kidneys were normal without hydronephrosis. 02/04/2024 chest x-ray revealed no acute abnormalities 02/04/2024 urine culture was no growth 03/27/2024 CT repeated in the emergency department without IV contrast: Kidneys and ureters without stones. Prominent bilateral renal collecting systems without hydronephrosis or ureteral stone identified. Impression: Hyperdense urine consistent with gross hematuria and/or clot, increased compared with the prior study. Briceño catheter in the bladder. Colonic diverticulosis. Cholelithiasis. No pathologically enlarged lymph nodes. Degenerative changes in the spine with scoliosis as well as in the hips. 03/27/24 Bladder irrigation, urethral Briceño catheter exchange, and CBI reinitiation completed with complete clarification of his urine. 04/03/2024 bladder irrigation completed q4h manual irrigations completed by nursing, and despite absence of obstruction of the catheter or difficulty irrigating, the hematuria has failed to clear significantly. Recurrent gross hematuria with clot urinary retention in the setting of CKD stage IV, now with a tunneled catheter placed for HD -I counseled the patient's son at the bedside yesterday, explaining that gross hematuria could be potentially of prostatic origin versus from a bladder tumor or foreign body. Additionally, it could be coming from an upper tract source, though this seems less likely. Because of those possibilities, outpatient cystoscopic evaluation is traditionally recommended unless patient is experiencing refractory gross hematuria with clot requiring CBI or progressive anemia potentially transfusion requiring. Also, given the patient's dementia, anesthesia has the potential to cause further decline, and if only prostatic urethral hematuria is identified, this would be treated with finasteride initially before proceeding with anesthetic operative intervention. -Regardless, since patient has been undergoing q4 hour manual bladder irrigation with 60 cc catheter tip syringe and NS via nursing to prevent clots and obstruction of the catheter, without clearance of the hematuria, he would likely benefit from operative excursion. -Recommend discontinue Keflex prophylaxis now -Obtain a catheter urine culture (from the catheter itself or the tubing, but never from the bag) on Monday in preparation for surgery next Monday -We will schedule the patient for operative cystoscopy with clot evacuation, possible TURBT -Will request preoperative medical clearance from Dr. Perry to include EKG and chest x-ray as necessary with medical optimization accordingly for the operative anesthetic event
--- NOTE | 2024-04-03 21:39 | PN ---
Date of Progress Note: 04/03/2024 Subjective: The patient was seen this morning for followup. No new complaints or problems reported by nursing staff. The patient was sleeping. was not present with him today at bedside this mor bertha when I saw him. Physical Examination: HEENT: Unremarkable. Lungs: Clear to auscultation. Heart: Sounds normal. Abdomen: Soft. Bowel sounds normal. No guarding, rigidity, tenderness, distention. Extremities: No leg edema. Laboratory Data: WBC 10.6, hemoglobin 8.1, platelets 214. Sodium 136, potassium 4.2, chloride 104, bicarb 23, BUN 105, creatinine 3.40, glucose 285. Impression: 1. Acute kidney injury. 2. Chronic kidney disease stage 4. 3. Hypertension. 4. Type 2 diabetes mellitus with chronic kidney disease. 5. Senile dementia. 6. Generalized weakness. 7. Debility. 8. Gross hematuria. Plan: Nurse has informed me that Dr. Holt came out yesterday to evaluate him and he did give orde r to flush Briceño catheter, but this morning when I saw him, his urine was looking more grossly hemorr hagic than yesterday and I have instructed nursing staff to communicate with Dr. Holt regarding th is to see whether he would like to do continuous bladder irrigation or any other intervention. The p atient is on furosemide 40 mg twice a day, which I will hold it today and restart it tomorrow and I w ould also like for the patient to receive IV fluid for about 12 hours and we will repeat blood work tomorrow. I will see him tomorrow for denis kumar. ADALBERTO/MODL Voice ID: [id number] Report ID: [id number]
--- NOTE | 2024-04-04 00:19 | PN ---
Date of Progress Note: 04/03/2024 Time Of Service: 1:10 p.m. Subjective: Mr. Apodaca is resting in bed, still in significant pain in the penile area, where a Fole y catheter is inserted. Still has some blood loss there and he is not really able to participate muc h in his physical therapy due to his pain, not eating and hydrating well. He is having IV fluids. Deborah velasco is being seen by Dr. Amari Holt in the Urology Service, followed by Dr. Perry as well as primary care physician. The therapist did discuss the patient's condition and noted that he is unable to fu lly participate or meaningfully participate in therapy, and he requires further urological evaluation . At this point, he is unable to go home, unable to do car transfers safely and to mobilize safely. The plan is for Dr. Holt on Monday to do bladder evaluation; however, he did set it for outpatien t. It is strongly recommended that the patient be discharged to inpatient hospital service and have the procedure done in the hospital as he is really unable to be discharged at this point, as he is hi ghly unsafe and will likely fall and fracture, will worsen with potential infection that may be aspir ation plus will have failure to thrive, as he is not able to sustain good oral intake. Review of Systems: Again, diffuse weakness. He was able to open his eyes and did respond to questions. He did move the hands and the left foot more than the right to command, but still in significant pain and unable to fully participate in any form of meaningful physical therapy at this point. Physical Examination: Vital Signs: Blood pressure 144/61, pulse 58, respiratory rate 18, temperature 97.1, oxygen saturati on 98%. Laboratory Studies: Today, white blood cell count is 10.6, hemoglobin 8.1, platelets 214. Sodium 13 6, potassium 4.2, chloride 104, carbon dioxide 23, BUN 105, creatinine 3.4. His glucose ranged from 229 to 285. Calcium 9.0, magnesium 3.0, albumin 2.6, prealbumin 12.9. X-ray/imaging: No new x-rays or imaging. He was seen by Dr. Holt today. His plan was to evaluat e him for urological procedure. W did suggest every 4 hour manual bladder irrigation with 60 cc cath eter tip syringe and normal saline to prevent clots and obstruction of the catheter without clearance of hematoma. We did recommend Keflex prophylaxis and plan for surgery on Monday or apparently later or next week. The patient is did request preop clearance from Dr. Perry and medical optimization for him to receive anesthesia. Progress Made With Physical, Occupational, And Speech Therapy: With physical therapy today. He did attempt to do ambulation, was able to do 10 feet twice, 30 feet once, 40 feet once with a rolling wal ker and 70 feet minimum assistance. Was very sleepy, lethargic. He felt very weak and has significa nt bleeding during the therapy session and that was from the Briceño. With occupational therapy, the p atient was encouraged to eat breakfast, minimally participating to eat a small amount of egg, scoop o f eggs on a fork and he required significant verbal cues to continue drinking a small amount of juice when eating breakfast. He was dependent for toilet hygiene and changing his brief and bed. At [facility], attempted to feed him potatoes and he was too lethargic and could not grasp his fork to e at. With speech, unable to recall 1 picture after 30 seconds due to poor attention and lethargy. Or ganizational thinking addressed through divergent naming. He needed maximum verbal cues to name 1 it em per concrete category. Education was provided to family regarding his significant decline in cogn itive functioning likely attributed to his medical condition changing. Assessment: Mr. Jacques Apodaca is an 89-year-old patient in rehabilitation unit with exacerbation of c hronic kidney disease. He has urinary outflow tract obstruction, and he has some bleeding from the p enile area. He has poor participation. He is failing to thrive at this point. He requires addition al bladder evaluation and will be done by Dr. Amari Holt. At this point, the patient is not a go od candidate for any discharge and procedure to be done while the patient is still inpatient and he s hould be discharged to the acute care floor before those procedures can be done. Rehabilitation quit e appropriate for dose monitoring and procedures. A message was left for Dr. Perry on his voicemail r egarding this. In addition, the patient does have neuropathic pain, dementia, hypertension, dyslipid emia, urinary outflow tract obstruction, restless legs symptoms and now dehydration and malnutrition. Plan: We will continue for now with physical, occupational, and speech therapy. The patient again i s recommended for discharge to acute care for bladder procedure. We will continue with comorbid condition medications as managed by Dr. Perry and Dr. Amari Holt. HARITHA/CECI Voice ID: [id number] Report ID: [id number]
[2024-04-04 06:02] LABS: Absolute Eosinophils 0.1 K/uL (0-0.5); Absolute Lymphocytes (CBC) 0.4 K/uL (0.7-4.9); Absolute Monocytes 0.5 K/uL (0.1-1.3); Absolute Neutrophil 9.8 K/uL (1.8-8.0); Basophils % 0.2 % (0-1.3); Eosinophils % 0.9 % (0-4.4); Hemoglobin 7.4 g/dL (13.6-17.9); MCH 28.7 pg (27.0-35.0); MCHC 33.8 g/dL (32.0-36.0); MCV 85.1 fL (80-100); MPV 7.8 fL (7.6-11.3); Monocytes % 4.3 % (3.3-12.3); Neutrophils % 90.6 % (41.7-73.7); Nucleated Red Blood Cells % 0.1 % (0-0); Platelets 239 thou/uL (152-406); RBC Red Blood Cell Count 2.58 M/uL (4.33-5.43); Red Cell Distribution Width 16.5 % (12.1-15.2)
[2024-04-04 06:23] LABS: Anion Gap 10.9 mEq/L (5.0-15.0); Magnesium 3.5 mg/dL (1.6-2.4); Potassium 3.9 mEq/L (3.5-5.1)
[2024-04-04 07:25] VITALS: TEMP 97.8
[2024-04-04 09:10] VITALS: BP 118/61
[2024-04-04] MEDS ORDERED: GLUCERNA SHAKE 237 ML CAN PO SCH (20:00)
--- NOTE | 2024-04-05 21:30 | DS ---
Date of Discharge: 04/04/2024 Disposition: Discharged to go to medical floor from rehab floor. Physical Examination: HEENT: Unremarkable. Lungs: Clear to auscultation. Heart: Sounds normal. Abdomen: Soft. Bowel sounds normal. No guarding, rigidity, tenderness, distention. Extremities: No leg edema. External Genitalia: The patient has a Briceño catheter which is draining grossly hemorrhagic urine. Laboratory Data: Upon admission to rehab floor on March 31, 2024, sodium 136, potassium 3.7, chlor liborio 103, bicarb 26, BUN 83, creatinine 3.53, glucose 233. Last chemistry today, sodium 137, potassiu m 3.9, chloride 107, bicarb 23, BUN 102, creatinine 2.90, glucose 191. Yesterday, BUN was 105, creat inine was 3.40, sodium 136, potassium 4.2. For his CBC upon admission to rehab floor on 03/31/2024, WBC 9.4, hemoglobin 8.2, platelets 184, then hemoglobin went up to 9.1 on 04/02/2024, and last CBC to day, WBC shows 10.8, hemoglobin 7.4, platelets 232. Final Diagnoses: 1. Gross hematuria. 2. Acute kidney injury. 3. Chronic kidney disease stage 4. 4. Anemia due to acute blood loss. 5. Anemia due to chronic kidney disease. 6. Coronary artery disease. 7. Senile dementia. 8. Hypertension. 9. Type 2 diabetes. 10. Prostate cancer. 11. Osteoarthritis, multiple sites. Hospital Course: This is an 89-year-old pleasant male patient, who was [facility]. The patient's original admission to medical floor was because of gross hematuria and he had significant generalized weakness and debility, so he was admitted to rehab floor, where he received physical therapy under guidance of Dr. Chacon. His gross hematuria problem started to ge t worse again and Dr. Amari Holt, urologist, who had seen him on medical floor, was contacted by nursing staff per my request and he ordered some bladder irrigation and unfortunately his hematuria c ontinued to get worse and the patient's overall condition started to deteriorate where he was having worsening of his oral intake of food with not eating or drinking much. Not participating as well wit h physical therapy, getting more tired. With worsening of gross hematuria and worsening of his overa ll medical condition and now having acute blood loss anemia, decision was made to transfer him to [facility] floor for further management of this problems. ADALBERTO/MODL Voice ID: [id number] Report ID: [id number]
== END 2024-04-04 11:49 | disposition short-term general hospital (02) | DRG 948 ==
LOC: 5TH 13:59
PROVIDERS: ADMIT Internal Medicine; ATTEND Internal Medicine
DX: R53.81 Other malaise (principal); I13.0 Hypertensive heart and chronic kidney disease with heart failure and stage 1 through stage 4 chronic kidney disease, or unspecified chronic kidney disease; N18.4 Chronic kidney disease, stage 4 (severe); I50.32 Chronic diastolic (congestive) heart failure; N39.0 Urinary tract infection, site not specified; E46 Unspecified protein-calorie malnutrition; R44.3 Hallucinations, unspecified; N17.9 Acute kidney failure, unspecified; D62 Acute posthemorrhagic anemia; E11.22 Type 2 diabetes mellitus with diabetic chronic kidney disease; I73.9 Peripheral vascular disease, unspecified; E78.2 Mixed hyperlipidemia; C61 Malignant neoplasm of prostate; I25.10 Atherosclerotic heart disease of native coronary artery without angina pectoris; M15.9 Polyosteoarthritis, unspecified; F03.90 Unspecified dementia, unspecified severity, without behavioral disturbance, psychotic disturbance, mood disturbance, and anxiety; R31.0 Gross hematuria; J45.909 Unspecified asthma, uncomplicated; Z95.1 Presence of aortocoronary bypass graft; Z85.46 Personal history of malignant neoplasm of prostate; Z87.891 Personal history of nicotine dependence; R33.9 Retention of urine, unspecified; Z68.27 Body mass index [BMI] 27.0-27.9, adult; G25.81 Restless legs syndrome; N13.9 Obstructive and reflux uropathy, unspecified; D63.1 Anemia in chronic kidney disease
CPT/HCPCS: 36415; 74018; 80048; 82040; 82947; 83735; 83880; 84134; 85025; 92523; 94760; 97110; 97116; 97129; 97163; 97165; 97530; 97542; J7030

== ENCOUNTER 2024-04-04 12:06 | Inpatient (IN) | payer OTHER ==
[2024-04-04] MEDS: INSULIN REGULAR (HUMAN) 100 UNIT/ML SQ SCH (13:00)
[2024-04-04] MEDS ORDERED: NA CHLORIDE 0.9% 250 ML IV SCH (14:00)
[2024-04-04] MEDS: GABAPENTIN 100 MG CAP PO SCH (15:55)
[2024-04-04] MEDS: FUROSEMIDE 40 MG TABLET PO SCH (17:48)
[2024-04-04] MEDS: carvediloL 12.5 MG TAB PO SCH (17:48)
[2024-04-04] MEDS: ACETAMINOPHEN 500 MG TAB PO PRN (18:43)
[2024-04-04] MEDS: MEMANTINE HCL 10 MG TABLET PO SCH (20:49)
[2024-04-04] MEDS: ATORVASTATIN 40 MG TAB PO SCH (20:49)
[2024-04-04] MEDS: DONEPEZIL HCL 5 MG TAB PO SCH (20:49)
[2024-04-04] MEDS: PRAMIPEXOLE 0.25 MG TAB PO SCH (20:50)
[2024-04-04] MEDS: DOCUSATE NA/SENNA CONC 1 TAB PO SCH (20:50)
[2024-04-04 22:49] LABS: Hematocrit 24.7 % (39.6-49.0); Hemoglobin 8.6 g/dL (13.6-17.9)
[2024-04-05 06:12] LABS: Absolute Eosinophils 0.1 K/uL (0-0.5); Absolute Lymphocytes (CBC) 0.8 K/uL (0.7-4.9); Absolute Monocytes 0.6 K/uL (0.1-1.3); Absolute Neutrophil 6.7 K/uL (1.8-8.0); Basophils % 0.3 % (0-1.3); Eosinophils % 1.1 % (0-4.4); Hematocrit 25.6 % (39.6-49.0); Hemoglobin 8.8 g/dL (13.6-17.9); Lymphocytes % 9.7 % (15.3-44.8); MCHC 34.3 g/dL (32.0-36.0); MCV 84.5 fL (80-100); MPV 8.2 fL (7.6-11.3); Monocytes % 7.3 % (3.3-12.3); Neutrophils % 81.6 % (41.7-73.7); Nucleated Red Blood Cells % 0.1 % (0-0); Platelets 211 thou/uL (152-406); RBC Red Blood Cell Count 3.03 M/uL (4.33-5.43); Red Cell Distribution Width 15.4 % (12.1-15.2)
[2024-04-05 06:41] LABS: Anion Gap 11.6 mEq/L (5.0-15.0); Magnesium 3.5 mg/dL (1.6-2.4); Potassium 3.6 mEq/L (3.5-5.1)
--- NOTE | 2024-04-05 07:45 | HP ---
Date of Admission: 04/04/2024 Chief Complaint: Blood in urine. History Of Present Illness: This is an 89-year-old pleasant male patient, who was initially admitted to medical floor with gross hematuria and initially the patient received continuous bladder irrigation, then intermittent bladder irrigation, and once hematuria improved and Urology consultation was also obtained from Dr. Amari Holt during his last hospital stay and he was planning to do elective outpatient cystoscopy on him. The patient had a Briceño catheter in place as per instruction from Dr. Holt and he was sent to inpatient rehab floor. While he was on the rehab floor, he was receiving physical therapy and his gross hematuria problem got worse again and in last 24 hours, his appetite has gone down to the extent that he is not eating or drinking much and not doing much with physical therapy and today with worsening of his hematuria, which is even worse today than yesterday and drop in the hemoglobin, decision was made to transfer him to medical floor for further medical management. Allergies: HEPARIN CAUSING BLOOD CLOT AND THROMBOCYTOPENIA. CARVEDILOL CAUSINGLIP SWELLING. Medications: List reviewed. Review of Systems: Genitourinary: As mentioned above. Constitutional: Generalized weakness. All other systems reviewed are negative. Past Medical History: Significant for chronic diastolic heart failure; type 2 diabetes mellitus with chronic kidney disease; chronic kidney disease, stage 4; hypertension; peripheral vascular disease; mixed hyperlipidemia; anemia; prostate cancer; impaired memory; coronary artery disease; hypomagnesemia; osteoarthritis; multiple sites. Significant for senile dementia. Past Surgical History: Significant for coronary artery bypass surgery in 2003 and surgery on the left clavicle. Family History: Father , had diabetes. Mother , also had diabetes. Brother and sister, they . Brother had lung cancer, diabetes, and hypertension and sister had hypertension and diabetes. Social History: Prior history of smoking, not at present time. Use of alcohol,negative Physical Examination: Vital Signs: Height 5 feet 7 inches, weight 178 pounds, temperature , pulse , respiratory rate , blood pressure , oxygen saturation . General: Awake, alert, oriented, not in distress. HEENT: Head atraumatic, normocephalic. Conjunctivae nonerythematous. Sclerae white. Mouth, no thrush or edema noted. Ears/Nose, no mass, lesion, discharge noted. Neck: Supple. No JVD, lymph nodes, bruit, thyromegaly noted. Lungs: Bilateral good equal air entry. Clear to auscultation. No rhonchi. No rales. Heart: Normal heart sounds, no murmur or gallop. Abdomen: Soft, bowel sounds normal. No guarding, rigidity, tenderness, mass, hepatosplenomegaly, distention, or bruit noted. Extremities: No leg edema. No calf tenderness. Skin: No rash, ulcer, cellulitis. Lymphatics: No lymph node enlargement in neck, supraclavicular, infraclavicular region. Neuro: The patient is not oriented, does not answer any questions with any meaningful answers, and has significant generalized weakness. Chest: Unremarkable. External Genitalia: The patient has Briceño catheter in place draining matthews- colored urine. Rectal: Deferred. Laboratory Data: Today, WBC 10.8, hemoglobin 7.4, platelets 239. Sodium 137, potassium 3.9, chloride 107, bicarb 23, BUN 102, creatinine 2.90, glucose 191. Impression: 1. Acute blood loss anemia. 2. Gross hematuria. 3. Acute kidney injury. 4. Chronic kidney disease stage 4. 5. Anemia due to chronic kidney disease. 6. Diverticulosis. 7. Gallstones. 8. Senile dementia. 9. Hypertension. 10. Type 2 diabetes mellitus with chronic kidney disease. 11. Mixed hyperlipidemia. 12. Coronary artery disease. 13. Osteoarthritis, multiple sites. 14. Prostate cancer. Plan: We will go ahead and admit the patient to acute medical floor and discharge the patient from inpatient rehab to medical floor. We will consult urologist, Dr. Amari Holt, for this worsening of the gross hematuria problem as the patient will need cystoscopy at an early stage with this worsening problem of hematuria. Continue to provide bladder irrigation as per instruction from Dr. Holt. We will continue cephalexin that he has recommended, which the patient has been getting all along while on the rehab floor. Further plan of treatment for gross hematuria will depend on cystoscopy finding, but our concern is if we are dealing with bladder cancer or some other etiology. The patient is not on any blood thinner medication. Coronary artery disease problem is stable at this time and no need for further intervention. Senile dementia will not require any further intervention. For hypertension, we will continue medication per order. Monitor blood pressure and adjust medication if it becomes necessary. For diabetes, we will continue to provide insulin as per order and no need for further intervention. For chronic kidney disease, we will continue to monitor his renal function and will not require any further intervention. For acute kidney injury problem, since the patient's oral intake of food and liquids has gone down in last 2 to 3 days, the patient was given 1 L of IV fluid overnight last night on the rehab floor and that has shown some improvement in his renal function and we will continue to monitor that and make necessary treatment plan depending on his renal function. I did call Dr. Holt and discussed details with him today regarding the patient being transferred to medical floor from inpatient rehab with this worsening of hematuria and drop in the hemoglobin, for which the patient will require 1 unit of blood transfusion which was ordered and we will follow up on post transfusion hemoglobin as well. Dr. Holt is planning to do cystoscopy tomorrow. I also called the patient's son today and discussed with him regarding details requiring the patient to be transferred from rehab to medical floor with worsening of hematuria and drop in his hemoglobin will require blood transfusion as well as very poor overall prognosis and the patient's son also has seen same thing that I have seen lately and that is worsening of his condition and concern about ongoing rapid decline in the near future and after cystoscopy gets done, we will discuss regarding findings and further plan of treatment, but my recommendation is for the patient to go home with hospice care upon discharge from the hospital. The patient's and family does not want him to go to detention and they do not want him to go on dialysis as per my discussion with the patient's son, so hospice care would be probably the best option for him upon discharge from the hospital and the patient's son will start this communication with other family members. I will see him tomorrow for followup. Total time spent today was 35 minutes including review of last hospital admission records from 03/27/2024, review of rehab records including all the lab data, communication with urologist and communication with family member, and performing today's evaluation and management. I will see him tomorrow for followup. ADALBERTO/MODL Voice ID: [id number]
[2024-04-05] MEDS: FE SULF/FA/VIT B COMP & C TAB PO SCH (08:00)
[2024-04-05] MEDS: CEPHALEXIN 250 MG CAP PO SCH (09:00)
[2024-04-05] MEDS: MAGNESIUM OXIDE 400 MG TAB PO SCH (09:00)
[2024-04-05] MEDS: OXYBUTYNIN ER 5 MG TAB PO SCH (09:00)
[2024-04-05] MEDS: NIFEDIPINE XL 60 MG TABLET PO SCH (11:49)
[2024-04-05] MEDS: ISOSORBIDE MONO SR 30 MG TAB PO SCH (11:50)
[2024-04-05] MEDS: NA CHLORIDE 0.9% 1,000 ML ONE (13:00)
[2024-04-05] MEDS ORDERED: CEFEPIME 1 GM in NA CHLORIDE 0.9% 100 ML IV STA (13:31)
[2024-04-05] MEDS ORDERED: ONDANSETRON 4 MG/2 ML VIAL ONE ×2 (13:31→13:33)
[2024-04-05] MEDS ORDERED: propofoL 200 MG/20 ML VIAL IV ONE ×3 (13:32→14:37)
[2024-04-05] MEDS ORDERED: FENTANYL CITR 100 MCG/2 ML ONE (13:32)
[2024-04-05] MEDS ORDERED: LIDOCAINE 1% MPF 5 ML VIAL ONE ×2 (13:33)
[2024-04-05] MEDS: CEFEPIME 1 GM in NA CHLORIDE 0.9% 100 ML IV ONE (13:40)
[2024-04-05] MEDS ORDERED: ROCURONIUM 50 MG/5 ML VIAL IV ONE (13:52)
--- NOTE | 2024-04-05 15:02 | P.OP ---
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 03/20/2024 voided urine sent for cytology/FISH-negative for high-grade urothelial carcinoma but positive for inflammation 03/20/2024 PSA 0.20 03/27/2024 WBC 9.2, hemoglobin 10.8 repeated 9.6, hematocrit 31.1 repeated 28.0, platelets 226 repeated 201, creatinine 3.02 with EGFR 19, alkaline phosphatase 141 mildly elevated, UA micro 3+ heme, over 50 RBCs per hpf, 10-20 WBCs per hpf, negative nitrites, negative leukocyte esterase. Prior CT 02/04/24 without contrast revealed the presence of prominent sigmoid diverticulosis and a 15 mm soft tissue lesion in the left aspect of the bladder. The kidneys were normal without hydronephrosis. 02/04/2024 chest x-ray revealed no acute abnormalities 02/04/2024 urine culture was no growth 03/27/2024 CT repeated in the emergency department without IV contrast: Kidneys and ureters without stones. Prominent bilateral renal collecting systems without hydronephrosis or ureteral stone identified. Impression: Hyperdense urine consistent with gross hematuria and/or clot, increased compared with the prior study. Briceño catheter in the bladder. Colonic diverticulosis. Cholelithiasis. No pathologically enlarged lymph nodes. Degenerative changes in the spine with scoliosis as well as in the hips. 03/27/24 Bladder irrigation, urethral Briceño catheter exchange, and CBI reinitiation completed with complete clarification of his urine. 04/03/2024 bladder irrigation completed q4h manual irrigations completed by nursing, and despite absence of obstruction of the catheter or difficulty irrigating, the hematuria has failed to clear significantly. -Patient started on IV fluids 04/04/2024 transferred back to the inpatient unit and received PRBCs for relative anemia. Persistent gross hematuria. Diagnosis: Recurrent/refractory gross hematuria with clot urinary retention in the setting of CKD stage IV Procedure note: The patient's was consented in the preoperative holding area before being transferred to the operative suite where anesthesia was induced using an LMA. He was given cefepime 1 g IV antimicrobial prophylaxis given his inpatient stays and bladder irrigation and risk for nosocomial organisms. Pneumoboots were provided to his right lower extremity for DVT prophylaxis but not to the left because of a history of DVT. He was placed in the lithotomy position, padded and secured appropriately given his frozen joints and significant immobility. The indwelling urethral Briceño catheter was removed, and significant fecal contamination of the perineum was present. I thus cleansed his perineum with a Hibiclens brush sponge for scrubbing and rinsed away any debris before his genitalia was prepped with Hibiclens and draped in standard fashion. Using a 26 Romanian bipolar Olympus resectoscope and normal saline, his urethra was traversed and I navigated through some clot present within the prostatic urethra ultimately through some interdigitating lateral lobar hypertrophy and an elevated median bar to into the bladder with relative ease. Immediately, a larg e clot burden was observed; so I removed the visual obturator to see if the bladder would decompress any. It did not significantly; so using an Ilich evacuator, I began multiple rounds of aggressive iliac irrigation removing a large burden of clot. Approximately 400 to 450 cc of clot burden was removed. Most of the irrigation was done with normal saline, but 1 bit of irrigation was done using sterile water. When I was finally able to visualized around the bladder, I surveyed the mucosa in its entirety in great detail on multiple occasions looking for any sign of bladder tumor. None was seen. No foreign body or stone was noted within the bladder. However within the region of the prostatic urethra and the bladder neck largely anteriorly, there was significant neovascularization and persistent oozing coming from those sites. As a result, I switched the visual obturator for a thin bipolar loop and began to fulgurate the entirety of the anterior bladder neck region that was oozing and the bladder neck laterally and inferiorly. Because there was not intravesically projecting component of the median lobe that was also bleeding slightly, I resected this down to the level of the trigone. I then carefully fulgurated the resected base and then continued fulgurating into the prostatic fossa where the mucosa was bleeding all the way past the verumontanum and including anteriorly in the region of the striated sphincter at the dorsal venous complex. Extensive fulguration was required, but in the end, after removing the prostate chips and sending them for pathologic analysis, the fluid was crystal clear. I also visualized the ureteral orifices, and they were uninjured throughout this process. There was no bleeding from within the bladder, and the prostatic fossa was now hemostatic. As a result, I left the bladder full and remove the resectoscope, replacing it with a 22 Romanian three-way Briceño catheter. I placed 50 cc of sterile water in the balloon and the catheter was connected to CBI using normal saline. The patient was taken out of the lithotomy position and the catheter was secured to his left upper thigh on moderate traction. The urine remained crystal-clear; so he was transferred to a hospital bed and then transferred to the recovery room in good condition. Complications: None Discharge disposition: We will leave the catheter on traction for the next 1 hour while weaning the CBI to keep the urine minimally pink to crystal-clear. After 1 hour, we will take down the traction, and continue to wean CBI. Once the urine has remained clear on slow drip (less than 1 drop/s) CBI for an hour, CBI may be held. If it remains clear once held for 1 hour, CBI may be clamped and the infusion port for the CBI may be capped. He should then be discharged home with a catheter in place, and we will arrange a voiding trial as an outpatient within the next 7 to 14 days after he has had a period of bladder rest. Continue Flomax and Ditropan 10 mg extended release while the catheter is in place, but stop the Ditropan 24 hours prior to scheduled voiding trial in the urology clinic. We will arrange for the patient to have a PSA done subsequently, but no sooner than likely 4 to 6 weeks from today.
[2024-04-05] MEDS ORDERED: CODEINE 30MG/APAP 300MG TAB PO PRN (15:05)
--- NOTE | 2024-04-05 15:21 | PN ---
Date of Progress Note: 04/05/2024 Subjective: The patient was seen this morning for followup. He was lying in bed, not in distress. His and oubcqjiy-rq-poc were present with him at bedside. No new complaints or problems reporte d by family. He continues to have significant problem with gross hematuria. His urine looks as dark matthews colored as yesterday. Objective: HEENT: Unremarkable. Lungs: Clear to auscultation. Heart: Sounds normal. Abdomen: Soft. Bowel sounds normal. No guarding, rigidity, tenderness, distention. Extremities: No leg edema. Laboratory Data: White count 8.2, hemoglobin 8.8, platelets 211. Sodium 142, potassium 3.6, chlorid e 110, bicarb 24, BUN 87, creatinine 2.72, glucose 174. Impression: 1. Gross hematuria. 2. Acute blood loss anemia. 3. Acute kidney injury. 4. Chronic kidney disease, stage 4. 5. Hypertension. 6. Diabetes mellitus. 7. Senile dementia. Plan: We will continue current diabetes and blood pressure management. The patient is n.p.o. We wi ll continue IV fluid, which is low maintenance fluid while the patient is n.p.o. for cystoscopy proce dure today with Dr. Holt and after the procedure, we will communicate with Dr. Holt and then co mmunicate with family regarding further plan of treatment. I had a detailed discussion with the patient's son last night, and I did talk to the patient's briefly who was in the room with adal palomares today. ADALBERTO/MODL Voice ID: [id number] Report ID: [id number]
[2024-04-05] MEDS: MORPHINE 4 MG/ML SYR ONE (15:22)
[2024-04-05 17:11] LABS: Hematocrit 28.2 % (39.6-49.0); Hemoglobin 9.5 g/dL (13.6-17.9)
[2024-04-05] MEDS: D5 0.9 NS 1,000 ML IV SCH (21:57)
[2024-04-06 08:53] LABS: Absolute Eosinophils 0.1 K/uL (0-0.5); Absolute Lymphocytes (CBC) 0.7 K/uL (0.7-4.9); Absolute Monocytes 0.6 K/uL (0.1-1.3); Absolute Neutrophil 10.5 K/uL (1.8-8.0); Basophils % 0.3 % (0-1.3); Eosinophils % 0.5 % (0-4.4); Hematocrit 24.2 % (39.6-49.0); Lymphocytes % 6.2 % (15.3-44.8); MCH 28.5 pg (27.0-35.0); MCHC 33.2 g/dL (32.0-36.0); MCV 85.8 fL (80-100); MPV 7.7 fL (7.6-11.3); Monocytes % 5.1 % (3.3-12.3); Neutrophils % 87.9 % (41.7-73.7); Platelets 223 thou/uL (152-406); RBC Red Blood Cell Count 2.82 M/uL (4.33-5.43); Red Cell Distribution Width 15.8 % (12.1-15.2)
[2024-04-06 09:00] LABS: Anion Gap 10.7 mEq/L (5.0-15.0); Magnesium 2.8 mg/dL (1.6-2.4); Potassium 3.7 mEq/L (3.5-5.1)
[2024-04-06 09:56] LABS: Blood Morphology Comment NOT SEEN (NOT SEEN); Platelet Estimate ADEQ; White Blood Cell Scan OK (OK)
--- NOTE | 2024-04-06 12:06 | PN ---
Date of Progress Note: 04/06/2024 Subjective: The patient was seen this morning for followup. No new complaints or problems reported by the patient. He was happy smiling this morning, looking a lot better than what he has in last sev eral days. was with him at bedside and she was trying to feed him breakfast. No new complaints or problems reported. Objective: Vital Signs: Reviewed. HEENT: Unremarkable. Lungs: Clear to auscultation. Heart: Sounds normal. Abdomen: Soft. Bowel sounds normal. No guarding, rigidity, tenderness, or distention. Extremities: No leg edema. External Genitalia: Briceño catheter in place draining clear yellow urine. Impression: 1. Acute kidney injury. 2. Gross hematuria. 3. Prostate cancer. 4. Hypertension. 5. Diabetes mellitus with chronic kidney disease. 6. Senile dementia. Plan: We will go ahead and consult Physical Therapy to help ambulate the patient. Operative report findings from yesterday reviewed. We will continue to follow with urologist and continue current ant ihypertensive medication and diabetes management and I have requested Social Service consultation to see if the patient can go back to inpatient rehab if possibl e for his therapy. ADALBERTO/MODL Voice ID: [id number] Report ID: [id number]
[2024-04-06 16:27] LABS: Hematocrit 23.7 % (39.6-49.0)
[2024-04-07] MEDS: FUROSEMIDE 40 MG TABLET PO SCH (08:55)
[2024-04-07] MEDS: ISOSORBIDE MONO SR 60 MG TAB PO SCH (08:56)
--- NOTE | 2024-04-07 14:47 | PN ---
Date of Progress Note: 04/07/2024 Subjective: Patient was seen this morning for followup. He was lying in bed. When I entered his r oom, he had his eyes opened and smiling. He does not answer any specific questions. Not in any resp iratory distress. The patient's son was present with him who spend last night and the patient did no t have any complaints specifically last night except some pain in the bladder area with a Briceño kaylah ter in place which is draining clear yellow urine since he had procedure done by Dr. Holt, grace correia yesterday. Objective: Vital Signs: Reviewed. General: The patient's son informed me that his appetite is very poor and all day yesterday he just had 4 pieces of peach. Otherwise, he did not eat or drink anything all day yesterday. HEENT: Unremarkable. Lungs: Clear to auscultation. Heart: Sounds normal. Abdomen: Soft. Bowel sounds normal. No guarding, rigidity, tenderness, distention. Extremities: No leg edema. Impression: 1. Acute kidney injury. 2. Prostate cancer. 3. Gross hematuria. 4. Failure to thrive. 5. Hypertension. 6. Diabetes mellitus with chronic kidney disease. 7. Generalized weakness. 8. Debility. 9. Senile dementia. 10. Coronary artery disease. 11. Chronic diastolic heart failure. Plan: We will go ahead and continue current medical management. Family will continue to try to enco urage him to eat but without adequate nutrition and hydration, his overall prognosis is very poor and I did inform patient's son who was in the room regarding my recommendation of hospice care. The richy shultz will not be able to go up to fifth floor which is inpatient rehab which will require him to do 5 hours a day of rehab therapy which unfortunately he is not able to do so right now and few days ago, I did have a discussion with the patient's son regarding hospice care recommendation and I did call him again today after visiting patient and discussed all these details with him and suggested him to have communication with rest of the family members to see if family is agreeable to go home with hosp ice care because family does not want him to go to group home and they do not want him to have a di alysis. So in my opinion going home with hospice care would be the best option for him and family wi ll have this discussion today and the patient's son, I will communicate with him again tomorrow, so h rod can inform me of family's decision. ADALBERTO/CECI Voice ID: [id number] Report ID: [id number]
[2024-04-08 06:20] LABS: Absolute Eosinophils 0.2 K/uL (0-0.5); Absolute Monocytes 0.6 K/uL (0.1-1.3); Absolute Neutrophil 9.8 K/uL (1.8-8.0); Basophils % 0.3 % (0-1.3); Eosinophils % 1.4 % (0-4.4); Hematocrit 24.1 % (39.6-49.0); Hemoglobin 8.3 g/dL (13.6-17.9); Lymphocytes % 8.6 % (15.3-44.8); MCHC 34.4 g/dL (32.0-36.0); MCV 84.3 fL (80-100); MPV 8.1 fL (7.6-11.3); Monocytes % 5.4 % (3.3-12.3); Neutrophils % 84.3 % (41.7-73.7); Platelets 224 thou/uL (152-406); RBC Red Blood Cell Count 2.85 M/uL (4.33-5.43); Red Cell Distribution Width 15.9 % (12.1-15.2)
[2024-04-08 07:24] LABS: Anion Gap 11.6 mEq/L (5.0-15.0); Magnesium 3.2 mg/dL (1.6-2.4); Potassium 3.6 mEq/L (3.5-5.1)
[2024-04-09 01:53] VITALS: O2SAT 97
[2024-04-09 08:18] VITALS: TEMP 97.6
[2024-04-09 12:48] VITALS: BP 141/57
[2024-04-09 14:02] VITALS: BMI 27.7
--- NOTE | 2024-04-09 14:19 | PN ---
Date of Progress Note: 04/08/2024 Subjective: The patient was seen for followup this morning. He was lying in bed, not in any distres s. There were no family members at bedside. He was smiling at me when I walked into his room and wh en I asked him how he was feeling, he said fine and did not have any specific complaints. Objective: Vital Signs: Reviewed. HEENT: Unremarkable. Lungs: Clear to auscultation. Heart: Sounds normal. Abdomen: Soft. Bowel sounds normal. No guarding, rigidity, tenderness, distention. Extremities: No leg edema. External Genitalia: Briceño catheter in place, draining clear yellow urine. Laboratory Data: WBC 11.6, hemoglobin 8.3, platelets 224. Sodium 136, potassium 3.6, chloride 102, bicarb 26, BUN 79, creatinine 2.93, glucose 201. Impression: 1. Acute kidney injury. 2. Volume depletion. 3. Chronic diastolic heart failure. 4. Coronary artery disease. 5. Prostate cancer. 6. Hematuria. 7. Hypertension. 8. Diabetes mellitus with chronic kidney disease. Plan: We will go ahead and continue current medication. Continue to keep the Briceño catheter per uro logist. The patient's overall condition is declining. He is not eating well and has significant gen eralized weakness. Now he is practically bedbound. With his declining condition, his prognosis is p oor and I did call the patient's son this morning, communicated with him regarding all the details, a nd we did talk about hospice care. At this time, my recommendation is for him to consider to put the patient on hospice care, which he is agreeable to do so and he has communicated with the patient's w kym. After my discussion, also requested Social Service to reach out to the patient's son to make ar rangements for hospice care. Family does not want him to go to penitentiary and they do not want any dialysis, so in my opinion, his prognosis is poor, life expectancy is less than 6 months, and he is appropriate candidate for hospice care. If arrangements get made, he can possibly get discharged [facility] to go home tomorrow with hospice care. I also communicated with the patient's son and inf ormed him that once he goes on hospice care, his Briceño catheter can be either kept in the bladder or can be removed as per instruction from Dr. Holt, as it will be very difficult for family to transp ort him back to his office for appointments. ADALBERTO/MODL Voice ID: [id number] Report ID: [id number]
--- NOTE | 2024-04-10 06:19 | DS ---
Date of Discharge: 04/09/2024 Disposition: Discharged to go home with hospice care. Physical Examination: HEENT: Unremarkable. Lungs: Clear to auscultation. Heart: Sounds normal. Abdomen: Soft. Bowel sounds normal. No guarding, rigidity, tenderness, or distention. Extremities: No leg edema. Laboratory Data: Last CBC from 04/08/2024, WBC 11.6, hemoglobin 8.3, platelets 224. Initial CBC fro m April 05 showed WBC 8.2, hemoglobin 8.8, platelets 211. Last chemistry from April 08, 2024, sodium 136, potassium 3.6, chloride 102, bicarb 26, BUN 79, creatinine 2.93, glucose 201. Initial ch emistry, sodium 142, potassium 3.6, chloride 110, bicarb 24, BUN 87, creatinine 2.72, glucose 174. Hospital Course: This is an 89-year-old pleasant male patient who was initially admitted to medical floor with gross hematuria. Then, after he was stabilized, he was sent to inpatient rehab floor. Af ter few days of stay on rehab floor, his hematuria problem got worse and his overall condition got wo rse, so he was brought to medical floor on April 04, 2024 for this admission. The patient received 1 unit of PRBC blood transfusion because his hemoglobin was 7.4, and after that he did not require a ny more blood transfusion. Dr. Amari Holt from Urology Service was consulted. He took the patie nt to surgery last week on Monday and did cystoscopy. During the procedure, he did not find evidence of any bleeding from the bladder or any evidence of bladder tumor, but he found bleeding from prosta tic urethra and he fulgurated this area and prostate biopsy was done, result is still pending. After the cystoscopy procedure and intervention that Dr. Holt provided, the patient has not had any mor e bleeding at all. His urine is clear, yellow. Briceño catheter is in place as per instruction from Reanna Holt. Dr. Holt recommended for the patient to go to his office on outpatient basis for julieta leonie of Briceño catheter, but meanwhile, the patient's condition has continued to decline during this ho spitalization, where he is now bedbound. Has very poor appetite. Eating and drinking much less comp ared to before. With that in mind, I had a long discussion with the patient's family, that is the pa tient's son and , and the patient's son was contacted multiple times to communicate details. The patient has chronic kidney disease stage 4 with acute kidney injury that we noted during this hospit alization, and in the future, his kidney function will deteriorate with time or due to any other medi galindo problems, but family does not want any dialysis support and they do not want him to go to correction, so I did recommend hospice care. After family discussion, the patient's son informed me that they are in agreement with hospice care, so Social Service was consulted to make arrangements for hos pice care. Once all arrangements were completed, today the patient was discharged to go home and the hospice will take over his care. His overall prognosis is poor. His life expectancy is less than 6 months if disease continues to progress the way I expect it to do so, and all these details were di scussed with the patient's son. Final Diagnoses: 1. Acute blood loss anemia. 2. Gross hematuria. 3. Acute kidney injury. 4. Prostate cancer. 5. Chronic kidney disease stage 4. 6. Anemia due to chronic kidney disease. 7. Coronary artery disease. 8. Chronic diastolic heart failure. 9. Gallstones. 10. Hypertension. 11. Senile dementia. 12. Type 2 diabetes mellitus with chronic kidney disease. 13. Mixed hyperlipidemia. 14. Osteoarthritis, multiple sites. Discharge Medications And Instructions: 1. The patient to be admitted to hospice care and hospice medical coding specialist to take over his care. 2. Briceño catheter care. 3. Cephalexin 250 mg twice a day for 2 weeks. 4. Carvedilol 12.5 mg 2 times a day. 5. Nifedipine 30 mg daily. 6. Furosemide 40 mg twice a day. 7. Gabapentin 100 mg 3 times a day. 8. Stop aspirin, clopidogrel, donepezil, memantine, atorvastatin, insulin, losartan, hydralazine, gli pizide, isosorbide. 9. Hospice nurse to communicate with Dr. Holt regarding removal of Briceño catheter. Total time spent 45 minutes. ADALBERTO/MODL Voice ID: [id number] Report ID: [id number]
== END 2024-04-09 13:52 | disposition hospice, home (50) | DRG 696 ==
LOC: 4TH 12:06
PROVIDERS: ADMIT Internal Medicine; ATTEND Internal Medicine
PROC: 30233N1 Transfusion of Nonautologous Red Blood Cells into Peripheral Vein, Percutaneous Approach (ICD-10-PCS; 2024-04-04)
PROC: 0VB04ZX Excision of Prostate, Percutaneous Endoscopic Approach, Diagnostic (ICD-10-PCS; 2024-04-05)
PROC: 0TCB8ZZ Extirpation of Matter from Bladder, Via Natural or Artificial Opening Endoscopic (ICD-10-PCS; principal; 2024-04-05 13:00)
DX: R31.0 Gross hematuria (principal); I13.0 Hypertensive heart and chronic kidney disease with heart failure and stage 1 through stage 4 chronic kidney disease, or unspecified chronic kidney disease; D62 Acute posthemorrhagic anemia; I50.32 Chronic diastolic (congestive) heart failure; N18.4 Chronic kidney disease, stage 4 (severe); N17.9 Acute kidney failure, unspecified; E11.22 Type 2 diabetes mellitus with diabetic chronic kidney disease; E11.51 Type 2 diabetes mellitus with diabetic peripheral angiopathy without gangrene; D63.1 Anemia in chronic kidney disease; E86.9 Volume depletion, unspecified; E78.2 Mixed hyperlipidemia; I25.10 Atherosclerotic heart disease of native coronary artery without angina pectoris; M19.09 Primary osteoarthritis, other specified site; K80.20 Calculus of gallbladder without cholecystitis without obstruction; K57.90 Diverticulosis of intestine, part unspecified, without perforation or abscess without bleeding; F03.90 Unspecified dementia, unspecified severity, without behavioral disturbance, psychotic disturbance, mood disturbance, and anxiety; R33.8 Other retention of urine; Z88.8 Allergy status to other drugs, medicaments and biological substances; Z85.46 Personal history of malignant neoplasm of prostate
CPT/HCPCS: 36415; 80048; 82947; 83735; 85014; 85018; 85025; 86850; 86900; 86901; 86920; 88305; 97161; 97530; J0692; J2003; J2405; J2704; J3010; J7030; J7042; J7050; P9016